=== PATIENT | female | born 1955 | race Caucasian/White ===

== ENCOUNTER 2016-09-25 16:52 | Emergency (ER) | payer MEDICARE, MEDICAID ==
[~2016-09-25] VITALS: Ht 162.6 cm; Wt 81.6 kg
[~2016-09-25 16:52] MED LIST: ASPIRIN CHILDRE81 MG PO; ASPIRIN81 MG PO; ASPRIN OR; BENADRYL 25MG C25 MG PO; BENADRYL 50MG C50 MG; BENTYL10 MG PO; BREO ELLIPTA1 POW IH; BUDEPRION XL150 MG PO; BUPROPION HCL150 M2 PO; BUPROPION XL150 MG PO; CIPRO 500MG TA500 MG PO; CLINDAMYCIN HC300 MG PO; CLOTRIMAZOLE 1%15 GM; CYCLOBENZAPRINE10 MG PO; DICLOFENAC 50MG50 MG PO; DICLOFENAC SOD75 MG PO; DOXYCYCLINE HY100 M3 PO; DUONEB 3 MG/3 ML3 ML IH; FAMOTIDINE 20MG20 MG PO; FAMOTIDINE20 MG PO; FLEXERIL10 M1 PO; FLEXERIL10 MG PO; FLUOXETINE HCL20 M1 PO; FLUOXETINE HCL40 MG PO; FLUOXETINE20 MG PO; FLUOXETINE40 MG PO; HEARTBURN RELIE20 MG PO; HYDROXYZINE HCL25 M1 PO; KEFLEX 500MG.500 MG PO; LEVOTHYROXINE0.05 MG NG; LEVOTHYROXINE0.05 MG PO; LEVOTHYROXINE0.1 M2 PO; LISINOPRIL 20MG20 MG PO; LISINOPRIL HCTZ1 TAB PO; LISINOPRIL/HCTZ1 TA3 PO; LODINE200 MG PO; LORTAB 5/500 501 TAB PO; LOVASTATIN20 MG PO; MEDROL 4MG. DOSE4 MG PO; MOTRIN 400MG.400 MG PO; MULTI VITAMINS1 TA1 PO; MULTI VITAMINS1 TAB PO; MULTIVITAMIN1 TA1 PO; NAPROSYN 500MG500 MG PO; NEURONTIN800 MG PO; OXYBUTYNIN CHLOR5 MG PO; OXYBUTYNIN5 MG PO; OXYGEN XX; PERCOCET 10 MG1 EACH PO; PERCOCET 325 MG1 TA4 PO; PERCOCET 650 MG1 TAB PO; PHENERGAN 25MG.25 M1 PO; PHENERGAN25 M3 PO; PRAVACHOL 40MG40 MG PO; PRAVASTATIN40 MG PO; PRILOSEC40 MG PO; Pepcid20 MG PO; ROBAXIN-750750 MG PO; SILVADENE400 GM/JAR EX; ST. JOSEPH81 M1 PO; SYNTHROID 0.00.05 MG PO; TORADOL10 MG PO; TRAMADOL50 M1 PO; TRAZADONE HYDR100 MG PO; TRAZODONE100 MG; TRAZODONE100 MG PO; URECHOLINE 25MG25 MG PO; VIBRAMYCIN 100100 MG PO; VICODIN 5/500 T1 TAB PO; VITAMIN D31000 I1 PO; VOLTAREN75 MG PO; [UNRECOGNIZED DRUG - OTHER] PO
[2016-09-25] MEDS ORDERED: CYCLOBENZAPRINE10 MG PO (17:07)
[2016-09-25] MEDS ORDERED: VENTOLIN H0.09 MG/AC IH (17:09)
[2016-09-25] MEDS ORDERED: BREO ELLIPTA1 POW IH (17:09)
--- OUTSIDE RECORDS SUMMARY | 2016-09-25 17:12 | External Medical Summary Rpt ---
Author Author , Organization [employer] Address Unknown Phone Unavailable Care Team Providers Care Senior System Operator Name Role Phone JHAVERI FABY, JHAVERI Unavailable Unavailable FABY [facility] Unavailable Unavailable [place], [facility] [facility] ALLRAN JR LIBAN, ALLRAN Unavailable Unavailable JR LIBAN HANNA STOUT, Unavailable Unavailable HANNA DARBY MD, PSC, Unavailable Unavailable NATHAN DARBY MD, PSC [facility] Unavailable [facility] SIENA WREN Unavailable Unavailable WREN KAT, WREN Unavailable Unavailable TRAVIS FELDMAN, Unavailable Unavailable ,PSC, SIENA FELDMAN MD,PSC BEIS[place]KE [place], FRANK Unavailable Unavailable [place] OROZCO ALL, OROZCO ALL Unavailable Unavailable [facility] Unavailable Unavailable BUX ANJ, BUX ANJ Unavailable Unavailable CHIPPS ANNA & Unavailable Unavailable DUBILIER, CHIPPS ANNA [facility] DUBILIER SONG LEANDER, SONG Unavailable Unavailable LEANDER FIONA ALLISON, Unavailable Unavailable FIONA ALLISON [facility] Unavailable Unavailable [facility] ADHIKARI LAYNE, ADHIKARI LAYNE Unavailable Unavailable DUFF VANESA, DUFF VANESA Unavailable Unavailable [facility], [facility] Unavailable Unavailable [facility], [facility] Unavailable Unavailable [facility] Unavailable Unavailable [facility], [facility] Unavailable Unavailable [facility], [facility] KEARNS MOY, KEARNS Unavailable Unavailable MOY CRISTIAN ROSA MARIA, CRISTIAN Unavailable Unavailable ROSA MARIA [facility] Unavailable Unavailable INC, [facility] Unavailable Unavailable HOSPITAL P, [facility], [facility]available Unavailable [facility] Unavailable Unavailable [facility] Unavailable Unavailable [facility], [facility] RACHAEL MANNINGO, RACHAEL IMELDA Unavailable Unavailable BULLOCK ALLISON, BULLOCK ALLISON Unavailable Unavailable [facility] Unavailable Unavailable [facility], [facility] Unavailable Unavailable [facility] ETTA CRI, ETTA CRI Unavailable Unavailable KORY LALA, KORY LALA Unavailable Unavailable CLEO JR DWI, CLEO Unavailable Unavailable JR DWI GARCIA RYLAN, GARCIA Unavailable Unavailable RYLAN LOPEZ JAM, Unavailable Unavailable LOPEZ JAM [facility] Unavailable Unavailable LLC, [facility], [facility] Unavailable Unavailable [facility], Unavailable Unavailable [facility] Unavailable [facility] Unavailable [facility] RICHEY SEA, RICHEY SEA Unavailable Unavailable PAVEZ MAR, PAVEZ MAR Unavailable Unavailable ANN PITER, ANN PITER Unavailable Unavailable PETTEY JAM, PETTEY Unavailable Unavailable JAM RAYBON, RAYBON Unavailable Unavailable ROZ TOD, ROZ TOD Unavailable Unavailable YANG GAV, YANG GAV Unavailable Unavailable SCIFRES, SCIFRES Unavailable Unavailable [facility] Unavailable Unavailable [facility], [facility] Unavailable Unavailable [facility], [facility] ERYN SHE, Unavailable Unavailable ERYN SHE GOODMAN VANESA, GOODMAN Unavailable Unavailable VANESA [facility], Unavailable Unavailable [facility] Camron Meadows MD, Unavailable Unavailable Camron Meadows MD AMBER PHI, AMBER PHI Unavailable Unavailable [facility], Unavailable Unavailable [facility] Unavailable Unavailable DEPT [facility] Unavailable Unavailable DEPT [facility] BERTHA TRA, Unavailable Unavailable BERTHA TRA DWYER, DWYER Unavailable Unavailable DWYER MAR, DWYER MAR Unavailable Unavailable [facility] Unavailable Unavailable [facility] [place], [facility] [place] FELDMAN PET, FELDMAN Unavailable Unavailable PET [facility], Unavailable Unavailable [facility] Purpose Continuity of Care Document - 08-04-2012 through 2016 Problems Code Diagnosis DOS Provider Status [id number] SPONDYLOSIS 08-29-2016 SIENA W/O FRANCIA MYELOPATH/R ,PSC ADICULOPATH Y LUMB RGN 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-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 SIENA 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 USE GAMAL FELDMAN MD,PSC ANALGESIC 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 J301 ALLERGIC 07-22-2016 [facility]IS [facility] DUE TO [place] POLLEN J3081 ALLERG 07-22-2016 [facility] D/T ANIMAL [place] CAT DOG HAIR & DANDER J3089 OTHER 07-22-2016 [facility] [place] 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-02-2016 SIENA INTERVMARIANN ZUNIGA MD,PSC DEGEN LUMBAR REGION [id number] ADVERS EFF 06-11-2016 [facility] OTH RX MEDS [facility] BIO [place] SUBSTANCES INIT ENC Z720 TOBACCO USE 06-11-2016 [facility] [place] H2513 AGE-RELATED 06-06-2016 [facility] NUC[facility] CAT[facility]ACT [facility]ENTER BILATERAL M810 AGE-RELATED 04-30-2016 ELICEO MEDINA MD,PSC S W/O CURRNT PATH FX J440 COPD WITH 04-02-2016 [facility] ACUTE LOWER [facility] [place] RESPIRATORY INFECTION J4530 MILD 04-02-2016 [facility] PERSISTENT [facility] ASTHMA [place] UNCOMPLICAT ED Z889 ALLERGY 04-02-2016 [facility] STATUS UNS [facility]NERS OF RX MEDS & [place] BIOLOG SUBSTANC STS G8929 OTHER 01-02-[address] [facility] CHRONIC PHYSICIANS PAIN GROUP M5137 OTH 01-02-[address] [facility]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 [id number] PAIN IN 01-02-[address] [facility] LEFT HAND PHYSICIANS GROUP M5416 RADICULOPAT 12-28-2015 SIENA HY LUMBAR CAILIN FELDMAN MD,PSC M545 LOW BACK 12-28-2015 S[facility]NA PAIN MD FRANCIA,PSC I10 ESSENTIAL 12-04-[address] [facility] PRIMARY PHYSICIANS HYPERTENSIO GROUP N [id number] OTHER LONG 12-04-2015 [facility] CURRENT INC DRUG THERAPY Z1231 ENCOUNTER 11-23-2015 [facility] SCRE[facility]ING [facility] MAMMO MALIG IMAGING ASS NEOPLASM BREAST N390 URINARY 11-16-2015 [facility] TRACT [facility] INFECTION INC SITE NOT SPECIFIED M519 UNS THOR 11-06-[address] 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 PERINEAL PHYSICIANS PAIN GROUP R109 UNSPECIFIED 10-24-[address] [facility] ABDOMINAL PHYSICIANS PAIN GROUP [id number] OTHER 10-24-[address] [facility] COMPLICATIO PHYSICIANS NS PROC NEC GROUP INITIAL ENCOUNTER G4733 OBSTRUCTIVE 10-20-2015 [facility] APNEA ADULT MEDICAL PEDIATRIC EQUIPME M6580 OTHER 10-16-[address] [facility] SYNOVITIS & PHYSICIANS GROUP TENOSYNOVIT IS UNSPECIFIED SITE K469 UNS 10-15-2015 [facility]OMINAL [facility] HERNIA W/O INC OBSTRUCTION OR GANGRENE R1031 RIGHT LOWER 10-15-2015 [facility] P21681 PERSONAL HX 10-15-2015 [facility] AMBIKA RECTUM IMAGING ASS RS JUNC & ANUS R8290 UNSPECIFIED 10-10-2015 [facility] ABNORMAL [facility] FINDINGS IN INC URINE E039 HYPOTHYROID 10-09-[address] [facility] ISM PHYSICIANS UNSPECIFIED GROUP E785 HYPERLIPIDE 10-09-[address] [facility] MARY PHYSICIANS UNSPECIFIED GROUP M5116 INTERVERTEB 10-09-[address] [facility] RAL DISC PHYSICIANS D/O GROUP W/RADICULOP ATHY LUMB RGN [id number] PAIN IN 09-23-2015 [facility] UNSPECIFIED [facility] HIP INC M23232 PAIN IN 09-17-[address] [facility] RIGHT HIP PHYSICIANS GROUP R1030 LOWER 07-27-2015 [facility] PAIN UNSPECIFIED R748 ABNORMAL 07-27-2015 [facility] OTHER SERUM ENZYMES Z0000 ENCOUNTER 07-11-2015 [facility] MED EXAM W/O ABNORMAL FIND K219 GASTRO-ESOP 06-09-2015 [facility] REFLUX [facility] DISEASE INC WITHOUT ESOPHAGITIS R1032 LEFT LOWER 06-09-2015 [facility] R1084 GENERALIZED 06-09-2015 [facility]AL [facility] PAIN INC K651 PERITONEAL 05-08-2015 [facility] ABSCESS [facility] INC [id number] LAC NO FB 04-24-2015 [facility] AW UNS QUAD [facility] NO PEN INC PERITN CAV SEQUELA 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 04-24-2015 [facility] ABSENCE OF [facility] BOTH CERVIX INC AND UTERUS 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 BENIGN 04-04-2015 [place] NEOPLASM OF [facility] COLON UNSPECIFIED X48038 PERSONAL HX 04-04-2015 [facility] NE[facility] LARGE INTESTINE J471 BRONCHIECTA 04-02-2015 [place] [facility] WITH PHARMACY OF ACUTE [facility] EXACERBATIO N R05 COUGH 03-22-2015 [facility] R509 FEVER 03-22-2015 [facility] UNSPECIFIED [facility]ICAL IMAGING ASS [id number] OTHER 03-22-2015 [place] COMPLICATIO [facility] NS INC ANESTHESIA INITIAL ENCOUNTER D125 BENIGN 03-21-2015 [place] NEOPLASM OF HOSPITAL SIGMOID COLON Z1211 ENCOUNTER 03-21-2015 [facility] MALIGNANT NEOPLASM OF COLON R32 UNSPECIFIED 03-20-2015 [facility] P E H48298 COMBINED 03-13-2015 [place] [facility] SERV 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 S51819 UNSPECIFIED 03-13-2015 [facility] ASTIGMATISM [facility] BILATERAL K921 MELENA 02-23-2015 [facility] [id number] OTHER 02-23-2015 [facility] SPECIFIED SERV URINARY FOUNDATION INCONTINENC E R159 FULL 02-23-2015 [facility] E OF FECES 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 OF RECTUM PHYSICIANS AND ANUS GROUP 47718 DEGEN 02-06-2015 [place] LUMBAR/LUMB [facility] OSACRAL INC INTERVERTEB RAL DISC 7244 THORACIC/JONATHAN 02-06-2015 ZEINA SARGENT MD, PSC NEURITIS/RA DICULITIS UNSPEC 32240 UNSPECIFIED 02-06-2015 [facility] P 53082 EXTRINSIC 02-01-2015 [place] ASTHMA, PHARMACY OF UNSPECIFIED [facility] 4019 UNSPECIFIED 01-30-2015 [facility] HYPERTENSIO [facility] P N 8793 OPEN WOUND 01-30-2015 [facility] ABDOMINAL MEDICAL WALL IMAGING ASS ANTERIOR COMPLICATED 9975 URINARY 01-30-2015 [place] COMPLICATIO [facility] P V1089 PERSONAL 01-30-2015 [facility] MALIGNANT [facility] P NEOPLASM OTHER SITE V8801 ACQUIRED 01-25-2015 [place] ABSENCE OF MEDICAL BOTH CERVIX IMAGING ASS AND UTERUS 2331 CARCINOMA 01-22-2015 [facility] OF ANNA & CERVIX DUBILIER UTERI 6271 POSTMENOPAU 01-22-[address] [facility] LUDY PHYSICIANS BLEEDING GROUP 01474 PAP SMER 01-22-2015 [facility] CERV W/HI [facility] GRADE INC SQUAMOUS INTRAEPITH LES 7969 OTHER 01-22-[address] [facility] NONSPECIFIC PHYSICIANS ABNORMAL GROUP FINDING V1090 PERSONAL 01-22-[address] [facility] HISTORY PHYSICIANS UNSPECIFIED GROUP MALIGNANT NEOPLASM 7213 LUMBOSACRAL 01-12-2015 NATHAN DARBY MD, PSC SPONDYLOSIS WITHOUT MYELOPATHY 7248 OTHER 01-12-2015 [facility] SYMPTOMS [facility] REFERABLE INC TO BACK 52318 OTHER 01-09-2015 [facility] NONSPECIFIC [facility] ABNORMAL INC FINDING OF LUNG FIELD 01141 DISPLCMT 01-08-2015 NATHAN DARBY, LUMBAR , PSC INTERVERT DISC W/O MYELOPATHY 0398 ACTINOMYCOT 12-25-2014 [facility] INFECTION OF OTHER SPECIFIED SITES 2360 NEOPLASM OF 12-25-2014 [facility] UNCERTAIN LLC BEHAVIOR OF UTERUS 54572 OBSTRUCTIVE 07-26-2014 [facility] CHRONIC [facility] BRONCHITIS INC WITHOUT EXACERBAT 61226 NONSPEC 07-26-2014 [facility] REACT [facility] TUBERCULIN [place] [address] HYPOXEMIA 07-26-2014 [facility] INC 3669 UNSPECIFIED 07-21-2014 [facility] CATARACT SERV FOUNDATION 94691 ESOPHAGEAL 07-21-2014 [place] [facility] RE[facility] 01264 OTHER SLEEP 07-21-2014 [facility] DISTURBANCE FOUNDATION S 86394 FULL 07-10-2014 [facility] INCONTINENC SERV E OF FECES FOUNDATION 20314 UNSPECIFIED 07-10-2014 [facility] URINARY SERV INCONTINENC FOUNDATION E V1006 PERS HX MAL 07-10-2014 [place] [facility] NEOPLSM SERV RECT [facility]OUNDATION RECTOSIGMOI D JUNC&ANUS 1541 MALIGNANT 06-26-2014 [place] [facility] NEOPLAS[facility] OF SERV RECTUM FOUNDATION V153 PERS HX 06-26-2014 [facility] 1542 MALIGNANT 06-02-2014 [place] [facility] OF SERV ANAL CANAL FOUNDATION 05021 OTHER 06-02-2014 [facility] PAIN 29444 URGENCY OF 06-02-2014 [place] 60287 06-02-2014 [facility] ION SER 92023 SHORTNESS 05-10-2014 [place] OF BREATH [facility]ICAL IM[facility] 92122 OTHER 04-10-2014 [place] [facility] SPECIFIED SERV DISORDER OF FOUNDATION RECTUM AND ANUS 6238 OTHER 04-10-2014 [facility] SPECIFIED SERV NONINFLAMMA FOUNDATION TORY DISORDER VAGINA V7284 UNSPECIFIED 04-06-[address] [facility] PHYSICIANS PRE-OPERATI GROUP VE EXAMINATION 1543 MALIGNANT 04-05-2014 [place] NEOPLASM OF HOSPITAL ANUS UNSPECIFIED SITE 63888 CHRONIC 04-05-2014 [facility] ASTHMA UNSPECIFIED 88987 NONSPECIFIC 04-05-2014 [facility] ELECTROCARD IOGRAM V7283 OTHER 04-05-2014 [facility] PRE-OPERATI VE EXAMINATION 6829 CELLULITIS 03-27-[address] [facility] AND ABSCESS PHYSICIANS OF GROUP UNSPECIFIED SITE 67427 UNSPECIFIED 03-24-2014 [facility] CONSTIPATIO N 88754 FECAL 03-24-2014 [facility] V463 WHEELCHAIR 03-24-2014 [facility] 7242 LUMBAGO 03-15-2014 [facility] 2113 BENIGN 03-13-2014 [place] [facility] NEOP[facility]M OF SERV COLON FOUNDATION 2114 BENIGN 03-13-2014 [facility] NEOPLASM OF LLC RECTUM AND ANAL CANAL 2352 NEOPLASM 03-13-2014 [facility] UNCERTAIN [facility] BEHAVIOR INC STOMACH INTEST&RECT 55170 DIVERTICULO 03-13-2014 [place] [facility] SIS OF [facility] COLON FOUNDATION 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 LLC 42521 OTHER 03-13-2014 [facility] SPECIFIED LLC DISORDER OF INTESTINES V142 PERSONAL 03-13-2014 [facility] HISTORY OF [facility] ALLERGY TO INC SULFONAMIDE S V1551 PERSONAL 03-09-2014 [place] [facility]ORY OF [facility] TRAUMATIC FOUNDATION FRACTURE 2449 UNSPECIFIED 02-24-[address] [facility] PHYSICIANS HYPOTHYROID GROUP ISM 02945 PAIN IN 02-13-2014 [facility] JOINT, SITE MEM HOS[facility] INC UNSPECIFIED 70726 OTHER&UNSPE 02-13-[address] [facility] CIFIED DISC PHYSICIANS DISORDER GROUP CERVICAL REGION 12653 OSTEOARTHRO 02-07-[address] [facility] S UNSPEC PHYSICIANS WHETHER GROUP GEN/LOC UNSPEC SITE 79015 PAIN IN 01-23-2014 [facility] JOINT, [facility] UPPER ARM INC 99345 PAIN IN 01-23-2014 [facility] JO[facility], [facility] LOWER LEG INC V571 OTHER 01-23-2014 [facility] PHYSICAL [facility] THERAPY INC 41110 ANAL OR 12-14-2013 [facility] RECTAL PAIN [facility] P 7295 PAIN IN 12-13-2013 [facility] SOFT PATHOLOGIST TISSUES OF S LLC LIMB 34923 ATHEROSLERO 10-27-2013 [facility] NATV ART [facility] EXTREM INC W/INTERMIT CLAUDICAT V016 CONTACT 07-05-2013 [facility] WITH OR DISTRICT EXPOSURE TO [facility] DEPT VENEREAL MADI DISEASES 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-29-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 LLC OF CERVIX 73068 PAP SMER 06-29-2013 [facility] W/[facility]YP[facility] CLINIC OF SQUAMOUS [place] CELLS UNDET 06054 OTH 06-29-2013 [facility] U SMEAR [place] CERVIX&CERV HPV V2542 SURVEILLANC 06-29-2013 [facility] E PREV [facility] OF CNTRACPT [place] DEVC V7612 OTHER 06-15-2013 [place] SCREENING [facility] MAMMOGRAM INC 53247 CERV HIGH 06-07-2013 [facility] RISK HUMAN LLC PAPILLOMAVI MISAEL DNA TEST POS V2689 OTHER 06-07-2013 [facility] PROCREATIVE [facility] DEPT MANAGEMENT MADI V700 ROUTINE 06-07-2013 [facility] MEDICAL [facility] DEPT EXAM@[facility] CARE FACL V7231 ROUTINE 06-07-2013 [facility] GYNECOLOGIC LLC AL EXAMINATION [id number] Alcohol [place] abuse [facility] 244.9 Hypothyroid [facility] 305.1 Tobacco [place] user [facility] [id number] Acute [place] pyelonephri [facility] [id number] Major [place] depressive [facility] 401.9 Essential [place] hypertensio [facility] [id number] Obesity [facility] 530.81 Gastroesoph [place] ageal [facility] reflux [facility] disease 794.4 Abnormal [place] renal [facility] 977.9 Drug [place] overdose - [facility] Allergies, Adverse Reactions, Alerts Type Drug Allergy Adverse Reaction to Substance Substance Reaction Severity Codeine I-HIVES Intermediate Trimethoprim I-HIVES Intermediate Sulfamethoxazole I-HIVES Intermediate Clinical Alert Notifications Alert Asthma: no influenza vaccine in the last 365 days Medications Na ND Rx Da Fi Fi Am Da Di Ph RX Ph St me C No te ll ll ou ys ag ar # ys at rm s nt no ma ic us Or Da si cy ia de te s n re d HY [address] 40 -1 OC 60 4- Lo OD 36 20 ng ON 56 13 er -A 2 CE Ac TA ti MO ve NO PH EN 5- 32 5 FL 00 10 0 No UO 90 -1 XE 45 4- Lo TI 78 20 ng NE 56 13 er 1 HC Ac L ti 20 ve MG CA PS UL E LI 68 10 0 No SI 18 -1 NO 00 4- Lo FL 51 20 ng IL 80 13 er -H 1 CT Ac Z ti 10 ve -1 2. 5 MG TA B Li 00 10 0 No si 17 -1 no 23 4- Lo pr 75 20 ng il 91 13 er 0 10 Ac MG ti ve Ta bl et NI 00 10 0 No CO 06 -1 TI 75 4- Lo NE 12 20 ng 61 13 er 21 4 Ac MG ti /2 ve 4H R PA TC H FL 49 10 0 No UZ 28 -1 ON 10 4- Lo E 39 20 ng 20 21 13 er 13 5 -2 Ac 01 ti 4 ve AL CE 00 10 0 No FT 40 -1 RI 97 4- Lo AX 33 20 ng ON 30 13 er E 4 1 Ac GM ti ve AL SO 00 10 0 No DI 40 -1 UM 97 4- Lo 10 20 ng CH 16 13 er LO 6 RI Ac DE ti ve 0. 9% SO LN SO 00 10 0 No DI 40 -1 UM 97 3- Lo 98 20 ng CH 30 13 er LO 9 RI Ac DE ti ve 0. 9% SO JONATHAN TI ON Sa 63 10 0 No li 80 -1 ne 70 3- Lo 10 20 ng Fl 07 13 er us 5 h Ac 10 ti ML ve Sy ri ng e ON 00 10 0 No DA 64 -1 NS 16 3- Lo ET 08 20 ng RO 02 13 er N 5 HC Ac L ti 4 ve MG /2 ML AL 63 10 1 No PI 73 -1 RI 90 3- Lo N 43 20 ng 81 40 13 er 1 MG Ac ti CH ve EW AB LE TA BL ET WE 00 10 1 No LL 17 -1 BU 30 3- Lo TR 13 20 ng IN 55 13 er 5 SR Ac ti 15 ve 0 MG TA BL ET SY 00 10 1 No NT 07 -1 HR 44 3- Lo OI 55 20 ng D 21 13 er 50 1 Ac MC ti G ve TA BL ET LE 68 03 0 No VO 08 -1 FL 40 6- Lo OX 48 20 ng AC 30 13 er IN 1 Ac 75 ti 0 ve MG TA BL ET PN 00 03 0 No EU 00 -1 MO 64 6- Lo VA 94 20 ng X 30 13 er 23 0 Ac ti AL ve IN 58 03 0 No FL 16 -1 UE 00 6- Lo NZ 87 20 ng A 95 13 er 2 RU Ac S ti VA ve CC IN E 0. 5M L CI 24 03 0 No TR 38 -1 AT 50 5- Lo E 67 20 ng OF 51 13 er 0 MA Ac GN ti ES ve IA SO LN Ke 50 03 1 No to 11 -1 ro 10 5- Lo la 60 20 ng c 80 13 er 10 1 MG Ac ti Ta ve bl et HY [address] 40 -1 OC 60 5- Lo OD 36 20 ng ON 56 13 er -A 2 CE Ac TA ti MO ve NO PH EN 5- 32 5 LE 25 03 0 No VO 02 -1 FL 10 5- Lo OX 13 20 ng AC 28 13 er IN 3 Ac 75 ti 0 ve MG /1 50 ML -D 5W SY 00 03 2 No NT 07 -1 HR 44 4- Lo OI 55 20 ng D 21 13 er 50 1 Ac MC ti G ve TA BL ET LI 68 03 2 No SI 18 -1 NO 00 4- Lo FL 51 20 ng IL 80 13 er -H 1 CT Ac Z ti 10 ve -1 2. 5 MG TA B Fl 00 03 0 No uo 40 -1 xe 60 4- Lo ti 66 20 ng ne 36 13 er 2 20 Ac MG ti ve Ca ps ul e WE 00 03 0 No LL 17 -1 BU 30 4- Lo TR 13 20 ng IN 55 13 er 5 SR Ac ti 15 ve 0 MG TA BL ET Fl 00 03 2 No uo 40 -1 xe 60 4- Lo ti 66 20 ng ne 36 13 er 2 20 Ac MG ti ve Ca ps ul e LE 25 03 0 No VO 02 -1 FL 10 3- Lo OX 13 20 ng AC 28 13 er IN 3 Ac 75 ti 0 ve MG /1 50 ML -D 5W SO 00 03 3 No DI 40 -1 UM 97 3- Lo 98 20 ng CH 42 13 er LO 0 RI Ac DE ti ve 0. 9% SO JONATHAN TI ON ON 00 03 0 No DA 64 -1 NS 16 3- Lo ET 08 20 ng RO 02 13 er N 5 HC Ac L ti 4 ve MG /2 ML AL Sa 63 03 1 No li 80 -1 ne 70 3- Lo 10 20 ng Fl 07 13 er us 5 h Ac 10 ti ML ve Sy ri ng e KE 00 03 0 No TO 40 -1 RO 93 3- Lo LA 79 20 ng C 50 13 er 30 1 Ac MG ti /M ve L AL FL 00 03 3 No OM 64 -1 ET 11 3- Lo ESPINOZA 49 20 ng ZI 53 13 er NE 5 Ac 25 ti ve MG /M L AM PU L Mo 00 03 2 No rp 40 -1 hi 91 3- Lo ne 25 20 ng 83 13 er 4M 0 G/ Ac Ml ti ve Sy ri ng e Ni 00 03 3 No co 06 -1 ti 70 3- Lo ne 21 20 ng 40 13 er 14 7 MG Ac /2 ti 4H ve R Pa tc h FA 51 03 3 No MO 07 -1 TI 90 3- Lo DI 96 20 ng NE 62 13 er 0 20 Ac ti MG ve TA BL ET Ox 00 03 3 No yb 18 -1 ut 21 3- Lo yn 28 20 ng in 98 13 er 9 5M Ac G ti Ta ve bl et OX 00 03 3 No AZ 22 -1 EP 82 3- Lo AM 06 20 ng 91 13 er 15 0 Ac MG ti ve CA PS UL E Vital Signs 03-07-2013 18:04 Name Value Interpretat Reference Comment ion Range Body 98.3 [degF] Temperature BP 98 mm[Hg] Diastolic BP Systolic 154 mm[Hg] Heart 66 /min Rate/Pulse Respiratory 17 /min Rate 03-07-2013 12:18 Name Value Interpretat Reference Comment ion Range O2% 97 % 03-06-2013 03:51 Name Value Interpretat Reference Comment ion Range Height 152.40 cm Weight 65.857 kg Measured 03-06-2013 00:32 Name Value Interpretat Reference Comment ion Range Body 98.8 [degF] Temperature BP 48 mm[Hg] Diastolic BP Systolic 81 mm[Hg] Heart 67 /min Rate/Pulse O2% 94 % Respiratory 20 /min Rate Weight 0 [oz_av] Measured 08-07-2012 10:00 Name Value Interpretat Reference Comment ion Range Body 98.6 [degF] Temperature BP 78 mm[Hg] Diastolic BP Systolic 136 mm[Hg] Heart 76 /min Rate/Pulse Respiratory 18 /min Rate 08-07-2012 04:00 Name Value Interpretat Reference Comment ion Range O2% 94 % 08-04-2012 15:50 Name Value Interpretat Reference Comment ion Range Height 157.48 cm Weight 63.107 kg Measured 08-04-2012 11:18 Name Value Interpretat Reference Comment ion Range Body 99.5 [degF] Temperature BP 77 mm[Hg] Diastolic BP Systolic 123 mm[Hg] Heart 87 /min Rate/Pulse O2% 95 % Respiratory 20 /min Rate Weight 0 [oz_av] Measured Results Labs Lab Lab Date Result Refere Interp Status Commen Order Detail nces retati t Range on LIVER PROFILE (03-07-2013 08:45) Prot --2 5.7 6.4-8.2 complet SerPl-m 013 gm/dL ed Cnc 08:45 Albumin 03-07-2 2.5 3.4-5.0 complet 013 gm/dL ed SerPl-m 08:45 Cnc Bilirub 14-2 0.2 0.2-1.0 complet 013 mg/dL ed SerPl-m 08:45 Cnc Bilirub 03-07-2 0.09 0.0-0.2 complet Direct 013 mg/dL ed 08:45 SerPl-m Cnc Bilirub 10-2 0.11 0-0.9 complet 013 mg/dL ed Indirec 08:45 t SerPl-m Cnc AST 03-07-2 32 U/L 15-37 complet SerPl-c 013 ed Cnc 08:45 ALT 03-07- 66 U/L 30-65 complet SerPl-c 013 ed Cnc 08:45 ALP 03-07-2 124 U/L 50-136 complet SerPl-c 013 ed Cnc 08:45 LDH (03-07-2013 08:45) LDH 03-07-2 181 U/L 82-234 complet 013 ed 08:45 COMPREHENSIVE METABOLIC PANEL (03-07-2013 04:35) Glucose 03-07- 89 74-106 complet 013 mg/dL ed Bld-mCn 04:35 c BUN 03-07- 14 7-18 complet Bld-mCn 013 mg/dL ed c 04:35 Creat 03-07-2 1.0 0.6-1.0 complet SerPl-m 013 mg/dL ed Cnc 04:35 ESTIMAT 03-07-2 66 50-200 complet ED 013 ML/MIN ed CREATIN 04:35 INE CLEARAN CE GFR 03-07-2 58 59- complet (ESTIMA 013 ML/MIN ed LUANN) 04:35 Sodium 03-07-2 142 136-145 complet SerPl-s 013 mmoL/L ed Cnc 04:35 Potassi 03-07-2 4.9 3.5-5.1 complet um 013 mmoL/L ed SerPl-s 04:35 Cnc Chlorid 03-07-2 108 98-107 complet e 013 mmoL/L ed SerPl-s 04:35 Cnc CO2 14-2 28 21.0-32 complet SerPl-s 013 mmoL/L .0 ed Cnc 04:35 Calcium -14-2 7.7 8.5-10. complet 013 mg/dL 1 ed SerPl-m 04:35 Cnc Prot -14-2 5.6 6.4-8.2 complet SerPl-m 013 gm/dL ed Cnc 04:35 Albumin -14-2 2.5 3.4-5.0 complet 013 gm/dL ed SerPl-m 04:35 Cnc GLOBULI 03-07-2 3.1 1.3-3.2 complet N 013 gm/dL ed 04:35 ALB/MAT 03-07-2 0.8 UNK 1.1-1.8 complet B RATIO 013 ed 04:35 Bilirub 03-07-2 0.3 0.2-1.0 complet 013 mg/dL ed SerPl-m 04:35 Cnc AST 03-07-2 33 U/L 15-37 complet SerPl-c 013 ed Cnc 04:35 ALT 14-2 67 U/L 30-65 complet SerPl-c 013 ed Cnc 04:35 ALP 03-07-2 118 U/L 50-136 complet SerPl-c 013 ed Cnc 04:35 THYROID STIM HORMONE (03-07-2013 04:35) THYROID 03-07-2 2.48 0.358-3 complet STIM 013 uIU/ml .740 ed HORMONE 04:35 CBC with AUTO DIFF (03-07-2013 04:35) WBC # 10-14-2 6.8 4.8-10. complet Bld 013 K/MM3 8 ed Auto 04:35 RBC # -14-2 3.61 4.2-5.4 complet Bld 013 M/mm3 ed Auto 04:35 Hgb -14-2 11.9 12.2-16 complet Bld-mCn 013 g/dL .2 ed c 04:35 Hct Fr 03-07-2 36.1 % 37.0-47 complet Bld 013 .0 ed 04:35 MCV RBC 03-07-2 100.0 82.2-97 complet 013 fl .8 ed 04:35 MCH RBC 10-14-2 33.0 pg 27-31.2 complet Qn 013 ed Auto 04:35 MEAN 10-14-2 33.0 31.8-35 complet CORPUSC 013 g/dl .4 ed ULAR 04:35 HGB CONC RDW RBC 10-14-2 16.0 % 11.5-17 complet Auto 013 .5 ed 04:35 Platele 10-14-2 287 142-424 complet t Bld 013 K/mm3 ed Ql 04:35 Manual MEAN 10-14-2 7.1 fl 7.4-10. complet PLATELE 013 4 ed T 04:35 VOLUME Granulo 10-14-2 72.0 % 37.0-80 complet cytes 013 .0 ed Fr Bld 04:35 Auto LYMPH % 10-14-2 18.4 % 10-50.0 complet 013 ed 04:35 Monocyt 10-14-2 6.9 % 1.7-9.3 complet es Fr 013 ed Bld 04:35 Auto Eosinop 10-14-2 2.3 % 0.1-12. complet hil Fr 013 0 ed Bld 04:35 Auto Basophi 10-14-2 0.4 % 0.1-2.0 complet ls Fr 013 ed Bld 04:35 Auto Granulo 10-14-2 4.9 1.8-7.8 complet cytes # 013 K/mm3 ed Bld 04:35 Auto Lymphoc 10-14-2 1.3 0.7-4.5 complet ytes Fr 013 K/mm3 ed Bld 04:35 Auto Monocyt 10-14-2 0.5 0.1-1.0 complet es # 013 K/mm3 ed Bld 04:35 Auto Eosinop 10-14-2 0.2 0.0-0.4 complet hil # 013 K/mm3 ed Bld 04:35 Auto Basophi 10-14-2 0.0 0-0.2 complet ls # 013 K/MM3 ed Bld 04:35 Auto URINALYSIS/COMPLETE (03-06-2013 06:45) URINE 10-13-2 YELLOW YELLOW complet COLOR 013 ed 06:45 URINE 10-13-2 CLOUDY CLEAR complet APPEARA 013 ed NCE 06:45 URINE 10-13-2 NEGATIV NEG complet GLUCOSE 013 E ed - 06:45 DIPSTIC K URINE 03-06-2 NEGATIV NEG complet BILIRUB 013 E ed IN - 06:45 DIPSTIC K URINE 03-06-2 NEGATIV NEG complet KETONE 013 E mg/dL ed 06:45 URINE 03-06-2 1.025 1.005-1 complet SPECIFI 013 UNK .030 ed C 06:45 GRAVITY URINE 03-06-2 3+ NEG complet BLOOD 013 ed 06:45 URINE 03-06-2 6.0 UNK 5.0-8.5 complet PH 013 ed 06:45 URINE 03-06-2 TRACE NEG complet PROTEIN 013 mg/dL ed - 06:45 DIPSTIC K URINE 03-06-2 0.2 NEG complet UROBILI 013 E.U./dL ed NOGEN - 06:45 DIPSTIC K URINE 03-06-2 NEGATIV NEG complet NITRATE 013 E ed - 06:45 DIPSTIC K URINE 03-06-2 3+ NEG complet LEUK 013 ed ESTERAS 06:45 E URINE 03-06-2 50-100 0 complet RBC 013 rbc/hpf ed 06:45 URINE 03-06-2 TNTC O complet WBC 013 wbc/hpf ed 06:45 COMPREHENSIVE METABOLIC PANEL (03-06-2013 00:45) Glucose 03-06- 94 74-106 complet 013 mg/dL ed Bld-mCn 00:45 c BUN 03-06- 25 7-18 complet Bld-mCn 013 mg/dL ed c 00:45 Creat 03-06-2 1.1 0.6-1.0 complet SerPl-m 013 mg/dL ed Cnc 00:45 ESTIMAT 03-06-2 58 50-200 complet ED 013 ML/MIN ed CREATIN 00:45 INE CLEARAN CE GFR 03-06-2 52 59- complet (ESTIMA 013 ML/MIN ed LUANN) 00:45 Sodium 03-06- 135 136-145 complet SerPl-s 013 mmoL/L ed Cnc 00:45 Potassi 4.2 3.5-5.1 complet um 013 mmoL/L ed SerPl-s 00:45 Cnc Chlorid 03-06- 99 98-107 complet e 013 mmoL/L ed SerPl-s 00:45 Cnc CO2 24 21.0-32 complet SerPl-s 013 mmoL/L .0 ed Cnc 00:45 Calcium 10-13-2 7.9 8.5-10. complet 013 mg/dL 1 ed SerPl-m 00:45 Cnc Prot 10-13-2 7.2 6.4-8.2 complet SerPl-m 013 gm/dL ed Cnc 00:45 Albumin 10-13-2 3.1 3.4-5.0 complet 013 gm/dL ed SerPl-m 00:45 Cnc Globuli 10-13-2 4.1 1.3-3.2 complet n 013 gm/dL ed Ser-mCn 00:45 c Albumin 10-13-2 0.8 UNK 1.1-1.8 complet /Glob 013 ed SerPl-m 00:45 Rto Bilirub 1013-2 0.2 0.2-1.0 complet 013 mg/dL ed SerPl-m 00:45 Cnc AST 10-13-2 19 U/L 15-37 complet SerPl-c 013 ed Cnc 00:45 ALT -13-2 34 U/L 30-65 complet SerPl-c 013 ed Cnc 00:45 ALP -13-2 133 U/L 50-136 complet SerPl-c 013 ed Cnc 00:45 Acetamin SerPl-mCnc (03-06-2013 00:45) Acetami 10-13-2 2.0 10-30 complet n 013 ug/mL ed SerPl-m 00:45 Cnc Ethanol Bld-mCnc (03-06-2013 00:45) Ethanol 1013-2 159 0-99 complet 013 mg/dL ed Bld-mCn 00:45 c Salicylates SerPl-mCnc (03-06-2013 00:45) Salicyl 10-13-2 3.7 2.8-20. complet ates 013 mg/dL 0 ed SerPl-m 00:45 Cnc CBC with AUTO DIFF (03-06-2013 00:45) WBC # 10-13-2 7.1 4.8-10. complet Bld 013 K/MM3 8 ed Auto 00:45 RBC # 10-13-2 4.02 4.2-5.4 complet Bld 013 M/mm3 ed Auto 00:45 Hgb 10-13-2 13.1 12.2-16 complet Bld-mCn 013 g/dL .2 ed c 00:45 Hct Fr 10-13-2 39.4 % 37.0-47 complet Bld 013 .0 ed 00:45 MCV RBC 10-13-2 98.0 fl 82.2-97 complet 013 .8 ed 00:45 MCH RBC 10-13-2 32.6 pg 27-31.2 complet Qn 013 ed Auto 00:45 MEAN 10-13-2 33.3 31.8-35 complet CORPUSC 013 g/dl .4 ed ULAR 00:45 HGB CONC RDW RBC 10-13-2 16.0 % 11.5-17 complet Auto 013 .5 ed 00:45 Platele 10-13-2 315 142-424 complet t Bld 013 K/mm3 ed Ql 00:45 Manual MEAN 10-13-2 7.1 fl 7.4-10. complet PLATELE 013 4 ed T 00:45 VOLUME Granulo 10-13-2 68.8 % 37.0-80 complet cytes 013 .0 ed Fr Bld 00:45 Auto LYMPH % 10-13-2 24.2 % 10-50.0 complet 013 ed 00:45 Monocyt 10-13-2 4.4 % 1.7-9.3 complet es Fr 013 ed Bld 00:45 Auto Eosinop 10-13-2 1.9 % 0.1-12. complet hil Fr 013 0 ed Bld 00:45 Auto Basophi 10-13-2 0.7 % 0.1-2.0 complet ls Fr 013 ed Bld 00:45 Auto Granulo 10-13-2 4.9 1.8-7.8 complet cytes # 013 K/mm3 ed Bld 00:45 Auto Lymphoc 10-13-2 1.7 0.7-4.5 complet ytes Fr 013 K/mm3 ed Bld 00:45 Auto Monocyt 10-13-2 0.3 0.1-1.0 complet es # 013 K/mm3 ed Bld 00:45 Auto Eosinop 10-13-2 0.1 0.0-0.4 complet hil # 013 K/mm3 ed Bld 00:45 Auto Basophi 10-13-2 0.1 0-0.2 complet ls # 013 K/MM3 ed Bld 00:45 Auto BASIC METABOLIC PANEL (08-06-2012 06:00) Glucose 03-15-2 82 74-106 complet 013 mg/dL ed Bld-mCn 06:00 c BUN 17 7-18 complet Bld-mCn 013 mg/dL ed c 06:00 Creat 08-06-2 1.1 0.6-1.0 complet SerPl-m 013 mg/dL ed Cnc 06:00 ESTIMAT 58 50-200 complet ED 013 ML/MIN ed CREATIN 06:00 INE CLEARAN CE GFR 52 59- complet (ESTIMA 013 ML/MIN ed LUANN) 06:00 Sodium 133 136-145 complet SerPl-s 013 mmoL/L ed Cnc 06:00 Potassi 3.5 3.5-5.1 complet um 013 mmoL/L ed SerPl-s 06:00 Cnc Chlorid 100 98-107 complet e 013 mmoL/L ed SerPl-s 06:00 Cnc CO2 24 21.0-32 complet SerPl-s 013 mmoL/L .0 ed Cnc 06:00 Calcium 8.2 8.5-10. complet 013 mg/dL 1 ed SerPl-m 06:00 Cnc CBC with AUTO DIFF (08-06-2012 06:00) WBC # 08-06-2 9.3 4.8-10. complet Bld 013 K/MM3 8 ed Auto 06:00 RBC # 08-06-2 3.71 4.2-5.4 complet Bld 013 M/mm3 ed Auto 06:00 Hgb 08-06- 11.3 12.2-16 complet Bld-mCn 013 g/dL .2 ed c 06:00 Hct Fr 34.8 % 37.0-47 complet Bld 013 .0 ed 06:00 MCV RBC 93.9 fl 82.2-97 complet 013 .8 ed 06:00 MCH RBC 08-06- 30.6 pg 27-31.2 complet Qn 013 ed Auto 06:00 MEAN 32.5 31.8-35 complet CORPUSC 013 g/dl .4 ed ULAR 06:00 HGB CONC RDW RBC 08-06- 14.1 % 11.5-17 complet Auto 013 .5 ed 06:00 Platele 15-2 255 142-424 complet t Bld 013 K/mm3 ed Ql 06:00 Manual MEAN 15-2 7.6 fl 7.4-10. complet PLATELE 013 4 ed T 06:00 VOLUME Granulo 15-2 78.2 % 37.0-80 complet cytes 013 .0 ed Fr Bld 06:00 Auto LYMPH % -15-2 9.2 % 10-50.0 complet 013 ed 06:00 Monocyt -15-2 10.2 % 1.7-9.3 complet es Fr 013 ed Bld 06:00 Auto Eosinop -15-2 2.3 % 0.1-12. complet hil Fr 013 0 ed Bld 06:00 Auto Basophi 15-2 0.1 % 0.1-2.0 complet ls Fr 013 ed Bld 06:00 Auto Granulo -15-2 7.3 1.8-7.8 complet cytes # 013 K/mm3 ed Bld 06:00 Auto Lymphoc 15-2 0.9 0.7-4.5 complet ytes Fr 013 K/mm3 ed Bld 06:00 Auto Monocyt 15-2 1.0 0.1-1.0 complet es # 013 K/mm3 ed Bld 06:00 Auto Eosinop -15-2 0.2 0.0-0.4 complet hil # 013 K/mm3 ed Bld 06:00 Auto Basophi -15-2 0.0 0-0.2 complet ls # 013 K/MM3 ed Bld 06:00 Auto BASIC METABOLIC PANEL (08-05-2012 06:10) Glucose 08-05-2 97 74-106 complet 013 mg/dL ed Bld-mCn 06:10 c BUN 08-05-2 20 7-18 complet Bld-mCn 013 mg/dL ed c 06:10 Creat 08-05-2 1.4 0.6-1.0 complet SerPl-m 013 mg/dL ed Cnc 06:10 ESTIMAT 08-05- 46 50-200 complet ED 013 ML/MIN ed CREATIN 06:10 INE CLEARAN CE GFR 39 59- complet (ESTIMA 013 ML/MIN ed LUANN) 06:10 Sodium 08-05-2 133 136-145 complet SerPl-s 013 mmoL/L ed Cnc 06:10 Potassi 08-05-2 3.7 3.5-5.1 complet um 013 mmoL/L ed SerPl-s 06:10 Cnc Chlorid 08-05-2 100 98-107 complet e 013 mmoL/L ed SerPl-s 06:10 Cnc CO2 08-05-2 26 21.0-32 complet SerPl-s 013 mmoL/L .0 ed Cnc 06:10 Calcium 08-05-2 8.2 8.5-10. complet 013 mg/dL 1 ed SerPl-m 06:10 Cnc CBC with AUTO DIFF (08-05-2012 06:10) WBC # 14-2 15.9 4.8-10. complet Bld 013 K/MM3 8 ed Auto 06:10 RBC # 08-05-2 3.78 4.2-5.4 complet Bld 013 M/mm3 ed Auto 06:10 Hgb 08-05-2 12.0 12.2-16 complet Bld-mCn 013 g/dL .2 ed c 06:10 Hct Fr 08-05-2 35.6 % 37.0-47 complet Bld 013 .0 ed 06:10 MCV RBC 08-05-2 94.3 fl 82.2-97 complet 013 .8 ed 06:10 MCH RBC 08-05-2 31.7 pg 27-31.2 complet Qn 013 ed Auto 06:10 MEAN 14-2 33.6 31.8-35 complet CORPUSC 013 g/dl .4 ed ULAR 06:10 HGB CONC RDW RBC 08-05-2 14.1 % 11.5-17 complet Auto 013 .5 ed 06:10 Platele 08-05-2 247 142-424 complet t Bld 013 K/mm3 ed Ql 06:10 Manual MEAN 08-05-2 7.3 fl 7.4-10. complet PLATELE 013 4 ed T 06:10 VOLUME Granulo 08-05-2 88.4 % 37.0-80 complet cytes 013 .0 ed Fr Bld 06:10 Auto LYMPH % 14-2 4.2 % 10-50.0 complet 013 ed 06:10 Monocyt 14-2 6.9 % 1.7-9.3 complet es Fr 013 ed Bld 06:10 Auto Eosinop 03-14-2 0.4 % 0.1-12. complet hil Fr 013 0 ed Bld 06:10 Auto Basophi 03-14-2 0.1 % 0.1-2.0 complet ls Fr 013 ed Bld 06:10 Auto Granulo -14-2 14.1 1.8-7.8 complet cytes # 013 K/mm3 ed Bld 06:10 Auto Lymphoc -14-2 0.7 0.7-4.5 complet ytes Fr 013 K/mm3 ed Bld 06:10 Auto Monocyt 03-14-2 1.1 0.1-1.0 complet es # 013 K/mm3 ed Bld 06:10 Auto Eosinop 03-14-2 0.1 0.0-0.4 complet hil # 013 K/mm3 ed Bld 06:10 Auto Basophi 03-14-2 0.0 0-0.2 complet ls # 013 K/MM3 ed Bld 06:10 Auto URINALYSIS/COMPLETE (08-04-2012 13:05) URINE 08-04-2 YELLOW YELLOW complet COLOR 013 ed 13:05 URINE 08-04-2 CLEAR CLEAR complet APPEARA 013 ed NCE 13:05 URINE 08-04-2 NEGATIV NEG complet GLUCOSE 013 E ed - 13:05 DIPSTIC K URINE 08-04-2 NEGATIV NEG complet BILIRUB 013 E ed IN - 13:05 DIPSTIC K URINE 08-04-2 NEGATIV NEG complet KETONE 013 E mg/dL ed 13:05 URINE 08-04-2 1.010 1.005-1 complet SPECIFI 013 UNK .030 ed C 13:05 GRAVITY URINE 08-04-2 TRACE-I NEG complet BLOOD 013 NTACT ed 13:05 URINE 08-04-2 6.5 UNK 5.0-8.5 complet PH 013 ed 13:05 URINE 08-04-2 1+ NEG complet PROTEIN 013 mg/dL ed - 13:05 DIPSTIC K URINE 08-04-2 0.2 NEG complet UROBILI 013 E.U./dL ed NOGEN - 13:05 DIPSTIC K URINE 08-04-2 NEGATIV NEG complet NITRATE 013 E ed - 13:05 DIPSTIC K URINE 03-13-2 2+ NEG complet LEUK 013 ed ESTERAS 13:05 E URINE 3-5 0 complet RBC 013 rbc/hpf ed 13:05 URINE 20-50 O complet WBC 013 wbc/hpf ed 13:05 URINE 3-5 0-5 complet SQUAMOU 013 #/hpf ed S CELLS 13:05 URINE OCC NONE complet RENAL 013 #/HPF ed CELLS 13:05 URINE 4+ O complet BACTERI 013 ed A 13:05 COMPREHENSIVE METABOLIC PANEL (08-04-2012 12:00) Glucose 107 74-106 complet 013 mg/dL ed Bld-mCn 12:00 c BUN 12 7-18 complet Bld-mCn 013 mg/dL ed c 12:00 Creat 1.2 0.6-1.0 complet SerPl-m 013 mg/dL ed Cnc 12:00 ESTIMAT 54 50-200 complet ED 013 ML/MIN ed CREATIN 12:00 INE CLEARAN CE GFR 47 59- complet (ESTIMA 013 ML/MIN ed LUANN) 12:00 Sodium 130 136-145 complet SerPl-s 013 mmoL/L ed Cnc 12:00 Potassi 3.8 3.5-5.1 complet um 013 mmoL/L ed SerPl-s 12:00 Cnc Chlorid 93 98-107 complet e 013 mmoL/L ed SerPl-s 12:00 Cnc CO2 26 21.0-32 complet SerPl-s 013 mmoL/L .0 ed Cnc 12:00 Calcium 8.7 8.5-10. complet 013 mg/dL 1 ed SerPl-m 12:00 Cnc Prot 7.5 6.4-8.2 complet SerPl-m 013 gm/dL ed Cnc 12:00 Albumin 2.6 3.4-5.0 complet 013 gm/dL ed SerPl-m 12:00 Cnc Globuli 4.9 1.3-3.2 complet n 013 gm/dL ed Ser-mCn 12:00 c Albumin 03-13-2 0.5 UNK 1.1-1.8 complet /Glob 013 ed SerPl-m 12:00 Rto Bilirub 0.6 0.2-1.0 complet 013 mg/dL ed SerPl-m 12:00 Cnc AST 08-04- 21 U/L 15-37 complet SerPl-c 013 ed Cnc 12:00 ALT 37 U/L 30-65 complet SerPl-c 013 ed Cnc 12:00 ALP 167 U/L 50-136 complet SerPl-c 013 ed Cnc 12:00 Amylase SerPl-cCnc (08-04-2012 12:00) Amylase 08-04- 11 U/L 25-115 complet 013 ed SerPl-c 12:00 Cnc LIPASE (08-04-2012 12:00) LIPASE 40 U/L 73-393 complet 013 ed 12:00 CBC with AUTO DIFF (08-04-2012 12:00) WBC # 08-04- 23.8 4.8-10. High complet Bld 013 K/MM3 8 alert ed Auto 12:00 RBC # 08-04-2 4.56 4.2-5.4 complet Bld 013 M/mm3 ed Auto 12:00 Hgb 08-04- 14.3 12.2-16 complet Bld-mCn 013 g/dL .2 ed c 12:00 Hct Fr 08-04- 42.6 % 37.0-47 complet Bld 013 .0 ed 12:00 MCV RBC 08-04- 93.5 fl 82.2-97 complet 013 .8 ed 12:00 MCH RBC 08-04-2 31.4 pg 27-31.2 complet Qn 013 ed Auto 12:00 MEAN 33.5 31.8-35 complet CORPUSC 013 g/dl .4 ed ULAR 12:00 HGB CONC RDW RBC 08-04-2 14.6 % 11.5-17 complet Auto 013 .5 ed 12:00 Platele 08-04- 305 142-424 complet t Bld 013 K/mm3 ed Ql 12:00 Manual MEAN 6.7 fl 7.4-10. complet PLATELE 013 4 ed T 12:00 VOLUME Granulo 90.7 % 37.0-80 complet cytes 013 .0 ed Fr Bld 12:00 Auto LYMPH % -13-2 3.6 % 10-50.0 complet 013 ed 12:00 Monocyt 13-2 4.2 % 1.7-9.3 complet es Fr 013 ed Bld 12:00 Auto Eosinop -13-2 1.5 % 0.1-12. complet hil Fr 013 0 ed Bld 12:00 Auto Basophi -13-2 0.1 % 0.1-2.0 complet ls Fr 013 ed Bld 12:00 Auto Granulo -13-2 21.5 1.8-7.8 complet cytes # 013 K/mm3 ed Bld 12:00 Auto Lymphoc -13-2 0.8 0.7-4.5 complet ytes Fr 013 K/mm3 ed Bld 12:00 Auto Monocyt 13-2 1.0 0.1-1.0 complet es # 013 K/mm3 ed Bld 12:00 Auto Eosinop 13-2 0.4 0.0-0.4 complet hil # 013 K/mm3 ed Bld 12:00 Auto Basophi 13-2 0.0 0-0.2 complet ls # 013 K/MM3 ed Bld 12:00 Auto Procedures Procedure DOS Code Location Performer Comment DRUG TEST 81737 SIENA WREN PRS 7 HO FELDMAN MD,[place] CHEMISTRY ANALYZERS O2 CONC 1 E1390 [facility] 85%/>02 [facility] AT [facility] FLW RATE PREPJ& 55686 ALLERGY DWYER ALLERGEN 7 PARTNERS IMMUNOTHE OF [place] RAPY CO 1/STRUCTURAL STEEL FITTER ANTIGEN O2 CONC 1 E1390 CAITLIN [facility] 7 HOME HOME 85%/>02 [facility] CON[facility] AT [facility] FLW RATE PREPJ& 86051 ALLERGY DWYER ALLERGEN 7 PARTNERS IMMUNOTHE OF [place] RAPY CO 1/STRUCTURAL STEEL FITTER ANTIGEN DRUG TEST 05206 [facility] 7 HO FELDMAN MD,[place] CHEMISTRY ANALYZERS O2 CONC 1 E1390 [facility] 85%/>02 [facility] AT [facility] FLW RATE NITRIC 56465 ALLERGY DWYER OXIDE 7 PARTNERS [place] GAS CO DETERMINA TION DEMO&/YOSI 11573 ALLERGY DWYER L OF PT 7 PARTNERS UTILIZ OF [place] AERSL CO GEN/NEB/I NHLR/IP PROF SVCS 03285 ALLERGY ALLERGY ALLG 7 PARTNERS PARTNERS IMMNTX X OF [place] OF [place] W/PRV CO CO ALLGIC XTRCS NJXS BRNCDILAT 86473 ALLERGY DWYER RSPSE 7 PARTNERS SPMTRY OF [place] PRE&POST- CO BRNCDILAT ADMN OPHTH 31518 [facility] 7 VISION XM&EVAL CENTER COMPRE NEW PT 1/> VST O2 CONC 1 E1390 [facility] 6 HOME HOME 85%/>02 [facility] AT [facility] FLW RATE DXA BONE 99231 SIENA FELDMAN DENSITY 6 FRANCIA, PET STUDY 1/> ,[place] SITES AXIAL SKEL COLLECTIO 77689 SIENA WREN N VENOUS 6 TRAVIS FELDMAN BLOOD ,[place] VENIPUNCT URE COMPREHEN 56640 SIENA VALENCIAARD SIVE 6 TRAVIS FELDMAN MD,[place] [address] WRENYOLANDA VALENCIAARD GLUTAMYLT 6 TRAVIS FELDMAN MD,[place] [address] WRENYOLANDA VALENCIAARD PHOSPHORU 6 TRAVIS FELDMAN MD,[place] INORGANIC BILIRUBIN 72357 WREN WREN DIRECT TRAVIS WILLSON MD,[place] BLOOD 86139 SIENA VALENCIAARD COUNT 6 TRAVIS FELDMAN MD,[place] AUTO&AUTO DIFRNTL WBC DRUG TEST G0479 WREN WREN TRAVIS WILLSON PRESUMP;I ,R[place] NSTRUMENT ED CHEMISTRY ANLYZER O2 CONC 1 E1390 [place] 6 HOME HOME 85%/>02 [facility] CON[facility] AT [facility] FLW RATE PREPJ& 88436 ALLERGY DWYER MAR ALLERGEN 6 PARTNERS IMMUNOTHE OF [place] RAPY CO 1/STRUCTURAL STEEL FITTER ANTIGEN DEMO&/YOSI 89044 ALLERGY DWYER MAR L OF PT 6 PARTNERS UTILIZ OF [place] AERSL CO GEN/NEB/I NHLR/IP NITRIC 32607 ALLERGY DWYER MAR OXIDE 6 PARTNERS [place] GAS CO DETERMINA TION PERCUTANE 21377 ALLERGY DWYER MAR OUS TESTS 6 PARTNERS [place] W/ALLERGE CO MARIANN EXTRACTS INTRACUTA 27780 ALLERGY DWYER MAR NEOUS 6 PARTNERS TESTS OF [place] W/ALLERGE CO MARIANN EXTRACTS BRNCDILAT 38984 ALLERGY DWYER MAR RSPSE 6 PARTNERS SPMTRY OF [place] PRE&POST- CO BRNCDILAT ADMN O2 CONC 1 E1390 [facility] [place] 6 HOME HOME 85%/>02 MEDICAL MEDICAL CONC AT EQUIPME EQUIPME PRSC FLW RATE O2 CONC 1 E1390 [facility] [place] 6 HOME HOME 85%/>02 MEDICAL MEDICAL CONC AT EQUIPME EQUIPME PRSC FLW RATE O2 CONC 1 E1390 [facility] [place] 6 HOME HOME 85%/>02 MEDICAL MEDICAL CONC AT EQUIPME EQUIPME PRSC FLW RATE O2 CONC 1 E1390 [facility] [place] 6 HOME HOME 85%/>02 MEDICAL MEDICAL CONC AT EQUIPME EQUIPME PRSC FLW RATE DRUG TST G0477 LUZ ESCOBAR PRESUMP;C 6 [facility] PBL BEING INC INC READ DC OPT OBV ONLY DRUG TEST G0481 [facility] DEFINITV [address] [facility] [address] [address] ID INC INC METH P DAY 8-14 DRUG CL SCREENING G0202 [facility] ESC[facility]AR 6 [facility] MAMMOGRAP INC INC HY JOSSELYN INCL CAD WHEN PERFORMD COMPUTER- 11639 LU[facility] ESC[facility] AIDED 6 [facility] DETECTION INC INC SCREENING MAMMOGRAP HY SUSCEPTIB 42559 [facility] ESC[facility] LTY STDY 6 [facility] ANTIMICRB INC INC IAL MICRO/AGA R DILUTJ URNLS DIP 77658 [facility]AR 6 [facility] STICK/TAB INC INC LET REAGENT AUTO MICROSCOP Y CULTURE 05478 [facility] ESC[facility] BACTERIAL 6 [facility] INC INC QUANTTATI VE COLONY COUNT URINE CULTURE 29742 [facility] ESC[facility] BCT 6 [facility] ISOL&PRSM INC INC PTV ID ISOLATE EA URINE O2 CONC 1 E1390 [facility] [place] 6 HOME HOME 85%/>02 MEDICAL MEDICAL CONC AT EQUIPME EQUIPME [facility] FLW RATE DRUG TST G0477 LUZ ESCOBAR PRESUMP;C 6 [facility] PBL BEING INC INC READ DC OPT OBV ONLY DRUG TEST G0481 LUZMATTY ESCOBAR DEFINITV [address] [facility] [address] [address] ID INC INC METH P DAY 8-14 DRUG CL CONTINUOU E0601 CAITLIN CAITLIN S 6 HOME HOME POSITIVE MEDICAL MEDICAL AIRWAY EQUIPME EQUIPME PRESSURE DEVICE LOCM Q9967 LUZMATTY ESCOBAR [phone] [facility] MG/ML INC INC IODINE CONCENTRA TION PER ML O2 CONC 1 E1390 [facility] 6 HOME HOME 85%/>02 [facility] [place] [address] [place] [employer] ALL ABDOMEN & 6 MEDICAL PELVIS IMAGING W/CONTRAS ASS T MATERIAL BLOOD 66100 LU[facility] ESCOBAR COUNT 6 [facility] COMPLETE INC INC AUTO&AUTO DIFRNTL WBC SUSCEPTIB 27111 [facility] ESCOB[facility] LTY STDY 6 [facility] ANTIMICRB INC INC IAL MICRO/AGA R DILUTJ URNLS DIP 37888 [facility] ESCOBAR 6 [facility] STICK/TAB INC INC LET REAGENT AUTO MICROSCOP Y BASIC 56032 LUZ ESCOBAR METABOLIC 6 [facility] PANEL INC INC CALCIUM TOTAL CULTURE 55313 LUZ ESCOBAR BACTERIAL 6 [facility] INC INC QUANTTATI VE COLONY COUNT URINE CULTURE 24041 [facility] ESCOBAR BCT 6 [facility] ISOL&PRSM INC INC PTV ID ISOLATE EA URINE COLLECTIO 67932 [facility] N VENOUS 6 [facility] BLOOD INC INC VENIPUNCT URE DRUG TST G0477 [facility] PRESUMP;C 6 [facility] PBL BEING INC INC READ DC OPT OBV ONLY APPLICATI 63068 [facility] ON [facility] MODALITY INC INC 1/> AREAS HOT/COLD PACKS THERAPEUT 48242 [facility] IC PX 1/> 6 [facility] AREAS INC INC EACH 15 MIN EXERCISES E-STIM G0283 [facility] 1/> AREAS [facility] OTH THAN INC INC WND CARE PART TX PLAN E-STIM G0283 [facility] 1/> AREAS 6 [facility] OTH THAN INC INC WND CARE PART TX PLAN APPLICATI 48635 [facility] ON 6 [facility] MODALITY INC INC 1/> AREAS HOT/COLD PACKS THERAPEUT 50823 [facility] IC PX 1/> 6 [facility] AREAS INC INC EACH 15 MIN EXERCISES CONTINUOU E0601 CAITLIN TUCKER S 6 HOME HOME POSITIVE MEDICAL MEDICAL AIRWAY EQUIPME EQUIPME PRESSURE DEVICE APPLICATI 25186 LUZMATTY EVANSON ON 6 [facility] MODALITY INC INC 1/> AREAS HOT/COLD PACKS THERAPEUT 86204 [facility] ESC[facility] IC PX 1/> 6 [facility] AREAS INC INC EACH 15 MIN EXERCISES PHYSICAL 65245 LUZ [facility] THERAPY 6 [facility] EVALUATIO INC INC N E-STIM G0283 [facility] ESC[facility] 1/> AREAS 6 [facility] OTH THAN INC INC WND CARE PART TX PLAN DRUG TST G0477 [facility] PRESUMP;C 6 [facility] PBL BEING INC INC READ DC OPT OBV ONLY O2 CONC 1 E1390 CAITLIN THOMPSON PORT 6 HOME HOME 85%/>02 MEDICAL MEDICAL CONC AT EQUIPME EQUIPME PRSC FLW RATE RADEX HIP 03551 [facility] [place] IMAG[facility] L WITH ASS PELVIS 1 VIEW COLLECTIO 75118 [facility] N VENOUS 6 [facility] BLOOD INC INC VENIPUNCT URE COMPREHEN 36128 [facility] SIVE 6 [facility] METABOLIC INC INC PANEL BLOOD 01275 [facility] COUNT 6 [facility] COMPLETE INC INC AUTO&AUTO DIFRNTL WBC RADEX HIP 84030 [facility] 6 [facility] [place] INC INC L WITH PELVIS 2-3 VIEWS SEDIMENTA 91096 [facility] TION RATE 6 [facility] RBC INC INC NON-AUTOM ATED CONTINUOU E0601 CAITLIN Leal 6 HOME HOME POSITIVE MEDICAL MEDICAL AIRWAY EQUIPME EQUIPME PRESSURE DEVICE O2 CONC 1 E1390 CAITLIN THOMPSON PORT 6 HOME HOME 85%/>02 MEDICAL MEDICAL CONC AT [place] [address] [facility] EXAM 6 Y Y SURGICAL [facility] ALTER STOM DUODENUM/ JEJUNUM INJECTION J2704 [facility] PROPOFOL 6 Y Y 10 MG [facility] INFUSION J7030 [facility] NORMAL 6 Y Y SALINE [facility] SOLUTION 1000 CC CATHETER C1753 [facility] INTRAVASC 6 Y Y ULAR [facility] ULTRASOUN D INJECTION J0330 [facility] 6 [facility] HOLINE CHLORIDE UP TO 20 MG INJECTION J2370 [place] [address] Y Y PHENYLEPH [facility] RINE HCL UP TO 1 ML INJECTION J2405 [place] [address] [facility] PER 1 MG CONTINUOU E0601 CAITLIN Leal 6 HOME HOME POSITIVE MEDICAL MEDICAL AIRWAY EQUIPME EQUIPME PRESSURE DEVICE O2 CONC 1 E1390 CAITLIN THOMPSON PORT 6 HOME HOME 85%/>02 MEDICAL MEDICAL CONC AT EQUIPME EQUIPME PRSC FLW RATE ECG 19295 ERMA CANO IMELDA ROUTINE 6 MEDICAL ECG SERV W/LEAST FOUNDATIO 12 LDS N I&[facility] ONLY [facility] G0463 [facility] OUTPATI 6 Y Y T [facility] VISIT ASSESS & MGMT PT CONTINUOU E0601 CAITLIN Leal 6 HOME HOME POSITIVE MEDICAL MEDICAL AIRWAY EQUIPME EQUIPME PRESSURE DEVICE O2 CONC 1 E1390 CAITLIN CAITLIN DEL PORT 6 HOME HOME 85%/>02 MEDICAL MEDICAL CONC AT [facility] PRSC FLW RATE COLLECTIO 98330 [facility] ESC[facility] N VENOUS 6 [facility] BLOOD INC INC VENIPUNCT URE COMPREHEN 50480 [facility] SIVE 6 [facility] METABOLIC INC INC PANEL HEPATITIS 93053 [facility] A 6 [facility] ANTIBODY INC INC HAAB HEPATITIS 79104 [facility] C 6 [facility] ANTIBODY INC INC BILIRUBIN 66697 [facility] DIRECT 6 [facility] INC INC HEPATITIS 39361 [facility] B CORE 6 [facility] ANTIBODY INC INC HBCAB TOTAL HEPATITIS 11569 LUZ Drew SURF 6 [facility] [place] [address] [facility] HEPATITIS 6 [facility] B INC INC SURFACE ANTIGEN DRUG TST G0477 [facility] ESC[facility]AR PRESUMP;C 6 [facility] PBL BEING INC INC READ DC OPT OBV ONLY COL-CHR/M 83604 LU[facility] ESCOBAR S NONDRUG 6 [facility] ANALYTE INC INC RONALDO QUAL/[place] [address] [facility] LIPASE 6 [facility] INC INC THER 90431 [facility] ESC[facility]AR PROPH/DX 6 [facility] NJX IV INC INC PUSH SINGLE/1S T SBST/DRUG BLOOD 63744 [facility] COUNT 6 [facility] COMPLETE INC INC AUTO&[place] [address] [facility] ABDOMEN & 6 [facility] PELVIS INC INC W/CONTRAS T MATERIAL COMPREHEN 07131 [facility] SIVE 6 [facility] [place] [address] [facility] LACTATE 6 [facility] INC INC WND CARE A6550 NATIONAL NATIONAL SET NEG 5 WOUND WOUND PRSS WND [facility] [place] ELEC PUMP SPL CANISTER A7000 NATIONAL NATIONAL DISPOSABL 5 WOUND WOUND E USED [facility] WITH SUCTION PUMP EACH CONTINUOU E0601 CAITLIN Leal 5 HOME HOME POSITIVE MEDICAL MEDICAL AIRWAY EQUIPME EQUIPME PRESSURE DEVICE O2 CONC 1 E1390 CAITLIN ZUNIGA 5 HOME HOME 85%/>02 MEDICAL MEDICAL CONC AT EQUIPME [place]QUIPME [place]SC [place] RMVL 19540 [facility] ESCOBAR DEVITAL 5 [facility] TISS INC INC N-SLCTV DBRDMT W/O ANES 1 SESS CANISTER A7000 NATIONAL NATIONAL DISPOSABL 5 WOUND WOUND E USED [facility] WITH SUCTION PUMP EACH WND CARE A6550 NATIONAL NATIONAL SET NEG 5 WOUND WOUND PRSS WND CARE LLC CARE LLC TX ELEC PUMP SPL NEGATIVE 15534 [facility] ESC[facility]AR PRESSURE 5 [facility] WOUND INC INC THERAPY DME </= 50 SQ CM WND CARE A6550 NATIONAL NATIONAL SET NEG 5 WOUND WOUND PRSS WND [facility]ARE LLC CARE LLC [place] ELEC PUMP SPL CANISTER A7000 NATIONAL NATIONAL DISPOSABL 5 WOUND WOUND E USED [facility] WITH SUCTION PUMP EACH NEG PRESS E2402 NATIONAL NATIONAL WOUND 5 WOUND WOUND THERAPY [facility] ELEC PUMP STATION/P RTBLE CUL BACT 40899 LUZ ESCOBAR AEROBIC 5 [facility] ADDL INC INC METHS DEFINITIV E EA ISOL CUL BACT 14093 LUZ ESCOBAR XCPT 5 [facility] URINE INC INC BLOOD/STO OL AEROBIC ISOL NEGATIVE 56309 LUZ ESCOBAR PRESSURE 5 [facility] WOUND INC INC THERAPY DME </= 50 SQ CM NEGATIVE 10085 LUZ ESCOBAR PRESSURE 5 [facility] WOUND INC INC THERAPY DME </= 50 SQ CM CANISTER A7000 NATIONAL NATIONAL DISPOSABL 5 WOUND WOUND E [facility]ED [facility] WITH SUCTION PUMP EACH WND CARE A6550 NATIONAL NATIONAL SET NEG 5 WOUND WOUND PRSS [facility] TX ELEC PUMP SPL NEGATIVE 60377 LUZ ESCOBAR PRESSURE 5 [facility] WOUND INC INC THERAPY DME </= 50 SQ CM NEGATIVE 61480 LUZ ESCOBAR PRESSURE 5 [facility] WOUND INC INC THERAPY DME </= 50 SQ CM WND CARE A6550 NATIONAL NATIONAL SET NEG 5 WOUND WOUND PRSS [facility]ND [facility] TX ELEC PUMP SPL CANISTER A7000 NATIONAL NATIONAL DISPOSABL 5 WOUND WOUND E USED [facility] WITH SUCTION PUMP EACH NEGATIVE 22064 LUZ ESCOBAR PRESSURE 5 [facility] WOUND INC INC THERAPY DME </= 50 SQ CM CONTINUOU E0601 CAITLIN TUCKER S 5 HOME HOME POSITIVE MEDICAL MEDICAL AIRWAY EQUIPME EQUIPME PRESSURE DEVICE NEGATIVE 58039 ULZ ESCOBAR PRESSURE 5 [facility] WOUND INC INC THERAPY DME </= 50 SQ CM O2 CONC 1 E1390 CAITLIN TUCKER DEL PORT 5 HOME HOME 85%/>02 MEDICAL MEDICAL CONC AT EQUIPME EQUIPME PRSC FLW RATE NEGATIVE 04305 LUZ ESCOBAR PRESSURE 5 [facility] WOUND INC INC THERAPY DME </= 50 SQ CM URNLS DIP 56245 LUZ JHAVERI 5 [facility] LET RGNT P NON-AUTO W/O MICRSCP WND CARE A6550 NATIONAL NATIONAL SET NEG 5 WOUND WOUND PRSS WND [facility] LLC TX ELEC PUMP SPL WND CARE A6550 NATIONAL NATIONAL SET NEG 5 WOUND WOUND PRSS WND [facility] LLC TX ELEC PUMP SPL NEG PRESS E2402 NATIONAL NATIONAL WOUND 5 WOUND WOUND THERAPY [facility] LLC CARE LLC ELEC PUMP STATION/P RTBLE CANISTER A7000 NATIONAL NATIONAL DISPOSABL 5 WOUND WOUND E USED [facility] LLC WITH SUCTION PUMP EACH NEGATIVE 34147 LUZ ESCOBAR PRESSURE 5 [facility] WOUND INC INC THERAPY DME </= 50 SQ CM DEBRIDEME 76653 LUZ ESCOBAR NT OPEN 5 [facility] WOUND 20 INC INC SQ CM/< NEGATIVE 19800 LUZ ESCOBAR PRESSURE 5 [facility] WOUND INC INC THERAPY DME </= 50 SQ CM RMVL 80804 LUZ ESCOBAR DEVITAL 5 [facility] TISS INC INC N-SLCTV DBRDMT W/O ANES 1 SESS INJECTION J2250 [facility] 5 Y Y [facility] HCL PER 1 MG SIGMOIDOS 57799 [facility] COPY FLX 5 Y Y DX HOSPITAL HOSPITAL W/COLLJ SPEC BR/WA IF PFRMD INFUSION J7030 [facility] NORMAL 5 Y Y SALINE [facility] SOLUTION 1000 CC INJECTION J3010 [facility] [place] 5 Y Y CITRATE [facility] 0.1 MG RMVL 41054 LUZ MC 5 [facility] TISS INC INC N-SLCTV DBRDMT W/O ANES 1 SESS PHRM Q0513 [facility] [address] DISPENSIN 5 PHARMACY PHARMACY G FEE OF OF INHALATIO DAVION CRYSTALA N RX; PER 30 DAYS ALBUTEROL J7613 [facility] INHAL 5 PHARMACY PHARMACY NON-CP OF OF PROD THRU DAVION DAVION DME U DOSE 1 MG RMVL 64833 LUZ SHANETAL 5 [facility] TISS INC INC N-SLCTV DBRDMT W/O ANES 1 SESS RMVL 67140 LUZ MC 5 [facility] TISS INC INC N-SLCTV DBRDMT W/O ANES 1 SESS DEBRIDEME 27472 LUZ ESCOBAR NT OPEN 5 [facility] WOUND 20 INC INC SQ CM/< RMVL 53306 LUZ MC 5 [facility] TISS INC INC N-SLCTV DBRDMT W/O ANES 1 SESS CANISTER A7000 NATIONAL NATIONAL DISPOSABL 5 WOUND WOUND E USED [facility] CARE LLC WITH SUCTION PUMP EACH WND CARE A6550 NATIONAL NATIONAL SET NEG 5 WOUND WOUND PRSS WND [facility]ARE LLC CARE LLC TX ELEC PUMP SPL RADIOLOGI 05733 LUZ ESCOBAR C 5 [facility] EXAMINATI INC [place] [address] LUZ GOSS 5 [facility] THERAPY INC INC PROPHYLAX IS/DX EA HOUR IAADI 53404 LUZ ESCOBAR INFFLUENZ 5 [facility] A A VIRUS INC INC IAADI 29589 LUZ MILLER INFLUENZA 5 [place] [address] LUZ ESCOBAR INFUSION 5 [facility] THERAPY/P INC INC ROPHYLAXI S /DX 1ST TO 1 HR URNLS DIP 37874 LUZ ESCOBAR 5 [facility] STICK/TAB INC INC LET REAGENT AUTO MICROSCOP Y BLOOD 44411 LUZ ESCOBAR COUNT 5 [facility] COMPLETE INC INC AUTO&AUTO DIFRNTL WBC COMPREHEN 24668 LUZ ESCOBAR SIVE 5 [facility] METABOLIC INC INC PANEL COLONOSCO 62546 ERMA KAIDEN OSEI PY 5 MEDICAL W/BIOPSY SERV SINGLE/[place] [address] ERMA KORY LALA SURG 5 MEDICAL PATHOLOGY SERV FOUNDATIO GROSS&ROSA MARIA N ROSCOPIC EXAM INJECTION J2250 [facility] 5 Y Y [facility] HCL PER 1 MG INFUSION J7030 [facility] NORMAL 5 Y Y SALINE [facility] SOLUTION 1000 CC INJECTION J3010 [facility] [place] 5 Y Y CITRATE [facility] 0.1 MG CONTINUOU E0601 CAITLIN TUCKER S 5 HOME HOME POSITIVE MEDICAL MEDICAL AIRWAY EQUIPME EQUIPME PRESSURE DEVICE RMVL 97832 LUZMATTY ESCOBAR DEVITAL 5 [facility] TISS INC INC N-SLCTV DBRDMT W/O ANES 1 SESS URNLS DIP 42755 LUZ JHAVERI 5 [facility] STICK/TAB HOSPITAL LET RGNT P NON-AUTO W/O MICRSCP RMVL 45298 LUZ ESCOBAR DEVITAL 5 [facility] TISS INC INC N-SLCTV DBRDMT W/O ANES 1 SESS O2 CONC 1 E1390 CAITLIN TUCKER DEL PORT 5 HOME HOME 85%/>02 MEDICAL MEDICAL CONC AT EQUIPME EQUIPME PRSC FLW RATE PHYSICAL 02675 LUZ ESCOBAR THERAPY 5 [facility] EVALUATIO INC INC N LOCM Q9966 LUZ ESCOBAR [phone] 5 [facility] MG/ML INC INC IODINE CONCENTRA TION PER ML CANISTER A7000 NATIONAL NATIONAL DISPOSABL 5 WOUND WOUND E USED [facility] CARE LLC WITH SUCTION PUMP EACH WND CARE A6550 NATIONAL NATIONAL SET NEG 5 WOUND WOUND PRSS WND CARE LLC CARE LLC TX ELEC PUMP SPL DETERMINA 50295 ERMA [place] ALLISON TION 5 MEDICAL REFRACTIV SERV [facility] STATE FOUNDATIO N NEG PRESS E2402 NATIONAL NATIONAL WOUND 5 WOUND WOUND THERAPY CARE LLC CARE LLC ELEC PUMP STATION/P RTBLE CANISTER A7000 NATIONAL NATIONAL DISPOSABL 5 WOUND WOUND E USED CARE LLC CARE LLC WITH SUCTION PUMP EACH [facility] CARE A6550 NATIONAL NATIONAL SET NEG 5 WOUND WOUND PRSS WND [facility]ARE LLC CARE LLC [place] ELEC PUMP SPL PHRM Q0513 [facility] DISPENSIN 5 PHARMACY PHARMACY G FEE OF OF INHALATIO DAVION DAVION N RX; PER 30 DAYS ALBUTEROL J7613 [facility] INHAL 5 PHARMACY PHARMACY NON-CP OF OF PROD THRU DAVION DAVION DME U DOSE 1 MG HOSPITAL G0463 [facility] 5 Y Y T [facility] VISIT ASSESS & MGMT PT CONTINUOU E0601 CAITLIN TUCKER S 5 HOME HOME POSITIVE MEDICAL MEDICAL AIRWAY EQUIPME EQUIPME PRESSURE DEVICE O2 CONC 1 E1390 CAITLIN THOMPSON PORT 5 HOME HOME 85%/>02 MEDICAL MEDICAL CONC AT EQUIPME EQUIPME PRSC FLW RATE URNLS DIP 04952 LUZ JHAVERI 5 [facility] LET RGNT P NON-AUTO W/O MICRSCP RIKKI 24258 LUZ JHAVERI POST-VOID 5 [facility] RESIDUAL P URINE&/BL ADDER CAP ALBUTEROL J7613 [facility] PHARMACY PHARMACY NON-CP OF OF PROD THRU DAVION DAVION DME U DOSE 1 MG PHRM Q0513 [facility] DISPENSIN 5 PHARMACY PHARMACY G FEE OF OF INHALATIO DAVION RICARDO N RX; PER 30 DAYS INITIAL 29161 [facility] 5 [facility] 30 P MINUTES RADEX 28594 [place] [facility] ABDOMEN 5 MEDICAL ALLISON COMPL IMAGING W/DCBTS&/ ASS ERC VIEWS US PELVIC 26002 [place] OROZCO ALL 5 MEDICAL NONOBSTET IMAGING RYLAN IMAGE ASS DCMTN LIMITED/F /U LEVEL 29582 CHIPPS GARCIA SURG 5 ANNA & RYLAN PATHOLOGY DUBILIER GROSS&ROSA MARIA ROSCOPIC EXAM ANESTHESI 85154 [facility] ADHIKARI LAYNE A 5 ANESTH INTRAPERI OF THE TONEAL BLUE LOWER ABD W/LAPS NOS DECALCIFI 60902 CHIPPS GARCIA CATION 5 ANNA & RYLAN PROCEDURE DUBILIER TOTAL 83333 [facility] ABDOMINAL 5 PHYSICIAN MOY S GROUP HYSTERECT W/WO RMVL TUBE OVARY OTHER & 6849 LUZ ESCOBAR UNSPECIFI 5 [facility] ED TOTAL INC INC ABDOMINAL HYSTERECT TOMASA OTH 6561 LUZ ESCOBAR REMOVAL 5 [facility] BOTH INC INC OVARIES&T UBES@SAME OP EPIS ECG 91027 LUZ GALLO JR ROUTINE 5 [facility] W/LEAST P 12 LDS I&R ONLY CONTINUOU E0601 CAITLIN TUCKER S 5 HOME HOME POSITIVE MEDICAL MEDICAL AIRWAY EQUIPME EQUIPME PRESSURE DEVICE O2 CONC 1 E1390 CAITLIN THOMPSON PORT 5 HOME HOME 85%/>02 MEDICAL MEDICAL CONC AT EQUIPME EQUIPME PRSC FLW RATE LOCM Q9967 LUZ ESCOBAR [phone] 5 [facility] MG/ML INC INC IODINE CONCENTRA TION PER ML INJECTION J1030 LUZ ESCOBAR 5 [facility] METHYLPRE INC INC DNISOLONE ACETATE 40 [place] NJX 35468 NATHAN BUX ANJ DX/THER 5 MD MEHNAZ, AGT PVRT PSC FACET JT LMBR/SAC 1 LEVEL NJX 56137 NATHAN BUX ANJ DX/THER 5 BUX, MD, AGT PVRT PSC FACET JT LMBR/SAC 2ND LEVEL CT THORAX 82194 ALEXANDRO MARIE W/O 5 MEDICAL [place] [address] [facility], SURG 5 [facility] PATHOLOGY GROSS&ROSA MARIA ROSCOPIC EXAM CONTINUOU E0601 CAITLIN TUCKER S 5 HOME HOME POSITIVE MEDICAL MEDICAL AIRWAY EQUIPME EQUIPME PRESSURE DEVICE O2 CONC 1 E1390 CAITLIN TUCKER DEL [place] 5 HOME HOME 85%/>02 MEDICAL MEDICAL CONC AT EQUIPME EQUIPME PRSC FLW RATE LOCM Q9966 LUZ ESCOBAR [phone] 5 [facility] MG/ML INC INC IODINE CONCENTRA TION PER ML INJECTION J1030 LUZ ESCOBAR 5 [facility] METHYLPRE INC INC DNISOLONE ACETATE 40 MG CONTINUOU E0601 CAITLIN TUCKER S 5 HOME HOME POSITIVE MEDICAL MEDICAL AIRWAY EQUIPME EQUIPME PRESSURE DEVICE O2 CONC 1 E1390 CAITLIN TUCKER DEL [place] 5 HOME HOME 85%/>02 MEDICAL MEDICAL CONC AT EQUIPME EQUIPME PRSC FLW RATE TUBING A7037 CAITLINVANESA TUCKER USED WITH 5 HOME HOME POSITIVE MEDICAL MEDICAL AIRWAY EQUIPME EQUIPME PRESSURE DEVICE HUMDIFIR E0562 CAITLINVANESA TUCKER HEATED 5 HOME HOME USED MEDICAL MEDICAL W/POS EQUIPME EQUIPME ARWAY PRESSURE DEVICE FULL FACE A7030 CAITLIN TUCKER MASK 5 HOME HOME USED MEDICAL MEDICAL W/POS EQUIPME EQUIPME ARWAY PRESS DEVICE EA FILTER A7039 CAITLIN MARMOLEJORELL NON 5 HOME HOME DISPBL MEDICAL MEDICAL USED EQUIPME EQUIPME W/POS ARWAY PRESS DEVICE FILTER A7038 CAITLIN CAITLIN DISPBL 5 HOME HOME USED MEDICAL MEDICAL W/POS EQUIPME EQUIPME ARWAY PRESSURE DEVICE CONTINUOU E0601 CAITLIN TUCKER S 5 HOME HOME POSITIVE MEDICAL MEDICAL AIRWAY EQUIPME EQUIPME PRESSURE DEVICE HEADGEAR A7035 CAITLINVANESA TUCKER USED 5 HOME HOME W/POSITIV MEDICAL MEDICAL E AIRWAY EQUIPME EQUIPME PRESSURE DEVICE O2 CONC 1 E1390 CAITLIN ZUNIGA 5 HOME HOME 85%/>02 MEDICAL MEDICAL CONC AT EQUIPME [facility] FLW RATE ALBUTEROL J7613 YOUR YOUR INHAL 5 PHARMACY PHARMACY NON-CP [facility] PROD THRU DME U DOSE 1 MG PHRM Q0513 YOUR YOUR DISPENSIN 5 PHARMACY PHARMACY G FEE [facility] INHALATIO N RX; PER 30 DAYS O2 CONC 1 E1390 CAITLIN THOMPSON PORT 5 HOME HOME 85%/>02 MEDICAL MEDICAL [facility] FLW RATE POLYSOM 43155 NOLANEZ MAR PAVJITENDRA MAR 6/>YRS 5 SLEEP 4/> ADDL TONY ATTND O2 CONC 1 E1390 CAITLIN THOMPSON [facility] 5 HOME HOME 85%/>02 MEDICAL MEDICAL CONC AT EQUIPME [facility] FLW RATE POLYSOM 62876 LUZ ESCOBAR 6/>YRS 5 [facility] H[facility] SLEEP 4/> INC INC ADDL TONY ATTND CT THORAX 60530 [place] [facility] W/O 5 MEDICAL ALLISON CONTRAST IMAGING MATERIAL ASS O2 CONC 1 E1390 CAITLIN THOMPSON [facility] 5 HOME HOME 85%/>02 MEDICAL MEDICAL CONC AT [facility] FLW RATE INSERTION 80626 [place] /RPLCMT 5 MEDICAL PERIPHERA SERV L/GASTRIC FOUNDATIO NPGR N ELEC ARCHANA 63635 [place] NSTIM 5 MEDICAL PLS GEN SERV CPLX FOUNDATIO SC/PERPH N W/PRGRMG INJECTION J2710 [facility] 5 Y Y NEOSTIGMI [facility] NE METHYLSUL FATE UP TO 0.5 MG INJECTION J3370 [facility] 5 Y Y VANCOMYCI [facility] N HCL 500 MG INJECTION J2704 [facility] PROPOFOL 5 Y Y 10 MG HOSPITAL HOSPITAL INFUSION J7050 [facility] NORMAL 5 Y Y SALINE [facility] SOLUTION 250 CC INJECTION J3010 [facility] [place] 5 Y Y CITRATE [facility]OSPITAL 0.1 MG FLUOROSCO 73127 [facility] PY SPX UP 5 Y Y TO 1 HOSPITAL HOSPITAL HOUR PHYS/QHP TIME INJECTION J0330 [facility] 5 Y Y SUCCINYLC [facility] HOLINE CHLORIDE UP TO 20 MG INJECTION J1580 [facility] 5 Y Y GARAMYCIN [facility] GENTAMICI N UP TO 80 MG INJECTION J2405 [facility] 5 [facility] PER 1 MG INTRDUCR/ C1894 [facility] SHEATH 5 Y Y NOT GUID [facility] INTRACARD EP NON-LASR LEAD C1897 [facility] NEUROSTIM 5 Y Y [facility] TEST KIT INC 38520 [facility] IMPLTJ 5 Y Y NEUROSNEW [facility] ELTRD SACRAL NERVE RINGERS J7120 [facility] LACTATE 5 Y Y INFUSION [facility] UP TO 1000 CC INJECTION J1100 [facility] 5 Y Y DEXAMETHO [facility] SONE SODIUM PHOSPHATE 1 MG O2 CONC 1 E1390 [facility] 5 HOME HOME 85%/>02 MEDICAL MEDICAL CONC AT EQUIPME EQUIPME PRSC FLW RATE NONEMERG A0120 FEDERATED FEDERATED TRNSPRT: 5 [facility]I-BUS TRANSPORT TRANSPORT [facility] AREA/OTH SYS O2 CONC 1 E1390 [facility] 4 HOME HOME 85%/>02 MEDICAL MEDICAL CONC AT EQUIPME EQUIPME PRSC FLW RATE RADIOLOGI 85624 LUZ ESCOBAR C EXAM 4 [facility] CHEST 2 INC INC VIEWS FRONTAL&L ATERAL PHARM G0333 YOUR YOUR DISPEN 4 PHARMACY PHARMACY FEE [facility] LLC RX; INITIAL 30-DAY SUPPLY ADMN SET A7005 YOUR YOUR W/SM VOL 4 PHARMACY PHARMACY NONFILTR [facility] NEBULIZR NON-DISPB L ALBUTEROL J7613 YOUR YOUR INHAL 4 PHARMACY PHARMACY NON-CP [facility] PROD THRU DME U DOSE 1 MG NONEMERG A0120 FEDERATED FEDERATED TRNSPRT: 4 TRANS [facility] TRANSPORT SERVBLUEG MTN ATION SER ELIU AREA/OTH SYS BIOPSY 38863 [place] [facility] VAGINAL 4 MEDICAL [place] SERV SIMPLE FOUNDATIO N ANOSCOPY 98617 [place] W/BX 4 MEDICAL SINGLE/MU SERV LTIPLE FOUNDATIO N ANESTHESI 91348 SORAYA YANG GAV A 4 LTH [place]ED[place] [address] [place] ANORECTAL 4 MEDICAL WALL SERV ANAL FOUNDATIO APPROACH N ECG 01005 [facility] ROUTINE 4 Y Y ECG [facility] W/LEAST 12 LDS TRCG ONLY W/O I&R COLLECTIO 18298 [facility] VENOUS 4 Y Y BLOOD [facility] VENIPUNCT URE ECG 33433 ERMA CANO IMELDA ROUTINE 4 MEDICAL ECG SERV W/LEAST FOUNDATIO 12 LDS N I&R ONLY BLOOD 84999 [facility] COUNT 4 Y Y COMPLETE [facility] AUTOMATED TENS E0730 [employer] DEVICE 4 4/MORE LEADS MULTI NERVE STIMULATI ON COLSC FLX 55697 [place] ANN PITER W/RMVL 4 MEDICAL OF TUMOR SERV POLYP FOUNDATIO LESION N SNARE TQ NONEMERG A0120 FEDERATED FEDERATED TRNSPRT: 4 TRANS [facility] TRANSPORT SERVBLUEG MTN ATION SER ELIU AREA/OTH SYS ANES 86453 [facility] 4 ANESTH SHE INTESTINE OF THE BLUE ENDOSCOPY DISTAL DUODENUM PRESSURIZ 84522 LUZ ESCOBAR ED/NONPRE 4 [facility] SSURIZED INC INC INHALATIO N TREATMENT UNCLASSIF J3490 LUZ ESCOBAR IED DRUGS 4 [place] [address] LUZ ESCOBAR INFUSION 4 [facility] THERAPY INC INC PROPHYLAX IS/[place] [address] [facility], SURG 4 [facility] PATHOLOGY GROSS&ROSA MARIA ROSCOPIC EXAM COLONOSCO 95913 LUZ ESCOBAR PY 4 [facility] W/BIOPSY INC INC SINGLE/MU LTIPLE NONEMERG A0120 FEDERATED FEDERATED TRNSPRT: 4 TRANS [facility] TRANSPORT SERVBLUEG GAN ATION SER ELIU AREA/OTH SYS PRESSURIZ 05797 LUZ ESCOBAR ED/NONPRE 4 [facility] SSURIZED INC INC INHALATIO N TREATMENT GAS 00013 LUZ ESCOBAR DILUT/WAS 4 [facility] HOUT LUNG INC INC VOL W/WO DISTRIB VENT&[place] [address] LUZ ESCOBAR DIFFUSING 4 [facility] H[facility]OS[facility] CAPACITY INC INC BRNCDILAT 96090 LUZ ESCOBAR RSPSE 4 [facility] HOS[facility]OS[facility] SPMTRY INC INC PRE&POST- BRNCDILAT ADMN O2 CONC 1 E1390 CAITLIN TUCKER DEL [place] 4 HOME HOME 85%/>02 MEDICAL MEDICAL CONC AT EQUIPME EQUIPME PRSC FLW RATE NONEMERG A0120 FEDERATED FEDERATED TRNSPRT: 4 TRANS [facility] SERVBLUEG GAN ATION [place] ARE[place] [address] LZU ESCOBAR BLOOD/URI 4 [facility] C ACID INC INC ANTINUCLE 73993 LUZ ESCOBAR AR 4 [facility] [place] [address] LUZ ESCOBAR THYROXINE 4 MEM HOS[facility]OS[facility] TOTAL INC INC RHEUMATOI 37964 LUZ ESCOBAR D FACTOR 4 MEM HOS[facility]OS[facility] QUANTITAT INC INC FLAQUITO HEPATITIS 14703 LUZ ESCOBAR C 4 [facility]OS[facility] ANTIBODY INC INC BLOOD 97868 LUZ ESCOBAR COUNT 4 [facility]OS[facility] COMPLETE INC INC AUTO&AUTO DIFRNTL WBC LIPID 63930 LUZ ESCOBAR PANEL 4 MEM HOS[facility]OS[facility] INC INC HEMOGLOBI 33571 LUZ ESCOBAR N 4 MEM H[facility] MEM HOS[facility] GLYCOSY[place] [address] LUZ ESCOBAR THYROID 4 MEM HOS[facility] MEM HOS[facility] STIMULATI INC INC NG HORMONE TSH HEPATITIS 20468 LUZ ESCOBAR A 4 [facility]OS[facility] ANTIBODY INC INC HAAB COMPREHEN 02251 LUZ ESCOBAR SIVE 4 MEM HOS[facility]OS[facility] METABOLIC INC INC PANEL HEPATITIS 45883 LUZ ESCOBAR Rajendra CORE 4 MEM HOS[facility]OS[facility] ANTIBODY INC INC HBCAB TOTAL HEPATITIS 72921 LUZ Drew SURF 4 [facility] [place] [address] LUZ ESCOBAR HEPATITIS 4 [facility] B INC INC SURFACE ANTIGEN SEDIMENTA 57109 LUZ ESCOBAR TION RATE 4 MEM H[facility] RBC INC INC NON-AUTOM ATED TENS E0730 EMPI INC EMPI INC DEVICE 4 4/MORE LEADS MULTI NERVE STIMULATI ON APPL 10065 LUZ ESCOBAR MODALITY 4 [facility] 1/> AREAS INC INC ELEC STIMJ EA 15 MIN APPL 71193 LUZ ESCOBAR MODALITY 4 [facility] 1/> AREAS INC INC ELEC STIMJ UNATTENDE D APPLICATI 50569 LUZ RAND ON 4 MEM HOSP [facility] MODALITY INC INC. 1/> AREAS HOT/COLD PACKS THERAPEUT 46355 LUZ ESCOBAR IC PX 1/> 4 [facility] AREAS INC INC EACH 15 MIN EXERCISES NONEMERG A0120 FEDERATED FEDERATED TRNSPRT: 4 TRANS [facility]SP[facility]UE[facility] MTN [facility] SER ELIU AREA/OTH SYS NONEMERG A0120 FEDERATED FEDERATED TRNSPRT: 4 TRANS [facility]SP[facility] SER ELIU AREA/OTH SYS O2 CONC 1 E1390 CAITLIN TUCKER [place] 4 HOME HOME 85%/>02 MEDICAL MEDICAL CONC AT EQUIPME EQUIPME PRSC FLW RATE THERAPEUT 84776 LUZ ESCOBAR IC PX 1/> 4 [facility] AREAS INC INC EACH 15 MIN EXERCISES APPLICATI 51634 LUZ ESCOBAR ON 4 [facility] MODALITY INC INC 1/> AREAS HOT/COLD PACKS APPL 23044 LUZ ESCOBAR MODALITY 4 MEM HOS[facility]OS[facility] 1/> AREAS INC INC ELEC STIMJ UNATTENDE D APPL 64046 LUZ ESCOBAR MODALITY 4 [facility] H[facility] 1/> AREAS INC INC ELEC STIMJ UNATTENDE D APPLICATI 12424 LUZ ESCOBAR ON 4 MEM HOS[facility]OS[facility] MODALITY INC INC 1/> AREAS HOT/COLD PACKS THERAPEUT 84871 LUZ ESCBOAR IC PX 1/> 4 [facility] AREAS INC INC EACH 15 MIN EXERCISES NONEMERG A0120 FEDERATED FEDERATED TRNSPRT: 4 TRANS [facility]SPORT [facility] SER ELIU AREA/OTH SYS NONEMERG A0120 FEDERATED FEDERATED TRNSPRT: 4 TRANS [facility] TRANSPORT [facility] SER ELIU AREA/OTH SYS THERAPEUT 96465 LUZ ESCOBAR IC PX 1/> 4 [facility] H[facility]OS[facility] AREAS INC INC EACH 15 MIN EXERCISES APPLICATI 14382 LUZ ESCOBAR ON 4 [facility] H[facility]OS[facility] MODALITY INC INC 1/> AREAS HOT/COLD PACKS APPL 12198 LUZ ESCOBAR MODALITY 4 MEM HOS[facility] HOSP 1/> AREAS INC INC ELEC STIMJ UNATTENDE D THERAPEUT 49876 LUZ ESCOBAR IC PX 1/> 4 [facility] H[facility]OS[facility] AREAS INC INC EACH 15 MIN EXERCISES APPL 30507 LUZ ESCOBAR MODALITY 4 MEM HOSP MEM HOSP 1/> AREAS INC INC ELEC STIMJ UNATTENDE D APPLICATI 24584 [facility] ON [facility] INC 1/> AREAS HOT/COLD PACKS NONEMERG A0120 FEDERATED FEDERATED TRNSPRT: 4 [facility]IU AREA/OTH SYS APPLICATI 40052 [facility] SALINAS ON 4 [facility] MODALITY INC 1/> AREAS HOT/COLD PACKS APPL 36430 [facility] MODALITY 4 [facility] 1/> AREAS INC INC ELEC STIMJ UNATTENDE D THERAPEUT 51282 [facility] IC PX 1/> 4 [facility] AREAS INC INC EACH 15 MIN EXERCISES 3D 58923 [facility] RENDERING 4 [facility] W/INTERP INC INC & POSTPROCE SS SUPERVISI ON MRI 48831 [facility] SPINAL 4 [facility] CANAL INC INC LUMBAR W/O CONTRAST MATERIAL PHYSICAL 46008 [facility] THERAPY 4 [facility] EVALUATIO INC INC N O2 CONC 1 E1390 [facility] [place] 4 HOME HOME 85%/>02 [facility] FLW RATE NONEMERG A0120 FEDERATED FEDERATED TRNSPRT: 4 TRANS [facility] TRANSPORT SERVBLUEG MTN ATION SER ELIU AREA/OTH SYS PHYSICAL 69477 [facility] ESC[facility] THERAPY 4 [facility] EVALUATIO INC INC N SLINGS A4565 BREG INC. BREG INC. 4 O2 CONC 1 E1390 [facility] [place] 4 HOME HOME 85%/>02 [facility] FLW RATE INJECTION J18[address] [facility] CRISTIAN 4 PHYSICIAN ROSA MARIA KETOROLAC S GROUP TROMETHAM INE PER 15 MG INJECTION J1040 [facility] CRISTIAN 4 PHYSICIAN [facility] METHYLPRE S GROUP DNISOLONE ACETATE 80 MG THERAPEUT [address] [facility] CRISTIAN IC 4 PHYSICIAN ROS[facility] MARIA PROPHYLAC S GROUP TIC/DX INJECTION SUBQ/IM NON-INVAS 20780 [facility] FLAQUITO 4 [facility] PHYSIOLOG INC INC IC STUDY EXTREMITY 3 LEVLS O2 CONC 1 E1390 [facility] [place]MO[place]JORELL [place] 4 HOME HOME 85%/>02 [facility] FLW RATE NEBULIZER E0570 CAITLIN TUCKER WITH 4 HOME HOME [facility] ADMN SET A7005 YOUR YOUR W/SM VOL 4 [facility]ARM[facility]Y [facility] NEBULIZR NON-DISPB L INJECTION J1040 [facility] CRISTIAN 4 PHYSICIAN [facility] MARIA METHYLPRE S GROUP DNISOLONE ACETATE 80 MG INJECTION J18[address] [facility] CRISTIAN 4 PHYSICIAN [facility] MARIA KETOROLAC S GROUP TROMETHAM INE PER 15 MG THERAPEUT [address] [facility] CRISTIAN IC 4 PHYSICIAN ROSA MARIA PROPHYLAC S GROUP TIC/DX INJECTION SUBQ/IM URNLS DIP 66669 [facility] STICK/TAB [facility] DEPT [facility] DEPT LET [facility] NON-AUTO W/O MICRSCP SMR PRIM 78717 [facility] [address] [facility] DEPT NFCT AGT MADI MADI WET Q0111 [facility] INCL PREP [facility] DEPT [facility] DEPT VAGINAL [facility] CERV/SKIN SPECIMENS COLPOSCOP 28362 [facility] Y [facility] IMHISTOCH 19670 [facility], EM/CYTCHM 4 [facility] 1ST [place] [address] [facility], SURG [address] [place] [address] PATHOLOGY GROSS&ROSA MARIA ROSCOPIC EXAM CYANOCOBA 77760 [facility] TIFFANY [facility] VITAMIN INC INC B-12 BLOOD [id number] [facility] COMPLETE INC INC AUTO&AUTO DIFRNTL WBC COMPREHEN 21927 [facility] SIVE [facility] [place] [address] [facility] THYROID 4 [facility] STIMULATI INC INC NG HORMONE TSH SCREENING [id number] [facility] MAMMOGRAP INC INC HY JOSSELYN INCL CAD WHEN PERFORMD COMPUTER- 00048 [facility] AIDED 4 [facility] DETECTION INC INC SCREENING MAMMOGRAP HY PH BODY 74741 [facility] FLUID NOT 4 DISTRICT DISTRICT [facility] DEPT [facility] DEPT ELSEWHERE [facility] MADI SPECIFIED IADNA 60989 [facility] [address] [facility] DEPT GONORRHOE [facility] AE AMPLIFIED PROBE TQ AMINES 65003 [facility] VAGINAL 4 [facility] DISTRICT FLUID [facility] DEPT [facility] DEPT QUALITATI [facility] VE CYTP 05913 [facility] CERV[facility] AUTO THIN LAYER PREP MNL SCREEN IADNA 18472 [facility] CHLAMYD[facility] DEPT HL DEPT TRACHOMAT MADI MADI IS AMPLIFIED PROBE TQ SMR PRIM 16117 [facility] SRC WET [facility] DEPT NFCT AGT MADI MADI ALL Q0112 [facility] POTASSIUM [facility] DEPT HLTH DEPT HYDROXIDE MADI MADI PREPARATI ONS WET Q0111 [facility] FARRAH 4 [facility] INCL PREP HLTH DEPT HLTH DEPT VAGINAL MADI MADI CERV/SKIN SPECIMENS CYTP 41124 [facility], CERVICAL/ [facility] VAGINAL REQ INTERP PHYSICIAN IADNA 74212 [facility] PAPILLOMA [facility] VIRUS HUMAN AMPLIFIED PROBE TQ Encounters Encounter Start End Date Code Location Performer Type Date OFFICE 79417 WR[facility] WREN OUTPATIEN 7 7 Diya FELDMAN MD,PSC 25 MINUTES OFFICE 96321 WREN SHARONP OUTPATIEN 7 7 Diya FELDMAN MD,PSC 25 MINUTES OFFICE 72339 ALLER[facility] DWYER OUTPATIEN 7 7 PARTNERS T VISIT OF GONZALE[place] 40 CO MINUTES OFFICE 37678 WREN WREN OUTPATIEN 6 6 TRAVIS FELDMAN VISIT ,PSC 25 MINUTES OFFICE 61384 ALLER[facility] DWYER MAR OUTPATIEN 6 6 PARTNERS T NEW 60 OF GONZALEZ MINUTES CO OFFICE 00265 WREN WESTERFIE OUTPATIEN 6 [address] FELDMAN TRA T VISIT ,PSC 25 MINUTES OFFICE [address] [facility] CRISTIAN OUTPATIEN 6 6 PHYSICIAN ROSA MARIA T VISIT S GROUP 25 MINUTES OFFICE 41086 SIENA WHEELERRIP OUTPATIEN 6 6 NAHID FELDMAN 30 ,PSC MINUTES HOSPITAL LUZ - OTHER 6 6 [facility] INC OFFICE [address] [facility] CRISTIAN OUTPATIEN 6 6 PHYSICIAN ROSA MARIA T VISIT S GROUP 25 MINUTES HOSPITAL LUZ - 6 6 [facility] OUTPATIEN INC [facility] LUZ - OTHER 6 6 [facility] INC OFFICE [address] [facility] CRISTIAN OUTPATIEN 6 6 PHYSICIAN ROSA MARIA T VISIT S GROUP 10 MINUTES HOSPITAL LUZ - OTHER 6 6 [facility] INC OFFICE [address] [facility] SONG OUTPATIEN 6 6 PHYSICIAN LEANDER T VISIT S GROUP 15 MINUTES OFFICE [address] [facility] ROZ TOD OUTPATIEN 6 6 PHYSICIAN T VISIT S GROUP 10 MINUTES OFFICE [address] [facility] PETTEY OUTPATIEN 6 6 PHYSICIAN JAM T NEW 30 S GROUP MINUTES [facility] LUZ - 6 6 [facility] OUTPATIEN INC T OFFICE 418[address] [facility] ROZ TOD OUTPATIEN 6 6 PHYSICIAN T VISIT S GROUP 25 MINUTES HOSPITAL LUZ - OTHER 6 6 [facility] LUZ - OTHER 6 6 [facility] INC OFFICE [address] [facility] CRISTIAN OUTPATIEN 6 6 PHYSICIAN ROSA MARIA T VISIT S GROUP 15 MINUTES HOSPITAL LUZ - 6 6 [facility]EN [facility] LUZ - 6 6 [facility] OUTPATIEN INC T OFFICE [address] [facility] CRISTIAN OUTPATIEN 6 6 PHYSICIAN ROSA MARIA T VISIT S GROUP 15 MINUTES HOSPITAL LUZ - OTHER 6 6 [facility] INC OFFICE [address] [facility] CRISTIAN OUTPATIEN 6 6 PHYSICIAN ROSA MARIA T VISIT S GROUP 10 MINUTES HOSPITAL LUZ - 6 6 [facility] OUTPATIEN INC T OFFICE [address] [facility] CRISTIAN OUTPATIEN 6 6 PHYSICIAN ROSA MARIA T VISIT S GROUP 10 MINUTES HOSPITAL UNIVERSIT - 6 6 [facility] 6 6 [facility] LU[facility] - OTHER 6 6 [facility] LUZ - 6 6 [facility] OUTPATILONG [facility] T OFFICE 65266 NATHAN RAMOS [facility] 6 6 MD MEHNAZ, T VISIT PSC 15 MINUTES EMERGENCY 07186 LUZ 6 6 [facility] T VISIT MODERATE [facility]VERITY HOSPITAL LUZ - 6 6 [facility] 5 5 [facility] OFFICE 10644 [facility] 5 5 PHYSICIAN LEANDER T VISIT S GROUP 15 MINUTES [facility] LUZ - 5 5 [facility] T [facility] 96083 LU[facility]I [facility] [address] [facility] UNIVERSIT - 5 5 [facility] LU[facility] - 5 5 [facility] OUTPATIEN [facility] LUZ [facility] 5 5 [facility] 41679 LUZ 5 5 [facility] T VISIT [facility]IGH/URGE NT SEVERITY [facility] UNIVERSIT - 5 5 Y [facility] T OFFICE 11653 LU[facility]AV[facility]I [facility] [address] [facility] ULZ - 5 5 [facility] T OFFICE 09924 NATHAN ALEXIS OUTPATIEN 5 5 MD MEHNAZ, T VISIT PSC 10 MINUTES HOSPITAL LUZ - 5 5 [facility] OUTPATIEN INC T OFFICE 40599 ERMA BULLOCK DOU OUTPATIEN 5 5 MEDICAL T NEW 45 SERV MINUTES [facility]UST UNIVERSIT - 5 5 Y [facility] T OFF[facility] 31545 ERMA RICHEY SEA OUTPATIEN 5 5 MEDICAL T VISIT SERV 25 FOUNDATIO MINUTES N OFFICE 45895 [facility] OUTPATIEN 5 5 PHYSICIAN T VISIT S GROUP 10 MINUTES [facility] LUZ - 5 5 [facility] OUTPATIEN INC T OFFICE 07818 LUZ JHAVERI OUTPATIEN 5 5 [facility] T VISIT [facility] 10 P MINUTES [facility] LUZ - 5 5 [facility] INPATIENT [facility] LUZ [facility] 5 5 [facility] INPATIENT [facility] LUZ - 5 5 [facility]PAT[facility] LUZ - 5 5 [facility] OUTPATIEN INC T OFFICE 42472 NATHANSHRUTHI VICENTE OUTPATIEN 5 5 MD MEHNAZ, T VISIT PSC 15 MINUTES [facility] LUZ - 5 5 [facility] OUTPATIEN INC T OFFICE 44922 [facility] DARBY BUX ANJ OUTPATIEN 5 5 T VISIT 10 MINUTES HOSPITAL LUZ - 5 5 [facility] OUTPATIEN [facility]PITAL LUZ - 5 5 [facility] OUTPATIEN INC T OFFICE 92075 ERMA LOPEZ OUTPATIEN 5 5 MEDICAL JAM T VISIT SERV 25 FOUNDATIO MINUTES N OFFICE 73893 [facility] DARBY BUX ANJ OUTPATIEN 5 5 MD T NEW 30 MINUTES HOSPITAL UNIVERSIT - 5 5 Y [facility] HOSPITAL UNIVERSIT - 5 5 Y [facility] T OFFICE 73026 ERMA OSEI OUTPATIEN 5 5 MEDICAL T VISIT SERV 25 FOUNDATIO MINUTES RUST LUZ - 4 4 [facility] OUTPATIEN INC T PERIODIC 30938 [facility] 4 PHYSICIAN ROSA MARIA E MED EST S GROUP PATIENT 40-64YRS [facility] UNIVERSIT - 4 4 Y [facility] T OFFICE 87039 [facility] OUTPATIEN 4 4 PHYSICIAN ROSA MARIA T VISIT S GROUP [address] [facility] UNIVERSIT - 4 4 Y [facility] T OFFICE 15293 ERMA MORGANT OUTPATIEN 4 4 MEDICAL T NEW 45 SERV MINUTES [facility]OUND[facility]IO N OFFICE 55114 [facility] OUTPATI 4 4 Y T VISIT [facility] [address] [facility] LUZ - 4 4 [facility] OUTPATIEN INC T OFFICE 97237 [facility] OUTPATIEN 4 4 MEDICAL T NEW 30 SERV MINUTES [facility]UST LUZ - 4 4 [facility] OUTPATIEN INC T OFFICE 48124 [facility] OUTPATIEN 4 4 PHYSICIAN ROSA MARIA T VISIT S GROUP 15 MINUTES OFFICE 73046 [place] MARISSA PITER CONSULTAT 4 4 MEDICAL ION SERV NEW/ESTAB [facility]OUND[facility]IO PATIENT N 60 MIN HOSPITAL LUZ - 4 4 [facility] OUTPATIEN INC T OFFICE 96919 [facility] 4 PHYSICIAN ROSA MARIA T VISIT S GROUP 25 MINUTES OFFICE 34790 [facility] OUTPATIEN 4 4 PHYSICIAN ROSA MARIA T VISIT S GROUP [address] [facility] LUZ - 4 4 [facility] OUTPATIEN INC T HOSPITAL LUZ - 4 4 [facility] OUTPATIEN INC [facility]OSPITAL LUZ - 4 4 [facility] OUTPATIEN INC T OFFICE 97727 [facility] OUTPATIEN 4 4 D VANESA T VISIT PATHOLOGI [facility] MINUTES HOSPITAL LUZ - 4 4 [facility] OUTPATIEN INC T OFFICE 54428 LUZ SIDHU JR OUTPATIEN 4 4 [facility] VISIT HOSPITAL 10 P MINUTES OFFICE 46862 [facility] OUTPATIEN 4 4 D VANESA T VISIT PATHOLOGI [facility] MINUTES OFFICE [address] [facility] CRISTIAN OUTPATIEN 4 4 PHYSICIAN ROSA MARIA T VISIT S GROUP 10 MINUTES OFFICE 03999 LUZ SIDHU JR CONSULTAT 4 4 [facility] NEW/ESTAB P PATIENT 60 MIN HOSPITAL LUZ - 4 4 [facility] OUTPATIEN INC T OFFICE [address] [facility] CRISTIAN OUTPATIEN 4 4 PHYSICIAN ROSA MARIA T VISIT S GROUP 15 MINUTES OFFICE [address] [facility] CRISTIAN OUTPATIEN 4 4 PHYSICIAN ROSA MARIA T VISIT S GROUP 15 MINUTES OFFICE [address] [facility] CRISTIAN OUTPATIEN 4 4 PHYSICIAN ROSA MARIA T VISIT S GROUP 15 MINUTES OFFICE [address] [facility] CRISTIAN OUTPATIEN 4 4 PHYSICIAN ROSA MARIA T NEW 30 S GROUP MINUTES OFFICE 74974 [facility] T VISIT TH DEPT [facility] DEPT 10 [facility] LUZ - 4 4 [facility] OUTPATIEN INC HOSPITAL LUZ [facility] 4 4 [facility] OUTPATIEN INC T PERIODIC 16125 [facility] PREVENTIV [facility] E MED EST [facility] DEPT [facility] DEPT PATIENT [facility] 40-64YRS OFFICE 06561 [facility] 4 4 [facility] T VISIT [facility] DEPT [facility] DEPT 15 [facility] MINUTES Inpatient ADOLFO STOUT (IN) 3 00:35 3 18:03 [facility] Inpatient ADOLFO Meadows MD (IN) 3 11:34 3 12:50 [facility]
--- OUTSIDE RECORDS SUMMARY | 2016-09-25 17:12 | External Medical Summary Rpt ---
Author Author , Organization [employer] Address Unknown Phone Unavailable Care Team Providers Care Montessori Paraprofessional Name Role Phone JHAVERI FABY, JHAVERI Unavailable [...] FELDMAN, Unavailable Unavailable ,PSC, SIENA FELDMAN MD,PSC BESINAIKE [place], FRANK Unavailable Unavailable [place] OROZCO ALL, OROZCO ALL Unavailable Unavailable [facility] [employer] [employer] [employer] Unavailable Unavailable BUX ANJ, BUX ANJ Unavailable Unavailable CHIPPS ANNA & Unavailable Unavailable DUBILIER, CHIPPS ANNA & DUBILIER SONG LEANDER, SONG Unavailable Unavailable LEANDER FIONA ALLISON, Unavailable Unavailable FIONA ALLISON [facility] Unavailable Unavailable [place] ADHIKARI LAYNE, ADHIKARI LAYNE Unavailable Unavailable DUFF VANESA, DUFF VANESA Unavailable Unavailable [facility], [facility] Unavailable Unavailable [facility] [employer], [employer] Unavailable Unavailable [facility] Unavailable Unavailable [facility], [facility] Unavailable Unavailable [facility], [facility] KEARNS MOY, KEARNS Unavailable Unavailable MOY CRISTIAN ROSA MARIA, CRISTIAN Unavailable Unavailable ROSA MARIA [facility] Unavailable Unavailable INC, [facility] Unavailable Unavailable HOSPITAL P, [facility], Unavailable Unavailable [facility] Unavailable [facility]available [facility], [facility] Unavailable [facility]available [facility], [facility] RACHAEL MANNINGO, RACHAEL IMELDA Unavailable Unavailable BULLOCK ALLISON, UBLLOCK ALLISON Unavailable Unavailable [facility] Unavailable Unavailable [facility], [facility] Un[facility] Unavailable Unavailable [facility] ETTA CRI, [facility] Unavailable Unavailable [...] SHE GOODMAN VANESA, GOODMAN Unavailable Unavailable [facility], Unavailable Unavailable [facility] Camron Meadows MD, Unavailable Unavailable Camron Meadows MD AMBER PHI, AMBER PHI Unavailable Unavailable [facility], Unavailable Unavailable [facility] Unavailable Unavailable DEPT [facility] DEPT [facility] Unavailable Unavailable DEPT [facility] DEPT [facility] BERTHA TRA, Unavailable Unavailable BERTHA TRA DWYER, DWYER Unavailable Unavailable DWYER MAR, DWYER MAR Unavailable Unavailable [facility] Unavailable Unavailable [facility] [place], [facility] [place] FELDMAN PET, FELDMAN Unavailable Unavailable [facility], Unavailable Unavailable [facility] Purpose Continuity of Care Document - 08-04-2012 through 2016 Problems Code Diagnosis DOS Provider Status [id number] SPONDYLOSIS 08-29-2016 SIENA W/O FRANCIA MYELOPATH/R ,PSC ADICULOPATH Y LUMB RGN 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 SIENA 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 USE GAMAL FELDMAN MD,PSC [...] SIENA INTERVMARIANN ZUNIGA MD,PSC DEGEN LUMBAR REGION [id number] ADVERS EFF 06-11-2016 [facility] OTH RX MEDS [facility] [place] [place] CO SUBSTANCES INIT ENC Z720 TOBACCO USE 06-11-2016 [facility] [place] H2513 AGE-RELATED 06-06-2016 [facility] NUCLEAR VISION CATARACT CENTER BILATERAL M810 AGE-RELATED 04-30-2016 ELICEO MEDINA MD,PSC S W/O CURRNT PATH FX J440 COPD WITH 04-02-2016 [facility] ACUTE LOWER [facility] [place] RESPIRATORY INFECTION J4530 MILD 04-02-2016 [facility] PERSISTENT [facility] OF ASTHMA [place] CO UNCOMPLICAT ED Z889 ALLERGY 04-02-2016 [facility] STATUS UNS [facility] OF RX MEDS & [place] CO BIOLOG SUBSTANC STS G8929 OTHER 01-02-2016 [facility] CHRONIC PHYSICIANS PAIN GROUP 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 Q12974 PAIN IN 01-02-2016 [facility] LEFT HAND PHYSICIANS GROUP M5416 RADICULOPAT 12-28-2015 SIENA HY LUMBAR CAILIN FELDMAN MD,PSC M545 LOW BACK 12-28-2015 SIENA PAIN MD FRANCIA,PSC I10 ESSENTIAL 12-04-2015 [facility] PRIMARY PHYSICIANS HYPERTENSIO GROUP N S71890 OTHER LONG 12-04-2015 [facility] CURRENT INC DRUG THERAPY Z1231 ENCOUNTER 11-23-2015 [place] [facility] MALIG IMAGING ASS NEOPLASM BREAST N390 URINARY 11-16-2015 [facility] TRACT [facility] INFECTION INC SITE NOT SPECIFIED M519 UNS THOR 11-06-2015 [facility] THORACOLUMB PHYSICIANS AR GROUP LUMBOSACRAL IV DISC D/O 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 R102 PELVIC AND 10-24-2015 [facility] PERINEAL PHYSICIANS PAIN GROUP R109 UNSPECIFIED 10-24-2015 [facility] ABDOMINAL PHYSICIANS PAIN GROUP H4208MC OTHER 10-24-2015 [facility] COMPLICATIO PHYSICIANS NS PROC NEC GROUP INITIAL ENCOUNTER G4733 OBSTRUCTIVE 10-20-2015 [facility] APNEA ADULT MEDICAL PEDIATRIC EQUIPME M6580 OTHER 10-16-2015 [facility] SYNOVITIS & PHYSICIANS GROUP TENOSYNOVIT IS UNSPECIFIED SITE K469 UNS 10-15-2015 [facility]OMINAL [facility] HERNIA W/O INC OBSTRUCTION OR GANGRENE R1031 RIGHT LOWER 10-15-2015 [place] [facility] IM[facility]ING ASS D70255 PERSONAL HX 10-15-2015 [facility] RECTUM IMAGING ASS RS JUNC & ANUS R8290 UNSPECIFIED 10-10-2015 [facility] ABNORMAL [facility] FINDINGS IN INC URINE E039 HYPOTHYROID 10-09-2015 [facility] ISM PHYSICIANS UNSPECIFIED GROUP E785 HYPERLIPIDE 10-09-2015 [facility] MARY PHYSICIANS UNSPECIFIED GROUP 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 D/O GROUP W/RADICULOP ATHY LUMB RGN [id number] PAIN IN 09-23-2015 [facility] UNSPECIFIED [facility] HIP INC K73670 PAIN IN 09-17-2015 [facility] RIGHT HIP PHYSICIANS GROUP R1030 LOWER 07-27-2015 [facility] PAIN UNSPECIFIED R748 ABNORMAL 07-27-2015 [facility] OTHER SERUM ENZYMES Z0000 ENCOUNTER 07-11-2015 [facility] MED EXAM W/O ABNORMAL FIND K219 GASTRO-ESOP 06-09-2015 [facility] REFLUX [facility] DISEASE INC WITHOUT ESOPHAGITIS R1032 LEFT LOWER 06-09-2015 [place] [facility] R1084 GENERALIZED 06-09-2015 [facility]BDOMINAL [facility] PAIN INC K651 PERITONEAL 05-08-2015 [facility] ABSCESS [facility] INC [id number] LAC NO FB 04-24-2015 [facility] AW UNS QUAD [facility] NO PEN INC PERITN CAV SEQUELA 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 ACQUIRED 04-24-2015 [facility] ABSENCE OF [facility] BOTH CERVIX INC AND UTERUS 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-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 BENIGN 04-04-2015 [place] NEOPLASM OF [facility] COLON UNSPECIFIED I03416 PERSONAL HX 04-04-2015 [facility]3] [facility] SERV NEOPLASM FOUNDATION LARGE INTESTINE J471 BRONCHIECTA 04-02-2015 [place] SIS WITH PHARMACY OF ACUTE [facility] EXACERBATIO N R05 COUGH 03-22-2015 [place] [facility] R509 FEVER 03-22-2015 [place] UNSPECIFIED MEDICAL IMAGING ASS J7447TF OTHER 03-22-2015 [place] COMPLICATIO [facility] NS INC ANESTHESIA INITIAL ENCOUNTER D125 BENIGN 03-21-2015 [place] NEOPLASM OF HOSPITAL SIGMOID COLON Z1211 ENCOUNTER 03-21-2015 [facility] MALIGNANT NEOPLASM OF COLON R32 UNSPECIFIED 03-20-2015 [facility] P E E96856 COMBINED 03-13-2015 [place] [facility] SERV 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 I98771 UNSPECIFIED 03-13-2015 [place] [facility] ASTIGMATISM FOUNDATION BILATERAL K921 MELENA 02-23-2015 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 43792 OBSTRUCTIVE 02-19-2015 [facility] SLEEP HOME APNEA MEDICAL EQUIPME 496 CHRONIC 02-14-[address] [place] [address] HOME OBSTRUCTION MEDICAL [facility] EQUIPME 5693 HEMORRHAGE 02-14-2015 [facility] OF RECTUM PHYSICIANS AND ANUS GROUP 21334 DEGEN 02-06-2015 [place] LUMBAR/LUMB [facility] OSACRAL INC INTERVERTEB RAL DISC 7244 THORACIC/JONATHAN 02-06-2015 ZEINA SARGENT MD, PSC NEURITIS/RA DICULITIS UNSPEC 94663 UNSPECIFIED 02-06-2015 [facility] P 45425 EXTRINSIC 02-01-2015 [place] ASTHMA, PHARMACY OF UNSPECIFIED [facility] 4019 UNSPECIFIED 01-30-2015 [facility] HYPERTENSIO [facility] P N 8793 OPEN WOUND 01-30-2015 [place] ABDOMINAL MEDICAL WALL IMAGING ASS ANTERIOR COMPLICATED 9975 URINARY 01-30-2015 [place] COMPLICATIO [facility] P V1089 PERSONAL 01-30-2015 [facility] MALIGNANT [facility] P NEOPLASM OTHER SITE V8801 ACQUIRED 01-25-2015 [place] ABSENCE OF MEDICAL BOTH CERVIX IMAGING ASS AND UTERUS 2331 CARCINOMA 01-22-2015 [facility] OF ANNA & CERVIX DUBILIER UTERI 6271 POSTMENOPAU 01-22-2015 [facility] LUDY PHYSICIANS BLEEDING GROUP 61501 PAP SMER 01-22-2015 [facility] CERV W/HI [facility] GRADE INC SQUAMOUS INTRAEPITH LES 7969 OTHER 01-22-2015 [facility] NONSPECIFIC PHYSICIANS ABNORMAL GROUP FINDING V1090 PERSONAL 01-22-2015 [facility] HISTORY PHYSICIANS UNSPECIFIED GROUP MALIGNANT NEOPLASM 7213 LUMBOSACRAL 01-12-2015 NATHAN DARBY MD, PSC SPONDYLOSIS WITHOUT MYELOPATHY 7248 OTHER 01-12-2015 [facility] SYMPTOMS [facility] REFERABLE INC TO BACK 28226 OTHER 01-09-2015 [facility] NONSPECIFIC [facility] ABNORMAL INC FINDING OF LUNG FIELD 82724 DISPLCMT 01-08-2015 NATHAN DARBY, LUMBAR , PSC INTERVERT DISC W/O MYELOPATHY 0398 ACTINOMYCOT 12-25-2014 [facility] INFECTION OF OTHER SPECIFIED SITES 2360 NEOPLASM OF 12-25-2014 [facility] UNC[facility]AIN [facility] BEHAVIOR OF UTERUS 34405 OBSTRUCTIVE 07-26-2014 [facility] CHRONIC [facility] BRONCHITIS INC WITHOUT EXACERBAT 55861 NONSPEC 07-26-2014 [facility] REACT [facility] TUBERCULIN [place] W/[place] [address] HYPOXEMIA 07-26-2014 [facility] INC 3669 UNSPECIFIED 07-21-2014 [place] [facility] CATARACT [facility] 83223 ESOPHAGEAL 07-21-2014 [place] [facility] 54421 OTHER SLEEP 07-21-2014 [facility] DISTURBANCE [facility] S 02014 FULL 07-10-2014 [place] [facility] INCONTINENC SERV E OF FECES FOUNDATION 24106 UNSPECIFIED 07-10-2014 [place] [facility] URINARY SERV INCONTINENC FOUNDATION E V1006 PERS HX MAL 07-10-2014 [place] [facility] NEOPLSM SERV RECT FOUNDATION RECTOSIGMOI D JUNC&ANUS 1541 MALIGNANT 06-26-2014 [place] [facility] NEOPLASM OF SERV RECTUM FOUNDATION V153 PERS HX 06-26-2014 [facility] PRESENTING [facility] 1542 MALIGNANT 06-02-2014 [place] [facility] NEOP[place] OF SERV ANAL CANAL FOUNDATION 54363 OTHER 06-02-2014 [facility] PAIN 83798 URGENCY OF 06-02-2014 [place] [facility] 74659 06-02-2014 [facility] ION SER 82057 SHORTNESS 05-10-2014 [place] OF BREATH MEDICAL IMAGING ASS 68712 OTHER 04-10-2014 [place] [facility] SPECIFIED SERV DISORDER OF FOUNDATION RECTUM AND ANUS 6238 OTHER 04-10-2014 [place] [facility] SPECIFIED SERV NONINFLAMMA FOUNDATION TORY DISORDER VAGINA V7284 UNSPECIFIED 04-06-2014 [facility] PHYSICIANS PRE-OPERATI GROUP VE EXAMINATION 1543 MALIGNANT 04-05-2014 [place] NEOPLASM OF HOSPITAL ANUS UNSPECIFIED SITE 62076 CHRONIC 04-05-2014 [facility] ASTHMA UNSPECIFIED 33193 NONSPECIFIC 04-05-[address] [facility] ELECTROCARD IOGRAM V7283 OTHER 04-05-2014 [facility] PRE-OPERATI VE EXAMINATION 6829 CELLULITIS 03-27-2014 [facility] AND ABSCESS PHYSICIANS OF GROUP UNSPECIFIED SITE 12663 UNSPECIFIED 03-24-2014 [facility] CONSTIPATIO N 13706 FECAL 03-24-2014 [facility] V463 WHEELCHAIR 03-24-2014 [facility] 7242 LUMBAGO 03-15-2014 [facility] 2113 BENIGN 03-13-2014 [place] [facility] NEOPLASM OF SERV COLON FOUNDATION 2114 BENIGN 03-13-2014 [facility] NEOPLASM OF LLC RECTUM AND ANAL CANAL 2352 NEOPLASM 03-13-2014 [facility] UNCERTAIN [facility] BEHAVIOR INC STOMACH INTEST&RECT 70185 DIVERTICULO 03-13-2014 [place] [facility] SIS OF [place] COLON FOUNDATION 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 LLC 66821 OTHER 03-13-2014 [facility] SPECIFIED LLC DISORDER OF INTESTINES V142 PERSONAL 03-13-2014 [facility] HISTORY OF [facility] ALLERGY TO INC SULFONAMIDE S V1551 PERSONAL 03-09-2014 [place] [facility] OF [place] TRAUMATIC FOUNDATION FRACTURE 2449 UNSPECIFIED 02-24-2014 [facility] PHYSICIANS HYPOTHYROID GROUP ISM 50639 PAIN IN 02-13-2014 [facility] JOINT, SITE MEM HOSP INC UNSPECIFIED 32887 OTHER&UNSPE 02-13-2014 [facility] CIFIED DISC PHYSICIANS DISORDER GROUP CERVICAL REGION 39475 OSTEOARTHRO 02-07-2014 [facility] S UNSPEC PHYSICIANS WHETHER GROUP GEN/LOC UNSPEC SITE 62263 PAIN IN 01-23-2014 [facility], MEM [facility]OS[facility] UPPER ARM INC 53476 PAIN IN 01-23-2014 [facility], [facility] LOWER LEG INC V571 OTHER 01-23-2014 [facility] PHYSICAL [facility] THERAPY INC 39692 ANAL OR 12-14-2013 [facility] RECTAL PAIN [facility] P 7295 PAIN IN 12-13-2013 ASSOCIATED SOFT PATHOLOGIST TISSUES OF S LLC LIMB 72842 ATHEROSLERO 10-27-2013 [facility] NATV ART [facility] EXTREM INC W/INTERMIT CLAUDICAT V016 CONTACT 07-05-2013 [facility] WITH OR DISTRICT EXPOSURE TO 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 DEPT MANAGEMENT MADI V700 ROUTINE 06-07-2013 [facility] DEPT [email or web address] CARE FACL V7231 ROUTINE 06-07-2013 [facility] GYNECOLOGIC LLC AL EXAMINATION [id number] Alcohol [place] abuse [facility] 244.9 Hypothyroid [facility] 305.1 Tobacco [place] user [facility] [id number] Acute [place] pyelonephri [facility] [id number] Major [place] depressive [facility] 401.9 Essential [place] hypertensio [facility] [id number] Obesity [facility] 530.81 Gastroesoph [place] ageal [facility] reflux [facility] disease 794.4 Abnormal [place] renal [facility] 977.9 Drug [place] overdose - [facility] Allergies, Adverse Reactions, Alerts Type Drug Allergy [...] er -A 2 CE Ac TA ti CO ve NO PH EN 5- 32 5 FL 00 10 0 No UO 90 -1 XE 45 4- Lo TI 78 20 ng NE 56 13 er 1 HC Ac L ti 20 ve MG CA PS UL E LI 68 10 0 No SI 18 -1 NO 00 4- Lo ME 51 20 ng IL 80 13 er [...] er -A 2 CE Ac TA ti CO ve NO PH EN 5- 32 5 [...] SI 18 -1 NO 00 4- Lo ME 51 20 ng IL 80 13 er [...] Ac MG ti /M ve L AL ME 00 03 3 No OM 64 -1 [...] DOS Code Location Performer Comment DRUG TEST 81420 SIENA WREN PRS 7 HO FELDMAN MD,[facility] CHEMISTRY ANALYZERS O2 CONC 1 E1390 [facility] 7 HOME HOME 85%/>02 MEDICAL [facility]ICAL CONC [facility] [place] PREPJ& 69838 ALLERGY DWYER ALLERGEN 7 PARTNERS IMMUNOTHE OF [place] RAPY CO 1/CENTRAL STERILE TECH ANTIGEN O2 CONC 1 E1390 [facility] 7 HOME HOME 85%/>02 MEDICAL MEDICAL CONC AT [facility] [place] PREPJ& 13714 ALLERGY DWYER ALLERGEN 7 PARTNERS IMMUNOTHE OF [place] RAPY CO 1/CENTRAL STERILE TECH ANTIGEN DRUG TEST 21030 [facility] PRS 7 HO FELDMAN MD,[facility] CHEMISTRY ANALYZERS O2 CONC 1 E1390 [facility] 7 HOME HOME 85%/>02 MEDICAL [facility]ICAL CONC AT [facility] [place] NITRIC 37152 ALLERGY DWYER OXIDE 7 PARTNERS OF [place] GAS CO DETERMINA TION DEMO&/YOSI 29400 ALLERGY DWYER L OF PT 7 PARTNERS UTILIZ OF [place] AERSL CO GEN/NEB/I NHLR/IP PROF SVCS 49212 ALLERGY ALLERGY ALLG 7 PARTNERS PARTNERS IMMNTX X OF [place] OF [place] W/PRV CO CO ALLGIC XTRCS NJXS BRNCDILAT 38785 ALLERGY DWYER RSPSE 7 PARTNERS SPMTRY OF [place] PRE&POST- CO BRNCDILAT ADMN OPHTH 72359 [facility] 7 VISION XM&EVAL CENTER COMPRE NEW PT 1/> VST O2 CONC 1 E1390 [facility]LINVANESA [facility] 6 HOME HOME 85%/>02 MEDICAL MEDICAL CONC AT [facility] [place] DXA BONE 86710 SIENA FELDMAN DENSITY 6 FRANCIA, PET STUDY 1/> ,[facility] SITES AXIAL SKEL COLLECTIO 50755 SIENA WREN N VENOUS 6 TRAVIS FELDMAN BLOOD ,[facility] VENIPUNCT URE COMPREHEN 08627 SIENA VALENCIAARD SIVE 6 TRAVIS FELDMAN MD,[facility] [place] [address] WRENYOLANDA VALENCIAARD GLUTAMYLT 6 TRAVIS FELDMAN MD,[facility] [place] [address] WRENYOLANDA VALENCIAARD PHOSPHORU 6 TRAVIS FELDMAN MD,[facility] INORGANIC BILIRUBIN 44787 WREN WREN DIRECT TRAVIS WILLSON MD,[facility] BLOOD 01667 SIENA VALENCIAARD COUNT 6 TRAVIS FELDMAN MD,[facility] AUTO&AUTO DIFRNTL WBC DRUG TEST G0479 WREN WREN TRAVIS WILLSON PRESUMP;I ,[facility] NSTRUMENT ED CHEMISTRY ANLYZER O2 CONC 1 E1390 [facility] 6 HOME HOME 85%/>02 MEDICAL MEDICAL CONC AT [facility] [place] [place] PREPJ& 35593 ALLERGY DWYRE MAR ALLERGEN 6 PARTNERS IMMUNOTHE OF [place] RAPY CO 1/CENTRAL STERILE TECH ANTIGEN DEMO&/YOSI 01138 ALLERGY DWYER MAR L OF PT 6 PARTNERS UTILIZ OF [place] AERSL CO GEN/NEB/I NHLR/IP NITRIC 81998 ALLERGY DWYER MAR OXIDE 6 [facility]ERS [facility] [place] GAS CO DETERMINA TION PERCUTANE 75459 ALLERGY DWYER MAR OUS TESTS 6 PARTNERS [facility] [place] W/ALLERGE CO MARIANN EXTRACTS INTRACUTA 16144 ALLERGY DWYER MAR NEOUS 6 PARTNERS TESTS OF [place] W/ALLERGE CO MARIANN EXTRACTS BRNCDILAT 60171 ALLERGY DWYER MAR RSPSE 6 PARTNERS SPMTRY [...] HY JOSSELYN INCL CAD WHEN PERFORMD COMPUTER- 21962 [facility] ESCOBAR AIDED 6 MEM HOS[facility]OS[facility] DETECTION INC INC SCREENING MAMMOGRAP HY SUSCEPTIB 39450 [facility] LTY STDY 6 MEM HOSP [facility]OS[facility] ANTIMICRB INC INC IAL MICRO/AGA R DILUTJ URNLS DIP 55219 [facility] ESCOBAR 6 MEM HOSP [facility]OS[facility] STICK/TAB INC INC LET REAGENT AUTO MICROSCOP Y CULTURE 23466 [facility] BACTERIAL 6 MEM HOSP [facility]OS[facility] INC INC QUANTTATI VE COLONY COUNT URINE CULTURE 26185 [facility] BCT 6 MEM HOSP [facility]OS[facility] ISOL&PRSM INC INC PTV ID ISOLATE EA URINE O2 CONC 1 E1390 [facility] T[place] 6 HOME HOME 85%/>02 MEDICAL MEDICAL CONC AT EQUIPME EQUIPME [facility] FLW RATE DRUG TST G0477 [facility] ESCOBAR [...] HOME 85%/>02 MEDICAL MEDICAL CONC AT [facility] [address] [place] OROZCO ALL ABDOMEN & 6 MEDICAL PELVIS IMAGING W/CONTRAS ASS T MATERIAL BLOOD 31340 [facility] COUNT 6 MEM HOS[facility]OS[facility] COMPLETE INC INC AUTO&AUTO DIFRNTL WBC SUSCEPTIB 29909 [facility] ESC[facility] LTY STDY 6 MEM HOSP MEM HOSP ANTIMICRB INC INC IAL MICRO/AGA R DILUTJ URNLS DIP 05965 [facility] ESCOBAR 6 MEM HOSP [facility]OS[facility] STICK/TAB INC INC LET REAGENT AUTO MICROSCOP Y BASIC 87862 [facility] METABOLIC 6 MEM HOSP [facility]OS[facility] PANEL INC INC CALCIUM TOTAL CULTURE 06334 [facility] BACTERIAL 6 MEM HOSP MEM HOSP INC INC QUANTTATI VE COLONY COUNT URINE CULTURE 51085 [facility] BCT 6 MEM HOSP MEM HOSP ISOL&PRSM INC INC PTV ID ISOLATE EA URINE COLLECTIO 04177 [facility] N VENOUS 6 MEM HOSP [facility]OS[facility] BLOOD INC INC VENIPUNCT URE DRUG TST G0477 [facility] PRESUMP;C 6 MEM HOSP [facility]OS[facility] PBL BEING INC INC READ DC OPT OBV ONLY APPLICATI 99722 [facility] ON 6 [facility] MODALITY INC INC 1/> AREAS HOT/COLD PACKS THERAPEUT 15403 [facility] ESC[facility]AR IC PX 1/> 6 MEM HOS[facility] AREAS INC INC EACH 15 MIN EXERCISES E-STIM G0283 [facility] ESCOBAR 1/> AREAS 6 MEM HOSP [facility] HOSP OTH THAN INC INC WND CARE PART TX PLAN E-STIM G0283 [facility] ESCOBAR 1/> AREAS 6 MEM HOSP MEM HOSP OTH THAN INC INC WND CARE PART TX PLAN APPLICATI 78204 [facility] ESCOBAR ON 6 MEM HOSP MEM HOSP MODALITY INC INC 1/> AREAS HOT/COLD PACKS THERAPEUT 93155 [facility] ESCOBAR IC PX 1/> 6 MEM HOSP MEM HOSP AREAS INC INC EACH 15 MIN EXERCISES CONTINUOU E0601 CA[facility]LIN TUCKER S 6 HOME HOME POSITIVE MEDICAL MEDICAL AIRWAY EQUIPME EQUIPME PRESSURE DEVICE APPLICATI 65277 LUZMATTY EVANSON ON 6 MEM HOSP MEM HOS[facility] MODALITY INC INC 1/> AREAS HOT/COLD PACKS THERAPEUT 18805 [facility] ESCOBAR IC PX 1/> 6 [facility] AREAS INC INC EACH 15 MIN EXERCISES PHYSICAL 04644 LUZ LUZ THERAPY 6 [facility] MEM [...] EQUIPME EQUIPME PRSC FLW RATE RADEX HIP 91140 [place] [facility] 6 [facility] [place] IMAGING L WITH ASS PELVIS 1 VIEW COLLECTIO 02805 LUZ ESCOBAR N VENOUS 6 [facility] BLOOD INC INC VENIPUNCT URE COMPREHEN 94639 LUZ ESCOBAR SIVE 6 [facility] METABOLIC INC INC PANEL BLOOD 85031 [facility] ESCOBAR COUNT 6 [facility] COMPLETE INC INC AUTO&AUTO DIFRNTL WBC RADEX HIP 58353 LUZ ESCOBAR 6 [facility] UNILATERA INC INC L WITH PELVIS 2-3 VIEWS SEDIMENTA 95113 LUZ ESCOBAR TION RATE 6 [facility] RBC INC INC NON-AUTOM ATED CONTINUOU E0601 CAITLIN Leal 6 HOME HOME POSITIVE MEDICAL MEDICAL AIRWAY EQUIPME EQUIPME PRESSURE DEVICE O2 CONC 1 E1390 CAITLIN THOMPSON PORT 6 HOME HOME 85%/>02 MEDICAL MEDICAL CONC AT [place]QUIP[place] E[place] [address] [facility] EXAM 6 Y Y [facility] ALTER STOM DUODENUM/ JEJUNUM INJECTION J2704 [facility] PROPOFOL 6 Y Y 10 MG [facility] INFUS[facility] J7030 [facility] NORMAL 6 Y Y SALINE [facility] SOLUTION 1000 CC CATHETER C1753 [facility] INTRAVASC 6 Y Y ULAR [facility] ULTRASOUN D INJECTION J0330 [facility] 6 Y Y SUCCINYL[facility]ARP [facility] HOLINE CHLORIDE UP TO 20 MG INJECTION J2370 [place] [address] Y Y PHENYLEPH [facility] RINE HCL UP TO 1 ML INJECTION J2405 [place] [address] [facility] PER 1 MG CONTINUOU E0601 CAITLIN Leal 6 HOME HOME POSITIVE MEDICAL MEDICAL AIRWAY EQUIPME EQUIPME PRESSURE DEVICE O2 CONC 1 E1390 CAITLIN THOMPSON PORT 6 HOME HOME 85%/>02 MEDICAL MEDICAL CONC AT EQUIPME EQUIPME PRSC FLW RATE ECG 65205 ERMA CANO IMELDA ROUTINE 6 MEDICAL ECG SERV W/LEAST FOUNDATIO 12 LDS N I&R ONLY [facility] [id number] [facility] OUTPATI 6 Y Y T [facility]PITAL VISIT ASSESS & MGMT PT CONTINUOU E0601 CAITLIN Leal 6 HOME HOME POSITIVE MEDICAL MEDICAL AIRWAY EQUIPME EQUIPME PRESSURE DEVICE O2 CONC 1 E1390 CAITLIN CAITLIN DEL PORT 6 HOME HOME 85%/>02 [facility] PRSC FLW RATE COLLECTIO 62574 LU[facility] ESCOBAR N VENOUS 6 [facility] BLOOD INC INC VENIPUNCT URE COMPREHEN 79208 [facility] ESCOBAR SIVE 6 [facility] METABOLIC INC INC PANEL HEPATITIS 55233 [facility] ESCOBAR A 6 [facility] ANTIBODY INC INC HAAB HEPATITIS 30589 [facility] ESCOBAR C 6 [facility] ANTIBODY INC INC BILIRUBIN 02583 LUZ ESCOBAR DIRECT 6 [facility] INC INC HEPATITIS 45417 LUZ ESCOBAR B CORE 6 [facility] ANTIBODY INC INC HBCAB TOTAL HEPATITIS 47503 LUZ Drew SURF 6 [facility] [place] [address] LU[facility] ESC[facility] HEPATITIS 6 [facility] B INC INC SURFACE ANTIGEN DRUG TST [id number] LU[facility] ESC[facility]AR PRESUMP;C 6 [facility] PBL BEING INC INC READ DC OPT OBV ONLY COL-CHR/M 85149 LUZ ESCOBAR S NONDRUG 6 [facility] ANALYTE INC INC RONALDO QUAL/[place] [address] LUZ ESCOBAR LIPASE 6 [facility] INC INC THER 27706 LU[facility] ESC[facility] PROPH/DX 6 [facility] NJX IV INC INC PUSH SINGLE/1S T SBST/DRUG BLOOD 34256 [facility] COUNT 6 [facility] COMPLETE INC INC AUTO&[place] [address] LUZ ESCOBAR ABDOMEN & 6 [facility] PELVIS INC INC W/CONTRAS T MATERIAL COMPREHEN 50844 [facility] SIVE 6 [facility] [place] [address] LUZ ESCOBAR LACTATE 6 [facility] MEM [...] AT EQUIPME EQUIPME PRSC FLW RATE RMVL 99244 LUZ ESCOBAR DEVITAL 5 [facility] TISS INC INC N-SLCTV DBRDMT W/O ANES 1 SESS CANISTER A7000 NATIONAL NATIONAL DISPOSABL 5 WOUND WOUND E USED CARE LLC CARE LLC WITH SUCTION PUMP EACH WND CARE A6550 NATIONAL NATIONAL SET NEG 5 WOUND WOUND PRSS WND CARE LLC CARE LLC TX ELEC PUMP SPL NEGATIVE 97982 LUZ ESCOBAR PRESSURE 5 [facility] WOUND INC INC THERAPY DME </= [...] LLC ELEC PUMP STATION/P RTBLE CUL BACT 90665 LUZ ESCOABR AEROBIC 5 [facility] ADDL INC INC METHS DEFINITIV E EA ISOL CUL BACT 06909 LUZ ESCOBAR XCPT 5 [facility] URINE INC INC BLOOD/STO OL AEROBIC ISOL NEGATIVE 35442 LUZ ESCOBAR PRESSURE 5 [facility] WOUND INC INC THERAPY DME </= 50 SQ CM NEGATIVE 64549 LUZ ESCOBAR PRESSURE 5 [facility] WOUND INC INC THERAPY DME </= 50 SQ CM CANISTER A7000 NATIONAL NATIONAL DISPOSABL 5 WOUND WOUND E USED CARE LLC CARE LLC WITH SUCTION PUMP EACH WND CARE A6550 NATIONAL NATIONAL SET NEG 5 WOUND WOUND PRSS WND CARE LLC CARE LLC TX ELEC PUMP SPL NEGATIVE 17381 LUZ ESCOBAR PRESSURE 5 [facility] WOUND INC INC THERAPY DME </= 50 SQ CM NEGATIVE 68621 [facility]Z ESCOBAR PRESSURE 5 [facility] WOUND INC INC THERAPY DME </= 50 SQ CM WND CARE A6550 NATIONAL NATIONAL SET NEG 5 WOUND WOUND PRSS WND CARE LLC CARE LLC TX ELEC PUMP SPL CANISTER A7000 NATIONAL NATIONAL DISPOSABL 5 WOUND WOUND E USED CARE LLC CARE LLC WITH SUCTION PUMP EACH NEGATIVE 63869 LU[facility] ESCOBAR PRESSURE 5 [facility] WOUND INC INC THERAPY DME </= 50 SQ CM CONTINUOU E0601 ACITLIN TUCKER S 5 HOME HOME POSITIVE MEDICAL MEDICAL AIRWAY EQUIPME EQUIPME PRESSURE DEVICE NEGATIVE 39470 LUZ ESCOBAR PRESSURE 5 [facility] WOUND INC INC THERAPY DME </= 50 SQ CM O2 CONC 1 E1390 [facility] [place]ER [place] 5 HOME HOME 85%/>02 MEDICAL MEDICAL CONC AT EQUIPME EQUIPME PRSC FLW RATE NEGATIVE 25190 LUZ ESCOBAR PRESSURE 5 [facility] WOUND INC INC THERAPY DME </= 50 SQ CM URNLS DIP 60314 LUZ JHAVERI 5 [facility] LET RGNT P NON-AUTO W/O MICRSCP WND [...] CARE LLC WITH SUCTION PUMP EACH NEGATIVE 58179 [facility] ESC[facility]AR PRESSURE 5 [facility] WOUND INC INC THERAPY DME </= 50 SQ CM DEBRIDEME 64345 LUZ ESCOBAR NT OPEN 5 [facility] WOUND 20 INC INC SQ CM/< NEGATIVE 01788 LUZ ESCOBAR PRESSURE 5 [facility] WOUND INC INC THERAPY DME </= 50 SQ CM RMVL 08586 LUZ ESCOBAR DEVITAL 5 [facility] TISS INC INC N-SLCTV DBRDMT W/O ANES 1 SESS INJECTION J2250 [facility] 5 Y Y [facility] HCL PER 1 MG SIGMOIDOS 28404 [facility] COPY FLX 5 Y Y DX HOSPITAL HOSPITAL W/COLLJ SPEC BR/WA IF PFRMD INFUSION J7030 [facility] NORMAL 5 Y Y SALINE [facility] SOLUTION 1000 CC INJECTION J3010 [facility] FENTANYL 5 Y Y CITRATE [facility] 0.1 MG RMVL 32684 LUZ MC 5 [facility] TISS INC INC N-SLCTV DBRDMT W/O ANES 1 SESS PHRM Q0513 [facility] 5 PHARMACY PHARMACY G FEE OF OF INHALATIO DAVION CRYSTALA N RX; PER 30 DAYS ALBUTEROL J7613 [facility] INHAL 5 PHARMACY PHARMACY NON-CP OF OF PROD THRU DAVION DAVION DME U DOSE 1 MG RMVL 19345 LUZ SHANETAL 5 [facility] TISS INC INC N-SLCTV DBRDMT W/O ANES 1 SESS RMVL 21765 LUZ MC 5 [facility] TISS INC INC N-SLCTV DBRDMT W/O ANES 1 SESS DEBRIDEME 51668 LUZ ESCOBAR NT OPEN 5 [facility] WOUND 20 INC INC SQ CM/< RMVL 17162 LUZ MC 5 [facility] TISS INC INC N-SLCTV DBRDMT W/O ANES 1 SESS CANISTER A7000 NATIONAL NATIONAL DISPOSABL 5 WOUND WOUND E USED CARE LLC CARE LLC WITH SUCTION PUMP EACH WND CARE A6550 NATIONAL NATIONAL SET NEG 5 WOUND WOUND PRSS WND CARE LLC CARE LLC TX ELEC PUMP SPL RADIOLOGI 13767 [facility] ESCOBAR C 5 [facility] EXAMINATI INC [place] [address] LUZ GOSS 5 [facility] THERAPY INC INC PROPHYLAX IS/DX EA HOUR IAADI 36456 LUZ ESCOBAR INFFLUENZ 5 [facility] A A VIRUS INC INC IAADI 20612 LUZ MILLER INFLUENZA 5 [place] [address] LUZ ESCOBAR INFUSION 5 [facility] THERAPY/P INC INC ROPHYLAXI S /DX 1ST TO 1 HR URNLS DIP 91088 [facility] ESCOBAR 5 [facility] STICK/TAB INC INC LET REAGENT AUTO MICROSCOP Y BLOOD 79014 [facility] ESCOBAR COUNT 5 [facility] COMPLETE INC INC AUTO&AUTO DIFRNTL WBC COMPREHEN 98778 LUZ ESCOBAR SIVE 5 [facility] METABOLIC INC INC PANEL COLONOSCO 55404 ERMA KAIDEN OSEI PY 5 MEDICAL W/BIOPSY SERV SINGLE/[place] [address] ERMA KORY LALA SURG 5 MEDICAL PATHOLOGY SERV FOUNDATIO GROSS&ROSA MARIA N ROSCOPIC EXAM INJECTION J2250 [facility] 5 Y Y MIDAZOLAM [facility] HCL PER 1 MG INFUSION J7030 [facility] NORMAL 5 Y Y SALINE [facility] SOLUTION 1000 CC INJECTION J3010 [facility] FENTANYL 5 Y Y CITRATE [facility] 0.1 MG CONTINUOU E0601 CAITLIN TUCKER S 5 HOME HOME POSITIVE MEDICAL MEDICAL AIRWAY EQUIPME EQUIPME PRESSURE DEVICE RMVL 07531 LUZMATTY ESCOBAR DEVITAL 5 [facility] TISS INC INC N-SLCTV DBRDMT W/O ANES 1 SESS URNLS DIP 40374 LUZ JHAVERI 5 [facility] HOSP[facility] LET RGNT P NON-AUTO W/O MICRSCP RMVL 56757 [facility] ESCOBAR DEVITAL 5 [facility] TISS INC INC N-SLCTV DBRDMT W/O ANES 1 SESS O2 CONC 1 E1390 [facility] [place] 5 HOME HOME 85%/>02 MEDICAL MEDICAL CONC AT EQUIPME EQUIPME PRSC FLW RATE PHYSICAL 91274 LUZ ESCOBAR THERAPY 5 [facility] MEM [...] CARE LLC TX ELEC PUMP SPL DETERMINA 50433 ERMA [place] ALLISON TION 5 MEDICAL REFRACTIV SERV E STATE FOUNDATIO N NEG PRESS E2402 NATIONAL NATIONAL WOUND 5 WOUND WOUND THERAPY CARE LLC CARE LLC ELEC PUMP STATION/P RTBLE CANISTER A7000 NATIONAL NATIONAL DISPOSABL 5 WOUND WOUND E USED CARE LLC CARE LLC WITH SUCTION PUMP EACH [facility] CARE A6550 NATIONAL NATIONAL SET NEG 5 WOUND WOUND PRSS WND CARE LLC CARE LLC TX ELEC PUMP SPL PHRM Q0513 [facility] DISPENSIN 5 PHARMACY PHARMACY G FEE OF OF INHALATIO DAVION DAVION N RX; PER 30 DAYS ALBUTEROL J7613 [facility] INHAL 5 PHARMACY PHARMACY NON-CP OF OF PROD THRU DAVION DAVION DME U DOSE 1 MG HOSPITAL G0463 [facility] 5 Y Y T [facility] VISIT ASSESS & MGMT PT CONTINUOU E0601 CAITLIN TUCKER S 5 HOME HOME POSITIVE MEDICAL MEDICAL AIRWAY EQUIPME EQUIPME PRESSURE DEVICE O2 CONC 1 E1390 [facility]LIN [place] 5 HOME HOME 85%/>02 MEDICAL MEDICAL CONC AT EQUIPME EQUIPME PRSC FLW RATE URNLS DIP 43629 LUZ JHAVERI 5 [facility] LET RGNT P NON-AUTO W/O MICRSCP RIKKI 06494 LUZ JHAVERI POST-VOID 5 [facility] RESIDUAL P URINE&/BL ADDER CAP ALBUTEROL J7613 [facility] PHARMACY PHARMACY NON-CP OF OF PROD THRU DAVION DAVION DME U DOSE 1 MG PHRM Q0513 [facility] DISPENSIN 5 PHARMACY PHARMACY G FEE OF OF INHALATIO DAVION RICARDO N RX; PER 30 DAYS INITIAL 44346 [facility] 5 [facility] 30 P MINUTES RADEX 74885 [place] FIONA ABDOMEN 5 MEDICAL ALLISON COMPL IMAGING W/DCBTS&/ ASS ERC VIEWS US PELVIC 79544 [place] OROZCO ALL 5 MEDICAL NONOBSTET IMAGING RYLAN IMAGE ASS DCMTN LIMITED/F /U LEVEL 81110 CHIPPS GARCIA SURG 5 ANNA & RYLAN PATHOLOGY DUBILIER GROSS&ROSA MARIA ROSCOPIC EXAM ANESTHESI 96098 [facility] LAYNE A 5 ANESTH INTRAPERI OF THE TONEAL BLUE LOWER ABD W/LAPS NOS DECALCIFI 65172 CHIPPS GARCIA CATION 5 ANNA & RYLAN PROCEDURE DUBILIER TOTAL 56183 [facility] ABDOMINAL 5 PHYSICIAN MOY S GROUP HYSTERECT W/WO RMVL TUBE OVARY OTHER & 6849 LUZ ESCOBAR UNSPECIFI 5 [facility] ED TOTAL INC INC ABDOMINAL HYSTERECT [place]OMASA OTH 6561 LUZ ESCOBAR REMOVAL 5 [facility] BOTH INC INC OVARIES&T UBES@SAME OP EPIS ECG 21545 LUZ GALLO JR ROUTINE [address] [facility] W/LEAST P 12 LDS I&R ONLY [...] INC INC DNISOLONE ACETATE 40 [place] NJX 43338 NATHAN BUX ANJ DX/THER 5 MD MEHNAZ, AGT PVRT PSC FACET JT LMBR/SAC 1 LEVEL NJX 21618 NATHAN BUX ANJ DX/THER 5 BUX, MD, AGT PVRT PSC FACET JT LMBR/SAC 2ND LEVEL CT THORAX 83320 ALEXANDRO MARIE W/O 5 MEDICAL [place] [address] [facility], SURG 5 [facility] PATHOLOGY GROSS&ROSA MARIA ROSCOPIC EXAM CONTINUOU [...] HOME 85%/>02 MEDICAL MEDICAL CONC AT EQUIPME [facility] FLW RATE ALBUTEROL J7613 YOUR YOUR INHAL 5 PHARMACY PHARMACY NON-CP [facility] PROD THRU DME U DOSE 1 MG PHRM Q0513 YOUR YOUR DISPENSIN 5 PHARMACY PHARMACY G FEE [facility] INHALATIO N RX; PER 30 DAYS O2 CONC 1 E1390 [facility]LIN [place] 5 HOME HOME 85%/>02 [facility] FLW RATE POLYSOM 52596 NOLANEZ MAR PAVJITENDRA MAR 6/>YRS 5 SLEEP 4/> ADDL TONY ATTND O2 CONC 1 E1390 CAITLIN THOMPSON [facility] 5 HOME HOME 85%/>02 MEDICAL MEDICAL CONC AT EQUIPME [facility] FLW RATE POLYSOM 72060 LUZ ESCOBAR 6/>YRS 5 [facility] SLEEP 4/> INC INC ADDL TONY ATTND CT THORAX 91505 [place] FIONA W/O 5 MEDICAL ALLISON CONTRAST IMAGING MATERIAL ASS O2 CONC 1 E1390 CAITLIN THOMPSON [facility] 5 HOME HOME 85%/>02 [facility] FLW RATE INSERTION 26249 [place] SE[place] /RPLCMT 5 MEDICAL PERIPHERA SERV L/GASTRIC FOUNDATIO NPGR N ELEC ARCHANA 11884 [place] NSTIM 5 MEDICAL PLS GEN SERV CPLX FOUNDATIO SC/PERPH N W/PRGRMG INJECTION J2710 [facility] 5 Y Y NEOSTIGMI [facility] NE METHYLSUL FATE UP TO 0.5 MG INJECTION J3370 [facility] 5 Y Y VANCOMYCI [facility] N HCL 500 MG INJECTION J2704 [facility] PROPOFOL 5 Y Y 10 MG HOSPITAL HOSPITAL INFUSION J7050 [facility] NORMAL 5 Y Y SALINE [facility] SOLUTION 250 CC INJECTION J3010 [facility] FENTANYL 5 Y Y CITRATE [facility] 0.1 MG FLUOROSCO 43382 [facility] PY SPX UP 5 Y Y TO 1 HOSPITAL HOSPITAL HOUR PHYS/QHP TIME INJECTION J0330 [facility] 5 Y Y SUCCINYLC [facility] HOLINE CHLORIDE UP TO 20 MG INJECTION J1580 [facility] 5 Y Y GARAMYCIN [facility] GENTAMICI N UP TO 80 MG INJECTION J2405 [facility] 5 Y [facility] PER 1 MG INTRDUCR/ C1894 [facility] SHEATH 5 Y Y NOT GUID [facility] INTRACARD EP NON-LASR LEAD C1897 [facility] NEUROSTIM 5 Y Y [facility] TEST KIT INC 75559 [facility] IMPLTJ 5 Y Y [facility] EL[facility]D SACRAL NERVE RINGERS J7120 [facility] LACTATE 5 Y Y INFUSION [facility] UP TO 1000 CC INJECTION J1100 [facility] 5 Y Y DEXAMETHO [facility] SONE SODIUM PHOSPHATE 1 MG O2 CONC 1 E1390 [facility] 5 HOME HOME 85%/>02 MEDICAL MEDICAL CONC AT EQUIPME EQUIPME PRSC FLW RATE NONEMERG A0120 FEDERATED FEDERATED TRNSPRT: 5 [facility] TRANSPORT [facility] ARE[facility]/OTH SYS O2 [facility]C 1 E1390 [facility] HOME HOME 85%/>02 MEDICAL MEDICAL CONC AT EQUIPME EQUIPME PRSC FLW RATE RADIOLOGI 78145 LUZ ESCOBAR C EXAM 4 [facility] CHEST 2 INC INC VIEWS FRONTAL&L ATERAL PHARM G0333 YOUR YOUR DISPEN 4 PHARMACY PHARMACY FEE INHAL LLC LLC RX; INITIAL 30-DAY SUPPLY ADMN SET A7005 YOUR YOUR W/SM VOL 4 PHARMACY PHARMACY NONFILTR [facility] NEBULIZR NON-DISPB L ALBUTEROL J7613 YOUR YOUR INHAL 4 PHARMACY PHARMACY NON-CP [facility] PROD THRU DME U DOSE 1 MG NONEMERG A0120 FEDERATED FEDERATED TRNSPRT: 4 TRANS [facility] TRANSPORT SERVBLUEG MTN ATION SER ELIU AREA/OTH SYS BIOPSY 67626 [place] [facility] [facility] VAGINAL 4 MEDICAL [place] SERV SIMPLE FOUNDATIO N ANOSCOPY 28381 [place] W/BX 4 MEDICAL SINGLE/MU SERV LTIPLE FOUNDATIO N ANESTHESI 92958 SORAYA YANG GAV A 4 LTH [place]ED[place] [address] [place] ANORECTAL 4 MEDICAL WALL SERV ANAL FOUNDATIO APPROACH N ECG 68829 [facility] ROUTINE 4 Y Y ECG [facility] W/LEAST 12 LDS TRCG ONLY W/O I&R COLLECTIO 96959 [facility] VENOUS 4 Y Y BLOOD [facility] VENIPUNCT URE ECG 56481 ERMA CANO IMELDA ROUTINE 4 MEDICAL ECG SERV W/LEAST FOUNDATIO 12 LDS N I&R ONLY BLOOD 92382 [facility] COUNT 4 Y Y COMPLETE [facility] AUTOMATED TENS E0730 [employer] DEVICE 4 4/MORE LEADS MULTI NERVE STIMULATI ON COLSC FLX 57960 [place] ANN PITER W/RMVL 4 MEDICAL OF TUMOR SERV POLYP FOUNDATIO LESION N SNARE TQ NONEMERG A0120 FEDERATED FEDERATED TRNSPRT: 4 TRANS [facility] TRANSPORT SERVBLUEG MTN ATION SER ELIU AREA/OTH SYS ANES 48552 [facility] 4 ANESTH SHE INTESTINE OF THE BLUE ENDOSCOPY DISTAL DUODENUM PRESSURIZ 64727 LUZ ESCOBAR ED/NONPRE 4 [facility] SSURIZED INC INC INHALATIO N TREATMENT UNCLASSIF J3490 LUZ ESCOBAR IED DRUGS 4 [place] [address] LUZ ESCOBAR INFUSION 4 [facility] THERAPY INC INC PROPHYLAX IS/[place] [address] [facility], SURG 4 [facility] PATHOLOGY GROSS&ROSA MARIA ROSCOPIC EXAM COLONOSCO 97156 LUZ ESCOBAR PY 4 [facility] W/BIOPSY INC INC SINGLE/MU LTIPLE NONEMERG A0120 FEDERATED FEDERATED TRNSPRT: 4 TRANS [facility] SERVBLUEG MAN ATION SER ELIU AREA/OTH SYS PRESSURIZ 95737 LUZ ESCOBAR ED/NONPRE 4 [facility] SSURIZED INC INC INHALATIO N TREATMENT GAS 21266 LUZ ESCOBAR DILUT/WAS 4 [facility] HOUT LUNG INC INC VOL W/[place] DISTRIB VENT&[place] [address] LUZ ESCOBAR DIFFUSING 4 [facility] CAPACITY INC INC BRNCDILAT 81664 LUZ ESCOBAR RSPSE 4 [facility] SPMTRY INC INC PRE&POST- BRNCDILAT ADMN O2 CONC 1 E1390 [facility] T[facility]ER [facility] [place] 4 HOME HOME 85%/>02 MEDICAL MEDICAL CONC AT EQUIPME EQUIPME PRSC FLW RATE NONEMERG A0120 FEDERATED FEDERATED TRNSPRT: 4 TRANS [facility] SERVBLUEG MAN ATION [place] ARE[place] [address] LUZ ESCOBAR BLOOD/URI 4 [facility] C ACID INC INC ANTINUCLE 11897 LUZ ESCOBAR AR 4 [facility] [place] [address] LUZ ESCOBAR THYROXINE 4 [facility] TOTAL INC INC RHEUMATOI 24469 LUZ ESCOBAR D FACTOR 4 [facility] QUANTITAT INC INC FLAQUITO HEPATITIS 29242 LUZ ESCOBAR C 4 [facility] ANTIBODY INC INC BLOOD 47896 LUZ ESCOBAR COUNT 4 [facility] COMPLETE INC INC AUTO&AUTO DIFRNTL WBC LIPID 31555 LUZ ESCOBAR PANEL 4 [facility] INC INC HEMOGLOBI 78008 LUZ ESCOBAR N 4 [facility]OS[facility] GLYCOSYLA [place] [address] LUZ ESCOBAR THYROID 4 [facility] STIMULATI INC INC NG HORMONE TSH HEPATITIS 63194 LUZ ESCOBAR A 4 [facility] ANTIBODY INC INC HAAB COMPREHEN 18021 LUZ ESCOBAR SIVE 4 [facility] METABOLIC INC INC PANEL HEPATITIS 72071 LUZ ESCOBAR Rajendra CORE 4 [facility] ANTIBODY INC INC HBCAB TOTAL HEPATITIS 82870 LUZ Drew SURF 4 [facility] [place] [address] LUZ ESCOBAR HEPATITIS 4 [facility] B INC INC SURFACE ANTIGEN SEDIMENTA 20631 LUZ ESCOBAR TION RATE 4 [facility] RBC INC INC NON-AUTOM ATED TENS E0730 EMPI INC EMPI INC DEVICE 4 4/MORE LEADS MULTI NERVE STIMULATI ON APPL 21188 LUZ ESCOBAR MODALITY 4 [facility] 1/> AREAS INC INC ELEC STIMJ EA 15 MIN APPL 08489 LUZ ESCOBAR MODALITY 4 [facility] 1/> AREAS INC INC ELEC STIMJ UNATTENDE D APPLICATI 92497 LUZ RAND ON [address] [facility] MODALITY INC INC. 1/> AREAS HOT/COLD PACKS THERAPEUT 46231 LUZ ESCOBAR IC PX 1/> 4 [facility] AREAS INC INC EACH 15 MIN EXERCISES NONEMERG A0120 FEDERATED FEDERATED TRNSPRT: 4 TRANS [facility]SP[facility] SERVBLUEG MTN [facility] SER ELIU AREA/OTH SYS NONEMERG A0120 FEDERATED FEDERATED TRNSPRT: 4 TRANS [facility] TRANSPORT SERVBLUEG [facility] SER ELIU AREA/OTH SYS O2 CONC 1 E1390 [facility] [place] 4 HOME HOME 85%/>02 MEDICAL MEDICAL CONC AT EQUIPME EQUIPME PRSC FLW RATE THERAPEUT 38657 LUZ ESCOBAR IC PX 1/> 4 [facility] AREAS INC INC EACH 15 MIN EXERCISES APPLICATI 24483 LUZ ESCOBAR ON 4 [facility] MODALITY INC INC 1/> AREAS HOT/COLD PACKS APPL 33177 LUZ ESCOBAR MODALITY 4 [facility] 1/> AREAS INC INC ELEC STIMJ UNATTENDE D APPL 94597 LUZ ESCOBAR MODALITY 4 [facility] 1/> AREAS INC INC ELEC STIMJ UNATTENDE D APPLICATI 49350 LUZ ESCOBAR ON 4 [facility] MODALITY INC INC 1/> AREAS HOT/COLD PACKS THERAPEUT 85312 LUZ ESCOBAR IC PX 1/> 4 [facility] AREAS INC INC EACH 15 MIN EXERCISES NONEMERG A0120 FEDERATED FEDERATED TRNSPRT: 4 TRANS [facility]SP[facility]BLUEG [facility] SER ELIU AREA/OTH SYS NONEMERG A0120 FEDERATED FEDERATED TRNSPRT: 4 TRANS [facility]SP[facility]BLUEG [facility] SER ELIU AREA/OTH SYS THERAPEUT 12418 LUZ ESCOBAR IC PX 1/> 4 [facility] AREAS INC INC EACH 15 MIN EXERCISES APPLICATI 47123 LUZ ESCOBAR ON 4 [facility] MODALITY INC INC 1/> AREAS HOT/COLD PACKS APPL 74250 LUZ ESCOBAR MODALITY 4 [facility] 1/> AREAS INC INC ELEC STIMJ UNATTENDE D THERAPEUT 27851 LUZ ESCOBAR IC PX 1/> 4 [facility] AREAS INC INC EACH 15 MIN EXERCISES APPL 74662 LUZ ESCOBAR MODALITY 4 [facility] 1/> AREAS INC INC ELEC STIMJ UNATTENDE D APPLICATI 24616 LUZ ESCOBAR ON 4 [facility] MODALITY INC INC 1/> AREAS HOT/COLD PACKS NONEMERG A0120 FEDERATED FEDERATED TRNSPRT: 4 TRANS [facility]UEG [facility] SER ELIU AREA/OTH SYS APPLICATI 48159 LUZ SALINAS ON 4 [facility] MODALITY INC 1/> AREAS HOT/COLD PACKS APPL 04614 LUZ ESCOBAR MODALITY 4 [facility] 1/> AREAS INC INC ELEC STIMJ UNATTENDE D THERAPEUT 66215 LUZ ESCOBAR IC PX 1/> 4 [facility] AREAS INC INC EACH 15 MIN EXERCISES 3D 48806 LUZ ESCOBAR RENDERING 4 [facility] W/INTERP INC INC & POSTPROCE SS SUPERVISI ON MRI 36543 LUZ ESCOBAR SPINAL 4 [facility] CANAL INC INC LUMBAR W/O CONTRAST MATERIAL PHYSICAL 11482 LUZ ESCOBAR THERAPY 4 [facility]P EVALUATIO INC INC N O2 CONC 1 E1390 [facility] [place] 4 HOME HOME 85%/>02 [facility] FLW RATE NONEMERG A0120 FEDERATED FEDERATED TRNSPRT: 4 TRANS [facility] TRANSPORT SERVBLUEG MTN ATION SER ELIU AREA/OTH SYS PHYSICAL 85047 LUZ ESCOBAR THERAPY 4 [facility] EVALUATIO INC INC N SLINGS A4565 BREG INC. BREG INC. 4 O2 CONC 1 E1390 [facility] [place] 4 HOME HOME 85%/>02 [facility] FLW RATE INJECTION J1885 [facility] CRISTIAN 4 PHYSICIAN ROSA MARIA KETOROLAC S GROUP TROMETHAM INE PER 15 MG INJECTION J1040 [facility] CRISTIAN 4 PHYSICIAN ROSA MARIA METHYLPRE S GROUP DNISOLONE ACETATE 80 MG THERAPEUT 62557 [facility] CRISTIAN IC 4 PHYSICIAN ROSA MARIA PROPHYLAC S GROUP TIC/DX INJECTION SUBQ/IM NON-INVAS 33288 LUZ ESCOBAR FLAQUITO 4 [facility] PHYSIOLOG INC INC IC STUDY EXTREMITY 3 LEVLS O2 CONC 1 E1390 CAITLIN MARMOLEJORELL DEL PORT 4 HOME HOME 85%/>02 [facility] FLW RATE NEBULIZER E0570 CAITLIN TUCKER WITH 4 HOME HOME COMPRESSO [facility] ADMN SET A7005 YOUR YOUR W/SM VOL 4 PHARMACY [facility] NEBULIZR NON-DISPB L INJECTION J1040 [facility] CRISTIAN 4 PHYSICIAN ROSA MARIA METHYLPRE S GROUP DNISOLONE ACETATE 80 MG INJECTION J1885 [facility] CRISTIAN 4 PHYSICIAN ROSA MARIA KETOROLAC S GROUP TROMETHAM INE PER 15 MG THERAPEUT 65824 [facility] CRISTIAN IC 4 PHYSICIAN ROSA MARIA PROPHYLAC S GROUP TIC/DX INJECTION SUBQ/IM URNLS DIP 48419 [facility] STICK/TAB [facility] DEPT [facility] DEPT LET RGNT [facility] NON-AUTO W/O MICRSCP SMR PRIM 60589 [facility] SRC WET [facility] DE[facility] NFCT AGT MADI MADI WET Q0111 [facility] FAR[facility] INCL PREP [facility] DEPT [facility] DEPT VAGINAL [facility] CERV/SKIN SPECIMENS COLPOSCOP 26096 [facility] ENDOCR[facility] CURRETAGE IMHISTOCH 75590 [facility], EM/CYTCHM 4 [facility] 1ST [place] [address] [facility], SURG [address] [place] [address] PATHOLOGY GROSS&ROSA MARIA ROSCOPIC EXAM CYANOCOBA 87839 [facility] TIFFANY [facility] VITAMIN INC INC B-12 BLOOD 54447 [facility] COUNT [facility] COMPLETE INC INC AUTO&AUTO DIFRNTL WBC COMPREHEN 29554 [facility] SIVE [facility] [place] [address] [facility] THYROID 4 [facility] STIMULATI INC INC NG HORMONE TSH SCREENING G0202 [facility] MAMMOGRAP INC INC HY JOSSELYN INCL CAD WHEN PERFORMD COMPUTER- 29352 [facility] AIDED [facility] DETECTION INC INC SCREENING MAMMOGRAP HY PH BODY 32131 [facility] FLUID NOT [address] [facility] DEPT ELSEWHERE [facility] MADI SPECIFIED IADNA 05459 [facility] NEISSERIA 4 [facility] DEPT GONORRHOE [facility] AE AMPLIFIED PROBE TQ AMINES 35501 [facility] VAGINAL [address] [facility] [address] [facility] DEPT QUALITATI [facility] VE CYTP 61530 [facility] CERV/[facility] AUTO THIN LAYER PREP MNL SCREEN IADNA 95088 [facility] CHLAMYDIA 4 [facility] HLTH DEPT HL DEPT TRACHOMAT MADI MADI IS AMPLIFIED PROBE TQ SMR PRIM 45138 [facility] SRC WET [facility]TH DEPT NFCT AGT MADI MADI ALL Q0112 [facility] POTASSIUM [facility]TH DEPT HLTH DEPT HYDROXIDE MADI MADI PREPARATI ONS WET Q0111 [facility] INCL PREP HLTH DEPT HLTH DEPT VAGINAL MADI MADI CERV/SKIN SPECIMENS CYTP 61228 [facility], CERVICAL/ [facility] VAGINAL REQ INTERP PHYSICIAN IADNA 17291 [facility], PAPILLOMA [facility] VIRUS HUMAN AMPLIFIED PROBE TQ Encounters Encounter Start End Date Code Location Performer Type Date OFFICE 06920 [facility] WREN OUTPATIEN 7 7 Diya FELDMAN MD,PSC 25 MINUTES OFFICE 43264 [facility] SHARONP OUTPATIEN 7 7 Diya FELDMAN MD,PSC 25 MINUTES OFFICE 62066 ALLERGY DWYER OUTPATIEN 7 7 PARTNERS T VISIT OF [place] 40 CO MINUTES OFFICE 13888 WREN WREN OUTPATIEN 6 6 TRAVIS FELDMAN VISIT ,PSC 25 MINUTES OFFICE 43821 ALLERGY DWYER MAR OUTPATIEN 6 6 PARTNERS T NEW 60 OF GONZALEZ MINUTES CO OFFICE 94187 [facility] OUTPATIEN 6 6 SHASTA FELDMAN TRA T VISIT ,PSC 25 MINUTES OFFICE 61651 [facility] CRISTIAN OUTPATIEN 6 6 PHYSICIAN ROSA MARIA T VISIT S GROUP 25 MINUTES OFFICE 03595 SIENA WHEELERRIP OUTPATIEN 6 6 NAHID FELDMAN 30 ,PSC MINUTES HOSPITAL LUZ - OTHER 6 6 [facility] OFFICE 46123 [facility] CRISTIAN OUTPATIEN 6 6 PHYSICIAN ROSA MARIA T VISIT S GROUP 25 MINUTES HOSPITAL LUZ - 6 6 [facility] OUTPATIEN INC [facility] LUZ [facility] OTHER 6 6 [facility] INC OFFICE 90678 [facility] CRISTIAN OUTPATIEN 6 6 PHYSICIAN ROSA MARIA T VISIT S GROUP 10 MINUTES HOSPITAL LUZ - OTHER 6 6 [facility] OFFICE 97115 [facility] SONG OUTPATIEN 6 6 PHYSICIAN LEANDER T VISIT S GROUP 15 MINUTES OFFICE 63797 [facility] ROZ TOD OUTPATIEN 6 6 PHYSICIAN T VISIT S GROUP 10 MINUTES OFFICE 27909 [facility] PETTEY OUTPATIEN 6 6 PHYSICIAN JAM T NEW 30 S GROUP MINUTES [facility] LUZ - 6 6 MEM [facility] OUTPATIEN INC T OFFICE 23713 [facility] ROZ TOD OUTPATIEN 6 6 PHYSICIAN T VISIT S GROUP 25 MINUTES HOSPITAL LUZ - OTHER 6 6 [facility] LUZ - OTHER 6 6 [facility] INC OFFICE 20228 [facility] CRISTIAN OUTPATIEN 6 6 PHYSICIAN ROSA MARIA T VISIT S GROUP 15 MINUTES HOSPITAL LUZ - 6 6 [facility] OUTPATIEN [facility] LUZ - 6 6 [facility] OUTPATIEN INC T OFFICE 89020 [facility] CRISTIAN OUTPATIEN 6 6 PHYSICIAN ROSA MARIA T VISIT S GROUP 15 MINUTES HOSPITAL LUZ - OTHER 6 6 [facility] INC OFFICE 24656 [facility] CRISTIAN OUTPATIEN 6 6 PHYSICIAN ROSA MARIA T VISIT S GROUP 10 MINUTES HOSPITAL LUZ - 6 6 [facility] OUTPATIEN INC T OFFICE 04737 [facility] CRISTIAN OUTPATIEN 6 6 PHYSICIAN ROSA MARIA T VISIT S GROUP 10 MINUTES HOSPITAL UNIVERSIT - 6 6 Y [facility] UNIVERSIT - 6 6 Y [facility] LUZ - OTHER 6 6 [facility] LUZ - [address] [facility] 47810 NATHAN RAMOS [facility] 6 6 MD MEHNAZ, T VISIT PSC 15 MINUTES EMERGENCY 85087 LUZ 6 6 [facility] T VISIT MODERATE SEVERITY HOSPITAL LUZ - [address] [facility] 5 5 [facility] OFFICE 80670 [facility] 5 5 PHYSICIAN LEANDER T VISIT S GROUP 15 MINUTES [facility] LUZ - [address] [facility] 41364 [facility] 5 [facility] 10 P [facility] UNIVERSIT - 5 5 Y [facility] LUZ - [address] [facility] OUTPATIEN [facility] LUZ [facility] [address] [facility] 36115 LUZ 5 5 [facility] T VISIT HIGH/URGE NT [facility]VERITY [facility] UNIVERSIT - 5 5 Y [facility] T OFFICE 00330 [facility] 5 5 [facility] 10 P [facility] LUZ - [address] [facility] T OFF[facility] 68976 NATHAN ALEXIS OUTPATIEN 5 5 MD MEHNAZ, T VISIT PSC 10 MINUTES HOSPITAL LUZ - 5 5 [facility] OUTPATIEN INC T OFFICE 81401 ERMA BULLOCK DOU OUTPATIEN 5 5 MEDICAL T NEW 45 SERV MINUTES [facility]ERSIT [facility] 5 5 [facility] 43973 ERMA RICHEY SEA OUTPATIEN 5 5 MEDICAL T VISIT SERV 25 FOUNDATIO MINUTES N OFFICE 30274 [facility] AUGIE OUTPATIEN 5 5 PHYSICIAN T VISIT S GROUP 10 MINUTES [facility] LUZ - 5 5 [facility] OUTPATIEN INC T OFFICE 47756 LUZ JHAVERI OUTPATIEN [address] [facility] T VISIT [facility] 10 P MINUTES [facility] LUZ - 5 5 [facility] INPATIENT [facility] LUZ [facility] 5 5 [facility] INPATIENT [facility] LUZ [facility] 5 5 [facility] OUTPATIEN [facility] LUZ - 5 5 [facility] OUTPATIEN INC T OFFICE 36198 NATHANSHRUTHI VICENTE OUTPATIEN 5 5 MD MEHNAZ, T VISIT PSC 15 MINUTES [facility] LUZ - 5 5 [facility] OUTPATIEN INC T OFFICE 43542 [facility] DAR[facility] BUX ANJ OUTPATIEN 5 5 T VISIT 10 MINUTES HOSPITAL LUZ - 5 5 [facility] OUTPATIEN [facility] LUZ - 5 5 [facility] OUTPATIEN INC T OFFICE 08200 ERMA LOPEZ OUTPATIEN 5 5 MEDICAL JAM T VISIT SERV 25 FOUNDATIO MINUTES N OFFICE 22044 [facility] DARBY BUX ANJ OUTPATIEN 5 5 MD T NEW 30 MINUTES HOSPITAL UNIVERSIT - 5 5 Y [facility] UNIVERSIT - 5 5 Y [facility] T OFFICE 99194 ERMA OSEI OUTPATIEN 5 5 MEDICAL T VISIT SERV 25 FOUNDATIO MINUTES [facility] LUZ [facility] 4 4 [facility] OUTPATIEN INC T PERIODIC 71367 [facility] 4 4 PHYSICIAN ROSA MARIA E MED EST S GROUP PATIENT 40-64YRS [facility] UNIVERSIT [facility] 4 4 Y [facility] T OFFICE 49088 [facility] OUTPATIEN 4 4 PHYSICIAN ROSA MARIA T VISIT S GROUP 10 [facility] UNIVERSIT [facility] 4 4 Y [facility] T OFFICE 21528 ERMA MORGANT OUTPATIEN 4 4 MEDICAL T NEW 45 SERV MINUTES [facility] N OFFICE 58260 [facility] OUTPATI 4 4 Y T VISIT [facility] 40 [facility] LUZ [facility] 4 4 [facility] OUTPATIEN INC T OFFICE 97031 ERMA CLARK [facility] OUTPATIEN 4 4 MEDICAL T NEW 30 SERV MINUTES [facility] LUZ [facility] 4 4 [facility] OUTPATIEN INC T OFFICE 21562 [facility] OUTPATIEN 4 4 PHYSICIAN ROSA MARIA T VISIT S GROUP 15 MINUTES OFFICE 65851 [place] [facility] CONSULTAT 4 4 MEDICAL ION SERV NEW/ESTAB [facility] PATIENT N 60 MIN HOSPITAL LUZ - 4 4 [facility] OUTPATIEN INC T OFFICE 06825 [facility] 4 4 PHYSICIAN ROSA MARIA T VISIT S GROUP 25 MINUTES OFFICE 16737 [facility] OUTPATIEN 4 4 PHYSICIAN ROSA MARIA T VISIT S GROUP 10 [facility] LUZ - 4 4 [facility] OUTPATIEN INC T HOSPITAL LUZ - 4 4 [facility] OUTPATIEN INC [facility] LUZ - 4 4 [facility] OUTPATIEN INC T OFFICE 71069 [facility] OUTPATIEN 4 4 D VANESA T VISIT PATHOLOGI [facility] MINUTES HOSPITAL LUZ - 4 4 [facility] OUTPATIEN INC T OFFICE 99549 LUZ SIDHU JR OUTPATIEN 4 4 [facility] VISIT HOSPITAL 10 P MINUTES OFFICE 65877 [facility] OUTPATIEN 4 4 D VANESA T VISIT PATHOLOGI [facility] MINUTES OFFICE 61042 [facility] CRISTIAN OUTPATIEN 4 4 PHYSICIAN ROSA MARIA T VISIT S GROUP 10 MINUTES OFFICE 54754 LUZ SIDHU JR CONSULTAT 4 4 [facility] NEW/ESTAB P PATIENT 60 MIN HOSPITAL LUZ - 4 4 [facility] OUTPATIEN INC T OFFICE 41876 [facility] CRISTIAN OUTPATIEN 4 4 PHYSICIAN ROSA MARIA T VISIT S GROUP 15 MINUTES OFFICE 15564 [facility] CRISTIAN OUTPATIEN 4 4 PHYSICIAN ROSA MARIA T VISIT S GROUP 15 MINUTES OFFICE 48139 [facility] CRISTIAN OUTPATIEN 4 4 PHYSICIAN ROSA MARIA T VISIT S GROUP 15 MINUTES OFFICE 83788 [facility] CRISTIAN OUTPATIEN 4 4 PHYSICIAN ROSA MARIA T NEW 30 S GROUP MINUTES OFFICE 76719 [facility] VISIT [facility]PT [facility] DEPT 10 [facility] LUZ - 4 4 [facility] OUTPATIEN INC [facility] LUZ - 4 4 [facility] OUTPATIEN INC T PERIODIC 26999 [facility] 4 4 [facility] 15 [facility] MINUTES Inpatient ADOLFO STOUT (IN) 3 00:35 3 18:03 [facility] Inpatient ADOLFO Meadows MD (IN) 3 11:34 3 12:50 [facility]
--- OUTSIDE RECORDS SUMMARY | 2016-09-25 17:18 | External Medical Summary Rpt ---
Author Author , Organization [employer] Address Unknown Phone Unavailable Care Team Providers Care Countersinker Balance Screw Hole Name Role Phone JHAVERI FABY, JHAVERI Unavailable Unavailable FABY [facility] Unavailable Unavailable [place] [facility], [facility] [facility] ALLRAN JR LIBAN, ALLRAN Unavailable Unavailable JR LIBAN NATHAN DARBY MD, PSC, Unavailable Unavailable NATHAN DARBY MD, PSC [facility]OC[facility] Unavailable [facility] WREN, SIENA Unavailable Unavailable SIENA ROBLES, WREN Unavailable Unavailable TRAVIS FELDMAN, Unavailable Unavailable ,PSC, SIENA FELDMAN MD,PSC FRANK PORTER, FRANK Unavailable Unavailable [place] OROZCO ALL, OROZCO ALL Unavailable Unavailable [employer] [employer] [employer] Unavailable Unavailable BUX ANJ, BUX ANJ Unavailable Unavailable CHIPPS ANNA & Unavailable Unavailable DUBILIER, CHIPPS ANNA & DUBILIER SONG LEANDER, SONG Unavailable Unavailable LEANDER FIONA ALLISON, Unavailable Unavailable FIONA ALLISON [facility] ADHIKARI LAYNE, ADHIKARI LAYNE Unavailable Unavailable DUFF VANESA, DUFF VANESA Unavailable Unavailable [facility], [facility] Unavailable Unavailable [facility], [facility] Unavailable Unavailable [facility] Unavailable Unavailable [facility], [facility] Unavailable Unavailable [facility], [facility] CRISTIAN ROSA MARIA, CRISTIAN Unavailable Unavailable ROSA MARIA [facility] Unavailable Unavailable INC, [facility] Unavailable Unavailable HOSPITAL P, [facility]ITAL P [facility], Unavailable Unavailable [facility] Un[facility] Unavailable [facility], [facility] Unavailable Unavailable [facility], [facility] DAVIONNahomy MANNINGO, RACHAEL IMELDA Unavailable Unavailable BULLOCK ALLISON, BULLOCK ALLISON Unavailable Unavailable [facility] Un[facility] Un[facility], [facility] Un[facility], [facility] [employer] Unavailable Unavailable [facility] [employer] ETTA CRI, ETTA CRI Unavailable Unavailable [...] SHE GOODMAN VANESA, GOODMAN Unavailable Unavailable VANESA [facility], Unavailable Unavailable [facility] AMBER PHI, AMBER PHI Unavailable Unavailable [facility], Unavailable Unavailable [facility] Unavailable [facility]available [facility] Un[facility] Un[facility] BERTHA TRA, Unavailable Unavailable BERTHA TRA DWYER, DWYER Unavailable Unavailable DWYER MAR, DWYER MAR Unavailable Unavailable [facility] Unavailable Unavailable OF [place], [facility] [place] FELDMAN PET, FELDMAN Unavailable Unavailable [facility], Unavailable [facility] Purpose Continuity of Care Document - 06-02-2013 through 2016 Problems Code Diagnosis DOS Provider Status [id number] SPONDYLOSIS 08-29-2016 SIENA W/O FRANCIA MYELOPATH/R ,PSC ADICULOPATH Y LUMB RGN R00031 USP 08-29-2016 SIENA CURRENT USE FRANCIA OF OPIATE ,PSC ANALGESIC 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 J301 ALLERGIC 07-22-2016 [facility] RHINITIS PART[facility] OF DUE TO [place] POLLEN J3081 ALLERG 07-22-2016 [facility] RHINITIS [facility] OF D/T ANIMAL [place] CAT DOG HAIR & DANDER J3089 OTHER 07-22-2016 [facility] ALL[facility]GIC [facility] RHINITIS [place] 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-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 MARIANN FELDMAN MD,PSC DEGEN LUMBAR REGION [id number] ADVERS EFF 06-11-2016 [facility] OTH RX MEDS PARTNERS OF BIO [place] SUBSTANCES INIT ENC Z720 TOBACCO USE 06-11-2016 [facility] [place] H2513 AGE-RELATED 06-06-2016 [facility] BILATERAL M810 AGE-RELATED 04-30-2016 ELICEO MEDINA MD,PSC S W/O CURRNT PATH FX J440 COPD WITH 04-02-2016 [facility] ACUTE LOWER [facility] OF [place] RESPIRATORY INFECTION J4530 MILD 04-02-2016 [facility] PERSISTENT PARTNERS OF ASTHMA [place] UNCOMPLICAT ED Z889 ALLERGY 04-02-2016 [facility] STATUS UNS PARTNERS OF RX MEDS & [place] BIOLOG SUBSTANC STS G8929 OTHER 01-02-2016 [facility] CHRONIC PHYSICIANS PAIN GROUP M5137 OTH 01-02-2016 [facility]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 V13205 PAIN IN 01-02-2016 [facility] LEFT HAND PHYSICIANS GROUP M5416 RADICULOPAT 12-28-2015 S[facility]NA HY LUMBAR CAILIN FELDMAN MD,PSC M545 LOW BACK 12-28-2015 S[facility] PAIN MD FRANCIA,PSC I10 ESSENTIAL 12-04-2015 [facility] PRIMARY PHYSICIANS HYPERTENSIO GROUP N A69962 OTHER LONG 12-04-2015 [facility] TERM [facility] CURRENT INC DRUG THERAPY Z1231 ENCOUNTER 11-23-2015 [facility] MALIG [facility]ING ASS NEOPLASM BREAST N390 URINARY 11-16-2015 [facility] TRACT [facility] INFECTION INC SITE NOT SPECIFIED M519 UNS THOR 11-06-2015 [facility] THORACOLUMB PHYSICIANS AR GROUP LUMBOSACRAL IV DISC D/O 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 GROUP R102 PELVIC AND 10-24-2015 [facility] PERINEAL PHYSICIANS PAIN GROUP R109 UNSPECIFIED 10-24-2015 [facility] ABDOMINAL PHYSICIANS PAIN GROUP J4457CI OTHER 10-24-2015 [facility] COMPLICATIO PHYSICIANS NS PROC NEC GROUP INITIAL ENCOUNTER G4733 OBSTRUCTIVE 10-20-2015 [facility] SLEEP HOME APNEA ADULT MEDICAL PEDIATRIC EQUIPME M6580 OTHER 10-16-2015 [facility] SYNOVITIS & PHYSICIANS GROUP TENOSYNOVIT IS UNSPECIFIED SITE K469 UNS 10-15-2015 [facility]BDOMINAL [facility] HERNIA W/O INC OBSTRUCTION OR GANGRENE R1031 RIGHT LOWER 10-15-2015 [facility]IN IMAGING ASS G51513 PERSONAL HX 10-15-2015 [facility] AMBIKA RECTUM IMAGING ASS RS JUNC & ANUS R8290 UNSPECIFIED 10-10-2015 [facility] ABNORMAL [facility] FINDINGS IN INC URINE E039 HYPOTHYROID 10-09-2015 [facility] ISM PHYSICIANS UNSPECIFIED GROUP E785 HYPERLIPIDE 10-09-2015 [facility] MARY PHYSICIANS UNSPECIFIED GROUP M5116 INTERVERTEB 10-09-2015 [facility] RAL DISC PHYSICIANS D/O GROUP W/RADICULOP ATHY LUMB RGN Q78627 PAIN IN 09-23-2015 [facility] UNSPECIFIED [facility] HIP INC K45453 PAIN IN 09-17-2015 [facility] RIGHT HIP PHYSICIANS GROUP R1030 LOWER 07-27-2015 [facility] PAIN UNSPECIFIED R748 ABNORMAL 07-27-2015 [facility] OTHER SERUM ENZYMES Z0000 ENCOUNTER 07-11-2015 [facility] MED EXAM W/O ABNORMAL FIND K219 GASTRO-ESOP 06-09-2015 [facility] H REFLUX [facility] DISEASE INC WITHOUT ESOPHAGITIS R1032 LEFT LOWER 06-09-2015 [facility] [place] [facility] IM[facility]ING ASS R1084 GENERALIZED 06-09-2015 [facility] ABDOMINAL [facility] PAIN INC K651 PERITONEAL 05-08-2015 [facility] ABSCESS [facility] INC [id number] LAC NO FB 04-24-2015 [facility] AW UNS QUAD [facility] NO PEN INC PERITN CAV SEQUELA A03306 ACQUIRED 04-24-2015 [facility] ABSENCE OF [facility] BOTH CERVIX INC AND UTERUS 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-2015 [facility] P D126 BENIGN 04-04-2015 [facility] NEOPLASM 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 J471 BRONCHIECTA 04-02-2015 [place] [facility] WITH PHARMACY OF ACUTE [facility] EXACERBATIO N R05 COUGH 03-22-2015 [facility] R509 FEVER 03-22-2015 [facility] UNSPECIFIED [facility]ICAL IMAGING ASS E7040KN OTHER 03-22-2015 [facility] COMPLICATIO [facility] NS INC ANESTHESIA INITIAL ENCOUNTER D125 BENIGN 03-21-2015 [facility] SIGMOID COLON Z1211 ENCOUNTER 03-21-2015 [facility] MALIGNANT NEOPLASM OF COLON R32 UNSPECIFIED 03-20-2015 [facility] URINARY [facility] P E 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 COMBINED 03-13-2015 [place] [facility] SERV 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 Q95730 UNSPECIFIED 03-13-2015 [place] [facility] ASTIGMATISM [facility] BILATERAL K921 MELENA 02-23-2015 [facility] H01881 OTHER 02-23-2015 [place] [facility] SPEC[facility]IED SERV URINARY FOUNDATION INCONTINENC E R159 FULL 02-23-2015 [facility] E OF FECES 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 92857 OBSTRUCTIVE 02-19-2015 [facility] SLEEP HOME APNEA MEDICAL EQUIPME 496 CHRONIC 02-14-[address] [place] [address] HOME OBSTRUCTION [facility] EQUIPME 5693 HEMORRHAGE 02-14-2015 [facility] OF RECTUM PHYSICIANS AND ANUS GROUP 93520 DEGEN 02-06-2015 [facility] LUMBAR/LUMB [facility] OSACRAL INC INTERVERTEB RAL DISC 7244 THORACIC/JONATHAN 02-06-2015 ZEINA SARGENT MD, PSC NEURITIS/RA DICULITIS UNSPEC 33042 UNSPECIFIED 02-06-2015 [facility] P 11194 EXTRINSIC 02-01-2015 [place] ASTHMA, PHARMACY OF UNSPECIFIED [facility] 4019 UNSPECIFIED 01-30-2015 [facility] HYPERTENSIO [facility] P N 8793 OPEN WOUND 01-30-2015 [place] ABDOMINAL MEDICAL WALL IMAGING ASS ANTERIOR COMPLICATED 9975 URINARY 01-30-[address] [facility] P V1089 PERSONAL 01-30-2015 [facility]NT [facility]OSPITAL P NEOPLASM OTHER SITE V8801 ACQUIRED 01-25-2015 [place] ABSENCE OF MEDICAL BOTH CERVIX IMAGING ASS AND UTERUS 2331 CARCINOMA 01-22-2015 [facility] IN [facility]ITU OF ANNA & CERVIX DUBILIER UTERI 6271 POSTMENOPAU 01-22-2015 [facility] LUDY PHYSICIANS BLEEDING GROUP 40534 PAP SMER 01-22-2015 [facility] CERV W/HI [facility] GRADE INC SQUAMOUS INTRAEPITH LES 7969 OTHER 01-22-2015 [facility] NONSPECIFIC PHYSICIANS ABNORMAL GROUP FINDING V1090 PERSONAL 01-22-2015 [facility] HISTORY PHYSICIANS UNSPECIFIED GROUP MALIGNANT NEOPLASM 7213 LUMBOSACRAL 01-12-2015 NATHAN DARBY MD, PSC SPONDYLOSIS WITHOUT MYELOPATHY 7248 OTHER 01-12-2015 [facility] SYMPTOMS [facility] REFERABLE INC TO BACK 34378 OTHER 01-09-2015 [facility] NONSPECIFIC [facility] ABNORMAL INC FINDING OF LUNG FIELD 79277 DISPLCMT 01-08-2015 NATHAN DARBY, LUMBAR , PSC INTERVERT DISC W/O MYELOPATHY 0398 ACTINOMYCOT 12-25-2014 [facility] INFECTION OF OTHER SPECIFIED SITES 2360 NEOPLASM OF 12-25-2014 [facility] UNCERTAIN [facility] BEHAVIOR OF UTERUS 59453 OBSTRUCTIVE 07-26-2014 [facility] CHRONIC [facility] BRONCHITIS INC WITHOUT EXACERBAT 51670 NONSPEC 07-26-2014 [facility] REACT [facility] TUBERCULIN [place] [address] HYPOXEMIA 07-26-2014 [facility] INC 3669 UNSPECIFIED 07-21-2014 [place] [facility] CATARACT [facility] 16225 ESOPHAGEAL 07-21-2014 [place] [facility] REFLUX [facility] 56354 OTHER SLEEP 07-21-2014 [facility] DISTURBANCE [facility]OUND[facility] S 36546 FULL 07-10-2014 [facility] INCONTINENC SERV E OF FECES FOUNDATION 61285 UNSPECIFIED 07-10-2014 [facility] URINARY SERV INCONTINENC FOUNDATION E V1006 PERS HX MAL 07-10-2014 [place] [facility] NEOPLSM SERV RECT [facility]ATION RECTOSIGMOI D JUNC&ANUS 1541 MALIGNANT 06-26-2014 [place] [facility] NEOPLASM OF SERV RECTUM FOUNDATION V153 PERS HX 06-26-2014 [facility] 1542 MALIGNANT 06-02-2014 [place] [facility] NEOP[facility] OF SERV ANAL CANAL FOUNDATION 63585 OTHER 06-02-2014 [facility] PAIN 50056 URGENCY OF 06-02-2014 [facility] 59142 06-02-2014 [facility] TRANSPORTAT ION SER 16743 SHORTNESS 05-10-2014 [facility] 44595 OTHER 04-10-2014 [place] [facility] SPECIFIED SERV DISORDER OF FOUNDATION RECTUM AND ANUS 6238 OTHER 04-10-2014 [facility] SPECIFIED SERV NONINFLAMMA FOUNDATION TORY DISORDER VAGINA V7284 UNSPECIFIED 04-06-2014 [facility] PHYSICIANS PRE-OPERATI GROUP VE EXAMINATION 1543 MALIGNANT 04-05-2014 [facility] NEOPLASM OF [facility] ANUS UNSPECIFIED SITE 09511 CHRONIC 04-05-2014 [facility] ASTHMA UNSPECIFIED 35413 NONSPECIFIC 04-05-2014 [facility] ELECTROCARD IOGRAM V7283 OTHER 04-05-2014 [facility] PRE-OPERATI VE EXAMINATION 6829 CELLULITIS 03-27-2014 [facility] AND ABSCESS PHYSICIANS OF GROUP UNSPECIFIED SITE 27460 UNSPECIFIED 03-24-2014 [facility] CONSTIPATIO N 59205 FECAL 03-24-2014 [facility] V463 WHEELCHAIR 03-24-2014 [facility] 7242 LUMBAGO 03-15-2014 [facility] 2113 BENIGN 03-13-2014 [place] [facility] OF [facility] COLON FOUNDATION 2114 BENIGN 03-13-2014 [facility] NEOPLASM OF LLC RECTUM AND ANAL CANAL 2352 NEOPLASM 03-13-2014 [facility] UNCERTAIN [facility] BEHAVIOR INC STOMACH INTEST&RECT 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 DIVERTICULO 03-13-2014 [place] [facility] SIS OF [facility] COLON FOUNDATION 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 LLC 61801 OTHER 03-13-2014 [facility] SPECIFIED LLC DISORDER OF INTESTINES V142 PERSONAL 03-13-2014 [facility] HISTORY OF [facility] ALLERGY TO INC SULFONAMIDE S V1551 PERSONAL 03-09-2014 [place] [facility]ORY OF [facility] TRAUMATIC FOUNDATION FRACTURE 2449 UNSPECIFIED 02-24-2014 [facility] PHYSICIANS [place]YPOTHYROID GROUP [place]M 52842 PAIN IN 02-13-2014 [facility] JOINT, SITE MEM [facility]OS[facility] INC UNSPECIFIED 83585 OTHER&UNSPE 02-13-2014 [facility] CIFIED DISC PHYSICIANS DISORDER GROUP CERVICAL REGION 19704 OSTEOARTHRO 02-07-2014 [facility] S UNSPEC PHYSICIANS WHETHER GROUP GEN/LOC UNSPEC SITE 31863 PAIN IN 01-23-2014 [facility] JOINT, [facility] UPPER ARM INC 17915 PAIN IN 01-23-2014 [facility], [facility] LOWER LEG INC V571 OTHER 01-23-2014 [facility] PHYSICAL [facility] THERAPY INC 42349 ANAL OR 12-14-2013 [facility] RECTAL PAIN [facility] P 7295 PAIN IN 12-13-2013 ASSOCIATED SOFT PATHOLOGIST TISSUES OF S LLC LIMB 73529 ATHEROSLERO 10-27-2013 [facility] NATV ART [facility] EXTREM INC W/INTERMIT CLAUDICAT V016 CONTACT 07-05-2013 [facility] WITH OR DISTRICT EXPOSURE TO [facility] DEPT VENEREAL MADI DISEASES 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 60512 PAP SMER 06-29-2013 [facility] W/ATYPICAL CLINIC OF SQUAMOUS [place] CELLS UNDET 20326 OTH 06-29-2013 [facility] U SMEAR [place] CERVIX&CERV HPV V2542 SURVEILLANC 06-29-2013 [facility] E PREV [facility] OF CNTRACPT [place] DEVC V7612 OTHER 06-15-2013 [facility]CRE[facility]ING [facility] MAMMOGRAM INC 41023 CERV HIGH 06-07-2013 [facility] RISK HUMAN LLC PAPILLOMAVI MISAEL DNA TEST POS V2689 OTHER 06-07-2013 [facility] PROCREATIVE [facility] DEPT MANAGEMENT MADI V700 ROUTINE 06-07-2013 [facility] MEDICAL [facility] DEPT EXAM@[facility] CARE FACL V7231 ROUTINE 06-07-2013 [facility] GYNECOLOGIC LLC AL EXAMINATION Procedures Procedure DOS Code Location Performer Comment DRUG TEST 06323 SIENA WREN PRSMV 7 HO FELDMAN MD,PSC CHEMISTRY ANALYZERS O2 CONC 1 E1390 [facility] 7 HOME HOME 85%/>02 [facility] FLW [facility]ATE PREPJ& 93972 ALLERGY DWYER ALLERGEN 7 PARTNERS IMMUNOTHE OF [place] RAPY CO 1/FEATHER CUTTING MACHINE FEEDER ANTIGEN O2 CONC 1 E1390 [facility] 7 HOME HOME 85%/>02 [facility] FLW RATE PREPJ& 10223 ALLERGY DWYER ALLERGEN 7 PARTNERS IMMUNOTHE OF [place] RAPY CO 1/FEATHER CUTTING MACHINE FEEDER ANTIGEN DRUG TEST 86066 SIENA HERRERAMirza PRS 7 HO FELDMAN MD,PSC CHEMISTRY ANALYZERS O2 CONC 1 E1390 [facility] 7 HOME HOME 85%/>02 [facility] FLW RATE NITRIC 84000 ALLERGY DWYER OXIDE 7 PARTNERS OF [place] GAS CO DETERMINA TION BRNCDILAT 48874 ALLERGY DWYER RSPSE 7 PARTNERS SPMTRY OF [place] PRE&POST- CO BRNCDILAT ADMN PROF [facility] 11230 ALLERGY ALLERGY ALLG 7 PARTNERS PARTNERS IMMNTX X OF [place] OF [place] W/PRV CO CO ALLGIC XTRCS NJXS DEMO&/YOSI 49395 ALLERGY DWYER L OF PT 7 PARTNERS UTILIZ OF [place] AERSL CO GEN/NEB/I NHLR/IP OPHTH 88997 [facility] 7 VISION XM&EVAL CENTER COMPRE NEW PT 1/> VST O2 CONC 1 E1390 [facility] [place] 6 HOME HOME 85%/>02 [facility] FLW RATE DXA BONE 23174 SIENA FELDMAN DENSITY 6 FRANCIA PET STUDY 1/> ,PSC SITES AXIAL SKEL COLLECTIO 18332 SIENA VALENCIAARD N VENOUS 6 TRAVIS FELDMAN BLOOD ,[facility] VENIPUNCT URE COMPREHEN 76454 WRENYOLANDA VALENCIAARD SIVE 6 TRAVIS [place] [address] WRENYOLANDA WREN GLUTAMYLT 6 TRAVIS FELDMAN MD,[facility] [address] WREN WREN PHOSPHORU 6 TRAVIS FELDMAN MD,[facility] INORGANIC BILIRUBIN 03762 WREN WREN DIRECT 6 TRAVIS FELDMAN MD,[facility] BLOOD 18512 WREN WREN COUNT 6 TRAVIS FELDMAN MD,PSC AUTO&AUTO DIFRNTL WBC DRUG TEST G0479 WREN WREN 6 TRAVIS FELDMAN PRESUMP;I ,[facility] NSTRUMENT ED CHEMISTRY ANLYZER O2 CONC 1 E1390 CAITLIN ZUNIGA 6 HOME HOME 85%/>02 MEDICAL MEDICAL [facility] FLW RATE PREPJ& 80457 ALLERGY DWYER MAR ALLERGEN 6 PARTNERS IMMUNOTHE OF [place] RAPY CO 1/FEATHER CUTTING MACHINE FEEDER ANTIGEN NITRIC 25353 ALLERGY DWYER MAR OXIDE 6 PARTNERS OF [place] GAS CO DETERMINA TION DEMO&/YOSI 24283 ALLERGY DWYER MAR L OF PT 6 PARTNERS UTILIZ OF [place] AERSL CO GEN/NEB/I NHLR/IP PERCUTANE 05013 ALLERGY DWYER MAR OUS TESTS 6 PARTNERS OF [place] W/ALLERGE CO MARIANN EXTRACTS INTRACUTA 37402 ALLERGY DWYER MAR NEOUS 6 PARTNERS TESTS OF [place] W/ALLERGE CO MARIANN EXTRACTS BRNCDILAT 93172 ALLERGY DWYER MAR RSPSE 6 PARTNERS SPMTRY OF [place] PRE&POST- CO BRNCDILAT ADMN O2 CONC 1 E1390 [facility] [place] 6 HOME HOME 85%/>02 MEDICAL MEDICAL CONC AT EQUIPME EQUIPME PRSC FLW RATE O2 CONC 1 E1390 [facility] [place] 6 HOME HOME 85%/>02 MEDICAL MEDICAL CONC AT EQUIPME EQUIPME PRSC FLW RATE O2 CONC 1 E1390 [facility] [place] 6 HOME HOME 85%/>02 MEDICAL MEDICAL CONC AT EQUIPME EQUIPME PRSC FLW RATE O2 CONC 1 E1390 [facility] [place] 6 HOME HOME 85%/>02 MEDICAL MEDICAL CONC AT EQUIPME EQUIPME PRS FLW RATE DRUG TST G0477 [facility] ESCOBAR PRESUMP;C 6 MEM HOS[facility]OS[facility] PBL BEING INC INC READ DC OPT OBV ONLY DRUG TEST G0481 [facility] DEFINITV [address] ID INC INC METH P DAY 8-14 DRUG CL SCREENING G0202 [place] [address] [facility] [place] MAMMOGRAP IMAGING HY JOSSELYN ASS INCL CAD WHEN PERFORMD COMPUTER- 90640 [facility] 6 MEDICAL [place] DETECTION IMAGING ASS SCREENING MAMMOGRAP HY CULTURE 47602 [facility] BACTERIAL 6 [facility]OS[facility] INC INC QUANTTATI VE COLONY COUNT URINE CULTURE 35736 [facility] BCT 6 [facility] ISOL&PRSM INC INC PTV ID ISOLATE EA URINE SUSCEPTIB 36788 [facility] LTY STDY 6 MEM HOS[facility] MEM HOS[facility] ANTIMICRB INC INC IAL MICRO/AGA R DILUTJ URNLS DIP 91172 [facility] ESC[facility]AR 6 [facility] H[facility]OS[facility] STICK/TAB INC INC LET REAGENT AUTO MICROSCOP Y O2 CONC 1 E1390 [facility] [place] [...] DAY 8-14 DRUG CL CONTINUOU E0601 [facility] TUCKER S 6 HOME HOME POSITIVE MEDICAL MEDICAL AIRWAY EQUIPME EQUIPME PRESSURE DEVICE LOCM Q9967 [facility] ESCOBAR [phone] MEM HOSP [facility]OS[facility] MG/ML INC INC IODINE CONCENTRA TION PER ML O2 CONC 1 E1390 [facility] TUCKER DEL PORT 6 HOME HOME 85%/>02 MEDICAL MEDICAL CONC [place] [address] [place] OROZCO ALL ABDOMEN & 6 MEDICAL PELVIS IMAGING W/CONTRAS ASS T MATERIAL BLOOD 04051 [facility] COUNT 6 MEM [facility]OS[facility] COMPLETE INC INC AUTO&AUTO DIFRNTL WBC SUSCEPTIB 97135 [facility] ESC[facility] LTY STDY 6 MEM HOSP MEM HOS[facility] ANTIMICRB INC INC IAL MICRO/AGA R DILUTJ URNLS DIP 71691 [facility] ESC[facility]AR 6 [facility] H[facility]OS[facility] STICK/TAB INC INC LET REAGENT AUTO MICROSCOP Y BASIC 90656 [facility] METABOLIC 6 [facility] PANEL INC INC CALCIUM TOTAL CULTURE 61090 [facility] ESC[facility] BACTERIAL 6 [facility]OS[facility] INC INC QUANTTATI VE COLONY COUNT URINE CULTURE 00499 [facility] BCT 6 [facility]OS[facility] ISOL&PRSM INC INC PTV ID ISOLATE EA URINE COLLECTIO 01256 [facility] N VENOUS 6 MEM HOS[facility]OS[facility] BLOOD INC INC VENIPUNCT URE DRUG TST G0477 [facility] ESC[facility] PRESUMP;C 6 MEM HOS[facility] MEM HOS[facility] PBL BEING INC INC READ DC OPT OBV ONLY THERAPEUT 95105 [facility] ESC[facility]AR IC PX 1/> 6 [facility] AREAS INC INC EACH 15 MIN EXERCISES APPLICATI 20619 [facility] ON 6 [facility] MODALITY INC INC 1/> AREAS HOT/COLD PACKS E-STIM G0283 [facility] ESC[facility]AR 1/> AREAS 6 MEM HOS[facility] MEM HOS[facility] OTH THAN INC INC WND CARE PART TX PLAN E-STIM G0283 [facility] ESC[facility]AR 1/> AREAS 6 MEM HOS[facility] MEM HOSP OTH THAN INC INC WND CARE PART TX PLAN APPLICATI 94379 [facility] ESCOBAR ON 6 MEM HOS[facility]OS[facility] MODALITY INC INC 1/> AREAS HOT/COLD PACKS THERAPEUT 83595 [facility] ESCOBAR IC PX 1/> 6 MEM HOS[facility]OS[facility] AREAS INC INC EACH 15 MIN EXERCISES CONTINUOU E0601 CAITLIN TUCKER S 6 HOME HOME POSITIVE MEDICAL MEDICAL AIRWAY EQUIPME EQUIPME PRESSURE DEVICE THERAPEUT 58526 LU[facility] ESCOBAR IC PX 1/> 6 [facility] AREAS INC INC EACH 15 MIN EXERCISES PHYSICAL 88333 [facility] THERAPY 6 [facility] EVALU[facility] INC INC N APPLICATI 30525 [facility] ESCOBAR ON 6 [facility] MODALITY INC INC 1/> AREAS HOT/COLD PACKS E-STIM G0283 LUZ ESCOBAR 1/> AREAS 6 [facility] OT THAN INC INC WND CARE PART TX PLAN DRUG TST G0477 LUZ EVANSON PRESUMP;C 6 [facility] PBL BEING INC INC READ DC OPT OBV ONLY O2 CONC 1 E1390 CAITLIN TUCKER DEL PORT 6 HOME HOME 85%/>02 MEDICAL MEDICAL CONC AT EQUIPME EQUIPME PRSC FLW RATE RADEX HIP 36965 [facility] 6 MEDICAL [place] IMAGING L WITH ASS PELVIS 1 VIEW SEDIMENTA [id number] [facility] ESCOBAR TION RATE 6 [facility] RBC INC INC NON-AUTOM ATED COLLECTIO 12179 LUZ LUZ N VENOUS 6 [facility] BLOOD INC INC VENIPUNCT URE COMPREHEN 86276 [facility] ESC[facility] SIVE 6 [facility] METABOLIC INC INC PANEL BLOOD 62612 [facility] ESCOBAR COUNT 6 [facility] COMPLETE INC INC AUTO&AUTO DIFRNTL WBC RADEX HIP 87234 [facility] ESCOBAR 6 [facility] UNILATERA INC INC L WITH PELVIS 2-3 VIEWS CONTINUOU E0601 CAITLIN TUCKER S 6 HOME HOME POSITIVE MEDICAL MEDICAL AIRWAY EQUIPME EQUIPME PRESSURE DEVICE O2 CONC 1 E1390 CAITLIN CAITLIN DEL PORT 6 HOME HOME 85%/>02 MEDICAL MEDICAL CONC AT EQUIPME EQUIPME [facility] [place] [address] [facility] EXAM 6 Y Y SURGICAL [facility] ALTER STOM DUODENUM/ JEJUNUM INJECTION J2704 [facility] PROPOFOL 6 Y Y 10 MG HOSPITAL HOSPITAL INFUSION J7030 [facility] NORMAL 6 Y Y SALINE [facility] SOLUTION 1000 CC CATHETER C[address] [facility] INTRAVASC 6 Y Y ULAR [facility] ULTRASOUN D INJECTION J0330 [facility] 6 Y Y SUCCINYLC [facility] HOLINE CHLORIDE UP TO 20 MG INJECTION J2370 [place] [address] Y Y PHENYLEPH [facility] RINE HCL UP TO 1 [address] INJE[address] J[address] [facility] 6 [facility] H[facility] 1 MG CONTINUOU E0601 CAITLINVANESA TUCKER S 6 HOME HOME POSITIVE MEDICAL MEDICAL AIRWAY EQUIPME EQUIPME PRESSURE DEVICE O2 CONC 1 E1390 CAITLINVANESA ZUNIGA 6 HOME HOME 85%/>02 MEDICAL MEDICAL CONC AT EQUIPME EQUIPME [facility] FLW RATE HOSPITAL G[address] [facility] OUTPATI 6 Y Y T CLIN [facility] HOSPITAL VISIT ASSESS & MGMT [place] ECG [id number] ERMA MANNINGO ROUTINE 6 MEDICAL ECG SERV W/LEAST FOUNDATIO 12 LDS N I&R ONLY CONTINUOU E0601 CAITLINVANESA Leal 6 HOME HOME POSITIVE MEDICAL MEDICAL AIRWAY EQUIPME EQUIPME PRESSURE DEVICE O2 CONC 1 E1390 CAITLIN MARMOLEJOVANESA ZUNIGA 6 HOME HOME 85%/>02 MEDICAL MEDICAL CONC AT EQUIPME EQUIPME [facility] FLW RATE COLLECTIO 81110 LUZ ESCOBAR N VENOUS 6 [facility] BLOOD INC INC VENIPUNCT URE COMPREHEN 41294 LUZ ESCOBAR SIVE 6 [facility] METABOLIC INC INC PANEL HEPATITIS 60164 LUZ ESCOBAR A 6 [facility] ANTIBODY INC INC HAAB BILIRUBIN 44337 LUZ ESCOBAR DIRECT 6 [facility] INC INC HEPATITIS 47852 LUZ Drew CORE 6 [facility] ANTIBODY INC INC HBCAB TOTAL HEPATITIS 54750 LUZ ESCOBAR B SURF 6 [facility] [place] [address] LUZ ESCOBAR HEPATITIS 6 [facility] B INC INC SURFACE ANTIGEN HEPATITIS 18146 LUZ ESCOBAR C 6 [facility] ANTIBODY INC INC DRUG TST G0477 LUZ ESCOBAR PRESUMP;C 6 [facility] PBL BEING INC INC READ DC OPT OBV ONLY COL-CHR/M 42229 LUZ ESCOBAR S NONDRUG 6 [facility] ANALYTE INC INC RONALDO QUAL/VICKEY EA SPEC COMPREHEN 70151 LUZ ESCOBAR SIVE 6 [facility] [address] LUZ ESCOBAR LACTATE 6 [place] [address] LUZ ESCOBAR LIPASE 6 [facility] INC INC THER 73279 LUZ ESCOBAR PROPH/DX 6 [facility] NJX IV INC INC PUSH SINGLE/1S T SBST/DRUG BLOOD 67834 LUZ ESCOBAR COUNT 6 [facility] COMPLETE INC INC AUTO&[place] [address] LUZ ESCOBAR ABDOMEN & 6 [facility] PELVIS INC INC W/CONTRAS T MATERIAL CANISTER A7000 NATIONAL NATIONAL DISPOSABL 5 WOUND WOUND E USED [facility] LLC WITH SUCTION PUMP EACH WND CARE A6550 NATIONAL NATIONAL SET NEG 5 WOUND WOUND PRSS WND CARE LLC CARE LLC TX ELEC PUMP SPL CONTINUOU E0601 CAITLIN TUCKER S 5 HOME HOME POSITIVE MEDICAL MEDICAL AIRWAY EQUIPME EQUIPME PRESSURE DEVICE O2 CONC 1 E1390 CAITLIN TUCKER DEL PORT 5 HOME HOME 85%/>02 MEDICAL MEDICAL CONC AT EQUIPME EQUIPME PRSC FLW RATE RMVL 07304 LUZ ESCOBAR DEVITAL 5 [facility] HOS[facility] MEM [...] CARE LLC TX ELEC PUMP SPL NEGATIVE 69413 LUZ EVANSON PRESSURE 5 [facility] WOUND INC INC THERAPY DME </= 50 SQ CM CANISTER A7000 NATIONAL NATIONAL DISPOSABL 5 WOUND WOUND E USED CARE LLC CARE LLC WITH SUCTION PUMP EACH NEG PRESS E2402 NATIONAL NATIONAL WOUND 5 WOUND WOUND THERAPY [facility] LLC CARE LLC ELEC PUMP STATION/P RTBLE CUL BACT 47444 LUZ ESCOBAR XCPT 5 [facility] URINE INC INC BLOOD/STO OL AEROBIC ISOL CUL BACT 06067 LUZ ESCOBAR AEROBIC 5 [facility] ADDL INC INC METHS DEFINITIV E EA ISOL NEGATIVE 07910 LUZ EVANSON PRESSURE 5 [facility] WOUND INC INC THERAPY DME </= 50 SQ CM NEGATIVE 06456 LUZ LUZ PRESSURE 5 [facility] WOUND INC INC THERAPY DME </= 50 SQ CM WND CARE A6550 NATIONAL NATIONAL SET NEG 5 WOUND WOUND PRSS WND CARE LLC CARE LLC TX ELEC PUMP SPL CANISTER A7000 NATIONAL NATIONAL DISPOSABL 5 WOUND WOUND E USED CARE [facility] CARE LLC WITH SUCTION PUMP EACH NEGATIVE 96787 LUZ EVANSON PRESSURE 5 [facility] WOUND INC INC THERAPY DME </= 50 SQ CM NEGATIVE 54057 LUZ EVANSON PRESSURE 5 [facility] WOUND INC INC THERAPY DME </= 50 SQ CM WND CARE A6550 NATIONAL NATIONAL SET NEG 5 WOUND WOUND PRSS WND CARE LLC CARE LLC TX ELEC PUMP SPL CANISTER A7000 NATIONAL NATIONAL DISPOSABL 5 WOUND WOUND E USED CARE LLC CARE LLC WITH SUCTION PUMP EACH NEGATIVE 63096 LUZ LUZ PRESSURE 5 [facility] WOUND INC INC THERAPY DME </= 50 SQ CM CONTINUOU E0601 CAITLIN TUCKER S 5 HOME HOME POSITIVE MEDICAL MEDICAL AIRWAY EQUIPME EQUIPME PRESSURE DEVICE NEGATIVE 76894 LUZ ESCOBAR PRESSURE 5 [facility] WOUND INC INC THERAPY DME </= 50 SQ CM O2 CONC 1 E1390 CAITLIN ZUNIGA 5 HOME HOME 85%/>02 MEDICAL MEDICAL CONC AT EQUIPME EQUIPME PRSC FLW RATE NEGATIVE 00169 LUZ ESCOBAR PRESSURE 5 [facility] WOUND INC INC THERAPY DME </= 50 SQ CM URNLS DIP 54951 LUZ JHAVERI 5 [facility] LET RGNT P NON-AUTO W/O MICRSCP WND CARE A6550 NATIONAL NATIONAL SET NEG 5 WOUND WOUND PRSS WND CARE LLC CARE LLC TX ELEC PUMP SPL WND CARE A6550 NATIONAL NATIONAL SET NEG 5 WOUND WOUND PRSS WND CARE LLC CARE LLC TX ELEC PUMP SPL DEBRIDEME 85460 LUZ ESCOBAR NT OPEN 5 [facility] WOUND 20 INC INC SQ CM/< CANISTER A7000 NATIONAL NATIONAL DISPOSABL 5 WOUND WOUND E USED CARE LLC CARE LLC WITH SUCTION PUMP EACH NEGATIVE 04376 LUZ ESCOBAR PRESSURE 5 [facility] WOUND INC INC THERAPY DME </= 50 SQ CM NEG PRESS E2402 NATIONAL NATIONAL WOUND 5 WOUND WOUND THERAPY [facility]ARE LLC CARE LLC ELEC PUMP STATION/P RTBLE NEGATIVE 01018 LUZ ESCOBAR PRESSURE 5 [facility] WOUND INC INC THERAPY DME </= 50 SQ CM RMVL 46332 LUZ ESCOBAR DEVITAL 5 [facility] TISS INC INC N-SLCTV DBRDMT W/O ANES [address] [facility] COPY FLX 5 Y Y DX HOSPITAL HOSPITAL W/COLLJ SPEC BR/WA IF PFRMD INJECTION J2250 [facility] UN[facility]ERS 5 Y Y [facility] [facility] HCL PER 1 [address] IN[address] [facility] FENTANYL 5 Y Y CITRATE [facility] 0.[address] [facility] NORMAL 5 Y Y SALINE [facility] SOLUTION 1000 CC RMVL 90179 LUZ ESCOBAR DEVITAL 5 [facility] TISS INC INC N-SLCTV DBRDMT W/O ANES 1 SESS PHRM Q0513 [facility] DISPENSIN 5 PHARMACY PHARMACY G FEE OF OF INHALATIO DAVION RICARDO N RX; PER 30 DAYS ALBUTEROL J7613 [facility] INHAL 5 PHARMACY PHARMACY NON-CP OF OF PROD THRU DAVION RICARDO DME U DOSE 1 MG RMVL 31246 LUZ ESCOBAR DEVITAL 5 [facility] TISS INC INC N-SLCTV DBRDMT W/O ANES 1 SESS RMVL 29165 LUZ ESCOBAR DEVITAL 5 [facility] TISS INC INC N-SLCTV DBRDMT W/O ANES 1 SESS DEBRIDEME 58251 LUZ ESCOBAR NT OPEN 5 [facility] WOUND 20 INC INC SQ CM/< WND CARE A6550 NATIONAL NATIONAL SET NEG 5 WOUND WOUND PRSS WND CARE LLC CARE LLC TX ELEC PUMP SPL IAADI 88354 LUZ MILLER INFLUENZA 5 [facility] MEDICAL B VIRUS INC LAB IAADI 12089 LUZ ESCOBAR INFFLUENZ 5 [facility] A A VIRUS INC INC CANISTER A7000 NATIONAL NATIONAL DISPOSABL 5 WOUND WOUND E USED [facility]ARE [place] [address] LUZ ESCOBAR INFUSION 5 [facility] THERAPY/P INC INC ROPHYLAXI S /DX 1ST TO 1 HR BLOOD 79211 LUZ ESCOBAR COUNT 5 [facility] COMPLETE INC INC AUTO&AUTO DIFRNTL WBC URNLS DIP 36516 LUZ ESCOBAR 5 [facility] STICK/TAB INC INC LET REAGENT AUTO MICROSCOP Y COMPREHEN 24313 LUZ ESCOBAR SIVE 5 [facility] [place] [address] LUZ ESCOBAR INFUSION 5 [facility] THERAPY INC INC PROPHYLAX IS/DX EA HOUR RADIOLOGI 86658 LUZ ESCOBAR C 5 [facility] EXAMINATI INC INC ON CHEST SINGLE VIEW FRONTAL RMVL 97654 LUZ MC 5 [facility]OS[facility] TISS INC INC N-SLCTV DBRDMT W/O ANES 1 SESS INJECTION J3[address] [facility] FENTANYL 5 Y Y CITRATE [facility] 0.[address] IN[address] J[address] [facility] NORMAL 5 Y Y SALINE [facility] SOLUTION 1000 CC CONTINUOU E0601 CAITLIN Leal 5 HOME HOME POSITIVE MEDICAL MEDICAL AIRWAY EQUIP[place] [address] [place] KORY LALA SURG 5 MEDICAL PATHOLOGY SERV FOUNDATIO GROSS&ROSA MARIA N ROSCOPIC EXAM INJECTION J2250 [facility] 5 Y Y [facility] [facility] HCL PER 1 MG COLONOSCO 41857 [place] KAIDEN OSEI PY 5 MEDICAL W/BIOPSY SERV SINGLE/MU FOUNDATIO LTIPLE N URNLS DIP 48345 LUZ JHAVERI 5 [facility] LET RGNT P NON-AUTO W/O MICRSCP RMVL 09862 LUZ MC 5 [facility] TISS INC INC N-SLCTV DBRDMT W/O ANES 1 SESS RMVL 09317 LUZ SHANETAL 5 [facility] TISS INC INC N-SLCTV DBRDMT W/O ANES 1 SESS O2 CONC 1 E1390 CAITLIN TUCKER DEL PORT 5 HOME HOME 85%/>02 MEDICAL MEDICAL CONC AT EQUIPME EQUIPME PRSC FLW RATE PHYSICAL 62230 LUZ ESCOBAR THERAPY 5 [facility] EVALUATIO INC INC N LOCM Q9966 LUZ ESCOBAR [phone] 5 [facility] MG/ML INC INC IODINE CONCENTRA TION PER ML WND CARE A6550 NATIONAL NATIONAL SET NEG 5 WOUND WOUND PRSS WND CARE LLC CARE LLC TX ELEC PUMP SPL CANISTER A7000 NATIONAL NATIONAL DISPOSABL 5 WOUND WOUND E USED CARE LLC CARE LLC WITH SUCTION PUMP EACH DETERMINA 76495 ERMA [place] ALLISON TION 5 MEDICAL REFRACTIV SERV E STATE FOUNDATIO N CANISTER A7000 NATIONAL NATIONAL DISPOSABL 5 WOUND WOUND E USED CARE LLC CARE LLC WITH SUCTION PUMP EACH D CARE A6550 NATIONAL NATIONAL SET NEG 5 WOUND WOUND PRSS WND CARE LLC CARE LLC TX ELEC PUMP SPL NEG PRESS E2402 NATIONAL NATIONAL WOUND 5 WOUND WOUND THERAPY CARE LLC CARE LLC ELEC PUMP STATION/P RTBLE ALBUTEROL J7613 [facility] INHAL 5 PHARMACY PHARMACY NON-CP OF OF PROD THRU DAVION DAVION DME U DOSE 1 MG PHRM Q0513 [facility] DISPENSIN 5 PHARMACY PHARMACY G FEE OF OF INHALATIO DAVION DAVION N RX; PER 30 DAYS HOSPITAL G0463 [facility] 5 Y Y T [facility] VISIT ASSESS & MGMT PT CONTINUOU E0601 CAITLIN TUCKER S 5 HOME HOME POSITIVE MEDICAL MEDICAL AIRWAY EQUIPME EQUIPME PRESSURE DEVICE O2 CONC 1 E1390 CAITLIN TUCKER DEL PORT 5 HOME HOME 85%/>02 MEDICAL MEDICAL CONC AT EQUIPME EQUIPME PRSC FLW RATE URNLS DIP [address]/[facility] LET RGNT P NON-AUTO W/O MICRSCP RIKKI 88638 [facility] [address] [place] [address] RESIDUAL P URINE&/BL ADDER CAP ALBUTEROL J7613 [facility] INHAL 5 PHARMACY PHARMACY NON-CP OF OF PROD THRU DAVION DAVION DME U DOSE 1 MG PHRM Q0513 [facility] DISPENSIN 5 PHARMACY PHARMACY G FEE OF OF INHALATIO DAVION DAVION N RX; PER 30 DAYS INITIAL [address] 30 P MINUTES RADEX 78309 [place] FIONA ABDOMEN 5 MEDICAL ALLISON COMPL IMAGING W/DCBTS&/ ASS ERC VIEWS US PELVIC 62389 [place] OROZCO ALL 5 MEDICAL NONOBSTET IMAGING RYLAN IMAGE ASS DCMTN LIMITED/F /U LEVEL 08584 CHIPPS GARCIA SURG 5 ANNA & RYLAN PATHOLOGY DUBILIER GROSS&ROSA MARIA ROSCOPIC EXAM TOTAL 49194 [facility] ABDOMINAL 5 PHYSICIAN LEANDER S GROUP HYSTERECT W/WO RMVL TUBE OVARY DECALCIFI 24955 CHIPPS GARCIA CATION 5 ANNA & RYLAN PROCEDURE DUBILIER ANESTHESI 46810 [facility] A 5 ANESTH INTRAPERI OF THE TONEAL BLUE LOWER ABD W/LAPS NOS OTH 6561 LUZ ESCOBAR REMOVAL 5 [facility] BOTH INC INC OVARIES&T UBES@SAME OP EPIS OTHER & 6849 LUZ LUZ UNSPECIFI 5 [facility] ED TOTAL INC INC ABDOMINAL HYSTERECT TOMASA CONTINUOU E0601 CAITLIN TUCKER S 5 HOME HOME POSITIVE MEDICAL MEDICAL AIRWAY EQUIPME EQUIPME PRESSURE DEVICE ECG 43720 LUZ GALLO JR ROUTINE 5 [facility] W/LEAST P 12 LDS I&R ONLY O2 CONC 1 E1390 CAITLIN THOMPSON PORT 5 HOME HOME 85%/>02 MEDICAL MEDICAL CONC AT EQUIPME EQUIPME PRSC FLW RATE INJECTION J1030 LUZ ESCOBAR 5 [facility] METHYLPRE INC INC DNISOLONE ACETATE 40 MG LOCM Q9967 LUZ ESCOBAR [phone] [facility] MG/ML INC INC IODINE [place]X 98175 NATHAN BUX ANJ DX/THER 5 MD MEHNAZ, AGT PVRT PSC FACET JT LMBR/SAC 1 LEVEL NJX 17123 NATHAN BUX ANJ DX/THER 5 MD MEHNAZ, AGT PVRT PSC FACET JT LMBR/SAC 2ND LEVEL CT THORAX 90017 LUZ ESCOBAR W/O 5 [facility] [place] [address] [facility], SURG 5 LLC LLC PATHOLOGY GROSS&ROSA MARIA ROSCOPIC EXAM CONTINUOU E0601 CAITLIN TUCKER S 5 HOME HOME POSITIVE MEDICAL MEDICAL AIRWAY EQUIPME EQUIPME PRESSURE DEVICE O2 CONC 1 E1390 CAITLIN THOMPSON PORT 5 HOME HOME 85%/>02 MEDICAL MEDICAL CONC AT EQUIPME EQUIPME PRSC FLW RATE INJECTION J1030 LUZ ESCOBAR 5 [facility] METHYLPRE INC INC DNISOLONE ACETATE 40 MG LOCM Q9966 LUZ ESCOBAR [phone] 5 [facility] MG/ML INC INC IODINE CONCENTRA TION PER ML CONTINUOU E0601 CAITLIN TUCKER S 5 HOME HOME POSITIVE MEDICAL MEDICAL AIRWAY EQUIPME EQUIPME PRESSURE DEVICE O2 CONC 1 E1390 CAITLIN TUCKER DEL PORT 5 HOME HOME 85%/>02 MEDICAL MEDICAL CONC AT EQUIPME EQUIPME [facility] FLW RATE HUMDIFIR E0562 CAITLIN TUCKER HEATED 5 HOME HOME USED MEDICAL MEDICAL W/POS EQUIPME EQUIPME ARWAY PRESSURE DEVICE CONTINUOU E0601 CAITLIN TUCKER S 5 HOME HOME POSITIVE MEDICAL MEDICAL AIRWAY EQUIPME EQUIPME PRESSURE DEVICE FILTER A7038 CAITLIN TUCKER DISPBL 5 HOME HOME USED MEDICAL MEDICAL W/POS EQUIPME EQUIPME ARWAY PRESSURE DEVICE FILTER A7039 CAITLIN TUCKER NON 5 HOME HOME DISPBL MEDICAL MEDICAL USED EQUIPME EQUIPME W/POS ARWAY PRESS DEVICE FULL FACE A7030 CAITLIN CAITLIN MASK 5 HOME HOME USED MEDICAL MEDICAL W/POS EQUIPME EQUIPME ARWAY PRESS DEVICE EA TUBING A7037 CAITLINVANESA TUCKER USED WITH 5 HOME HOME POSITIVE MEDICAL MEDICAL AIRWAY EQUIPME EQUIPME PRESSURE DEVICE HEADGEAR A7035 CAITLINVANESA TUCKER USED 5 HOME HOME W/POSITIV MEDICAL MEDICAL E AIRWAY EQUIPME EQUIPME PRESSURE DEVICE O2 CONC 1 E1390 CAITLIN TUCKER DEL PORT 5 HOME HOME 85%/>02 MEDICAL MEDICAL CONC AT EQUIPME EQUIPME [facility] FLW RATE PHRM Q0513 YOUR YOUR DISPENSIN 5 PHARMACY PHARMACY G FEE Sciences-U INHALATIO N RX; PER 30 DAYS ALBUTEROL J7613 YOUR YOUR INHAL 5 PHARMACY PHARMACY NON-CP [facility] PROD THRU DME U DOSE 1 MG O2 CONC 1 E1390 CAITLIN THOMPSON PORT 5 HOME HOME 85%/>02 MEDICAL MEDICAL CONC AT EQUIPME EQUIPME [facility] FLW RATE POLYSOM 17872 JENNIFER CORTES 6/>YRS 5 SLEEP 4/> ADDL TONY ATTND O2 CONC 1 E1390 CAITLIN TUCKER DEL PORT 5 HOME HOME 85%/>02 MEDICAL MEDICAL CONC AT EQUIPME EQUIPME PRS FLW RATE POLYSOM 99156 LUZ ESCOBAR 6/>YRS 5 [facility] H[facility] SLEEP 4/> INC INC ADDL TONY ATTND CT THORAX 83826 [facility] FARIAFIONA W/O 5 MEDICAL ALLISON CONTRAST IMAGING MATERIAL ASS O2 CONC 1 E1390 CAITLIN THOMPSON PORT 5 HOME HOME 85%/>02 MEDICAL MEDICAL CONC AT EQUIPME EQUIPME PRS FLW RATE INSERTION 52554 [place] R[place]HEY SEA /RPLCMT 5 MEDICAL PERIPHERA SERV L/GASTRIC FOUNDATIO NPGR N ELEC ARCHANA 79601 [place] NSTIM 5 MEDICAL PLS GEN SERV CPLX FOUNDATIO SC/PERPH N W/PRGRMG FLUOROSCO [address] [facility] PY SPX UP 5 Y Y TO 1 HOSPITAL HOSPITAL HOUR PHYS/QHP TIME INJECTION J0330 [facility] 5 Y Y SUCCINYLC [facility] HOLINE CHLORIDE UP TO [address] IN[address] [facility] 5 Y Y GARAMYCIN [facility] GENTAMICI N UP TO [address] IN[address] [facility] 5 Y [facility] H[facility] PER [address] [facility] NEUROSTIM 5 Y Y [facility] TEST KIT INC [address] [facility] IMPLTJ 5 Y Y NEUROSTIM [facility] ELTRD SACRAL NERVE RINGERS J7[address] [facility] LACTATE 5 Y Y INFUSION [facility] UP TO 1000 CC INJECTION J[address] [facility] 5 Y Y DEXAMETHO [facility] SONE SODIUM PHOSPHATE 1 [address] INJE[address] [facility] FENTANYL 5 Y Y CITRATE [facility] 0.1 [address] INJE[address] [facility] 5 Y Y NEOSTIGMI [facility] NE METHYLSUL FATE UP TO 0.5 [address] [facility] 5 [facility] N HCL 500 [address] INJE[address] [facility] PROPOFOL 5 Y Y 10 MG HOSPITAL HOSPITAL INFUSION J70[address] [facility] NORMAL 5 Y Y SALINE [facility] SOLUTION 250 CC INTRDUCR/ C1894 [facility] SHEATH 5 Y Y NOT GUID [facility] INTRACARD EP NON-LASR O2 CONC 1 E1390 CAITLIN CAITLIN DEL PORT 5 HOME HOME 85%/>02 MEDICAL MEDICAL CONC AT EQUIPME EQUIPME PRSC FLW RATE NONEMERG A0120 FEDERATED FEDERATED TRNSPRT: 5 MINI-BUS TRANSPORT TRANSPORT [facility]/OT SYS O2 CONC 1 E1390 CAITLIN MARMOLEJORELL DEL PORT 4 HOME HOME 85%/>02 MEDICAL MEDICAL CONC AT EQUIPME EQUIPME PRSC FLW RATE RADIOLOGI 64604 LUZ ESCOBAR C EXAM 4 [facility] CHEST 2 INC INC VIEWS FRONTAL&L ATERAL ALBUTEROL J7613 YOUR YOUR INHAL 4 PHARMACY PHARMACY NON-CP Sciences-U PROD THRU DME U DOSE 1 MG ADMN SET A7005 YOUR YOUR W/SM VOL 4 PHARMACY PHARMACY NONFILTR Sciences-U NEBULIZR NON-DISPB L PHARM G0333 YOUR YOUR DISPEN 4 PHARMACY PHARMACY FEE INHAL [facility] [facility] RX; INITIAL 30-DAY SUPPLY NONEMERG A0120 FEDERATED FEDERATED TRNSPRT: 4 TRANS MINI-BUS TRANSPORT SERVBLUEG [facility] AREA/OTH SYS BIOPSY 66754 [place] VAGINAL 4 MEDICAL MUCOSA SERV SIMPLE FOUNDATIO N ANESTHESI 10110 [facility] GAV A 4 LTH ANORECTAL ANESTHESI A PSC PROCEDURE ANOSCOPY 96714 [place] W/BX 4 MEDICAL SINGLE/[place] [address] [place] SE[place] ANORECTAL 4 MEDICAL WALL SERV ANAL FOUNDATIO APPROACH N ECG [address] [facility] ROUTINE 4 Y Y ECG [facility] W/LEAST 12 LDS TRCG ONLY W/O I&R BLOOD 24038 [facility] COUNT 4 Y Y COMPLETE HOSPITAL [facility] AUTOMATED ECG 77667 ERMA SEGURA ROUTINE 4 MEDICAL ECG SERV W/LEAST FOUNDATIO 12 LDS N I&R ONLY COLLECTIO 78996 [facility] N VENOUS 4 Y Y BLOOD HOSPITAL [facility] VENIPUNCT URE TENS E0730 EMPI INC EMPI INC DEVICE 4 4/MORE LEADS MULTI NERVE STIMULATI ON ANES 32649 [facility] 4 ANESTH SHE INTESTINE OF THE BLUE ENDOSCOPY DISTAL DUODENUM NONEMERG A0120 FEDERATED FEDERATED TRNSPRT: 4 TRANS MINI-BUS TRANSPORT SERVBLUEG NEN [facility] SER ELIU AREA/OTH [place]YS COLSC FLX 39696 ERMA ANN PITER W/RMVL 4 MEDICAL OF TUMOR SERV POLYP FOUNDATIO [place] [address] [facility], SURG 4 [facility] PATHOLOGY GROSS&ROSA MARIA ROSCOPIC EXAM UNCLASSIF J3490 LUZ ESCOBAR IED DRUGS 4 [place] [address] LUZ ESCOBAR INFUSION 4 [facility] THERAPY INC INC PROPHYLAX IS/DX EA HOUR PRESSURIZ 86404 LUZ ESCOBAR ED/NONPRE 4 [facility] SSURIZED INC INC INHALATIO N TREATMENT COLONOSCO 57447 LUZ ESCOBAR PY 4 [facility] W/BIOPSY INC INC SINGLE/MU LTIPLE NONEMERG A0120 FEDERATED FEDERATED TRNSPRT: 4 TRANS MINI-BUS TRANSPORT SERVBLUEG MTN [facility] SER ELIU AREA/OTH SYS PRESSURIZ 16860 LUZ ESCOBAR ED/NONPRE 4 [facility]OS[facility] SSURIZED INC INC INHALATIO N TREATMENT GAS 30211 LUZ ESCOBAR DILUT/WAS 4 [facility] HOUT LUNG INC INC VOL W/[place] DISTRI[place] [address] LUZ ESCOBAR DIFFUSING 4 [facility] CAPACITY INC INC BRNCDILAT 72940 LUZ ESCOBAR RSPSE 4 [facility] SPMTRY INC INC PRE&POST- BRNCDILAT ADMN O2 CONC 1 E1390 CAITLIN TUCKER DEL PORT 4 HOME HOME 85%/>02 MEDICAL MEDICAL CONC AT EQUIPME EQUIPME [facility] FLW RATE NONEMERG A0120 FEDERATED FEDERATED TRNSPRT: 4 TRANS MINI-BUS TRANSPORT SERVBLUEG MTN ATION SER ELIU AREA/OTH SYS SEDIMENTA 44759 LUZ ESCOBAR TION RATE 4 [facility] [place] [address] LUZ ESCOBAR HEPATITIS 4 [facility] B INC INC SURFACE ANTIGEN HEPATITIS 43564 LUZ Drew SURF 4 [facility] ANTIBODY INC INC HBSAB HEPATITIS 87388 LUZ ESCOBAR B CORE 4 [facility] ANTIBODY INC INC HBCAB TOTAL HEMOGLOBI 56811 LUZ ESCOBAR N 4 [facility]OS[facility] GLYCOSYLA INC INC LUANN A1C LIPID 51972 LUZ ESCOBAR PANEL 4 [facility] INC INC BLOOD 92710 LUZ ESCOBAR COUNT 4 [facility] COMPLETE INC INC AUTO&AUTO DIFRNTL WBC HEPATITIS 35859 LUZ ESCOB[facility] C 4 [facility] ANTIBODY INC INC RHEUMATOI 58482 [facility] D FACTOR 4 [facility] [place] [address] [facility] THYROXINE 4 [facility] TOTAL INC INC ANTINUCLE 29251 [facility] AR 4 [facility] [place] [address] [facility] BLOOD/URI 4 [facility] C ACID INC INC TENS E0730 EMPI INC EMPI INC DEVICE 4 4/MORE LEADS MULTI NERVE STIMULATI ON COMPREHEN 78803 [facility] SIVE 4 [facility] METABOLIC INC INC PANEL HEPATITIS 09046 [facility] A 4 [facility] [address] [facility] THYROID 4 [facility] STIMULATI INC INC NG HORMONE TSH APPL 03533 [facility] MODALITY 4 [facility] 1/> AREAS INC INC ELEC STIMJ EA 15 MIN APPLICATI 02945 LUZ RAND ON 4 [facility] MODALITY INC INC. 1/> AREAS HOT/COLD PACKS THERAPEUT 26052 LUZ ESC[facility]AR IC PX 1/> 4 [facility] AREAS INC INC EACH 15 MIN EXERCISES NONEMERG A0120 FEDERATED FEDERATED TRNSPRT: 4 TRANS [facility] AREA/OTH SYS APPL 94653 [facility]OB[facility] MODALITY 4 [facility] 1/> AREAS INC INC ELEC STIMJ UNATTENDE D APPL 91048 [facility] ESC[facility] MODALITY 4 [facility] 1/> AREAS INC INC ELEC STIMJ UNATTENDE D APPLICATI 76287 LU[facility] ESCOBAR ON 4 [facility] MODALITY INC INC 1/> AREAS HOT/COLD PACKS NONEMERG A0120 FEDERATED FEDERATED TRNSPRT: 4 TRANS [facility] AREA/OTH SYS O2 CONC 1 E1390 [facility]LIN [facility] 4 HOME HOME 85%/>02 MEDICAL MEDICAL CONC AT EQUIPME EQUIPME PRSC FLW RATE THERAPEUT 56750 LUZ ESCOBAR IC PX 1/> 4 [facility] AREAS INC INC EACH 15 MIN EXERCISES THERAPEUT 54710 LUZ ESCOBAR IC PX 1/> 4 [facility] AREAS INC INC EACH 15 MIN EXERCISES APPLICATI 15360 LUZ ESCOBAR ON 4 [facility] MODALITY INC INC 1/> AREAS HOT/COLD PACKS NONEMERG A0120 FEDERATED FEDERATED TRNSPRT: 4 TRANS [facility] ELIU AREA/OTH SYS APPL 17481 LUZ ESCOBAR MODALITY 4 [facility] 1/> AREAS INC INC ELEC STIMJ UNATTENDE D APPL 58923 LUZ ESCOBAR MODALITY 4 [facility] 1/> AREAS INC INC ELEC STIMJ UNATTENDE D NONEMERG A0120 FEDERATED FEDERATED TRNSPRT: 4 TRANS [facility] AP[facility]I 51864 LUZ ESCOBAR ON 4 [facility] MODALITY INC INC 1/> AREAS HOT/COLD PACKS THERAPEUT 32868 LUZ ESCOBAR IC PX 1/> 4 [facility] AREAS INC INC EACH 15 MIN EXERCISES THERAPEUT 03910 LUZ ESCOBAR IC PX 1/> 4 [facility] AREAS INC INC EACH 15 MIN EXERCISES NONEMERG A0120 FEDERATED FEDERATED TRNSPRT: 4 TRANS [facility]PL 50073 LUZ ESCOBAR MODALITY 4 [facility] 1/> AREAS INC INC ELEC STIMJ UNATTENDE D APPLICATI 83896 LUZ ESCOBAR ON 4 [facility] MODALITY INC INC 1/> AREAS HOT/COLD PACKS APPLICATI 03429 LUZ SALINAS ON 4 [facility] MODALITY INC 1/> AREAS HOT/COLD PACKS APPL 57044 LUZ ESCOBAR MODALITY 4 [facility] 1/> AREAS INC INC ELEC STIMJ UNATTENDE D THERAPEUT 71699 LUZ ESCOBAR IC PX 1/> 4 [facility] AREAS INC INC EACH 15 MIN EXERCISES 3D 94206 LUZ ESCOBAR RENDERING 4 [facility] W/INTERP INC INC & POSTPROCE SS SUPERVISI ON MRI 74094 LUZ ESCOBAR SPINAL 4 [facility] CANAL INC INC LUMBAR W/O CONTRAST MATERIAL PHYSICAL 99848 LUZ ESCOBAR THERAPY 4 [facility] EVALUATIO INC INC N O2 CONC [address] [facility] 4 HOME HOME 85%/>02 MEDICAL MEDICAL CONC AT EQUIPME EQUIPME PRSC FLW RATE NONEMERG A0120 FEDERATED FEDERATED TRNSPRT: 4 TRANS [facility]OTH SYS PHYSICAL 97236 LUZ LUZ THERAPY 4 [facility] EVALUATIO INC INC N SLINGS A4565 BRE INC. BRE INC. 4 O2 CONC 1 E1390 [facility] 4 HOME HOME 85%/>02 MEDICAL [facility] RATE [facility]JECTION J1040 [facility] CRISTIAN 4 PHYSICIAN ROSA MARIA METHYLPRE S GROUP DNISOLONE ACETATE 80 MG INJECTION J1885 [facility] CRISTIAN 4 PHYSICIAN ROSA MARIA KETOROLAC S GROUP TROMETHAM INE PER 15 MG THERAPEUT 27324 [facility] CRISTIAN IC 4 PHYSICIAN ROSA MARIA PROPHYLAC S GROUP TIC/DX INJECTION SUBQ/IM NON-INVAS 09202 [facility] FLAQUITO 4 [facility] PHYSIOLOG INC INC IC STUDY EXTREMITY 3 LEVLS O2 CONC 1 E1390 CAITLIN TUCKER DEL PORT 4 HOME HOME 85%/>02 MEDICAL MEDICAL CONC AT EQUIPME [facility] FLW RATE ADMN SET A7005 YOUR YOUR W/SM VOL 4 [facility] NE[facility] NON-DISPB L NEBULIZER E0570 CAITLIN TUCKER WITH 4 HOME HOME [facility]PRESS[facility] MEDICAL MEDICAL R EQUIPME EQUIPME THERAPEUT 16498 [facility] CRISTIAN IC 4 PHYSICIAN ROSA MARIA PROPHYLAC S GROUP TIC/DX INJECTION SUBQ/IM INJECTION J1885 [facility] CRISTIAN 4 PHYSICIAN ROSA MARIA KETOROLAC S GROUP TROMETHAM INE PER 15 MG INJECTION J1040 [facility] CRISTIAN 4 PHYSICIAN ROS[facility]IA METHYLPRE S GROUP DNISOLONE ACETATE 80 MG SMR PRIM 76432 [facility] NFCT AGT MADI MADI URNLS DIP 84114 [facility] STICK/TAB [facility] LET RGNT MADI MADI NON-AUTO W/O MICRSCP WET Q0111 [facility] INCL PREP [facility] VAGINAL MADI MADI CERV/SKIN SPECIMENS CYANOCOBA 40579 [facility] TIFFANY 4 [facility] VITAMIN [place] B-12 [place] [address] [facility], SURG 4 [facility] PATHOLOGY GROSS&ROSA MARIA ROSCOPIC EXAM IMHISTOCH 37198 [facility], EM/CYTCHM 4 [facility] 1ST ANTIBODY STAIN PROCEDURE COLPOSCOP 23373 WOMEN'S SONG Y CERVIX 4 [facility] ENDOCRV CURRETAGE COMPREHEN 95066 [facility] SIVE 4 [facility] [address] [facility] THYROID 4 [facility] STIMULATI INC INC NG HORMONE TSH BLOOD 73968 [facility] COUNT [facility] COMPLETE INC INC AUTO&AUTO DIFRNTL WBC SCREENING G0202 [facility] MAMMOGRAP INC INC HY JOSSELYN INCL CAD WHEN PERFORMD COMPUTER 30067 [facility] AIDED 4 [facility] DETECTION INC INC SCREENING MAMMOGRAP HY CYTP 11327 [facility], CERV/VAG 4 [facility] AUTO THIN LAYER PREP MNL SCREEN ALL Q0112 [facility] HYDROXIDE [facility] PREPARATI ONS SMR PRIM 39693 [facility] WET 4 [facility] NFCT [facility]GT [facility] IADNA 52034 [facility] CHLAMYDIA 4 [facility] TRACHOMAT [facility] IS AMPLIFIED PROBE TQ AMINES 57340 [facility] VAGINAL 4 [facility] DE[facility] QUALITATI [facility] VE IADNA 44593 [facility] NEISSERIA [facility] GONORRHOE [facility] AE AMPLIFIED PROBE TQ PH BODY 67717 [facility] FLUID NOT [facility] ELSE[facility] MADI SPECIFIED WET Q0111 [facility] 4 [facility] DISTRICT INCL PREP HLTH DEPT HLTH DEPT VAGINAL MADI AMDI CERV/SKIN SPECIMENS IADNA 08540 [facility] VIRUS HUMAN AMPLIFIED PROBE TQ CYTP 53358 [facility], CERVICAL/ [facility] VAGINAL REQ INTERP PHYSICIAN Encounters Encounter Start End Date Code Location Performer Type Date OFFICE 00252 SIENA WREN OUTPATIEN 7 7 Diya FELDMAN MD,PSC 25 MINUTES OFFICE 14194 SIENA TADEO OUTPATIEN 7 7 Diya FELDMAN MD,PSC 25 MINUTES OFFICE 43184 ALLER[facility] DWYER OUTPATIEN 7 7 PARTNERS T VISIT OF [place] 40 CO MINUTES OFFICE 58810 SIENA WREN OUTPATIEN 6 6 TRAVIS FELDMAN MD,PSC 25 MINUTES OFFICE 51738 ALLER[facility] DWYER MAR OUTPATIEN 6 6 PARTNERS T NEW 60 OF GONZALEZ MINUTES CO OFFICE 43193 SIENA ALVARADO OUTPATIEN 6 6 SHASTA FELDMAN T VISIT ,PSC 25 MINUTES OFFICE 68310 [facility] CRISTIAN OUTPATIEN 6 6 PHYSICIAN ROSA MARIA T VISIT S GROUP 25 MINUTES OFFICE 95042 [facility] LIAMFANY OUTPATIEN 6 6 NAHID FELDMAN 30 ,PSC MINUTES HOSPITAL [facility] - OTHER 6 6 MEM [facility] INC OFFICE 68974 [facility] CRISTIAN OUTPATIEN 6 6 PHYSICIAN ROSA MARIA T VISIT S GROUP 25 MINUTES HOSPITAL LUZ - 6 6 [facility] OUTPATIEN INC HOSPITAL LUZ - OTHER 6 6 [facility] INC OFFICE 30539 [facility] CRISTIAN OUTPATIEN 6 6 PHYSICIAN ROSA MARIA T VISIT S GROUP 10 MINUTES HOSPITAL LUZ - OTHER 6 6 [facility] INC OFFICE 69881 [facility] SONG OUTPATIEN 6 6 PHYSICIAN LEANDER T VISIT S GROUP 15 MINUTES OFFICE 06715 [facility] ROZ DAO OUTPATIEN 6 6 PHYSICIAN T VISIT S GROUP 10 MINUTES OFFICE 02325 [facility] PETTEEvaristo OUTPATIEN 6 6 PHYSICIAN JAM T NEW 30 S GROUP MINUTES HOSPITAL LU[facility] - 6 6 [facility] 6 6 [facility] OFFICE 53233 [facility] ROZ DAO OUTPATIEN 6 6 PHYSICIAN T VISIT S GROUP 25 MINUTES HOSPITAL LUZ - OTHER 6 6 [facility] OFF[facility] 74698 [facility] CRISTIAN OUTPATIEN 6 6 PHYSICIAN ROSA MARIA T VISIT S GROUP 15 MINUTES HOSPITAL LUZ - 6 6 [facility] 22568 [facility] CRISTIAN OUTPATIEN 6 6 PHYSICIAN ROSA MARIA T VISIT S GROUP 15 MINUTES OFFICE 93369 [facility] CRISTIAN OUTPATIEN 6 6 PHYSICIAN ROSA MARIA T VISIT S GROUP 10 MINUTES HOSPITAL LUZ - 6 6 [facility] 31635 [facility] CRISTIAN OUTPATIEN 6 6 PHYSICIAN ROSA MARIA T VISIT S GROUP 10 MINUTES HOSPITAL UNIVERSIT - 6 6 [facility] LUZ [facility] OTHER 6 6 [facility] LUZ - 6 6 [facility] OFF[facility] 73083 NATHAN RAMOS OUTPATIEN 6 6 MD MEHNAZ, T VISIT PSC 15 MINUTES EMERGENCY 93279 [facility] 6 6 [facility] T VISIT MODERATE [facility]VERITY HOSPITAL LUZ - 6 6 [facility] OUT[facility]EN [facility] HOSPITAL LUZ - OTHER 5 5 MEM H[facility] INC OFFICE 46118 [facility] 5 PHYSICIAN LEANDER T VISIT S GROUP 15 MINUTES HOSPITAL LUZ - 5 5 [facility] OUT[facility]IEN [facility] OFFICE 55390 [facility]ATHAN ALEXIS OUTPATIEN 5 5 MD MEHNAZ, T VISIT [facility] 10 MINUTES [facility] UNIVERSIT - 5 5 Y [facility] LUZ - 5 5 [facility] OUTPATIEN [facility] HOSPITAL LUZ [facility] 5 5 [facility] OUTPATIEN [facility] T EMERGENCY 80064 LUZ 5 5 [facility] T VISIT HIGH/URGE NT SEVERITY HOSPITAL UNIVERSIT - 5 5 Y [facility] T OFFICE 01310 [facility] 5 5 [facility] T [facility]ISIT [facility] 10 P [facility] LUZ [facility] 5 5 [facility] OUTPATIEN [facility] HOSPITAL LUZ - 5 5 [facility] OUTPATIEN [facility] T OFFICE 64321 NATHAN ALEXIS OUTPATIEN 5 5 MD MEHNAZ, T VISIT [facility]SC 10 MINUTES OFFICE 12028 ERMA COOPER OUTPATIEN 5 5 MEDICAL T NEW 45 SERV MINUTES FOUND[facility] OFFICE 60455 ERMA OSEI OUTPATIEN 5 5 MEDICAL T VISIT SERV 25 FOUNDATIO MINUTES [facility] UNIVERSIT - 5 5 Y [facility] T OFFICE 85089 [facility] ROZ DAO OUTPATIEN 5 5 PHYSICIAN T VISIT S GROUP 10 MINUTES HOSPITAL LUZ - 5 5 [facility] OUTPATIEN [facility] T OFFICE 81411 NATHAN ALEXIS OUTPATIEN 5 5 MD MEHNAZ[facility] T VISIT [facility] 10 MINUTES HOSPITAL LUZ - 5 5 [facility] INPATIENT [facility] LUZ - 5 [address] [facility] [address] [facility] LUZ - 5 5 [facility] LUZ - 5 5 [facility] OUTPATIEN [facility] T OFFICE 70852 NATHAN MEHNAZ ANJ OUTPATIEN 5 5 MD MEHNAZ, T VISIT [facility] 15 MINUTES [facility] LUZ - 5 5 [facility] OUTPATIEN [facility] T OFF[facility] 72817 HEATHER DARBY BUX ANJ OUTPATIEN 5 5 T VISIT 10 MINUTES [facility] LUZ - 5 5 [facility] - 5 5 [facility] T OFFICE 78307 ERMA LOPEZ OUTPATIEN 5 5 MEDICAL JAM T VISIT SERV 25 FOUNDATIO MINUTES N OFFICE 15407 HEATHER ESTRADAX BUX ANJ OUTPATIEN 5 5 T [facility] 30 MINUTES [facility] UNIVERSIT - 5 5 Y [facility] UNIVERSIT - 5 5 Y [facility] T OFF[facility] 13272 [facility] 5 5 Y T VISIT HOSPITAL 25 MINUT[facility] LUZ - 4 4 MEM [facility] OUTPATIEN [facility] T PERIODIC 57319 [facility] CRISTIAN PREVENTIV 4 4 PHYSICIAN ROSA MARIA E MED EST S GROUP PATIENT 40-64YRS HOSPITAL UNIVERSIT - 4 4 [facility] 50354 [facility] CRISTIAN OUTPATIEN 4 4 PHYSICIAN ROSA MARIA T VISIT S GROUP 10 MINUTES OFFICE 56327 [place] KAIDEN MORGANT OUTPATIEN 4 4 MEDICAL T NEW 45 SERV MINUTES FOUNDATIO N OFFICE 93252 UNIVERSIT OUTPATIEN 4 4 Y T VISIT HOSPITAL 40 MINUTES HOSPITAL [facility]ERSIT - 4 4 [facility] LU[facility] - 4 4 [facility] OUTPATIEN INC T OFFICE 71837 [place] AMBER PHI OUTPATIEN 4 4 MEDICAL T NEW 30 SERV [facility]ES [facility] - [facility] 4 [facility] OUTPATIEN INC T OFFICE 72153 [facility] CRISTIAN OUTPATIEN 4 4 PHYSICIAN ROSA MARIA T VISIT S GROUP 15 MINUTES OFFICE 33123 [place] ANN PITER CONSULTAT 4 4 MEDICAL ION SERV NEW/ESTAB FOUNDATIO PATIENT N 60 MIN OFFICE 02847 [facility] CRISTIAN OUTPATIEN 4 4 PHYSICIAN ROSA MARIA T VISIT S GROUP 25 MINUTES HOSPITAL LUZ - 4 4 [facility] OUTPATIEN INC T OFFICE 44804 [facility] CRISTIAN OUTPATIEN 4 4 PHYSICIAN ROSA MARIA T VISIT S GROUP 10 MINUTES HOSPITAL LUZ - 4 4 [facility] OUTPATIEN INC [facility]OSPITAL LUZ - 4 4 [facility] OUTPATIEN INC [facility]OSPITAL LUZ - 4 4 [facility] OUTPATIEN INC T OFFICE 41942 ASSOCIATE REX GOLDSTEIN 4 4 D VANESA T VISIT PATHOLOGI [facility] MINUTES HOSPITAL LUZ - 4 4 [facility] OUTPATIEN INC T OFFICE 90248 LUZ SIDHU JR OUTPATIEN 4 4 [facility] T VISIT HOSPITAL 10 P MINUTES OFFICE 89334 ASSOCIATE GOODMAN OUTPATIEN 4 4 D VANESA T VISIT PATHOLOGI [facility] MINUTES OFFICE 27378 [facility] CRISTIAN OUTPATIEN 4 4 PHYSICIAN ROSA MARIA T VISIT S GROUP 10 MINUTES OFFICE 08289 LUZ SIDHU JR CONSULTAT 4 4 [facility] NEW/ESTAB P PATIENT 60 MIN HOSPITAL LUZ - 4 4 [facility] OUTPATIEN INC T OFFICE 69590 [facility] CRISTIAN OUTPATIEN 4 4 PHYSICIAN ROSA MARIA T VISIT S GROUP 15 MINUTES OFFICE 55587 [facility] CRISTIAN OUTPATIEN 4 4 PHYSICIAN ROSA MARIA T VISIT S GROUP 15 MINUTES OFFICE 97848 [facility] CRISTIAN OUTPATIEN 4 4 PHYSICIAN ROSA MARIA T VISIT S GROUP 15 MINUTES OFFICE 88651 [facility] CRISTIAN OUTPATIEN 4 4 PHYSICIAN ROSA MARIA T NEW 30 S GROUP MINUTES OFFICE 24730 [facility] T VISIT TH DEPT TH DEPT 10 MADI MADI MINUTES HOSPITAL LUZ - 4 4 [facility] OUTPATIEN INC T HOSPITAL LUZ - 4 4 [facility] OUTPATIEN INC T PERIODIC 71096 [facility] E MED EST HLTH DEPT HLTH DEPT PATIENT MADI [facility] 40-64YRS OFFICE 74259 [facility] OUTPATI[facility] 4 [facility] T VISIT TH DEPT TH DEPT 15 MADI MADI MINUTES
--- OUTSIDE RECORDS SUMMARY | 2016-09-25 17:18 | External Medical Summary Rpt ---
Author Author , Organization [employer] Address Unknown Phone Unavailable Care Team Providers Care Coal Unloader Name Role Phone JHAVERI FABY, JHAVERI Unavailable [...] FIONA ALLISON [facility] Un[facility], [facility] ADHIKARI LAYNE, ADHIKARI LAYNE Unavailable Unavailable DUFF VANESA, DUFF VANESA Unavailable Unavailable [facility], [facility] Unavailable Unavailable [facility], [facility] Unavailable Unavailable [facility] Unavailable Unavailable [facility] Unavailable Unavailable [facility], [facility] CRISTIAN ROSA MARIA, CRISTIAN Unavailable Unavailable ROSA MARIA [facility] Unavailable Unavailable INC, [facility] INC [facility] Unavailable Unavailable HOSPITAL P, [facility] HOSPITAL P [facility], [facility]available Unavailable [facility] Un[facility]available [facility], [facility] Unavailable Unavailable [facility], [facility] DAVIONNahomy MANNINGO, RACHAEL IMELDA Unavailable Unavailable BULLOCK ALLISON, BULLOCK ALLISON Unavailable Unavailable [facility] Un[facility] Un[facility], [facility] Un[facility], [facility] [employer] Unavailable Unavailable [facility] [employer] ETTA CRI, [facility] Unavailable Unavailable [...] SHE GOODMAN VANESA, GOODMAN Unavailable Unavailable [facility], Unavailable Unavailable [facility] AMBER PHI, AMBER PHI Unavailable Unavailable [facility], Un[facility]available [facility] Un[facility], [facility] DEPT [facility] Unavailable [facility]available [facility]PT [facility] BERTHA TRA, Unavailable Unavailable BERTHA TRA DWYER, DWYER Unavailable Unavailable DWYER MAR, DWYER MAR Unavailable Unavailable [facility] Unavailable Unavailable [facility] [place], [facility] [place] FELDMAN PET, FELDMAN Unavailable Unavailable [facility], Unavailable [facility] Purpose Continuity of Care Document - 06-02-2013 through 2016 Problems Code Diagnosis DOS Provider Status [id number] SPONDYLOSIS 08-29-2016 SIENA W/O FRANCIA MYELOPATH/R ,PSC ADICULOPATH Y LUMB RGN [id number] PENITENTIARY 08-29-2016 SIENA CURRENT USE FRANCIA OF OPIATE [...] INTERVERTEB MARIANN FELDMAN MD,PSC DEGEN LUMBAR REGION [id number] ADVERS EFF 06-11-2016 [facility] OTH RX MEDS [facility] [place] SUBSTANCES INIT ENC Z720 TOBACCO USE 06-11-2016 [facility] [place] H2513 AGE-RELATED 06-06-2016 [facility] NUCLEAR VISION CATARACT CENTER BILATERAL M810 AGE-RELATED 04-30-2016 ELICEO MEDINA MD,PSC S W/O CURRNT PATH FX J440 COPD WITH 04-02-2016 [facility] ACUTE LOWER [facility] [place] RESPIRATORY INFECTION J4530 MILD 04-02-2016 [facility] PERSISTENT PARTNERS OF ASTHMA [place] CO UNCOMPLICAT ED Z889 ALLERGY 04-02-2016 [facility] STATUS UNS PARTNERS OF RX MEDS & [place] CO BIOLOG SUBSTANC STS G8929 OTHER 01-02-2016 [facility] CHRONIC PHYSICIANS PAIN GROUP 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 01-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 D95899 PAIN IN 01-02-2016 [facility] LEFT HAND PHYSICIANS GROUP M5416 RADICULOPAT 12-28-2015 SIENA HY LUMBAR CAILIN FELDMAN MD,PSC M545 LOW BACK 12-28-2015 [facility] PAIN MD FRANCIA,PSC I10 ESSENTIAL 12-04-2015 [facility] PRIMARY PHYSICIANS HYPERTENSIO GROUP N P52962 OTHER LONG 12-04-2015 [facility] TERM [facility] CURRENT INC DRUG THERAPY Z1231 ENCOUNTER 11-23-2015 [facility] NEOPLASM BREAST N390 URINARY 11-16-2015 [facility] TRACT [facility] INFECTION INC SITE NOT SPECIFIED M519 UNS THOR 11-06-2015 [facility] THORACOLUMB PHYSICIANS AR GROUP LUMBOSACRAL IV DISC D/O 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 GROUP R102 PELVIC AND 10-24-2015 [facility] PERINEAL PHYSICIANS PAIN GROUP R109 UNSPECIFIED 10-24-2015 [facility] ABDOMINAL PHYSICIANS PAIN GROUP B9339CR OTHER 10-24-2015 [facility] COMPLICATIO PHYSICIANS NS PROC NEC GROUP INITIAL ENCOUNTER G4733 OBSTRUCTIVE 10-20-2015 [facility] APNEA ADULT MEDICAL PEDIATRIC EQUIPME M6580 OTHER 10-16-2015 [facility] SYNOVITIS & PHYSICIANS GROUP TENOSYNOVIT IS UNSPECIFIED SITE K469 UNS 10-15-2015 [facility]BDOMINAL [facility] HERNIA W/O INC OBSTRUCTION OR GANGRENE R1031 RIGHT LOWER 10-15-2015 [facility] IM[facility] ASS K90508 PERSONAL HX 10-15-2015 [facility] RECTUM IMAGING ASS RS JUNC & ANUS R8290 UNSPECIFIED 10-10-2015 [facility] ABNORMAL [facility] FINDINGS IN INC URINE E039 HYPOTHYROID 10-09-2015 [facility] ISM PHYSICIANS UNSPECIFIED GROUP E785 HYPERLIPIDE 10-09-2015 [facility] MARY PHYSICIANS UNSPECIFIED GROUP 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 D/O GROUP W/RADICULOP ATHY LUMB RGN I37600 PAIN IN 09-23-2015 [facility] UNSPECIFIED [facility] HIP INC P01447 PAIN IN 09-17-2015 [facility] RIGHT HIP PHYSICIANS GROUP R1030 LOWER 07-27-2015 [facility] PAIN UNSPECIFIED R748 ABNORMAL 07-27-2015 [facility] OTHER SERUM ENZYMES Z0000 ENCOUNTER 07-11-2015 [facility] MED EXAM W/O ABNORMAL FIND K219 GASTRO-ESOP 06-09-2015 [facility] H REFLUX [facility] DISEASE INC WITHOUT ESOPHAGITIS R1032 LEFT LOWER 06-09-2015 [facility] R1084 GENERALIZED 06-09-2015 [facility]BD[facility]AL [facility] PAIN INC K651 PERITONEAL 05-08-2015 [facility] ABSCESS [facility] INC [id number] LAC NO FB 04-24-2015 [facility] AW UNS QUAD [facility] NO PEN INC PERITN CAV SEQUELA L64230 ACQUIRED 04-24-2015 [facility] ABSENCE OF [facility] BOTH CERVIX INC AND UTERUS 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-2015 [facility] P D126 BENIGN 04-04-2015 [facility] NEOPLASM [facility] COLON UNSPECIFIED 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-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 [facility] SERV NEOPLASM FOUNDATION LARGE INTESTINE J471 BRONCHIECTA 04-02-2015 [place] [facility] ACUTE [facility] EXACERBATIO N R05 COUGH 03-22-2015 [facility] R509 FEVER 03-22-2015 [facility] U[facility]PEC[facility]IED [facility] IM[facility]ING ASS R9578QF OTHER 03-22-2015 [facility] COMPLICATIO [facility] NS INC ANESTHESIA INITIAL ENCOUNTER D125 BENIGN 03-21-2015 [facility] SIGMOID COLON Z1211 ENCOUNTER 03-21-2015 [facility] MALIGNANT NEOPLASM OF COLON R32 UNSPECIFIED 03-20-2015 [facility] P E Y33181 COMBINED 03-13-2015 [place] [facility] SERV 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 M34539 UNSPECIFIED 03-13-2015 [place] [facility] ASTIGMATISM [facility] BILATERAL K921 MELENA 02-23-2015 [facility] R41630 OTHER 02-23-2015 [place] [facility] SPECIFIED SERV URINARY FOUNDATION INCONTINENC E R159 FULL 02-23-2015 [facility] E OF FECES 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 02-23-2015 [place] [facility] 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 45496 OBSTRUCTIVE 02-19-2015 [facility] APNEA MEDICAL EQUIPME 496 CHRONIC 02-14-[address] [facility] [address] HOME OBSTRUCTION [facility] EQUIPME 5693 HEMORRHAGE 02-14-2015 [facility] OF RECTUM PHYSICIANS AND ANUS GROUP 55638 DEGEN 02-06-2015 [facility] LUMBAR/LUMB [facility] OSACRAL INC INTERVERTEB RAL DISC 7244 THORACIC/JONATHAN 02-06-2015 ZEINA SARGENT MD, PSC NEURITIS/RA DICULITIS UNSPEC 55612 UNSPECIFIED 02-06-2015 [facility] P 47984 EXTRINSIC 02-01-2015 [place] ASTHMA, PHARMACY OF UNSPECIFIED [facility] 4019 UNSPECIFIED 01-30-2015 [facility] HYPERTENSIO [facility] P N 8793 OPEN WOUND 01-30-2015 [facility] A[facility]AL [facility]ICAL WALL IMAGING ASS ANTERIOR COMPLICATED 9975 URINARY 01-30-2015 [facility] COMPLICATIO [facility] P V1089 PERSONAL 01-30-2015 [facility]NT HOSPITAL P NEOPLASM OTHER SITE V8801 ACQUIRED 01-25-2015 [place] ABSENCE OF MEDICAL BOTH CERVIX IMAGING ASS AND UTERUS 2331 CARCINOMA 01-22-2015 [facility] OF ANNA & CERVIX DUBILIER UTERI 6271 POSTMENOPAU 01-22-2015 [facility] LUDY PHYSICIANS BLEEDING GROUP 99660 PAP SMER 01-22-2015 [facility] CERV W/HI [facility] GRADE INC SQUAMOUS INTRAEPITH LES 7969 OTHER 01-22-2015 [facility] NONSPECIFIC PHYSICIANS ABNORMAL GROUP FINDING V1090 PERSONAL 01-22-2015 [facility] HISTORY PHYSICIANS UNSPECIFIED GROUP MALIGNANT NEOPLASM 7213 LUMBOSACRAL 01-12-2015 NATHAN DARBY MD, PSC SPONDYLOSIS WITHOUT MYELOPATHY 7248 OTHER 01-12-2015 [facility] SYMPTOMS [facility] REFERABLE INC TO BACK 68888 OTHER 01-09-2015 [facility] NONSPECIFIC [facility] ABNORMAL INC FINDING OF LUNG FIELD 83987 DISPLCMT 01-08-2015 NATHAN DARBY, LUMBAR , PSC INTERVERT DISC W/O MYELOPATHY 0398 ACTINOMYCOT 12-25-2014 [facility] INFECTION OF OTHER SPECIFIED SITES 2360 NEOPLASM OF 12-25-2014 [facility] UNCERTAIN [facility] BEHAVIOR OF UTERUS 73429 OBSTRUCTIVE 07-26-2014 [facility] CHRONIC [facility] BRONCHITIS INC WITHOUT EXACERBAT 39496 NONSPEC 07-26-2014 [facility] REACT [facility] TUBERCULIN [place] [address] HYPOXEMIA 07-26-2014 [facility] INC 3669 UNSPECIFIED 07-21-2014 [place] [facility] CATARACT [facility] 76072 ESOPHAGEAL 07-21-2014 [place] [facility] REFLUX [facility] 78797 OTHER SLEEP 07-21-2014 [place] [facility] DISTURBANCE [facility] S 58260 FULL 07-10-2014 [place] [facility] INCONTINENC SERV E OF FECES FOUNDATION 73821 UNSPECIFIED 07-10-2014 [place] [facility] URINARY SERV INCONTINENC FOUNDATION E V1006 PERS HX MAL 07-10-2014 [place] [facility] NEOPLSM SERV RECT FOUNDATION RECTOSIGMOI D JUNC&ANUS 1541 MALIGNANT 06-26-2014 [place] [facility] NEOPLASM OF SERV RECTUM FOUNDATION V153 PERS HX 06-26-2014 [facility] 1542 MALIGNANT 06-02-2014 [place] [facility] NEOPLAS[place] OF SERV ANAL CANAL FOUNDATION 10178 OTHER 06-02-2014 [facility] PAIN 89388 URGENCY OF 06-02-2014 [facility] 65565 06-02-2014 [facility] ION SER 05135 SHORTNESS 05-10-2014 [facility] BRE[facility] MEDICAL IMAGING ASS 93650 OTHER 04-10-2014 [place] [facility] SPECIFIED SERV DISORDER OF FOUNDATION RECTUM AND ANUS 6238 OTHER 04-10-2014 [place] [facility] SPECIFIED SERV NONINFLAMMA FOUNDATION TORY DISORDER VAGINA V7284 UNSPECIFIED 04-06-2014 [facility] PHYSICIANS PRE-OPERATI GROUP VE EXAMINATION 1543 MALIGNANT 04-05-2014 [facility] NEOPLASM OF [facility] ANUS UNSPECIFIED SITE 65601 CHRONIC 04-05-2014 [facility] ASTHMA UNSPECIFIED 75645 NONSPECIFIC 04-05-2014 [facility] ELECTROCARD IOGRAM V7283 OTHER 04-05-2014 [facility] PRE-OPERATI VE EXAMINATION 6829 CELLULITIS 03-27-2014 [facility] AND ABSCESS PHYSICIANS OF GROUP UNSPECIFIED SITE 09377 UNSPECIFIED 03-24-2014 [facility] CONSTIPATIO N 09380 FECAL 03-24-2014 [facility] V463 WHEELCHAIR 03-24-2014 [facility] 7242 LUMBAGO 03-15-2014 [facility] 2113 BENIGN 03-13-2014 [place] [facility]LASM OF [facility] COLON FOUNDATION 2114 BENIGN 03-13-2014 [facility] NEOPLASM OF LLC RECTUM AND ANAL CANAL 2352 NEOPLASM 03-13-2014 [facility] UNCERTAIN [facility] BEHAVIOR INC STOMACH INTEST&RECT 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 [place] [facility] SIS OF [facility] COLON FOUNDATION 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 LLC 00240 OTHER 03-13-2014 [facility] SPECIFIED LLC DISORDER OF INTESTINES V142 PERSONAL 03-13-2014 [facility] HISTORY OF [facility]OS[facility] ALLERGY TO INC SULFONAMIDE S V1551 PERSONAL 03-09-2014 [place] [facility]ORY OF [facility] TRAUMATIC FOUNDATION FRACTURE 2449 UNSPECIFIED 02-24-2014 [facility] PHYSICIANS HYPOTHYROID GROUP ISM 19503 PAIN IN 02-13-2014 [facility] JOINT, SITE MEM HOS[facility] INC UNSPECIFIED 99378 OTHER&UNSPE 02-13-2014 [facility] CIFIED DISC PHYSICIANS DISORDER GROUP CERVICAL REGION 65887 OSTEOARTHRO 02-07-2014 [facility] S UNSPEC PHYSICIANS WHETHER GROUP GEN/LOC UNSPEC SITE 24617 PAIN IN 01-23-2014 [facility] JOINT, MEM [facility]OS[facility] UPPER ARM INC 88869 PAIN IN 01-23-2014 [facility], [facility] LOWER LEG INC V571 OTHER 01-23-2014 [facility] PHYSICAL [facility] THERAPY INC 54940 ANAL OR 12-14-2013 [facility] RECTAL PAIN [facility] P 7295 PAIN IN 12-13-2013 ASSOCIATED SOFT PATHOLOGIST TISSUES OF S LLC LIMB 07446 ATHEROSLERO 10-27-2013 [facility] NATV ART [facility] EXTREM INC W/INTERMIT CLAUDICAT V016 CONTACT 07-05-2013 [facility] WITH OR DISTRICT EXPOSURE TO [facility] DEPT VENEREAL MADI DISEASES 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 08546 PAP SMER 06-29-2013 [facility] W/ATYPICAL CLINIC OF SQUAMOUS [place] CELLS UNDET 86700 OTH 06-29-2013 [facility] U SMEAR [place] CERVIX&CERV HPV V2542 SURVEILLANC 06-29-2013 [facility] E PREV [facility] HE[facility] INTRA[facility] CLINIC OF CNTRACPT [place] DEVC V7612 OTHER 06-15-2013 [facility] SCREENING [facility] HOSP MAMMOGRAM INC 46449 CERV HIGH 06-07-2013 [facility] RISK HUMAN LLC PAPILLOMAVI MISAEL DNA TEST POS V2689 OTHER 06-07-2013 [facility] DEPT MANAGEMENT MADI V700 ROUTINE 06-07-2013 [facility] MEDICAL [facility] DEPT [email or web address] CARE FACL V7231 ROUTINE 06-07-2013 [facility] GYNECOLOGIC LLC AL EXAMINATION Procedures Procedure DOS Code Location Performer Comment DRUG TEST 70582 SIENA WREN PRSMV 7 HO FELDMAN MD,PSC CHEMISTRY ANALYZERS O2 CONC 1 E1390 [facility] 85%/>[facility] PRE[facility]& 26013 ALLERGY DWYER ALLERGEN 7 PARTNERS IMMUNOTHE OF [place] RAPY CO 1/NEWS REPORTER ANTIGEN O2 CONC 1 E1390 CA[facility]LIN [facility] 7 HOME HOME 85%/>02 [facility] PREPJ& 65709 ALLERGY DWYER ALLERGEN 7 PARTNERS IMMUNOTHE OF [place] RAPY CO 1/NEWS REPORTER ANTIGEN DRUG TEST 64752 SIENA HERRERAMirza PRS 7 HO FELDMAN MD,PSC CHEMISTRY ANALYZERS O2 CONC 1 E1390 CA[facility]LIN [facility] 7 HOME HOME 85%/>02 [facility] [place] [place] NITRIC 72112 ALLERGY DWYER OXIDE 7 PARTNERS OF [place] GAS CO DETERMINA TION BRNCDILAT 32933 ALLERGY DWYER RSPSE 7 PARTNERS SPMTRY OF [place] PRE&POST- CO BRNCDILAT ADMN PROF [facility] 50550 ALLERGY ALLERGY ALLG 7 PARTNERS PARTNERS IMMNTX X OF [place] OF [place] W/PRV CO CO ALLGIC XTRCS NJXS DEMO&/YOSI 36854 ALLERGY DWYER L OF PT 7 PARTNERS UTILIZ OF [place] AERSL CO GEN/NEB/I NHLR/IP OPHTH 95308 [facility] 7 VISION XM&EVAL CENTER COMPRE NEW PT 1/> VST O2 CONC 1 E1390 [facility] 6 HOME HOME 85%/>02 [facility] [place] DXA BONE 26813 SIENA FELDMAN DENSITY 6 FRANCIA PET STUDY 1/> ,PSC SITES AXIAL SKEL COLLECTIO 64947 SIENA VALENCIAARD N VENOUS 6 TRAVIS FELDMAN BLOOD ,[facility] VENIPUNCT URE COMPREHEN 28708 WRENYOLANDA VALENCIAARD SIVE 6 TRAVIS [place] [address] WRENYOLANDA WREN GLUTAMYLT 6 TRAVIS FELDMAN MD,[facility] [address] WREN WREN PHOSPHORU 6 TRAVIS FELDMAN MD,[facility] INORGANIC BILIRUBIN 83491 WREN WREN DIRECT 6 TRAVIS FELDMAN MD,[facility] BLOOD 85085 WREN WREN COUNT 6 TRAVIS FELDMAN MD,PSC AUTO&AUTO DIFRNTL WBC DRUG TEST G0479 WREN WREN 6 TRAVIS FELDMAN PRESUMP;I ,[facility] NSTRUMENT ED CHEMISTRY ANLYZER O2 CONC 1 E1390 CAITLIN ZUNIGA 6 HOME HOME 85%/>02 [facility] PREPJ& 13440 ALLERGY DWYER MAR ALLERGEN 6 PARTNERS IMMUNOTHE OF [place] RAPY CO 1/NEWS REPORTER ANTIGEN NITRIC 73749 ALLERGY DWYER MAR OXIDE 6 PART[facility]ERS [facility] [place] GAS CO DETERMINA TION DEMO&/YOSI 54705 ALLERGY DWYER MAR L OF PT 6 PARTNERS UTILIZ OF [place] AERSL CO GEN/NEB/I NHLR/IP PERCUTANE 91472 ALLERGY DWYER MAR OUS TESTS 6 PARTNERS OF [place] W/ALLERGE CO MARIANN EXTRACTS INTRACUTA 41809 ALLERGY DWYER MAR NEOUS 6 PARTNERS TESTS OF [place] W/ALLERGE CO MARIANN EXTRACTS BRNCDILAT 57901 ALLERGY DWYER MAR RSPSE 6 PARTNERS SPMTRY [...] P DAY 8-14 DRUG CL SCREENING G0202 [place] [address] [facility] [place] MAMMOGRAP IMAGING HY JOSSELYN ASS INCL CAD WHEN PERFORMD COMPUTER- 58315 [facility] 6 [facility]ICAL [place] DETECTION IMAGING ASS SCREENING MAMMOGRAP HY CULTURE 79724 [facility] ESC[facility]AR BACTERIAL 6 MEM HOS[facility]OS[facility] INC INC QUANTTATI VE COLONY COUNT URINE CULTURE 53693 [facility] BCT 6 MEM HOS[facility]OS[facility] ISOL&PRSM INC INC PTV ID ISOLATE EA URINE SUSCEPTIB 94448 [facility] ESC[facility] LTY STDY 6 MEM HOSP MEM HOS[facility] ANTIMICRB INC INC IAL MICRO/AGA R DILUTJ URNLS DIP 02866 [facility] ESCOBAR 6 MEM HOSP MEM HOSP [...] [place] [address] [place] [facility] ALL ABDOMEN & 6 MEDICAL PELVIS IMAGING W/CONTRAS ASS T MATERIAL BLOOD 24845 [facility] ESC[facility]AR COUNT 6 MEM HOS[facility] MEM HOS[facility] COMPLETE INC INC AUTO&AUTO DIFRNTL WBC SUSCEPTIB 09084 [facility] ESC[facility] LTY STDY 6 MEM HOSP MEM HOSP ANTIMICRB INC INC IAL MICRO/AGA R DILUTJ URNLS DIP 03008 [facility] ESCOBAR 6 MEM HOSP MEM HOS[facility] STICK/TAB INC INC LET REAGENT AUTO MICROSCOP Y BASIC 13380 [facility] METABOLIC 6 MEM HOSP [facility]OS[facility] PANEL INC INC CALCIUM TOTAL CULTURE 17551 [facility]AR BACTERIAL 6 MEM HOSP MEM HOS[facility] INC INC QUANTTATI VE COLONY COUNT URINE CULTURE 03695 [facility] BCT 6 MEM HOSP MEM HOSP ISOL&PRSM INC INC PTV ID ISOLATE EA URINE COLLECTIO 80336 [facility] N VENOUS 6 MEM HOSP MEM HOS[facility] BLOOD INC INC VENIPUNCT URE DRUG TST G0477 [facility] PRESUMP;C 6 MEM HOS[facility]OS[facility] PBL BEING INC INC READ DC OPT OBV ONLY THERAPEUT 43915 [facility] ESCOBAR IC PX 1/> 6 MEM HOS[facility]OS[facility] AREAS INC INC EACH 15 MIN EXERCISES APPLICATI 87138 [facility] ESCOBAR ON 6 MEM HOS[facility] MEM [facility]OS[facility] MODALITY INC INC 1/> AREAS HOT/COLD PACKS E-STIM G0283 [facility] ESCOBAR 1/> AREAS 6 MEM HOSP MEM HOSP OTH THAN INC INC WND CARE PART TX PLAN E-STIM G0283 [facility] ESCOBAR 1/> AREAS 6 MEM HOSP MEM HOSP OTH THAN INC INC WND CARE PART TX PLAN APPLICATI 06777 [facility] ESCOBAR ON 6 MEM HOSP MEM HOSP MODALITY INC INC 1/> AREAS HOT/COLD PACKS THERAPEUT 47137 [facility] ESCOBAR IC PX 1/> 6 MEM HOSP MEM HOSP AREAS INC INC EACH 15 MIN EXERCISES CONTINUOU E0601 CAITLIN TUCKER S 6 HOME HOME POSITIVE MEDICAL MEDICAL AIRWAY EQUIPME EQUIPME PRESSURE DEVICE THERAPEUT 97765 [facility] ESCOBAR IC PX 1/> 6 MEM HOSP MEM HOSP AREAS INC INC EACH 15 MIN EXERCISES PHYSICAL 94521 [facility] THERAPY 6 MEM HOSP [facility] EVALUATIO INC INC N APPLICATI 63176 [facility] ESCOBAR ON 6 MEM HOSP MEM [...] EQUIPME EQUIPME PRSC FLW RATE RADEX HIP 63238 [facility] 6 MEDICAL [place] UNILATERA IMAGING L WITH ASS PELVIS 1 VIEW SEDIMENTA 12629 [facility] ESCOBAR TION RATE 6 MEM HOSP [facility] RBC INC INC NON-AUTOM ATED COLLECTIO 04408 LUZ [facility]Z N VENOUS 6 MEM HOSP [facility] BLOOD INC INC VENIPUNCT URE COMPREHEN 30172 [facility] SIVE 6 MEM HOSP MEM HOSP METABOLIC INC INC PANEL BLOOD 90758 [facility] ESC[facility]AR COUNT 6 MEM HOS[facility] MEM HOSP COMPLETE INC INC AUTO&AUTO DIFRNTL WBC RADEX HIP 51946 [facility] ESCOBAR 6 MEM HOSP MEM HOSP UNILATERA INC INC L WITH PELVIS 2-3 VIEWS CONTINUOU E0601 CA[facility]LIN TUCKER S 6 HOME HOME POSITIVE MEDICAL MEDICAL AIRWAY EQUIPME EQUIPME PRESSURE DEVICE O2 CONC 1 E1390 CAITLIN [facility] 6 HOME HOME 85%/>02 MEDICAL MEDICAL CONC AT EQUIPME EQUIPME [facility] [place] [address] [facility] EXAM 6 Y Y SURGICAL [facility] HOSPITAL ALTER STOM DUODENUM/ JEJUNUM INJECTION J2704 [facility] PROPOFOL 6 Y Y 10 [facility] INFUSION J7030 [facility] NORMAL 6 Y Y SALINE [facility] SOLUTION 1000 CC CATHETER C1753 [facility] INTRAVASC 6 Y Y ULAR [facility] ULTRASOUN D INJECTION J0330 [facility] 6 Y Y SUCCINYLC [facility] HOLINE CHLORIDE UP TO 20 MG INJECTION J2370 [place] [address] Y Y PHENYLEPH [facility] RINE HCL UP TO 1 ML INJECTION J2405 [facility] 1 MG CONTINUOU E0601 CAITLINVANESA TUCKER S 6 HOME HOME POSITIVE MEDICAL MEDICAL AIRWAY EQUIPME EQUIPME PRESSURE DEVICE O2 CONC 1 E1390 CAITLINVANESA ZUNIGA 6 HOME HOME 85%/>02 MEDICAL MEDICAL CONC AT EQUIPME EQUIPME [facility] [id number] [facility] OUTPATI 6 Y Y [facility] VISIT ASSESS & MGMT [place] ECG 05732 ERMA MANNINGO ROUTINE 6 MEDICAL ECG SERV W/LEAST FOUNDATIO 12 LDS N I&R ONLY CONTINUOU E0601 CAITLINVANESA Leal 6 HOME HOME POSITIVE MEDICAL MEDICAL AIRWAY EQUIPME EQUIPME PRESSURE DEVICE O2 CONC 1 E1390 CAITLIN MARMOLEJOVANESA ZUNIGA 6 HOME HOME 85%/>02 MEDICAL MEDICAL CONC AT EQUIPME EQUIPME [facility] FLW RATE COLLECTIO 55345 [facility] N VENOUS 6 [facility] BLOOD INC INC VENIPUNCT URE COMPREHEN 81749 [facility] SIVE 6 [facility] METABOLIC INC INC PANEL HEPATITIS 59231 [facility] A 6 [facility] ANTIBODY INC INC HAAB BILIRUBIN 23149 [facility] DIRECT 6 [facility] INC INC HEPATITIS 12045 LUZ Drew CORE 6 [facility] ANTIBODY INC INC HBCAB TOTAL HEPATITIS 39215 [facility] B SURF 6 [facility] [address] [facility] HEPATITIS 6 [facility] B INC INC SURFACE ANTIGEN HEPATITIS 11731 [facility] SECOBAR C 6 [facility] ANTIBODY INC INC DRUG TST G0477 [facility] PRESUMP;C 6 [facility] PBL BEING INC INC READ DC OPT OBV ONLY COL-CHR/M 75151 [facility] S NONDRUG 6 [facility] ANALYTE INC INC RONALDO QUAL/VICKEY EA SPEC COMPREHEN 51409 [facility] SIVE 6 [facility] [place] [address] [facility] LACTATE 6 [place] [address] [facility] LIPASE 6 [facility] INC INC THER 65193 [facility] PROPH/DX 6 [facility] NJX IV INC INC PUSH SINGLE/1S T SBST/DRUG BLOOD 68924 [facility] COUNT 6 [facility] COMPLETE INC INC AUTO&[place] [address] [facility] ABDOMEN & 6 [facility] [...] AT EQUIPME EQUIPME PRSC FLW RATE RMVL 71590 [facility] ESCOBAR DEVITAL 5 [facility] MEM [...] CARE LLC TX ELEC PUMP SPL NEGATIVE 05792 LUZ EVANSON PRESSURE 5 [facility] INC THERAPY DME </= 50 SQ CM CANISTER A7000 NATIONAL NATIONAL DISPOSABL 5 WOUND WOUND E USED [facility] WITH SUCTION PUMP EACH NEG PRESS E2402 NATIONAL NATIONAL WOUND 5 [facility] THERAPY [facility] ELEC PUMP STATION/P RTBLE CUL BACT 26248 [facility]AR XCPT 5 [facility] URINE INC INC BLOOD/STO OL AEROBIC ISOL CUL BACT 95853 [facility] ESCOBAR AEROBIC 5 [facility] ADDL INC INC METHS DEFINITIV E EA ISOL NEGATIVE 22019 LUZ EVANSON PRESSURE 5 [facility] WOUND [facility] INC THERAPY DME </= 50 SQ CM NEGATIVE 93578 LUZ LUZ PRESSURE 5 [facility] W[facility] INC THERAPY DME </= 50 SQ CM WND CARE A6550 NATIONAL NATIONAL SET NEG 5 WOUND WOUND PRSS WND [facility] TX ELEC PUMP SPL CANISTER A7000 NATIONAL NATIONAL DISPOSABL 5 WOUND WOUND E USED CARE [facility] CARE LLC WITH SUCTION PUMP EACH NEGATIVE [id number] LUZ EVANSON PRESSURE 5 [facility] THERAPY DME </= 50 SQ CM NEGATIVE 00459 LUZ EVANSON PRESSURE 5 [facility] THERAPY DME </= 50 SQ CM WND CARE A6550 NATIONAL NATIONAL SET NEG 5 WOUND WOUND PRSS [facility] LLC TX ELEC PUMP SPL CANISTER A7000 NATIONAL NATIONAL DISPOSABL 5 WOUND WOUND E USED [facility] WITH SUCTION PUMP EACH NEGATIVE 70391 LUZ LUZ PRESSURE 5 [facility] THERAPY DME </= 50 SQ CM CONTINUOU E0601 CAITLIN TUCKER S 5 HOME HOME POSITIVE MEDICAL MEDICAL AIRWAY EQUIPME EQUIPME PRESSURE DEVICE NEGATIVE 17927 LUZ ESCOBAR PRESSURE 5 [facility] WOUND INC INC THERAPY DME </= 50 SQ CM O2 CONC 1 E1390 CAITLIN ZUNIGA 5 HOME HOME 85%/>02 MEDICAL MEDICAL CONC AT EQUIPME EQUIPME PRSC FLW RATE NEGATIVE 25144 LUZ ESCOBAR PRESSURE 5 [facility] WOUND INC INC THERAPY DME </= 50 SQ CM URNLS DIP 33626 LUZ JHAVERI 5 [facility] LET RGNT P NON-AUTO W/O MICRSCP WND CARE A6550 NATIONAL NATIONAL SET NEG 5 WOUND WOUND PRSS WND CARE LLC CARE LLC TX ELEC PUMP SPL WND CARE A6550 NATIONAL NATIONAL SET NEG 5 WOUND WOUND PRSS WND CARE LLC CARE LLC TX ELEC PUMP SPL DEBRIDEME 52162 LUZ ESCOBAR NT OPEN 5 [facility] WOUND 20 INC INC SQ CM/< CANISTER A7000 NATIONAL NATIONAL DISPOSABL 5 WOUND WOUND E USED CARE LLC CARE LLC WITH SUCTION PUMP EACH NEGATIVE 58550 LUZ ESCOBAR PRESSURE 5 [facility] WOUND INC INC THERAPY DME </= 50 SQ CM NEG PRESS E2402 NATIONAL NATIONAL WOUND 5 WOUND WOUND THERAPY CARE LLC CARE LLC ELEC PUMP STATION/P RTBLE NEGATIVE 58078 LUZ ESCOBAR PRESSURE 5 [facility] WOUND INC INC THERAPY DME </= 50 SQ CM RMVL 69426 LUZ ESCOBAR DEVITAL 5 [facility] TISS INC INC N-SLCTV DBRDMT W/O ANES 1 SESS SIGMOIDOS 85457 [facility] COPY FLX 5 Y Y DX HOSPITAL HOSPITAL W/COLLJ SPEC BR/WA IF PFRMD INJECTION J2250 [facility] 5 Y Y MIDAZOLAM [facility] HCL PER 1 MG INJECTION J3010 [facility] FENTANYL 5 Y Y CITRATE [facility] 0.1 MG INFUSION J7030 [facility] NORMAL 5 Y Y SALINE [facility] SOLUTION 1000 CC RMVL 87430 LUZ ESCOBAR DEVITAL 5 [facility] TISS INC INC N-SLCTV DBRDMT W/O ANES 1 SESS PHRM Q0513 [facility] DISPENSIN 5 PHARMACY PHARMACY G FEE OF OF INHALATIO DAVION RICARDO N RX; PER 30 DAYS ALBUTEROL J7613 [facility] INHAL 5 PHARMACY PHARMACY NON-CP OF OF PROD THRU DAVION RICARDO DME U DOSE 1 MG RMVL 68663 LUZ ESCOBAR DEVITAL 5 [facility] TISS INC INC N-SLCTV DBRDMT W/O ANES 1 SESS RMVL 16085 LUZ ESCOBAR DEVITAL 5 [facility] TISS INC INC N-SLCTV DBRDMT W/O ANES 1 SESS DEBRIDEME 57613 LUZ ESCOBAR NT OPEN 5 [facility] WOUND 20 INC INC SQ CM/< WND CARE A6550 NATIONAL NATIONAL SET NEG 5 WOUND WOUND PRSS WND CARE LLC CARE LLC TX ELEC PUMP SPL IAADI 96975 LUZ MILLER INFLUENZA 5 [facility] MEDICAL B VIRUS INC LAB IAADI 76408 LUZ ESCOBAR INFFLUENZ 5 [facility] A A VIRUS INC INC CANISTER A7000 NATIONAL NATIONAL DISPOSABL 5 WOUND WOUND E USED [facility] [place] [address] LUZ ESCOBAR INFUSION 5 [facility] THERAPY/P INC INC ROPHYLAXI S /DX 1ST TO 1 HR BLOOD 38213 LUZ ESCOBAR COUNT 5 [facility] COMPLETE INC INC AUTO&AUTO DIFRNTL WBC URNLS DIP 31626 LUZ ESCOBAR 5 [facility] STICK/TAB INC INC LET REAGENT AUTO MICROSCOP Y COMPREHEN 50360 LUZ ESCOBAR SIVE 5 [facility] [place] [address] LUZ ESCOBAR INFUSION 5 [facility] THERAPY INC INC PROPHYLAX IS/DX EA HOUR RADIOLOGI 39089 LUZ ESCOBAR C 5 [facility] EXAMINATI INC INC ON CHEST SINGLE VIEW FRONTAL RMVL 22543 LUZ MC 5 [facility] TISS INC INC N-SLCTV DBRDMT W/O ANES 1 SESS INJECTION J3010 [facility] FENTANYL 5 Y Y CITRATE [facility] 0.1 MG INFUSION J7030 [facility] NORMAL 5 Y Y SALINE [facility] SOLUTION 1000 CC CONTINUOU E0601 CAITLIN Leal 5 HOME HOME POSITIVE MEDICAL MEDICAL AIRWAY EQUIP[place] [address] [place] KORY LALA SURG 5 MEDICAL PATHOLOGY SERV FOUNDATIO GROSS&ROSA MARIA N ROSCOPIC EXAM INJECTION J2250 [facility] 5 Y Y MIDAZOLAM [facility] HCL PER 1 MG COLONOSCO 43370 [place] KAIDEN OSEI PY 5 MEDICAL W/BIOPSY SERV SINGLE/MU FOUNDATIO LTIPLE N URNLS DIP 51454 LUZ JHAVERI 5 [facility] LET RGNT P NON-AUTO W/O MICRSCP RMVL 05961 LUZ MC 5 [facility] TISS INC INC N-SLCTV DBRDMT W/O ANES 1 SESS RMVL 92064 LUZ SHANETAL 5 [facility] TISS INC INC N-SLCTV DBRDMT W/O ANES 1 SESS O2 CONC 1 E1390 CAITLIN TUCKER DEL PORT 5 HOME HOME 85%/>02 MEDICAL MEDICAL CONC AT EQUIPME EQUIPME PRSC FLW RATE PHYSICAL 00723 LUZ ESCOBAR THERAPY 5 [facility] EVALUATIO INC INC N LOCM Q9966 LUZ ESCOBAR [phone] [facility] MG/ML INC INC IODINE CONCENTRA TION PER ML WND CARE A6550 NATIONAL NATIONAL SET NEG 5 WOUND WOUND PRSS WND CARE LLC CARE LLC TX ELEC PUMP SPL CANISTER A7000 NATIONAL NATIONAL DISPOSABL 5 WOUND WOUND E USED CARE LLC CARE LLC WITH SUCTION PUMP EACH DETERMINA 76212 ERMA [facility]OCK ALLISON TION 5 MEDICAL REFRACTIV [...] LLC ELEC PUMP STATION/P RTBLE ALBUTEROL J7613 [facility] INHAL 5 PHARMACY PHARMACY NON-CP OF OF PROD THRU DAVION DAVION DME U DOSE 1 MG PHRM Q0513 [facility] DISPENSIN 5 PHARMACY PHARMACY G FEE OF OF INHALATIO DAVION DAVION N RX; PER 30 DAYS HOSPITAL G0463 [facility] 5 Y Y T [facility] VISIT ASSESS & MGMT PT CONTINUOU E0601 CAITLIN TUCKER S 5 HOME HOME POSITIVE MEDICAL MEDICAL AIRWAY EQUIPME EQUIPME PRESSURE DEVICE O2 CONC 1 E1390 CAITLIN TUCKER DEL PORT 5 HOME HOME 85%/>02 MEDICAL MEDICAL CONC AT EQUIPME EQUIPME PRSC FLW RATE URNLS DIP [address]/[facility] LET RGNT P NON-AUTO W/O MICRSCP RIKKI 20926 [facility] POST-VOID [address] [place] [address] RESIDUAL P URINE&/BL ADDER CAP ALBUTEROL J7613 [facility] INHAL 5 PHARMACY PHARMACY NON-CP OF OF PROD THRU DAVINO DAVION DME U DOSE 1 MG PHRM Q0513 [facility] DISPENSIN 5 PHARMACY PHARMACY G FEE OF OF INHALATIO DAVION DAVION N RX; PER 30 DAYS INITIAL [address]/[facility] 30 P MINUTES RADEX 20497 [place] FIONA ABDOMEN 5 MEDICAL ALLISON COMPL IMAGING W/DCBTS&/ ASS ERC VIEWS US PELVIC 54812 [place] OROZCO ALL 5 MEDICAL NONOBSTET IMAGING RYLAN IMAGE ASS DCMTN LIMITED/F /U LEVEL 79873 CHIPPS GARCIA SURG 5 ANNA & RYLAN PATHOLOGY DUBILIER GROSS&ROSA MARIA ROSCOPIC EXAM TOTAL 58032 [facility] ABDOMINAL 5 PHYSICIAN LEANDER S GROUP HYSTERECT W/WO RMVL TUBE OVARY DECALCIFI 18928 CHIPPS GARCIA CATION 5 ANNA & RYLAN PROCEDURE DUBILIER ANESTHESI 94540 [facility] ADHIKARI LAYNE A 5 ANESTH INTRAPERI OF [...] MEDICAL AIRWAY EQUIPME EQUIPME PRESSURE DEVICE ECG 11594 LUZ GALLO JR ROUTINE 5 [facility] W/LEAST P 12 LDS I&R ONLY O2 CONC 1 E1390 CAITLIN THOMPSON PORT 5 HOME HOME 85%/>02 MEDICAL MEDICAL CONC AT EQUIPME EQUIPME PRSC FLW RATE INJECTION J1030 LUZ ESCOBAR 5 [facility] METHYLPRE INC INC DNISOLONE ACETATE 40 MG LOCM Q9967 LUZ ESCOBAR [phone] [facility] MG/ML INC INC IODINE [place] [address] NATHAN BUX ANJ DX/THER 5 MD MEHNAZ, AGT PVRT PSC FACET JT LMBR/SAC 1 LEVEL NJX 93316 NATHAN BUX ANJ DX/THER 5 MD MEHNAZ, AGT PVRT PSC FACET JT LMBR/SAC 2ND LEVEL CT THORAX 13310 LUZ ESCOBAR W/O 5 [facility] [place] [address] [facility], SURG 5 LLC [...] 85%/>02 MEDICAL MEDICAL CONC AT EQUIPME EQUIPME [facility] FLW RATE HUMDIFIR E0562 CAITLIN TUCKER [...] 85%/>02 MEDICAL MEDICAL CONC AT EQUIPME EQUIPME [facility] FLW RATE PHRM Q0513 YOUR YOUR DISPENSIN 5 PHARMACY PHARMACY G FEE Bitbar INHALATIO N RX; PER 30 DAYS ALBUTEROL J7613 YOUR YOUR INHAL 5 PHARMACY PHARMACY NON-CP [employer] PROD THRU DME U DOSE 1 MG O2 CONC 1 E1390 CAITLIN [place]ON [place] 5 HOME HOME 85%/>02 MEDICAL MEDICAL CONC AT EQUIPME EQUIPME [facility] FLW RATE POLYSOM 69108 JENNIFER CORTES 6/>YRS 5 SLEEP 4/> ADDL TONY ATTND O2 CONC 1 E1390 CAITLIN TUCKER DEL [place] 5 HOME HOME 85%/>02 MEDICAL MEDICAL CONC AT EQUIPME EQUIPME PRS FLW RATE POLYSOM 02633 LUZ ESCOBAR 6/>YRS 5 [facility] SLEEP 4/> INC INC ADDL TOYN ATTND CT THORAX 46127 [facility] FARIAFIONA W/O 5 MEDICAL ALLISON CONTRAST IMAGING MATERIAL ASS O2 CONC 1 E1390 CAITLIN THOMPSON PORT 5 HOME HOME 85%/>02 MEDICAL MEDICAL CONC AT EQUIPME EQUIPME PRS FLW RATE INSERTION 89114 [place] R[place]HEY SEA /RPLCMT 5 MEDICAL PERIPHERA SERV L/GASTRIC FOUNDATIO NPGR N ELEC ARCHANA 07668 [place] NSTIM 5 MEDICAL PLS GEN SERV CPLX FOUNDATIO SC/PERPH N W/PRGRMG FLUOROSCO 73744 [facility] PY SPX UP 5 Y Y TO 1 HOSPITAL HOSPITAL HOUR PHYS/QHP TIME INJECTION J0330 [facility] 5 Y Y SUCCINYLC [facility] HOLINE CHLORIDE UP TO 20 MG INJECTION J1580 [facility] 5 Y Y GARAMYCIN [facility] GENTAMICI N UP TO 80 MG INJECTION J2405 [facility] 5 [facility] PER 1 MG LEAD C1897 [facility] NEUROSTIM 5 Y Y [facility] KIT INC 40970 [facility] IMPLTJ [address] [facility] ELTRD SACRAL NERVE RINGERS J7120 [facility] LACTATE 5 Y Y INFUSION [facility] UP TO 1000 CC INJECTION J1100 [facility] 5 Y Y DEXAMETHO [facility] SONE SODIUM PHOSPHATE 1 MG INJECTION J3010 [facility] FENTANYL 5 Y Y CITRATE [facility] 0.1 MG INJECTION J2710 [facility] 5 Y Y NEOSTIGMI [facility] NE METHYLSUL FATE UP TO 0.5 MG INJECTION J3370 [facility] 5 Y [facility] N HCL 500 MG INJECTION J2704 [facility] PROPOFOL 5 Y Y 10 MG HOSPITAL HOSPITAL INFUSION J7050 [facility] NORMAL 5 Y Y SALINE [facility] SOLUTION 250 CC INTRDUCR/ C1894 [facility] SHEATH 5 Y Y NOT GUID [facility] INTRACARD EP NON-LASR O2 CONC 1 E1390 CAITLIN CAITLIN DEL PORT 5 HOME HOME 85%/>02 MEDICAL MEDICAL CONC AT EQUIPME EQUIPME PRSC FLW RATE NONEMERG A0120 FEDERATED FEDERATED TRNSPRT: 5 MINI-BUS TRANSPORT TRANSPORT [facility] AREA/OT SYS O2 CONC 1 E1390 CAITLIN MARMOLEJORELL DEL PORT 4 HOME HOME 85%/>02 MEDICAL MEDICAL CONC AT EQUIPME EQUIPME PRSC FLW RATE RADIOLOGI 13761 LUZ ESCOBAR C EXAM 4 [facility] CHEST 2 INC INC VIEWS FRONTAL&L ATERAL ALBUTEROL J7613 YOUR YOUR INHAL 4 PHARMACY PHARMACY NON-CP Bitbar PROD THRU DME U DOSE 1 MG ADMN SET A7005 YOUR YOUR W/SM VOL 4 PHARMACY PHARMACY NONFILTR [employer] NEBULIZR NON-DISPB L PHARM G0333 YOUR YOUR DISPEN 4 PHARMACY PHARMACY FEE INHAL [employer] RX; INITIAL 30-DAY SUPPLY NONEMERG A0120 FEDERATED FEDERATED TRNSPRT: 4 TRANS MINI-BUS TRANSPORT SERVBLUEG [facility] AREA/OTH SYS BIOPSY 16414 [place] R[place] SE[place] VAGINAL 4 MEDICAL [place] SERV SIMPLE FOUNDATIO N ANESTHESI 95658 [facility] GAV A 4 LTH ANORECTAL ANESTHESI A PSC PROCEDURE ANOSCOPY 77033 [place] [facility] W/BX 4 MEDICAL SINGLE/[place] [address] [place] SE[place] ANORECTAL 4 MEDICAL WALL SERV ANAL FOUNDATIO APPROACH N ECG 13622 [facility] ROUTINE 4 Y Y ECG [facility] W/LEAST 12 LDS TRCG ONLY W/O I&R BLOOD 77616 [facility] COUNT 4 Y Y COMPLETE HOSPITAL [facility] AUTOMATED ECG 76588 ERMA SEGURA ROUTINE 4 MEDICAL ECG SERV W/LEAST FOUNDATIO 12 LDS N I&R ONLY COLLECTIO 43564 [facility] N VENOUS 4 Y Y BLOOD HOSPITAL [facility] VENIPUNCT URE TENS E0730 EMPI INC EMPI INC DEVICE 4 4/MORE LEADS MULTI NERVE STIMULATI ON ANES 36949 [facility] 4 ANESTH SHE INTESTINE OF THE BLUE ENDOSCOPY DISTAL DUODENUM NONEMERG A0120 FEDERATED FEDERATED TRNSPRT: 4 TRANS MINI-BUS TRANSPORT SERVBLUEG SDN [facility] SER ELIU AREA/OTH SYS COLSC FLX 70464 ERMA ANN PITER W/RMVL 4 MEDICAL OF TUMOR SERV POLYP [place]OUNDATIO [place] [address] [facility], SURG 4 [facility] PATHOLOGY GROSS&ROSA MARIA ROSCOPIC EXAM UNCLASSIF J3490 LUZ ESCOBAR IED DRUGS 4 [place] [address] LUZ ESCOBAR INFUSION 4 [facility] THERAPY INC INC PROPHYLAX IS/DX EA HOUR PRESSURIZ 33209 LUZ ESCOBAR ED/NONPRE 4 [facility] SSURIZED INC INC INHALATIO N TREATMENT COLONOSCO 39433 LUZ ESCOBAR PY 4 [facility] W/BIOPSY INC INC SINGLE/MU LTIPLE NONEMERG A0120 FEDERATED FEDERATED TRNSPRT: 4 TRANS MINI-BUS TRANSPORT SERVBLUEG MTN ATFORMERLY [facility] SER ELIU AREA/OTH SYS PRESSURIZ 64265 LUZ ESCOBAR ED/NONPRE 4 MEM HOS[facility] SSURIZED INC INC INHALATIO N TREATMENT GAS 01728 LUZ ESCOBAR DILUT/WAS 4 [facility] H[facility] HOUT LUNG INC INC VOL W/[place] DISTRIB V[place] [address] LUZ ESCOBAR DIFFUSING 4 [facility] CAPACITY INC INC BRNCDILAT 94787 LUZ ESCOBAR RSPSE 4 [facility] SPMTRY INC INC PRE&POST- BRNCDILAT ADMN O2 CONC 1 E1390 CAITLIN TUCKER DEL PORT 4 HOME HOME 85%/>02 MEDICAL MEDICAL CONC AT EQUIPME EQUIPME [facility] FLW RATE NONEMERG A0120 FEDERATED FEDERATED TRNSPRT: 4 TRANS MINI-BUS TRANSPORT SERVBLUEG MTN ATION SER ELIU AREA/OTH SYS SEDIMENTA 18484 LUZ ESCOBAR TION RATE 4 [facility] [place] [address] LUZ ESCOBAR HEPATITIS 4 [facility] B INC INC SURFACE ANTIGEN HEPATITIS 17365 LUZ Drew SURF 4 [facility] ANTIBODY INC INC HBSAB HEPATITIS 72168 LUZ ESCOBAR B CORE 4 [facility] ANTIBODY INC INC HBCAB TOTAL HEMOGLOBI 52719 LUZ ESCOBAR N 4 MEM HOS[facility] MEM HOSP GLYCOSYLA INC INC LUANN A1C LIPID 09348 LUZ ESCOBAR PANEL 4 [facility] INC INC BLOOD 37108 LUZ ESCOBAR COUNT 4 [facility]OS[facility] COMPLETE INC INC AUTO&AUTO DIFRNTL WBC HEPATITIS 16586 LUZ ESCOBAR C 4 [facility] ANTIBODY INC INC RHEUMATOI 41746 LUZ ESCOBAR D FACTOR 4 [facility] [place] [address] LUZ ESCOBAR THYROXINE 4 MEM H[facility] TOTAL INC INC ANTINUCLE 23689 LUZ ESCOBAR AR 4 [facility] [place] [address] LUZ ESCOBAR BLOOD/URI 4 [facility] C ACID INC INC TENS E0730 EMPI INC EMPI INC DEVICE 4 4/MORE LEADS MULTI NERVE STIMULATI ON COMPREHEN 30110 LUZ ESCOBAR SIVE 4 [facility] METABOLIC INC INC PANEL HEPATITIS 80890 LUZ ESCOBAR A 4 [facility] [place] [address] LUZ ESCOBAR THYROID 4 MEM [facility] STIMULATI INC INC NG HORMONE TSH APPL 93307 LUZ ESCOBAR MODALITY 4 [facility]OS[facility] 1/> AREAS INC INC ELEC STIMJ EA 15 MIN APPLICATI 66215 LUZ RAND ON 4 MEM HOS[facility] MODALITY INC INC. 1/> AREAS HOT/COLD PACKS THERAPEUT 92340 LUZ ESCOBAR IC PX 1/> 4 [facility] AREAS INC INC EACH 15 MIN EXERCISES NONEMERG A0120 FEDERATED FEDERATED TRNSPRT: 4 TRANS MINI-BUS TRANSPORT [facility]BLUEG [facility] ATFORMERLY [facility] SER ELIU AREA/OTH SYS APPL 55553 LUZ ESCOBAR MODALITY 4 MEM HOS[facility]OS[facility] 1/> AREAS INC INC ELEC STIMJ UNATTENDE D APPL 13177 LUZ ESCOBAR MODALITY 4 [facility] 1/> AREAS INC INC ELEC STIMJ UNATTENDE D APPLICATI 73507 LUZ ESCOBAR ON 4 [facility] MODALITY INC INC 1/> AREAS HOT/COLD PACKS NONEMERG A0120 FEDERATED FEDERATED TRNSPRT: 4 TRANS MINI-BUS TRANSPORT [facility]BLUEG [facility] AREA/OTH SYS O2 CONC 1 E1390 CAITLIN TUCKER DEL [facility] 4 HOME HOME 85%/>02 MEDICAL MEDICAL CONC AT EQUIPME EQUIPME PRSC FLW RATE THERAPEUT 16714 LUZ ESCOBAR IC PX 1/> 4 [facility] AREAS INC INC EACH 15 MIN EXERCISES THERAPEUT 06833 LUZ ESCOBAR IC PX 1/> 4 [facility] AREAS INC INC EACH 15 MIN EXERCISES APPLICATI 37465 LUZ ESCOBAR ON 4 [facility] MODALITY INC INC 1/> AREAS HOT/COLD PACKS NONEMERG A0120 FEDERATED FEDERATED TRNSPRT: 4 TRANS MINI-BUS TRANSPORT SERVBLUEG SDN [facility] SER ELIU AREA/OTH SYS APPL 15522 LUZ ESCOBAR MODALITY 4 [facility] 1/> AREAS INC INC ELEC STIMJ UNATTENDE D APPL 02459 LUZ ESCOBAR MODALITY 4 [facility] 1/> AREAS INC INC ELEC STIMJ UNATTENDE D NONEMERG A0120 FEDERATED FEDERATED TRNSPRT: 4 TRANS [facility] APPL[facility] 54603 LUZ ESCOBAR ON 4 [facility] MODALITY INC INC 1/> AREAS HOT/COLD PACKS THERAPEUT 22590 LUZ ESCOBAR IC PX 1/> 4 [facility] AREAS INC INC EACH 15 MIN EXERCISES THERAPEUT 58884 LUZ ESCOBAR IC PX 1/> 4 [facility] AREAS INC INC EACH 15 MIN EXERCISES NONEMERG A0120 FEDERATED FEDERATED TRNSPRT: 4 TRANS [facility] APPL 16367 LUZ ESCOBAR MODALITY 4 MEM HOS[facility]OS[facility] 1/> AREAS INC INC ELEC STIMJ UNATTENDE D APPLICATI 23327 LUZ ESCOBAR ON 4 MEM HOS[facility]OS[facility] MODALITY INC INC 1/> AREAS HOT/COLD PACKS APPLICATI 64756 LUZ SALINAS ON 4 MEM HOSP MODALITY INC 1/> AREAS HOT/COLD PACKS APPL 60943 LUZ ESCOBAR MODALITY 4 MEM H[facility]OS[facility] 1/> AREAS INC INC ELEC STIMJ UNATTENDE D THERAPEUT 89079 LUZ ESCOBAR IC PX 1/> 4 [facility] AREAS INC INC EACH 15 MIN EXERCISES 3D 92306 LUZ ESCOBAR RENDERING 4 [facility] W/INTERP INC INC & POSTPROCE SS SUPERVISI ON MRI 20594 LUZ ESCOBAR SPINAL 4 MEM H[facility]OS[facility] CANAL INC INC LUMBAR W/O CONTRAST MATERIAL PHYSICAL 71922 LUZ ESCOBAR THERAPY 4 MEM HOS[facility]OS[facility] EVALUATIO INC INC N O2 CONC 1 E1390 CAITLIN TUCKER [facility] 4 HOME HOME 85%/>02 MEDICAL MEDICAL CONC AT EQUIPME EQUIPME PRSC FLW RATE NONEMERG A0120 FEDERATED FEDERATED TRNSPRT: 4 TRANS MINI-BUS TRANSPORT [facility]UEG [facility]/OTH SYS PHYSICAL 07750 LUZ LUZ THERAPY 4 MEM HOSP [facility] EVALUATIO INC INC N SLINGS A4565 BRE INC. BRE INC. 4 O2 CONC 1 E1390 CAITLIN CAITLIN DEL PORT 4 HOME HOME 85%/>02 [facility] FLW [facility]ATE INJECTION J1040 [facility] CRISTIAN 4 PHYSICIAN ROSA MARIA METHYLPRE S GROUP DNISOLONE ACETATE 80 MG INJECTION J1885 [facility] CRISTIAN 4 PHYSICIAN ROSA MARIA KETOROLAC S GROUP TROMETHAM INE PER 15 MG THERAPEUT 21432 [facility] CRISTIAN IC 4 PHYSICIAN ROSA MARIA PROPHYLAC S GROUP TIC/DX INJECTION SUBQ/IM NON-INVAS 43716 LUZ ESCOBAR FLAQUITO 4 [facility] H[facility] PHYSIOLOG INC INC IC STUDY EXTREMITY 3 LEVLS O2 CONC 1 E1390 CAITLIN TUCKER DEL PORT 4 HOME HOME 85%/>02 MEDICAL MEDICAL CONC AT EQUIPME [facility] FLW RATE ADMN SET A7005 YOUR YOUR W/SM VOL 4 PHARMACY PHARMACY NONFMT. [facility] NEBULIZR NON-DISPB L NEBULIZER E0570 CAITLIN TUCKER WITH 4 HOME HOME COMPRESSO MEDICAL MEDICAL R EQUIPME EQUIPME THERAPEUT 46620 [facility] CRISTIAN IC 4 PHYSICIAN ROSA MARIA PROPHYLAC S GROUP TIC/DX INJECTION SUBQ/IM INJECTION J1885 [facility] CRISTIAN 4 PHYSICIAN ROSA MARIA KETOROLAC S GROUP TROMETHAM INE PER 15 MG INJECTION J1040 [facility] CRISTIAN 4 PHYSICIAN ROSA MARIA METHYLPRE S GROUP DNISOLONE ACETATE 80 MG SMR PRIM 16682 [facility] WET 4 [facility] NFCT AGT MADI MADI URNLS DIP 10267 [facility] STICK/TAB [facility] DE[facility] LET RGNT MADI MADI NON-AUTO W/O MICRSCP WET Q0111 [facility] 4 [facility] INCL PREP [facility] VAGINAL MADI MADI CERV/SKIN SPECIMENS CYANOCOBA 08222 [facility] TIFFANY 4 [facility] VITAMIN [place] B-[address] [place] [address] [facility], SURG 4 [facility] PATHOLOGY GROSS&ROSA MARIA ROSCOPIC EXAM IMHISTOCH 53185 [facility], EM/CYTCHM 4 [facility] 1ST ANTIBODY STAIN PROCEDURE COLPOSCOP 22131 [facility] SONG Y CERVIX 4 [facility] ENDOCRV CURRETAGE COMPREHEN 21913 [facility] SIVE 4 [facility] [place] [address] [facility] THYROID 4 [facility] STIMULATI INC INC NG HORMONE TSH BLOOD 91623 [facility] COUNT 4 [facility] COMPLETE INC INC AUTO&AUTO DIFRNTL WBC SCREENING G0202 [facility] MAMMOGRAP INC INC HY JOSSELYN INCL CAD WHEN PERFORMD COMPUTER 74396 [facility] AIDED 4 [facility] DETECTION INC INC SCREENING MAMMOGRAP HY CYTP 34950 [facility], CERV/VAG 4 [facility] AUTO THIN LAYER PREP MNL SCREEN ALL Q0112 [facility] POTASSIUM [address] [facility] HY[facility]OXIDE [facility] PREPARATI ONS [facility]MR PRIM 56888 [facility] SRC WET 4 [facility] NFCT AGT [facility] IADNA 41253 [facility]DIA [address] [facility] TRACHOMAT [facility] IS AMPLIFIED PROBE TQ AMINES 40516 [facility] VAGINAL 4 [facility] DE[facility] QUALITATI [facility] VE IADNA 45995 [facility] NEISSERIA [address] [facility] GONORRHOE [facility] AE AMPLIFIED PROBE TQ PH BODY 23218 [facility] FLUID NOT [address] [facility] ELSEWHERE [facility] MADI SPECIFIED WET Q0111 [facility] 4 [facility] DISTRICT INCL PREP HLTH DEPT HLTH DEPT VAGINAL MADI MADI CERV/SKIN SPECIMENS IADNA 78287 [facility], [facility] VIRUS HUMAN AMPLIFIED PROBE TQ CYTP 70448 [facility], CERV[facility] VAGINAL REQ INTERP PHYSICIAN Encounters Encounter Start End Date Code Location Performer Type Date OFFICE 14808 [facility]IE[facility] WREN OUTPATIEN 7 7 Diya FELDMAN MD,PSC 25 MINUTES OFFICE 51257 SIENA TADEO OUTPATIEN 7 7 Diya FELDMAN MD,PSC 25 MINUTES OFFICE 30299 ALLER[facility] DWYER OUTPATIEN 7 7 PARTNERS T VISIT OF [place] 40 CO MINUTES OFFICE 94380 SIENA WREN OUTPATIEN 6 6 TRAVIS FELDMAN MD,PSC 25 MINUTES OFFICE 24833 ALLERGY DWYER MAR OUTPATIEN 6 6 PARTNERS T NEW 60 OF GONZALEZ MINUTES CO OFFICE 43371 SIENA ALVARADO OUTPATIEN 6 6 SHASTA FELDMAN T VISIT ,PSC 25 MINUTES OFFICE 13395 [facility] [facility] 6 6 PHYSICIAN ROSA MARIA T VISIT S GROUP 25 MINUTES OFFICE 94498 [facility] LIAMFANY OUTPATIEN 6 6 NAHID FELDMAN 30 ,PSC MINUTES HOSPITAL LUZ - OTHER 6 6 [facility] OFFICE 11809 [facility] CRISTIAN OUTPATIEN 6 6 PHYSICIAN [facility] T VISIT S GROUP 25 MINUTES HOSPITAL LUZ - 6 6 [facility] OUTPATIEN INC HOSPITAL LUZ - OTHER 6 6 [facility] OFFICE 54625 [facility] CRISTIAN OUTPATIEN 6 6 PHYSICIAN [facility] T VISIT S GROUP 10 MINUTES HOSPITAL LUZ - OTHER 6 6 [facility] OFFICE 35274 [facility] SONG OUTPATIEN 6 6 PHYSICIAN LEANDER T VISIT S GROUP 15 MINUTES OFFICE 68530 [facility] ROZ DAO OUTPATIEN 6 6 PHYSICIAN T VISIT S GROUP 10 MINUTES OFFICE 87718 [facility] PETTEEvaristo OUTPATIEN 6 6 PHYSICIAN JAM T NEW 30 S GROUP MINUTES HOSPITAL LUZ - 6 6 [facility] OTHER 6 6 [facility] OFFICE 56908 [facility] ROZ DAO OUTPATIEN 6 6 PHYSICIAN T VISIT S GROUP 25 MINUTES HOSPITAL LUZ - OTHER 6 6 MEM [facility] OFFICE 77606 [facility] CRISTIAN OUTPATIEN 6 6 PHYSICIAN [facility]A [facility] T VISIT S GROUP 15 MINUTES HOSPITAL LUZ - 6 6 [facility] 6 [facility] 6 6 [facility] OFFICE 08729 [facility] CRISTIAN OUTPATIEN 6 6 PHYSICIAN [facility]A [facility] T VISIT S GROUP 15 MINUTES OFFICE 46698 [facility] CRISTIAN OUTPATIEN 6 6 PHYSICIAN [facility] T VISIT S GROUP 10 MINUTES HOSPITAL LUZ - 6 6 [facility]6320 [facility] CRISTIAN OUTPATIEN 6 6 PHYSICIAN [facility] T VISIT S GROUP 10 MINUTES HOSPITAL [facility]ERSIT - 6 6 [facility] LUZ - OTHER 6 6 [facility] LU[facility] - 6 6 [facility] 10163 NATHAN RAMOS OUTPATIEN 6 6 MD MEHNAZ, T VISIT PSC 15 MINUTES EMERGENCY [id number] LUZ 6 6 [facility] DEPARTMEN [facility] T VISIT MODERATE SEVERITY HOSPITAL LUZ - 6 6 [facility] OUTPATIEN [facility]OSPITAL LUZ - OTHER 5 5 MEM [facility] INC OFFICE 72221 [facility] 5 5 PHYSICIAN LEANDER T VISIT S GROUP 15 MINUTES HOSPITAL LUZ - 5 5 [facility] OUTPATIEN [facility] OFFICE 05058 NATHAN ALEXIS OUTPATIEN 5 5 MD MEHNAZ, T VISIT [facility] 10 MINUT[facility] UNIVERSIT - 5 5 Y [facility] LUZ - 5 5 [facility] OUTPATIEN [facility] ULZ - 5 5 [facility] OUTPATIEN [facility] T EMERGENCY 55870 LUZ 5 5 [facility] T VISIT HIGH/URGE NT SEVERITY HOSPITAL UNIVERSIT - 5 5 Y [facility] T OFFICE 30796 LUZ [facility] 5 5 [facility] T VIS[facility] 10 P [facility] LUZ - 5 5 [facility]PATIEN [facility] LUZ - 5 5 [facility] OUTPATIEN [facility] T OFFICE 29954 NATHAN ALEXIS OUTPATIEN 5 5 MD MEHNAZ, T VISIT [facility]SC 10 MINUTES OFFICE 11887 ERMA COOPER OUTPATIEN 5 5 MEDICAL T NEW 45 SERV MINUTES FOUNDATIO OFFICE 95023 ERMA OSEI OUTPATIEN 5 5 MEDICAL T VISIT SERV 25 FOUNDATIO MINUTES [facility] UNIVERSIT - 5 5 Y [facility] T OFFICE 91117 [facility] ROZ DAO OUTPATIEN 5 5 PHYSICIAN T VISIT S GROUP 10 MINUTES HOSPITAL LUZ - 5 5 [facility] OUTPATIEN [facility] T OFFICE 28799 NATHAN ALEXIS OUTPATIEN 5 5 MD MEHNAZ, T VISIT [facility] 10 MINUTES HOSPITAL LUZ - 5 5 [facility]PAT[facility] LUZ - 5 5 [facility] LUZ - 5 5 [facility] OUTPATIEN [facility] LUZ - 5 5 [facility] OUTPATIEN [facility] T OFFICE 08593 NATHAN MEHNAZ ANJ OUTPATIEN 5 5 MD MEHNAZ, T VISIT [facility] 15 MINUTES [facility] LUZ - 5 5 [facility] OUTPATIEN [facility] T OFFICE 16965 HEATHER DARBY BUX ANJ OUTPATIEN 5 5 T VISIT 10 MINUTES [facility] LUZ - 5 5 [facility] - 5 5 [facility] T OFFICE 84036 ERMA LOPEZ OUTPATIEN 5 5 MEDICAL JAM T VISIT SERV 25 FOUNDATIO MINUTES N OFFICE 75195 HEATHER ESTRADAX BUX ANJ OUTPATIEN [address] [facility] 30 MINUTES [facility] UNIVERSIT - 5 5 Y [facility] UNIVERSIT - 5 5 Y [facility] T OFFICE 53731 [facility] 5 5 Y T VISIT HOSPITAL 25 MINUTES [facility] LUZ - 4 4 MEM HOS[facility] OUTPATIEN [facility] T PERIODIC 42347 [facility] CRISTIAN PREVENTIV 4 4 PHYSICIAN ROSA MARIA E MED EST S GROUP PATIENT 40-64YRS HOSPITAL [facility]ERSIT - 4 4 [facility] 23255 [facility] CRISTIAN OUTPATIEN 4 4 PHYSICIAN ROSA MARIA T VISIT S GROUP 10 MINUTES OFFICE 02791 [place] KAIDEN MORGANT OUTPATIEN 4 4 MEDICAL T NEW 45 SERV MINUTES FOUNDATIO N OFFICE 15913 UNIVERSIT OUTPATIEN 4 4 Y T VISIT HOSPITAL 40 MINUTES HOSPITAL [facility]IVERSIT - 4 4 [facility] LU[facility] - 4 4 [facility] OUTPATIEN INC T OFFICE 36793 [place] AMBER PHI OUTPATIEN 4 4 MEDICAL T NEW 30 SERV MINUTES [facility] LUZ - 4 4 MEM [facility] OUTPATIEN INC T OFFICE 06456 [facility] CRISTIAN OUTPATIEN 4 4 PHYSICIAN ROSA MARIA T VISIT S GROUP 15 MINUTES OFFICE 16235 [place] ANN PITER CONSULTAT 4 4 MEDICAL ION SERV NEW/ESTAB FOUNDATIO PATIENT N 60 MIN OFFICE 11007 [facility] CRISTIAN OUTPATIEN 4 4 PHYSICIAN ROSA MARIA T VISIT S GROUP 25 MINUTES HOSPITAL LUZ - 4 4 [facility] OUTPATIEN INC T OFFICE 72398 [facility] CRISTIAN OUTPATIEN 4 4 PHYSICIAN ROSA MARIA T VISIT S GROUP 10 MINUTES HOSPITAL LUZ - 4 4 [facility] OUTPATIEN INC HOSPITAL LUZ - 4 4 [facility] OUTPATIEN INC HOSPITAL LUZ - 4 4 MEM [facility] OUTPATIEN INC T OFFICE 66172 ASSOCIATE REX GOLDSTEIN 4 4 D VANESA T VISIT PATHOLOGI [facility] MINUTES HOSPITAL LUZ - 4 4 MEM [facility]OSP OUTPATIEN INC T OFFICE 44883 LUZ SIDHU JR OUTPATIEN 4 4 [facility] T VISIT HOSPITAL 10 P MINUTES OFFICE 50085 ASSOCIATE GOODMAN OUTPATIEN 4 4 D VANESA T VISIT PATHOLOGI [facility] MINUTES OFFICE 95823 [facility] CRISTIAN OUTPATIEN 4 4 PHYSICIAN ROSA MARIA T VISIT S GROUP 10 MINUTES OFFICE 68527 LUZ SIDHU JR CONSULTAT 4 4 [facility] NEW/ESTAB P PATIENT 60 MIN HOSPITAL LUZ - 4 4 MEM [facility] OUTPATIEN INC T OFFICE 80222 [facility] CRISTIAN OUTPATIEN 4 4 PHYSICIAN ROSA MARIA T VISIT S GROUP 15 MINUTES OFFICE 70255 [facility] CRISTIAN OUTPATIEN 4 4 PHYSICIAN ROSA MARIA T VISIT S GROUP 15 MINUTES OFFICE 94902 [facility] CRISTIAN OUTPATIEN 4 4 PHYSICIAN ROSA MARIA T VISIT S GROUP 15 MINUTES OFFICE 28039 [facility] CRISTIAN OUTPATIEN 4 4 PHYSICIAN ROSA MARIA T NEW 30 S GROUP MINUTES OFFICE 61972 [facility] VISIT TH DEPT TH DEPT 10 MADI MADI MINUTES HOSPITAL LUZ - 4 4 [facility] OUTPATIEN INC T HOSPITAL LUZ - 4 4 [facility] OUTPATIEN INC T PERIODIC 80225 [facility] PREVENTIV 4 [facility] MED EST HLTH DEPT HLTH DEPT PATIENT MADI [facility] 40-64YRS OFFICE 38796 [facility] OUT[facility] 4 4 [facility] T VISIT TH DEPT TH DEPT 15 MADI MADI MINUTES
--- OUTSIDE RECORDS SUMMARY | 2016-09-25 17:19 | External Medical Summary Rpt ---
Author Author HARLEY Perdomo, HARLEY Perdomo Organization [employer] Address Unknown Phone Unavailable
--- OUTSIDE RECORDS SUMMARY | 2016-09-25 17:19 | External Medical Summary Rpt ---
Demographics Preferred Language Greenlandic Marital Status Unknown Rastafari Affiliation Unknown Race Unknown Ethnic Group Unknown Author Author , Organization [employer] Address Unknown Phone Unavailable Purpose Continuity of Care Document - through 2016 Immunization No patient found.
--- OUTSIDE RECORDS SUMMARY | 2016-09-25 17:19 | External Medical Summary Rpt ---
Demographics Preferred Language Welsh Marital Status Unknown Alevism Affiliation Unknown Race Unknown Ethnic Group Unknown Author Author , Organization [employer] Address Unknown Phone Unavailable Purpose Continuity of Care Document - through 2016 Immunization No patient found.
--- NOTE | 2016-09-25 17:53 | Urgent Treatment Center Report ---
History of Present Issue Date/Time Seen by Provider 09/25/16 0981 Visit Reason Pt arrived:Walked Presenting Problem:PT STATES SWELLING TO RIGHT FOOT FOR PAST WEEK. STATES ELEVATING FOOT AT NIGHT AND TAKING FLUID PILL. Location if Accident: Onset of symptoms date/time:/ or onset unknown for:MEDICAL HX UNKNOWN Have you (or family members/close friends) recently traveled outside the [place]? N If Yes, where/when: Have you had exposure to infectious disease within the past month? TB? Other? Specify: Patient states that she normally takes fluid pills for edema states that she has also been elevating the foot and keeping it up and it too has helped with swelling. States that she called her family doctors office and they told her to come here and get checked for blood clot. ALLERGIES Coded Allergies: codeine (Intermediate, I-HIVES 06/09/15) dexamethasone (Intermediate, I-ITCHING, RASH 06/09/15) sulfamethoxazole (From Janra) (Intermediate, I-HIVES 06/09/15) trimethoprim (From Janra) (Intermediate, I-HIVES 06/09/15) ibuprofen (VOMITING 06/11/15) hydrocodone (Severe, RECTAL BLEEDING 06/09/15) Home Medications Active Scripts Dicyclomine Hcl (Bentyl 10MG) 10 MG PO Q6HP PRN abdominal cramping #20 CAP Prov: 06/09/15 Reported Medications Levothyroxine Sodium (Levothyroxine) 0.05 MG PO DAILY BUPROPION HCL (Bupropion XL) 450 MG PO DAILY Fluoxetine Hcl (Fluoxetine) 60 MG PO DAILY Aspirin 81 MG PO DAILY OXYCODONE HCL/ACETAMINOPHEN (Percocet 7.5-325 MG Tablet) 10 MG PO TIDP PRN PAIN Trazodone Hcl (Trazodone HCl) 200 MG PO QHS MULTIVITAMIN (One Daily Multivitamin) 1 TAB PO DAILY Gabapentin (Neurontin) 800 MG PO TID Lovastatin 20 MG PO DAILY Omeprazole (Prilosec 40mg Cap) 40 MG PO DAILY Device (Oxygen (Concentrator)) 1 UNIT XX UD #1 LISINOPRIL (Lisinopril) 20 MG PO BID Cyclobenzaprine Hcl (Cyclobenzaprine 10MG) 10 MG PO BID FLUTICASONE/VILANTEROL (Breo Ellipta 100-25 Mcg INH) 1 POW IH DAILY ALBUTEROL (Ventolin Hfa) 1 PUFF IH Q6H6 History Medical History General CAD? No Angina: No [place]: No Hypertension? Yes Hyperlipidemia? Yes CHF? No DVT? Yes PE? No COPD? Yes Asthma? Yes Anemia? Yes GERD? Yes Gastric ulcers? No GI Bleed? No Hernia? No Thyroid Problems? Yes Hypothyroidism? No CVA? No Seizures? No Diabetes? No Renal Insuffiency? No UTI? No Stones? No GB Disease: No Nephritic Syndrome? No Asplenia? No Hepatitis? No Sickle Cell Disease? No Arthritis? Yes Migraines? Yes Cataracts? No Glaucoma? No MRSA? No HIV? No TB? No Anxiety? No Depression? No Cancer? Yes Site: RECTAL More? No Immunization HX DT/Tetanus [id number] Flu 2013-FSN Pneumonia Received In Past Surgical Hx Previous Surgery?Y GALLBLADDER REMOVED HEMMRHOIDECTOMY RECTAL CANCER BLOOD CLOT BACK SURGERY DEVICE SURGERY TO REMOVE BLOOD CLOT FROM L HIP TO L KNEE RECTAL SURG FOR CANCER HYSTERECTOMY HEMMROHIDECTOMY X4 TOTAL Family History Family HX Diabetes No CAD Yes Hypertension Yes Hyperlipidemia No Cancer Yes TB Yes Social History Smoking Hx Smoker: Current Every Day Smoker Tobacco: Yes Type Cigarettes Packs/day < 1 Pack Alcohol Alcohol: Yes Review of Systems All Other Systems Reviewed and Negative Comment pain and swelling in right foot that has been coming and going for several weeks and that swellling in foot does improve if she keeps it elevated Physical Exam Vital Signs Vital Signs Date Time Temp Pulse Resp B/P Pulse O2 O2 Flow FiO2 Ox Delivery Rate 09/25 1701 98.0 80 20 141/90 92 General Appearance normal appearance, WD/WN, no apparent distress Respiratory Status Yes: trachea midline, chest symmetrical. No: respiratory distress. Cardiovascular normal exam Extremities Patient has mild swelling noted in right foot, pedal pulses felt and heard via doppler. 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 Patient states had history of DVT no temperature difference between right or left foot. Medical Decision Making LABS/Meds/Orders Pt receiving controlled substance in ED? No Results/Orders Current Medication Orders Sig/Sampson Start time Last Medication Dose Route Stop Time Status Admin Enoxaparin Sodium 80 MG ONCE ONE 09/25 1744 DC SC 09/25 1745 Progress [facility] Progress Notes Date 09/25/16 Time 1741 Comment No one available to perform venous doppler, patient given DVT coverage with Lovenox 1mg per kg (80mg) and outpatient order for venous doppler and Respiratory notified and advised they would do it first thing in the morning and advised them to call results to Demario Vazquez or Dr. Lara at the office. Departure Departure Time of Disposition 1745 Disposition DC Home or Self Care(routine) Clinical Impression Primary Impression: Right foot pain Condition STABLE Referrals Marco MENSAH,Orlando Justice (Family): Tomorrow-Call Office have venous doppler done in the morning and call with results and follow up with office after venous doppler Additional Instructions Have Venous Doppler in the morning as advised in the office Respiratory therapy will call you in the morning with when to be here for venous doppler, after having venous doppler done, they will call the results to your family doctor or who ever is covering for him. Folllow up in the clinic after the venous doppler for further treatment and results If any changes or worsening of symptoms tonight after leaving report immediately to the ER for further treatment Discharge Counseling Counseled pt/family regarding diagnosis, medications/RX, home care, follow up needs at [phone]
--- NOTE | 2016-09-25 17:53 | Urgent Treatment Center Report ---
History of Present Issue Date/Time Seen by Provider 09/25/16 7142 Visit Reason Pt arrived:Walked Presenting Problem:PT STATES SWELLING TO RIGHT FOOT FOR PAST WEEK. STATES ELEVATING FOOT AT NIGHT AND TAKING FLUID PILL. Location if Accident: Onset of symptoms date/time:/ or onset unknown for:MEDICAL HX UNKNOWN Have you (or family members/close friends) recently traveled outside the [place]? N If Yes, where/when: Have you had exposure to infectious disease within the past month? TB? Other? Specify: Patient states that she normally takes fluid pills for edema states that she has also been elevating the foot and keeping it up and it too has helped with swelling. States that she called her family doctors office and they told her to come here and get checked for blood clot. ALLERGIES Coded Allergies: codeine (Intermediate, I-HIVES 06/09/15) dexamethasone (Intermediate, I-ITCHING, RASH 06/09/15) sulfamethoxazole (From Janra) (Intermediate, I-HIVES 06/09/15) trimethoprim (From Janra) (Intermediate, I-HIVES 06/09/15) ibuprofen (VOMITING 06/11/15) hydrocodone (Severe, RECTAL BLEEDING 06/09/15) Home Medications Active Scripts Dicyclomine Hcl (Bentyl 10MG) 10 MG PO Q6HP PRN abdominal cramping #20 CAP Prov: 06/09/15 Reported Medications Levothyroxine Sodium (Levothyroxine) 0.05 MG PO DAILY BUPROPION HCL (Bupropion XL) 450 MG PO DAILY Fluoxetine Hcl (Fluoxetine) 60 MG PO DAILY Aspirin 81 MG PO DAILY OXYCODONE HCL/ACETAMINOPHEN (Percocet 7.5-325 MG Tablet) 10 MG PO TIDP PRN PAIN Trazodone Hcl (Trazodone HCl) 200 MG PO QHS MULTIVITAMIN (One Daily Multivitamin) 1 TAB PO DAILY Gabapentin (Neurontin) 800 MG PO TID Lovastatin 20 MG PO DAILY Omeprazole (Prilosec 40mg Cap) 40 MG PO DAILY Device (Oxygen (Concentrator)) 1 UNIT XX UD #1 LISINOPRIL (Lisinopril) 20 MG PO BID Cyclobenzaprine Hcl (Cyclobenzaprine 10MG) 10 MG PO BID FLUTICASONE/VILANTEROL (Breo Ellipta 100-25 Mcg INH) 1 POW IH DAILY ALBUTEROL (Ventolin Hfa) 1 PUFF IH Q6H6 History Medical History General CAD? No Angina: No [place]: No Hypertension? Yes Hyperlipidemia? Yes CHF? No DVT? Yes PE? No COPD? Yes Asthma? Yes Anemia? Yes GERD? Yes Gastric ulcers? No GI Bleed? No Hernia? No Thyroid Problems? Yes Hypothyroidism? No CVA? No Seizures? No Diabetes? No Renal Insuffiency? No UTI? No Stones? No GB Disease: No Nephritic Syndrome? No Asplenia? No Hepatitis? No Sickle Cell Disease? No Arthritis? Yes Migraines? Yes Cataracts? No Glaucoma? No MRSA? No HIV? No TB? No Anxiety? No Depression? No Cancer? Yes Site: RECTAL More? No Immunization HX DT/Tetanus [id number] Flu 2013-FSN Pneumonia Received In Past Surgical Hx Previous Surgery?Y GALLBLADDER REMOVED HEMMRHOIDECTOMY RECTAL CANCER BLOOD CLOT BACK SURGERY DEVICE SURGERY TO REMOVE BLOOD CLOT FROM L HIP TO L KNEE RECTAL SURG FOR CANCER HYSTERECTOMY HEMMROHIDECTOMY X4 TOTAL Family History Family HX Diabetes No CAD Yes Hypertension Yes Hyperlipidemia No Cancer Yes TB Yes Social History Smoking Hx Smoker: Current Every Day Smoker Tobacco: Yes Type Cigarettes Packs/day < 1 Pack Alcohol Alcohol: Yes Review of Systems All Other Systems Reviewed and Negative Comment pain and swelling in right foot that has been coming and going for several weeks and that swellling in foot does improve if she keeps it elevated Physical Exam Vital Signs Vital Signs Date Time Temp Pulse Resp B/P Pulse O2 O2 Flow FiO2 Ox Delivery Rate 09/25 1701 98.0 80 20 141/90 92 General Appearance normal appearance, WD/WN, no apparent distress Respiratory Status Yes: trachea midline, chest symmetrical. No: respiratory distress. Cardiovascular normal exam Extremities Patient has mild swelling noted in right foot, pedal pulses felt and heard via doppler. Neurologic alert, clinic lpn II-XII nml as tested, normal exam, no motor/sensory deficits Comments Patient in skirt and cool outside, bilateral legs cool to touch with slight mottling in both feet that improved after she was in warm room, pedal pulses palpated and also heard via doppler. Patient states had history of DVT no temperature difference between right or left foot. Medical Decision Making LABS/Meds/Orders Pt receiving controlled substance in ED? No Results/Orders Current Medication Orders Sig/Sampson Start time Last Medication Dose Route Stop Time Status Admin Enoxaparin Sodium 80 MG ONCE ONE 09/25 1744 DC SC 09/25 1745 Progress [facility] Progress Notes Date 09/25/16 Time 1741 Comment No one available to perform venous doppler, patient given DVT coverage with Lovenox 1mg per kg (80mg) and outpatient order for venous doppler and Respiratory notified and advised they would do it first thing in the morning and advised them to call results to Demario Vazquez or Dr. Lara at the office. Departure Departure Time of Disposition 1745 Disposition DC Home or Self Care(routine) Clinical Impression Primary Impression: Right foot pain Condition STABLE Referrals Marco MENSAH,Orlando Justice (Family): Tomorrow-Call Office have venous doppler done in the morning and call with results and follow up with office after venous doppler Additional Instructions Have Venous Doppler in the morning as advised in the office Respiratory therapy will call you in the morning with when to be here for venous doppler, after having venous doppler done, they will call the results to your family doctor or who ever is covering for him. Folllow up in the clinic after the venous doppler for further treatment and results If any changes or worsening of symptoms tonight after leaving report immediately to the ER for further treatment Discharge Counseling Counseled pt/family regarding diagnosis, medications/RX, home care, follow up needs at [phone]
[2016-09-25 18:03] VITALS: BP 141/90
== END 2016-09-25 18:14 | disposition home or self-care (01) ==
LOC: UTC 16:52
DX: M79.671 Pain in right foot (principal); I10 Essential (primary) hypertension; Z72.0 Tobacco use; J44.9 Chronic obstructive pulmonary disease, unspecified; K21.9 Gastro-esophageal reflux disease without esophagitis

== ENCOUNTER → 2016-09-26 | Outpatient (CLI) | payer MEDICARE, MEDICAID ==
[~2016-09-26] MED LIST changes: +VENTOLIN H0.09 MG/AC IH
--- NOTE | 2016-09-26 11:15 | CARDIOVASCULAR REPORT ---
"Venous Exam Indications: 782.3 Edema. 729.5 Pain in limb. IMPRESSIONS 1. There is no evidence of significant Reflux. 2. No evidence of deep or superficial vein thrombosis involving the right lower extremity History: Right lower extremity pain. Edema of the right leg. Risk factors: Current tobacco use. Hypertension. Patient states she has a history of rectal cancer (1994). She has history of DVT (2002) in [facility]. She denies any recent trauma. She received a Lovenox injection 09/25/16 in the [facility] urgent treatment center. Right lower extremity venous duplex evaluation. Doppler flow study including spectral analysis, color and suresh scale imaging. Location: Vascular laboratory. Patient status: Outpatient. CRITICAL FINDINGS - Reported to: Dr. Marco Kingsley office - Read back and verified. - 09/26/16 - 11:10 - RLE negative for DVT or SVT Tables: Venous flow and imaging: + +-------+ + |Location |Overall|Flow properties | + +-------+ + |Right common femoral |Patent |Normal phasicity; spontaneous; | | | |normal augmentation; compressible| + +-------+ + |Right saphenofemoral junction|Patent |Compressible | + +-------+ + |Right profunda femoral |Patent |Compressible | + +-------+ + |Right femoral |Patent |Normal phasicity; spontaneous; | | | |normal augmentation; compressible| + +-------+ + |Right greater saphenous |Patent |Normal phasicity; spontaneous; | | | |normal augmentation; compressible| + +-------+ + |Right popliteal |Patent |Normal phasicity; spontaneous; | | | |normal augmentation; compressible| + +-------+ + |Right posterior tibial |Patent |Compressible | + +-------+ + |Right peroneal |Patent |Compressible | + +-------+ + |Right gastrocnemius |Patent |Compressible | + +-------+ + |Right soleal |Patent |Compressible | + +-------+ + (Report amended ) Electronically signed by: Handy Garza [id number]"
--- NOTE | 2016-09-26 11:15 | CARDIOVASCULAR REPORT ---
"Venous Exam Indications: 782.3 Edema. 729.5 Pain in limb. IMPRESSIONS 1. There is no evidence of significant Reflux. 2. No evidence of deep or superficial vein thrombosis involving the right lower extremity History: Right lower extremity pain. Edema of the right leg. Risk factors: Current tobacco use. Hypertension. Patient states she has a history of rectal cancer (1994). She has history of DVT (2002) in [facility]. She denies any recent trauma. She received a Lovenox injection 09/25/16 in the [facility] urgent treatment center. Right lower extremity venous duplex evaluation. Doppler flow study including spectral analysis, color and suresh scale imaging. Location: Vascular laboratory. Patient status: Outpatient. CRITICAL FINDINGS - Reported to: Dr. Marco Kingsley office - Read back and verified. - 09/26/16 - 11:10 - RLE negative for DVT or SVT Tables: Venous flow and imaging: + +-------+ + |Location |Overall|Flow properties | + +-------+ + |Right common femoral |Patent |Normal phasicity; spontaneous; | | | |normal augmentation; compressible| + +-------+ + |Right saphenofemoral junction|Patent |Compressible | + +-------+ + |Right profunda femoral |Patent |Compressible | + +-------+ + |Right femoral |Patent |Normal phasicity; spontaneous; | | | |normal augmentation; compressible| + +-------+ + |Right greater saphenous |Patent |Normal phasicity; spontaneous; | | | |normal augmentation; compressible| + +-------+ + |Right popliteal |Patent |Normal phasicity; spontaneous; | | | |normal augmentation; compressible| + +-------+ + |Right posterior tibial |Patent |Compressible | + +-------+ + |Right peroneal |Patent |Compressible | + +-------+ + |Right gastrocnemius |Patent |Compressible | + +-------+ + |Right soleal |Patent |Compressible | + +-------+ + (Report amended ) Electronically signed by: Handy Garza [id number]"
== END ==
LOC: RT 10:45
DX: M79.604 Pain in right leg (principal); L81.9 Disorder of pigmentation, unspecified; R22.41 Localized swelling, mass and lump, right lower limb

== ENCOUNTER → 2017-01-23 | Outpatient (CLI) | payer MEDICARE, MEDICAID ==
[2017-01-23 15:39] LABS: AMPHETAMINES/METAMPHETAMINES NEGATIVE ng/mL (<1000)
== END ==
LOC: LAB 14:05
PROVIDERS: Nurse Practitioner Family
DX: Z79.899 Other long term (current) drug therapy (principal)

== ENCOUNTER 2017-03-12 13:26 | Emergency (ER) | payer MEDICARE, MEDICAID ==
[~2017-03-12] VITALS: Ht 160 cm; Wt 74.8 kg
--- OUTSIDE RECORDS SUMMARY | 2017-03-12 13:49 | External Medical Summary Rpt | CCD ---
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 Name Role Phone JHAVERI FABY, JHAVERI Unavailable Unavailable FABY [facility] Unavailable Unavailable [facility], [facility] ALLRAN JR LIBAN, ALLRAN Unavailable Unavailable JR LIBAN STOUT, Unavailable Unavailable HANNA DARBY MD, PSC, Unavailable Unavailable NATHAN DARBY MD, PSC [facility] Unavailable [facility] SIENA WREN Unavailable Unavailable WREN KAT, WREN Unavailable Unavailable TRAVIS FELDMAN, Unavailable Unavailable MD,PSC, SIENA FELDMAN MD,PSC FRANK LYONS Unavailable Unavailable CHARLOTTE OROZCO, OROZCO Unavailable Unavailable OROZCO ALL, OROZCO ALL Unavailable Unavailable [facility] Unavailable Unavailable BUX ANJ, BUX ANJ Unavailable Unavailable CHIPPS ANNA & Unavailable Unavailable DUBILIER, CHIPPS ANNA & DUBILIER SONG LEANDER, SONG Unavailable Unavailable LEANDER FIONA ALLISON, Unavailable Unavailable FIONA ALLISON [facility] Unavailable Unavailable [facility], [facility] ADHIKARI LAYNE, ADHIKARI LAYNE Unavailable Unavailable DUFF VANESA, DUFF VANESA Unavailable Unavailable [facility], [facility] Unavailable Unavailable [facility], [facility] Unavailable Unavailable [facility] Unavailable Unavailable [facility], [facility] Unavailable Unavailable [facility], [facility] KEARNS MOY, KEARNS Unavailable Unavailable MOY FOSTER ROSA MARIA, CRISTIAN Unavailable Unavailable ROSA MARIA [facility] Unavailable Unavailable INC, [facility] Unavailable Un[facility]PITAL P, [facility], Unavailable Unavailable [facility] Unavailable [facility]available [facility], [facility] Unavailable Unavailable [facility], [facility] PERRYAN IMELDA Unavailable Unavailable BULLOCK ALLISON, BULLOCK ALLISON Unavailable Unavailable [facility] Un[facility] [employer] Unavailable Unavailable [facility] [place] ETTA CRI, E[facility] C[facility] Unavailable Unavailable CLEO JR DWI, CLEO Unavailable [...] TOD, ROZ TOD Unavailable Unavailable YANG GAV, YAGN GAV Unavailable Unavailable SCIFRES, SCIFRES Unavailable Unavailable [facility] Unavailable Unavailable [facility], [facility] Unavailable Unavailable [facility], [facility] ERYN SHE, Unavailable Unavailable ERYN SHE GOODMAN VANESA, GOODMAN Unavailable Unavailable [facility], Unavailable Unavailable [facility] Camron Meadows MD, Unavailable Unavailable Camron Meadows MD AMBER PHI, AMBER PHI Unavailable Unavailable [facility], Unavailable Unavailable [facility] Unavailable Unavailable [facility]PT [facility] Unavailable Unavailable [facility] BANNER BERTHA, Unavailable Unavailable BERTHA BERTHA TRA, Unavailable Unavailable BERTHA TRA DWYER, DWYER Unavailable Unavailable DWYER MAR, DWYER MAR Unavailable Unavailable [facility] Unavailable Unavailable OF [facility], [facility] FELDMAN PET, FELDMAN Unavailable Unavailable [facility], Unavailable [facility] Purpose Continuity of Care Document - 08-04-2012 through 2016 Problems Code Diagnosis DOS Provider Status J449 CHRONIC 02-14-2017 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 UNS EQUIPME [id number] PAIN IN 01-30-2017 [place] R77476 PAIN IN 01-30-2017 [place]EE [facility] 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 M545 LOW BACK 01-30-2017 [place] PAIN [facility] F43022 OTHER LONG 01-23-2017 [facility] TERM [facility] CURRENT INC DRUG THERAPY Q08401 SPONDYLOSIS 12-26-2016 SIENA W/O FRANCIA MYELANYN/R ,PSC ADICULOPATH Y LUMB RGN D37198 LONG-TERM 12-09-2016 SIENA CURRENT USE FRANCIA OF OPIATE ,PSC ANALGESIC L819 DISORDER OF 09-26-2016 [facility] PIGMENTATIO INC N UNSPECIFIED T00825 PAIN IN 09-26-2016 [place] [facility]G [facility] R2241 LOCALIZED 09-26-2016 [facility] SWELLING [facility] MASS & LUMP INC RIGHT LOWER LIMB R600 LOCALIZED 09-26-2016 [place] EDEMA [facility] W82995 PERSONAL 09-26-2016 [place] HISTORY OT MEDICAL VENOUS IMAGING ASS THROMBOSIS& EMBOLISM I10 ESSENTIAL 09-25-2016 [facility]IMARY [facility] HYPERTENSIO INC N K219 GASTRO-ESOP 09-25-2016 [facility] H REFLUX [facility] DISEASE INC WITHOUT ESOPHAGITIS A81482 PAIN IN 09-25-2016 [facility] RIGHT FOOT [facility] INC Z720 TOBACCO USE 09-25-2016 [facility] INC J301 ALLERGIC 07-22-2016 [facility] RH[facility]IS [facility] DUE TO [place] [facility] POLLEN J3081 ALLERG 07-22-2016 [facility] D/T ANIMAL [place] [facility] CAT DOG HAIR & DANDER J3089 OTHER 07-22-2016 [facility] RHINITIS [place] 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-02-2016 MARIANN JOHNS MD,PSC DEGEN LUMBAR REGION C39629N ADVERS EFF 06-11-2016 [facility] OTH RX MEDS [facility] BIO [place] SUBSTANCES INIT ENC H2513 AGE-RELATED 06-06-2016 [facility] NUC[facility] CATARACT CENTER BILATERAL M810 AGE-RELATED 04-30-2016 ELICEO MEDINA MD,PSC S W/O CURRNT PATH FX J440 COPD WITH 04-02-2016 [facility] ACUTE LOWER [facility] [place] RESPIRATORY INFECTION J4530 MILD 04-02-2016 [facility] PERSISTENT [facility] ASTHMA [place] UNCOMPLICAT ED Z889 ALLERGY 04-02-2016 [facility] STATUS UNS PARTNERS OF RX MEDS & [place] [facility] BIOLOG SUBSTANC STS G8929 OTHER 01-02-2016 [facility] CHRONIC PHYSICIANS PAIN GROUP M5137 OTH 01-02-2016 [facility]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 Y57577 PAIN IN 01-02-2016 [facility] LEFT HAND PHYSICIANS GROUP M5416 RADICULOPAT 12-28-2015 [facility] HY LUMBAR CAILIN FELDMAN MD,PSC Z1231 ENCOUNTER 11-23-2015 [place] SCREENING MEDICAL MAMMO MALIG IMAGING ASS NEOPLASM BREAST N390 URINARY 11-16-2015 [facility] TRACT [facility] INFECTION INC SITE NOT SPECIFIED M519 UNS THOR 11-06-2015 [facility] THORACOLUMB PHYSICIANS AR GROUP LUMBOSACRAL IV DISC D/O 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 R102 PELVIC AND 10-24-2015 [facility] PERINEAL PHYSICIANS PAIN GROUP R109 UNSPECIFIED 10-24-2015 [facility] ABDOMINAL PHYSICIANS PAIN GROUP [id number] OTHER 10-24-2015 [facility] COMPLICATIO PHYSICIANS NS PROC NEC GROUP INITIAL ENCOUNTER G4733 OBSTRUCTIVE 10-20-2015 [facility] APNEA ADULT MEDICAL PEDIATRIC EQUIPME M6580 OTHER 10-16-2015 [facility] SYNOVITIS & PHYSICIANS GROUP TENOSYNOVIT IS UNSPECIFIED SITE K469 UNS 10-15-2015 [facility]BDOMINAL [facility] HERNIA W/O INC OBSTRUCTION OR GANGRENE R1031 RIGHT LOWER 10-15-2015 [place] [facility]IN [facility] I70388 PERSONAL HX 10-15-2015 [facility] RECTUM IMAGING ASS RS JUNC & ANUS R8290 UNSPECIFIED 10-10-2015 [facility] ABNORMAL [facility] FINDINGS IN INC URINE E039 HYPOTHYROID 10-09-2015 [facility] ISM PHYSICIANS UNSPECIFIED GROUP E785 HYPERLIPIDE 10-09-2015 [facility] MARY PHYSICIANS UNSPECIFIED GROUP M5116 INTERVERTEB 10-09-2015 [facility] RAL DISC PHYSICIANS D/O GROUP W/RADICULOP ATHY LUMB RGN W07304 PAIN IN 09-17-2015 [facility] RIGHT HIP PHYSICIANS GROUP R1030 LOWER 07-27-2015 [facility] PAIN UNSPECIFIED R748 ABNORMAL 07-27-2015 [facility] OTHER SERUM ENZYMES Z0000 ENCOUNTER 07-11-2015 [facility] W/O ABNORMAL FIND R1032 LEFT LOWER 06-09-2015 [place] [facility] R1084 GENERALIZED 06-09-2015 [facility]BDOM[facility]AL [facility] PAIN INC K651 PERITONEAL 05-08-2015 [facility] ABSCESS [facility] INC [id number] LAC NO FB 04-24-2015 [facility] AW UNS QUAD [facility] NO PEN INC PERITN CAV SEQUELA W08960 ACQUIRED 04-24-2015 [facility] ABSENCE OF [facility] BOTH CERVIX INC AND UTERUS 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-2015 [facility] P D126 BENIGN 04-04-2015 [place] NEOPLASM OF [facility] COLON UNSPECIFIED U15551 PERSONAL HX 04-04-2015 [place] [facility] SERV NEOPLASM [facility] LARGE INTESTINE J471 BRONCHIECTA 04-02-2015 [place] [facility]ARMACY OF ACUTE [facility] EXACERBATIO N R05 COUGH 03-22-2015 [facility] R509 FEVER 03-22-2015 [place] UNSPECIFIED [facility]ICAL IMAGING ASS T5331ME OTHER 03-22-2015 [facility] COMPLICATIO [facility] NS INC ANESTHESIA INITIAL ENCOUNTER D125 BENIGN 03-21-2015 [place] NEOPLASM OF [facility] 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 P 52206 EXTRINSIC 02-01-2015 [place] [facility]MA, PHARMACY OF UNSPECIFIED [facility] 4019 UNSPECIFIED 01-30-2015 [facility] HYPERTENSIO [facility] P N 8793 OPEN WOUND 01-30-2015 [place] ABDOMINAL MEDICAL WALL IMAGING ASS ANTERIOR COMPLICATED 9975 URINARY 01-30-2015 [facility] COMPLICATIO [facility] NS NEC HOSPITAL P V1089 PERSONAL 01-30-2015 [facility] HISTORY [facility] MALIGNANT HOSPITAL P NEOPLASM OTHER SITE V8801 ACQUIRED 01-25-2015 [place] ABSENCE OF MEDICAL BOTH CERVIX IMAGING ASS AND UTERUS 2331 CARCINOMA 01-22-2015 [facility] ANNA & CERVIX DUBILIER UTERI 6271 POSTMENOPAU 01-22-2015 [facility] LUDY PHYSICIANS BLEEDING GROUP 06973 PAP SMER 01-22-2015 [facility] CERV W/HI [facility] GRADE INC SQUAMOUS INTRAEPITH LES 7969 OTHER 01-22-2015 [facility] NONSPECIFIC PHYSICIANS ABNORMAL GROUP FINDING V1090 PERSONAL 01-22-2015 [facility] HISTORY PHYSICIANS UNSPECIFIED GROUP MALIGNANT NEOPLASM 7213 LUMBOSACRAL 01-12-2015 NATHAN DARBY MD, PSC SPONDYLOSIS WITHOUT MYELOPATHY 7248 OTHER 01-12-2015 [facility] SYMPTOMS [facility] REFERABLE INC TO BACK 48279 OTHER 01-09-2015 [facility] NONSPECIFIC [facility] ABNORMAL INC FINDING OF LUNG FIELD 83752 DISPLCMT 01-08-2015 NATHAN DARBY, LUMBAR , PSC INTERVERT DISC W/O MYELOPATHY 0398 ACTINOMYCOT 12-25-2014 [facility] INFECTION OF OTHER SPECIFIED SITES 2360 NEOPLASM OF 12-25-2014 [facility] UNCERTAIN [facility] BEHAVIOR OF UTERUS 11370 OBSTRUCTIVE 07-26-2014 [facility] CHRONIC [facility] BRONCHITIS INC WITHOUT EXACERBAT 76019 NONSPEC 07-26-2014 [facility] REACT [facility] TUBERCULIN INC SKIN TEST W/[place] 12983 HYPOXEMIA 07-26-2014 [facility] INC 3669 UNSPECIFIED 07-21-2014 [place] [facility] CATARACT [facility] 16669 ESOPHAGEAL 07-21-2014 [place] [facility] REFLUX [facility] 07212 OTHER SLEEP 07-21-2014 [place] [facility] DISTURBANCE [facility] S 87655 FULL 07-10-2014 [place] [facility] INCONTINENC SERV E OF FECES FOUNDATION 83548 UNSPECIFIED 07-10-2014 [place] [facility] URINARY [facility] INCONTINENC [facility]OUNDATION E V1006 PERS HX MAL 07-10-2014 [place] [facility] NEOPLSM SERV RECT [facility]OUNDATION RECTOSIGMOI D JUNC&ANUS 1541 MALIGNANT 06-26-2014 [place] [facility] NEOPLAS[place] OF SERV RECTUM FOUNDATION V153 PERS HX 06-26-2014 [facility] PRESENTING [facility] 1542 MALIGNANT 06-02-2014 [place] [facility] NE[facility] OF SERV ANAL CANAL FOUNDATION 53967 OTHER 06-02-2014 [facility] PAIN 89703 URGENCY OF 06-02-2014 [place] URINATION [facility] 59162 06-02-2014 [facility] [place] 62064 SHORTNESS 05-10-2014 [facility] BREATH [facility]ICAL IM[facility] 39373 OTHER 04-10-2014 [place] [facility] SPECIFIED SERV DISORDER OF FOUNDATION RECTUM AND ANUS 6238 OTHER 04-10-2014 [place] [facility] SPECIFIED [facility] NONINFLAMMA FOUNDATION TORY DISORDER VAGINA V7284 UNSPECIFIED 04-06-2014 [facility] PHYSICIANS PRE-OPERATI GROUP VE EXAMINATION 1543 MALIGNANT 04-05-2014 [place] NEOPLASM OF HOSPITAL ANUS UNSPECIFIED SITE 86026 CHRONIC 04-05-2014 [facility] ASTHMA UNSPECIFIED 40815 NONSPECIFIC 04-05-2014 [facility] ELECTROCARD IOGRAM V7283 OTHER 04-05-2014 [facility] PRE-OPERATI VE EXAMINATION 6829 CELLULITIS 03-27-2014 [facility] AND ABSCESS PHYSICIANS OF GROUP UNSPECIFIED SITE 67463 UNSPECIFIED 03-24-2014 [facility] CONSTIPATIO N 80517 FECAL 03-24-2014 [facility] V463 WHEELCHAIR 03-24-2014 [facility] 7242 LUMBAGO 03-15-2014 [facility] 2113 BENIGN 03-13-2014 [place] [facility] NEOPLASM OF SERV COLON FOUNDATION 2114 BENIGN 03-13-2014 [facility] NEOPLASM OF LLC RECTUM AND ANAL CANAL 2352 NEOPLASM 03-13-2014 [facility] UNCERTAIN [facility] BEHAVIOR INC STOMACH INTEST&RECT 95830 DIVERTICULO 03-13-2014 [place] [facility] SIS OF SERV COLON FOUNDATION 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 LLC 19805 OTHER 03-13-2014 [facility] SPECIFIED LLC DISORDER OF INTESTINES V142 PERSONAL 03-13-2014 [facility] HISTORY OF [facility] ALLERGY TO INC SULFONAMIDE S V1551 PERSONAL 03-09-2014 [place] [facility] OF SERV TRAUMATIC FOUNDATION FRACTURE 2449 UNSPECIFIED 02-24-2014 [facility] PHYSICIANS HYPOTHYROID GROUP ISM 03481 PAIN IN 02-13-2014 [facility] JOINT, SITE MEM HOSP INC UNSPECIFIED 06517 OTHER&UNSPE 02-13-2014 [facility] CIFIED DISC PHYSICIANS DISORDER GROUP CERVICAL REGION 36636 OSTEOARTHRO 02-07-2014 [facility] S UNSPEC PHYSICIANS WHETHER GROUP GEN/LOC UNSPEC SITE 05743 PAIN IN 01-23-2014 [facility] JOINT, MEM HOSP UPPER ARM INC 05363 PAIN IN 01-23-2014 [facility], MEM HOSP LOWER LEG INC V571 OTHER 01-23-2014 [facility] PHYSICAL [facility] THERAPY INC 85334 ANAL OR 12-14-2013 [place] RECTAL PAIN [facility] P 7295 PAIN IN 12-13-2013 [facility] SOFT PATHOLOGIST TISSUES OF S LLC LIMB 91947 ATHEROSLERO 10-27-2013 [facility] NATV ART [facility] EXTREM INC W/INTERMIT CLAUDICAT V016 CONTACT 07-05-2013 [facility] WITH OR DISTRICT EXPOSURE TO [facility] DEPT VENEREAL MADI DISEASES 43071 MODERATE 06-29-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 LLC OF CERVIX 80120 PAP SMER 06-29-2013 [facility] W/ATYPICAL CLINIC OF SQUAMOUS [place] CELLS UNDET 74898 OTH 06-29-2013 [facility] U SMEAR [place] CERVIX&CERV HPV V2542 SURVEILLANC 06-29-2013 [facility] E PREV [facility] OF CNTRACPT [place] DEVC V7612 OTHER 06-15-2013 [place] SCREENING [facility] MAMMOGRAM INC 67049 CERV HIGH 06-07-2013 [facility] RISK HUMAN LLC PAPILLOMAVI MISAEL DNA TEST POS V2689 OTHER 06-07-2013 [facility] SPECIFIED DISTRICT PROCREATIVE [facility] DEPT MANAGEMENT [place] V700 ROUTINE 06-07-2013 [facility] MEDICAL [facility] DEPT [email or web address]@HEALTH [facility] CARE FACL V7231 ROUTINE 06-07-2013 [facility] GYNECOLOGIC LLC AL EXAMINATION [id number] Alcohol [place] abuse [facility] 244.9 Hypothyroid [place] [facility] 305.1 Tobacco [place] user [facility] [id number] Acute [place] pyelonephri [facility] [id number] Major [place] depressive [facility] 401.9 Essential [place] hypertensio [facility] [id number] Obesity [facility] 530.81 Gastroesoph [place] ageal [facility] reflux Hospital disease 794.4 Abnormal [place] renal [facility] function Hospital 977.9 Drug [facility] I10 ESSENTIAL (PRIMARY) HYPERTENSIO N R10.9 UNSPECIFIED ABDOMINAL PAIN S40.019A CONTUSION OF UNSPECIFIED SHOULDER, INITIAL ENCOUNTER S50.10XA CONTUSION OF UNSPECIFIED FOREARM, INITIAL ENCOUNTER T88.59XA OTHER COMPLICATIO NS OF ANESTHESIA, INITIAL ENCOUNTER Z12.31 ENCNTR SCREEN MAMMOGRAM FOR MALIGNANT NEOPLASM OF BREAST Z79.899 OTHER FOAMITE MIXER (CURRENT) DRUG THERAPY Allergies, Adverse Reactions, Alerts Type Drug Allergy [...] ia de te s n re d AP 00 10 0 No AP 40 -1 /H 60 4- Lo YD 36 20 ng RO 56 13 er CO 2 DO Ac NE ti ve 32 5 MG -5 MG FL 00 10 0 No UO 90 -1 XE 45 4- Lo TI 78 20 ng NE 56 13 er 1 HC Ac L ti 20 ve MG CA PS UL E LI 68 10 0 No SI 18 -1 NO 00 4- Lo MO 51 20 ng IL 80 13 er [...] /2 ve 4H R PA TC H IN 49 10 0 No FL 28 -1 UE 10 4- Lo NZ 39 20 ng A 21 13 er 5 RU Ac S ti VA ve CC IN E 0. 5M L CE 00 10 0 No FT 40 [...] MG Ac ti Ta ve bl et AP 00 03 1 No AP 40 -1 /H 60 5- Lo YD 36 20 ng RO 56 13 er CO 2 DO Ac NE ti ve 32 5 MG -5 MG LE 25 03 0 No VO 02 [...] SI 18 -1 NO 00 4- Lo MO 51 20 ng IL 80 13 er [...] Ac MG ti /M ve L AL MO 00 03 3 No OM 64 -1 [...] Range on LIVER PROFILE (03-07-2013 08:45) Prot 03-07- 5.7 6.4-8.2 complet SerPl-m 013 gm/dL ed Cnc 08:45 Albumin 2.5 3.4-5.0 complet 013 gm/dL ed SerPl-m 08:45 Cnc Bilirub 03-07-2 0.2 0.2-1.0 complet 013 mg/dL ed SerPl-m 08:45 Cnc Bilirub 03-07- 0.09 0.0-0.2 complet Direct 013 mg/dL ed 08:45 SerPl-m Cnc Bilirub 0.11 0-0.9 complet 013 mg/dL ed Indirec 08:45 t SerPl-m Cnc AST 32 U/L 15-37 complet SerPl-c 013 ed Cnc 08:45 ALT 66 U/L 30-65 complet SerPl-c 013 ed Cnc 08:45 ALP 124 U/L 50-136 complet SerPl-c 013 ed Cnc 08:45 LDH (03-07-2013 08:45) LDH 181 U/L 82-234 complet 013 ed 08:45 COMPREHENSIVE METABOLIC PANEL (03-07-2013 04:35) Glucose 89 74-106 complet 013 mg/dL ed Bld-mCn 04:35 c BUN 14 7-18 complet Bld-mCn 013 mg/dL ed c 04:35 Creat 1.0 0.6-1.0 complet SerPl-m 013 mg/dL ed Cnc 04:35 ESTIMAT 66 50-200 complet ED 013 ML/MIN ed CREATIN 04:35 INE CLEARAN CE GFR 58 59- complet (ESTIMA 013 ML/MIN ed LUANN) 04:35 Sodium 142 136-145 complet SerPl-s 013 mmoL/L ed Cnc 04:35 Potassi 4.9 3.5-5.1 complet um 013 mmoL/L ed SerPl-s 04:35 Cnc Chlorid 108 98-107 complet e 013 mmoL/L ed SerPl-s 04:35 Cnc CO2 03-07- 28 21.0-32 complet SerPl-s 013 mmoL/L .0 ed Cnc 04:35 Calcium 03-07- 7.7 8.5-10. complet 013 mg/dL 1 ed SerPl-m 04:35 Cnc Prot 03-07- 5.6 6.4-8.2 complet SerPl-m 013 gm/dL ed Cnc 04:35 Albumin 03-07-2 2.5 3.4-5.0 complet 013 gm/dL ed SerPl-m 04:35 Cnc GLOBULI 03-07- 3.1 1.3-3.2 complet N 013 gm/dL ed 04:35 ALB/MAT 03-07- 0.8 UNK 1.1-1.8 complet B RATIO 013 ed 04:35 Bilirub 03-07-2 0.3 0.2-1.0 complet 013 mg/dL ed SerPl-m 04:35 Cnc AST 10-14-2 33 U/L 15-37 complet SerPl-c 013 ed Cnc 04:35 ALT 10-14-2 67 U/L 30-65 complet SerPl-c 013 ed Cnc 04:35 ALP 10-14-2 118 U/L 50-136 complet SerPl-c 013 ed Cnc 04:35 THYROID STIM HORMONE (03-07-2013 04:35) THYROID 10-14-2 2.48 0.358-3 complet STIM 013 uIU/ml .740 ed HORMONE 04:35 CBC with AUTO DIFF (03-07-2013 04:35) WBC # 10-14-2 6.8 4.8-10. complet Bld 013 K/MM3 8 ed Auto 04:35 RBC # 10-14-2 3.61 4.2-5.4 complet Bld 013 M/mm3 ed Auto 04:35 Hgb 10-14-2 11.9 12.2-16 complet Bld-mCn 013 g/dL .2 ed c 04:35 Hct Fr 10-14-2 36.1 % 37.0-47 complet Bld 013 .0 ed 04:35 MCV RBC 10-14-2 100.0 82.2-97 complet 013 fl .8 ed [...] E ed - 06:45 DIPSTIC K URINE 10--2 NEGATIV NEG complet BILIRUB 013 E ed IN - 06:45 DIPSTIC K URINE 10-13-2 NEGATIV NEG complet KETONE 013 E mg/dL ed 06:45 URINE 10-13-2 1.025 1.005-1 complet SPECIFI 013 UNK .030 ed C 06:45 GRAVITY URINE 10-13-2 3+ NEG complet BLOOD 013 ed 06:45 URINE 10-13-2 6.0 UNK 5.0-8.5 complet PH 013 ed 06:45 URINE 10-13-2 TRACE NEG complet PROTEIN 013 mg/dL ed - 06:45 DIPSTIC K URINE 10-13-2 0.2 NEG complet UROBILI 013 E.U./dL ed NOGEN - 06:45 DIPSTIC K URINE 10-13-2 NEGATIV NEG complet NITRATE 013 E ed - 06:45 DIPSTIC K URINE 10-13-2 3+ NEG complet LEUK 013 ed ESTERAS 06:45 E URINE 10-13-2 50-100 0 complet RBC 013 rbc/hpf ed [...] ed CREATIN 00:45 INE CLEARAN CE GFR 52 59- complet (ESTIMA 013 ML/MIN ed LUANN) 00:45 Sodium 03-06-2 135 136-145 complet SerPl-s 013 mmoL/L ed Cnc 00:45 Potassi 03-06-2 4.2 3.5-5.1 complet um 013 mmoL/L ed SerPl-s 00:45 Cnc Chlorid 99 98-107 complet e 013 mmoL/L ed SerPl-s 00:45 Cnc CO2 03-06-2 24 21.0-32 complet SerPl-s 013 mmoL/L .0 ed Cnc 00:45 Calcium 03-06-2 7.9 8.5-10. complet 013 mg/dL 1 ed SerPl-m 00:45 Cnc Prot 03-06-2 7.2 6.4-8.2 complet SerPl-m 013 gm/dL ed Cnc 00:45 Albumin 03-06-2 3.1 3.4-5.0 complet 013 gm/dL ed SerPl-m 00:45 Cnc Globuli 03-06-2 4.1 1.3-3.2 complet n 013 gm/dL ed Ser-mCn 00:45 c Albumin 03-06-2 0.8 UNK 1.1-1.8 complet /Glob 013 ed SerPl-m 00:45 Rto Bilirub 03-06-2 0.2 0.2-1.0 complet 013 mg/dL ed SerPl-m 00:45 Cnc AST 03-06-2 19 U/L 15-37 complet SerPl-c 013 ed Cnc 00:45 ALT 10-13-2 34 U/L 30-65 complet SerPl-c 013 ed Cnc 00:45 ALP --2 133 U/L 50-136 complet SerPl-c 013 ed Cnc 00:45 Acetamin SerPl-mCnc (03-06-2013 00:45) Acetami -13-2 2.0 10-30 complet n 013 ug/mL ed SerPl-m 00:45 Cnc Ethanol Bld-mCnc (03-06-2013 00:45) Ethanol 10--2 159 0-99 complet 013 mg/dL ed Bld-mCn 00:45 c Salicylates SerPl-mCnc (03-06-2013 00:45) Salicyl --2 3.7 2.8-20. complet ates 013 mg/dL 0 ed SerPl-m 00:45 Cnc CBC with AUTO DIFF (03-06-2013 00:45) WBC # 10-13-2 7.1 4.8-10. complet Bld 013 K/MM3 8 ed Auto 00:45 RBC # 1013-2 4.02 4.2-5.4 complet Bld 013 M/mm3 ed Auto 00:45 Hgb --2 13.1 12.2-16 complet Bld-mCn 013 g/dL .2 ed c 00:45 Hct Fr 03-06-2 39.4 % 37.0-47 complet Bld 013 .0 ed 00:45 MCV RBC 10-2 98.0 fl 82.2-97 complet 013 .8 ed 00:45 MCH RBC 03-06-2 32.6 pg 27-31.2 complet Qn 013 ed Auto 00:45 MEAN --2 33.3 31.8-35 complet CORPUSC 013 g/dl .4 ed ULAR 00:45 HGB CONC RDW RBC 10-2 16.0 % 11.5-17 complet Auto 013 .5 ed 00:45 Platele 10-13-2 315 142-424 complet t Bld 013 K/mm3 ed Ql 00:45 Manual MEAN 10-13-2 7.1 fl 7.4-10. complet PLATELE 013 4 ed T 00:45 VOLUME Granulo --2 68.8 % 37.0-80 complet cytes 013 .0 [...] Auto BASIC METABOLIC PANEL (08-06-2012 06:00) Glucose 82 74-106 complet 013 mg/dL ed Bld-mCn 06:00 c BUN 17 7-18 complet Bld-mCn 013 mg/dL ed c 06:00 Creat 1.1 0.6-1.0 complet SerPl-m 013 mg/dL ed [...] 013 mmoL/L .0 ed Cnc 06:00 Calcium -15-2 8.2 8.5-10. complet 013 mg/dL 1 ed SerPl-m 06:00 Cnc CBC with AUTO DIFF (08-06-2012 06:00) WBC # 03-15-2 9.3 4.8-10. complet Bld 013 K/MM3 8 ed Auto 06:00 RBC # -15-2 3.71 4.2-5.4 complet Bld 013 M/mm3 ed Auto 06:00 Hgb 15-2 11.3 12.2-16 complet Bld-mCn 013 g/dL .2 ed c 06:00 Hct Fr 08-06- 34.8 % 37.0-47 complet Bld 013 .0 ed 06:00 MCV RBC 08-06-2 93.9 fl 82.2-97 complet 013 .8 ed 06:00 MCH RBC 08-06- 30.6 pg 27-31.2 complet Qn 013 ed Auto 06:00 MEAN 08-06- 32.5 31.8-35 complet CORPUSC 013 g/dl .4 ed ULAR 06:00 HGB CONC RDW RBC 08-06-2 14.1 % 11.5-17 complet Auto 013 .5 ed 06:00 Platele 08-06-2 255 142-424 complet t Bld 013 K/mm3 ed Ql 06:00 Manual MEAN 08-06-2 7.6 fl 7.4-10. complet PLATELE 013 4 ed T 06:00 VOLUME Granulo 08-06-2 78.2 % 37.0-80 complet cytes 013 .0 ed Fr Bld 06:00 Auto LYMPH % 08-06-2 9.2 % 10-50.0 complet 013 ed 06:00 Monocyt 08-06-2 10.2 % 1.7-9.3 complet es Fr 013 ed Bld 06:00 Auto Eosinop 15-2 2.3 % 0.1-12. complet hil Fr 013 0 ed Bld 06:00 Auto Basophi 15-2 0.1 % 0.1-2.0 complet ls Fr 013 ed Bld 06:00 Auto Granulo 08-06-2 7.3 1.8-7.8 complet cytes # 013 K/mm3 ed Bld 06:00 Auto Lymphoc 08-06-2 0.9 0.7-4.5 complet ytes Fr 013 K/mm3 ed Bld 06:00 Auto Monocyt 08-06-2 1.0 0.1-1.0 complet es # 013 K/mm3 ed Bld 06:00 Auto Eosinop 08-06-2 0.2 0.0-0.4 complet hil # 013 K/mm3 ed Bld 06:00 Auto Basophi 08-06-2 0.0 0-0.2 complet ls # 013 K/MM3 ed Bld 06:00 Auto BASIC METABOLIC PANEL (08-05-2012 06:10) Glucose 08-05- 97 74-106 complet 013 mg/dL ed Bld-mCn 06:10 c BUN 08-05-2 20 7-18 complet Bld-mCn 013 mg/dL ed c 06:10 Creat 08-05- 1.4 0.6-1.0 complet SerPl-m 013 mg/dL ed Cnc 06:10 ESTIMAT 08-05- 46 50-200 complet ED 013 ML/MIN ed CREATIN 06:10 INE CLEARAN CE GFR 39 59- complet (ESTIMA 013 ML/MIN ed LUANN) 06:10 Sodium 133 136-145 complet SerPl-s 013 mmoL/L ed Cnc 06:10 Potassi 08-05- 3.7 3.5-5.1 complet um 013 mmoL/L ed SerPl-s 06:10 Cnc Chlorid 100 98-107 complet e 013 mmoL/L ed SerPl-s 06:10 Cnc CO2 26 21.0-32 complet SerPl-s 013 mmoL/L .0 ed Cnc 06:10 Calcium 08-05- 8.2 8.5-10. complet 013 mg/dL 1 ed SerPl-m 06:10 Cnc CBC with AUTO DIFF (08-05-2012 06:10) WBC # -14-2 15.9 4.8-10. complet Bld 013 K/MM3 8 ed Auto 06:10 RBC # 14-2 3.78 4.2-5.4 complet Bld 013 M/mm3 ed Auto 06:10 Hgb 08-05-2 12.0 12.2-16 complet Bld-mCn 013 g/dL .2 ed c 06:10 Hct Fr 08-05-2 35.6 % 37.0-47 complet Bld 013 .0 ed 06:10 MCV RBC 08-05-2 94.3 fl 82.2-97 complet 013 .8 ed 06:10 MCH RBC 08-05-2 31.7 pg 27-31.2 complet Qn 013 ed Auto 06:10 MEAN 08-05-2 33.6 31.8-35 complet CORPUSC 013 g/dl .4 ed ULAR 06:10 HGB CONC RDW RBC 08-05-2 14.1 % 11.5-17 complet Auto 013 .5 ed 06:10 Platele 08-05-2 247 142-424 complet t Bld 013 K/mm3 ed Ql 06:10 Manual MEAN 08-05-2 7.3 fl 7.4-10. complet PLATELE 013 4 ed T 06:10 VOLUME Granulo 14-2 88.4 % 37.0-80 complet cytes 013 .0 ed Fr Bld 06:10 Auto LYMPH % -14-2 4.2 % 10-50.0 complet 013 ed 06:10 Monocyt -14-2 6.9 % 1.7-9.3 complet es Fr 013 ed Bld 06:10 Auto Eosinop -14-2 0.4 % 0.1-12. complet hil Fr 013 0 ed Bld 06:10 Auto Basophi -14-2 0.1 % 0.1-2.0 complet ls Fr 013 [...] Bld 06:10 Auto URINALYSIS/COMPLETE (08-04-2012 13:05) URINE YELLOW YELLOW complet COLOR 013 ed 13:05 URINE CLEAR CLEAR complet APPEARA 013 ed NCE 13:05 URINE NEGATIV NEG complet GLUCOSE 013 E ed - 13:05 DIPSTIC K URINE NEGATIV NEG complet BILIRUB 013 E ed IN - 13:05 DIPSTIC K URINE NEGATIV NEG complet KETONE 013 E mg/dL ed 13:05 URINE 1.010 1.005-1 complet SPECIFI 013 UNK .030 ed C 13:05 GRAVITY URINE TRACE-I NEG complet BLOOD 013 NTACT ed 13:05 URINE 6.5 UNK 5.0-8.5 complet PH 013 ed 13:05 URINE 1+ NEG complet PROTEIN 013 mg/dL ed - 13:05 DIPSTIC K URINE 0.2 NEG complet UROBILI 013 E.U./dL ed NOGEN - 13:05 DIPSTIC K URINE NEGATIV NEG complet NITRATE 013 E ed - 13:05 DIPSTIC K URINE 2+ NEG complet LEUK 013 ed ESTERAS [...] 013 gm/dL ed Ser-mCn 12:00 c Albumin 0.5 UNK 1.1-1.8 complet /Glob 013 ed SerPl-m 12:00 Rto Bilirub 0.6 0.2-1.0 complet 013 mg/dL ed SerPl-m 12:00 Cnc AST 21 U/L 15-37 complet SerPl-c 013 ed Cnc 12:00 ALT 37 U/L 30-65 complet SerPl-c 013 ed Cnc 12:00 ALP 167 U/L 50-136 complet SerPl-c 013 ed Cnc 12:00 Amylase SerPl-cCnc (08-04-2012 12:00) Amylase 08-04- 11 U/L 25-115 complet 013 ed SerPl-c 12:00 Cnc LIPASE (08-04-2012 12:00) LIPASE 40 U/L 73-393 complet 013 ed 12:00 CBC with AUTO DIFF (08-04-2012 12:00) WBC # 08-04-2 23.8 4.8-10. High complet Bld 013 K/MM3 8 alert ed Auto 12:00 RBC # 08-04-2 4.56 4.2-5.4 complet Bld 013 M/mm3 ed Auto 12:00 Hgb 08-04-2 14.3 12.2-16 complet Bld-mCn 013 g/dL .2 ed c 12:00 Hct Fr 42.6 % 37.0-47 complet Bld 013 .0 ed 12:00 MCV RBC 08-04- 93.5 fl 82.2-97 complet 013 .8 ed 12:00 MCH RBC 31.4 pg 27-31.2 complet Qn 013 ed Auto 12:00 MEAN 33.5 31.8-35 complet CORPUSC 013 g/dl .4 ed ULAR 12:00 HGB CONC RDW RBC 08-04-2 14.6 % 11.5-17 complet Auto 013 .5 ed 12:00 Platele 08-04-2 305 142-424 complet t Bld 013 K/mm3 ed Ql 12:00 Manual MEAN 6.7 fl 7.4-10. complet PLATELE 013 4 ed T 12:00 VOLUME Granulo 08-04-2 90.7 % 37.0-80 complet cytes 013 .0 ed Fr Bld 12:00 Auto LYMPH % 08-04-2 3.6 % 10-50.0 complet 013 ed 12:00 Monocyt 08-04-2 4.2 % 1.7-9.3 complet es Fr 013 ed Bld 12:00 Auto Eosinop --2 1.5 % 0.1-12. complet hil Fr 013 0 ed Bld 12:00 Auto Basophi 08-04-2 0.1 % 0.1-2.0 complet ls Fr 013 ed Bld 12:00 Auto Granulo -13-2 21.5 1.8-7.8 complet cytes # 013 K/mm3 ed Bld 12:00 Auto Lymphoc -13-2 0.8 0.7-4.5 complet ytes Fr 013 K/mm3 ed Bld 12:00 Auto Monocyt -13-2 1.0 0.1-1.0 complet es # 013 K/mm3 ed Bld 12:00 Auto Eosinop -13-2 0.4 0.0-0.4 complet hil # 013 K/mm3 ed Bld 12:00 Auto Basophi 08-04-2 0.0 0-0.2 complet ls # 013 K/MM3 ed Bld 12:00 Auto Procedures Procedure DOS Code Location Performer Comment O2 CONC 1 E1390 [place] 7 HOME HOME 85%/>02 MEDICAL MEDICAL CONC AT EQUIPME EQUIPME PRS FLW RATE RADIOLOGI 64215 [facility]OBAR C 7 [facility] EXAMINATI INC INC ON PELVIS 1/2 VIEWS RADEX 73206 LUZ ESCOBAR SPINE 7 [facility] LUMBOSACR INC INC AL MINIMUM 4 VIEWS RADIOLOGI 79084 LUZ ESCOBAR C 7 [facility] EXAMINATI INC INC ON KNEE 3 VIEWS DRUG TEST 38476 LUZ ESCOBAR PRSMV 7 [facility] QUAL DIR INC INC OPTICAL OBS PER DAY O2 CONC 1 E1390 CAITLIN [place] 7 HOME HOME 85%/>02 MEDICAL MEDICAL CONC AT EQUIPME EQUIPME PRS FLW RATE O2 CONC 1 E1390 CAITLIN T[place] 7 HOME HOME 85%/>02 MEDICAL MEDICAL CONC AT EQUIPME EQUIPME PRS FLW RATE O2 CONC 1 E1390 CAITLIN [place] 7 HOME HOME 85%/>02 MEDICAL MEDICAL CONC AT EQUIPME EQUIPME PRS FLW RATE DRUG TEST 11424 SIENA ALVARADO PRSMV 7 SHASTA FELDMAN INSTRMNT MD,PSC CHEMISTRY ANALYZERS O2 CONC 1 E1390 [place]LIN [place] 7 HOME HOME 85%/>02 MEDICAL MEDICAL CONC AT EQUIPME EQUIPME [facility] FLW RATE DUP-SCAN 67483 [place] OROZCO XTR VEINS 7 MEDICAL IMAGING [place] ASS L/LIMITED STUDY THERAPEUT 09895 LUZ ESCOBAR IC 7 [facility] PROPHYLAC INC INC TIC/DX INJECTION SUBQ/IM HOSPITAL G0463 LUZ ESCOBAR OUTPATIEN 7 [facility] T CLIN INC INC VISIT ASSESS & MGMT PT O2 CONC 1 E1390 CAITLIN [place]LIN [place] 7 HOME HOME 85%/>02 MEDICAL MEDICAL CONC AT [facility] FLW RATE DRUG TEST 17979 SIENA VALENCIAARD PRS 7 HO FELDMAN MD,PSC CHEMISTRY ANALYZERS O2 CONC 1 E1390 [place]LIN [place] [address] HOME HOME 85%/>02 MEDICAL MEDICAL CONC AT [facility] FLW RATE PREPJ& 14472 ALLERGY DWYER ALLERGEN 7 PARTNERS IMMUNOTHE OF [place] RAPY CO 1/TENTMAKER ANTIGEN O2 CONC 1 E1390 [place] [address] HOME HOME 85%/>02 MEDICAL MEDICAL CONC AT [facility] FLW RATE PREPJ& 95703 ALLERGY DWYER ALLERGEN 7 PARTNERS IMMUNOTHE OF [place] RAPY CO 1/TENTMAKER ANTIGEN DRUG TEST 01953 SIENA HERRERA PRSMV 7 HO FELDMAN MD,PSC CHEMISTRY ANALYZERS O2 CONC 1 E1390 [place] [address] HOME HOME 85%/>02 MEDICAL MEDICAL CONC AT [facility] FLW RATE DEMO&/YOSI 35059 ALLERGY DWYER L OF PT 7 PARTNERS UTILIZ OF [place] AERSL CO GEN/NEB/I NHLR/IP NITRIC 76911 ALLERGY DWYER OXIDE 7 PARTNERS OF [place] GAS CO DETERMINA TION PROF SVCS 81706 ALLERGY ALLERGY ALLG 7 PARTNERS PARTNERS IMMNTX X OF [place] OF [place] W/PRV CO CO ALLGIC XTRCS NJXS BRNCDILAT 10891 ALLERGY DWYER RSPSE 7 PARTNERS SPMTRY OF [place] PRE&POST- CO BRNCDILAT ADMN OPHTH 65527 [facility] 7 [facility] XM&EVAL CENTER COMPRE NEW PT 1/> VST O2 CONC 1 E1390 [place] [address] HOME HOME 85%/>02 [facility]ICAL MEDICAL CONC AT [facility] [place] [address] SIENA WREN PHOSPHORU 6 TRAVIS FELDMAN MD,PSC INORGANIC COMPREHEN 24740 SIENA WREN SIVE 6 TRAVIS FELDMAN MD,PSC PANEL BLOOD 73245 SIENA WREN COUNT 6 TRAVIS FELDMAN MD,[facility] AUTO&[place] [address] SIENA WREN GLUTAMYLT 6 TRAVIS FELDMAN MD,[facility] GAMMA COLLECTIO 81371 SIENA WREN N VENOUS 6 TRAVIS FELDMAN MD,[facility] VENIPUNCT URE DXA BONE 61647 SIENA FELDMAN DENSITY 6 FRANCIA, PET STUDY 1/> ,[facility] SITES AXIAL SKEL DRUG TEST G0479 SIENA WREN 6 TRAVIS FELDMAN PRESUMP;I ,[facility] NSTRUMENT ED CHEMISTRY ANLYZER BILIRUBIN 59034 SIENA WREN DIRECT 6 TRAVIS FELDMAN MD,[facility] O2 CONC 1 E1390 CAITLIN [place] 6 HOME HOME 85%/>02 MEDICAL MEDICAL CONC AT EQUIPME EQUIPME [facility] FLW RATE PREPJ& 73924 ALLERGY DWYER MAR ALLERGEN 6 PARTNERS IMMUNOTHE OF [place] RAPY CO 1/TENTMAKER ANTIGEN NITRIC 82522 ALLERGY DWYER MAR OXIDE 6 PARTNERS [place] GAS CO DETERMINA TION PERCUTANE 93123 ALLERGY DWYER MAR OUS TESTS 6 PARTNERS [place] W/ALLERGE CO MARIANN EXTRACTS INTRACUTA 83438 ALLERGY DWYER MAR NEOUS 6 PARTNERS TESTS OF [place] W/ALLERGE CO MARIANN EXTRACTS BRNCDILAT 24511 ALLERGY DWYER MAR RSPSE 6 PARTNERS SPMTRY OF [place] PRE&POST- CO BRNCDILAT ADMN DEMO&/YOSI 48163 ALLERGY DWYER MAR L OF PT 6 PARTNERS UTILIZ OF [place] AERSL CO GEN/NEB/I NHLR/IP O2 CONC 1 E1390 CAITLIN [place] 6 HOME HOME 85%/>02 MEDICAL MEDICAL CONC AT EQUIPME EQUIPME [facility] FLW RATE O2 CONC 1 E1390 CAITLIN [place] 6 HOME HOME 85%/>02 [facility]C 1 E1390 CAITLIN [place] 6 HOME HOME 85%/>02 MEDICAL MEDICAL CONC AT EQUIPME EQUIPME [facility] FLW RATE O2 CONC 1 E1390 CAITLIN [place] 6 HOME HOME 85%/>02 MEDICAL MEDICAL CONC AT EQUIPME EQUIPME PRS FLW RATE DRUG TST G0477 LUZ ESCOBAR PRESUMP;C 6 [facility] PBL BEING INC INC READ DC OPT OBV ONLY DRUG TEST G0481 LUZ LUZ DEFINITV [address] [facility] [address] [address] ID INC INC METH P DAY 8-14 DRUG CL SCREENING G0202 LUZMATTY ESCOBAR 6 [facility] MAMMOGRAP INC INC HY JOSSELYN INCL CAD WHEN PERFORMD COMPUTER- 07293 LUZMATTY ESCOBAR AIDED 6 [facility] DETECTION INC INC SCREENING MAMMOGRAP HY SUSCEPTIB 23006 LUZ ESCOBAR LTY STDY 6 [facility] ANTIMICRB INC INC IAL MICRO/AGA R DILUTJ CULTURE 73741 LUZ ESCOBAR BACTERIAL 6 [facility] INC INC QUANTTATI VE COLONY COUNT URINE CULTURE 62615 LUZ ESCOBAR BCT 6 [facility] ISOL&PRSM INC INC PTV ID ISOLATE EA URINE URNLS DIP 17429 LUZ LUZ 6 [facility] STICK/TAB INC [...] MEDICAL MEDICAL AIRWAY [place] [address] LUZ ESCOBAR ABDOMEN & 6 [facility] PELVIS INC INC W/CONTRAS T MATERIAL LOCM Q9967 LUZ ESCOBAR 300-399 6 [facility] MG/ML INC INC IODINE CONCENTRA TION PER ML O2 CONC 1 E1390 CAITLIN [place] PORT 6 HOME HOME 85%/>02 MEDICAL MEDICAL CONC AT EQUIPME EQUIPME [facility] FLW RATE URNLS DIP 64578 LUZ ESCOBAR 6 [facility] STICK/TAB INC INC LET REAGENT AUTO MICROSCOP Y BLOOD 71057 LUZ ESCOBAR COUNT 6 [facility] COMPLETE INC INC AUTO&AUTO DIFRNTL WBC COLLECTIO 01227 LUZ ESCOBAR N VENOUS 6 [facility] BLOOD INC INC VENIPUNCT URE SUSCEPTIB 29835 LUZ ESCOBAR LTY STDY 6 [facility] ANTIMICRB INC INC IAL MICRO/AGA R DILUTJ CULTURE 41411 LUZ ESCOBAR BACTERIAL 6 [facility] INC INC QUANTTATI VE COLONY COUNT URINE CULTURE 73030 LUZ ESCOBAR BCT 6 [facility] ISOL&PRSM INC INC PTV ID ISOLATE EA URINE BASIC 81115 LUZ ESCOBAR METABOLIC 6 [facility] PANEL INC INC CALCIUM TOTAL DRUG TST G0477 LUZ LUZ PRESUMP;C 6 [facility] PBL BEING INC INC READ DC OPT OBV ONLY APPLICATI 25597 LUZ ESCOBAR ON 6 [facility] MODALITY INC INC 1/> AREAS HOT/COLD PACKS E-STIM G0283 LUZ ESCOBAR 1/> AREAS 6 [facility] OTH THAN INC INC WND CARE PART TX PLAN THERAPEUT 69497 LUZ ESCOBAR IC PX 1/> 6 [facility] AREAS INC INC EACH 15 MIN EXERCISES E-STIM G0283 LUZ ESCOBAR 1/> AREAS 6 [facility] OTH THAN INC INC WND CARE PART TX PLAN APPLICATI 73781 LUZ ESCOBAR ON 6 [facility] MODALITY INC INC 1/> AREAS HOT/COLD PACKS THERAPEUT 37006 LUZ ESCOBAR IC PX 1/> 6 [facility] AREAS INC INC EACH 15 MIN EXERCISES CONTINUOU E0601 CAITLIN TUCKER S 6 HOME HOME POSITIVE MEDICAL MEDICAL AIRWAY EQUIPME EQUIPME PRESSURE DEVICE E-STIM G0283 LUZ ESCOBAR 1/> AREAS 6 [facility] OTH THAN INC INC WND CARE PART TX PLAN PHYSICAL 70143 LUZ ESCOBAR THERAPY 6 [facility] EVALUATIO INC INC N APPLICATI 86827 LUZ ESCOBAR ON 6 [facility] MODALITY INC INC 1/> AREAS HOT/COLD PACKS THERAPEUT 40259 LUZ ESCOBAR IC PX 1/> 6 [facility] AREAS INC INC EACH 15 MIN EXERCISES DRUG TST G0477 LUZ ESCOBAR PRESUMP;C 6 [facility] PBL BEING INC INC READ DC OPT OBV ONLY O2 CONC 1 E1390 CAITLIN [place]LIN [place] 6 HOME HOME 85%/>02 MEDICAL MEDICAL CONC AT EQUIPME EQUIPME PRS FLW RATE SEDIMENTA 81391 LUZ ESCOBAR TION RATE 6 [facility]OSP RBC INC INC NON-AUTOM ATED COMPREHEN 47001 LUZ ESCOBAR SIVE 6 [facility] METABOLIC INC INC PANEL COLLECTIO 83799 LUZ ESCOBAR N VENOUS 6 [facility] BLOOD INC INC VENIPUNCT URE RADEX HIP 07562 [facility] 6 MEDICAL [place] IMAGING L WITH ASS PELVIS 1 VIEW BLOOD 78525 LUZ ESCOBAR COUNT 6 [facility] COMPLETE INC INC AUTO&AUTO DIFRNTL WBC RADEX HIP 29111 LUZ ESCOBAR 6 [facility] [place] INC INC L WITH PELVIS 2-3 VIEWS CONTINUOU E0601 CAITLIN TUCKER S 6 HOME HOME POSITIVE MEDICAL MEDICAL AIRWAY EQUIPME EQUIPME PRESSURE DEVICE O2 CONC 1 E1390 CAITLIN TUCKER [place] PORT 6 HOME HOME 85%/>02 MEDICAL MEDICAL CONC AT EQUIPME EQUIPME [facility] FLW RATE INJECTION J0330 [place] [address] [facility] HOLINE CHLORIDE UP TO 20 MG INJECTION J2370 [address] RINE HCL UP TO 1 ML INJECTION J2405 [place] [address] Y [facility] ON HCL PER 1 MG CATHETER C1753 [place] [address] Y [facility] [place] [address] [facility] EXAM 6 Y [facility] ALTER STOM DUODENUM/ JEJUNUM INFUSION J7030 [facility] NORMAL 6 Y [facility] SOLUTION 1000 CC INJECTION J2704 [facility] PROPOFOL 6 Y Y 10 MG H[facility]PITAL HOSPITAL CONTINUOU E0601 CAITLIN Leal 6 HOME HOME POSITIVE MEDICAL MEDICAL AIRWAY EQUIPME EQUIPME PRESSURE DEVICE O2 CONC 1 E1390 CAITLIN THOM[place] PORT 6 HOME HOME 85%/>02 MEDICAL MEDICAL CONC AT EQUIPME EQUIPME PRSC FLW RATE ECG 85027 ERMA SEGURA ROUTINE 6 MEDICAL ECG SERV W/LEAST FOUNDATIO 12 LDS N I&R ONLY HOSPITAL G0463 [facility] OUTPATI 6 Y Y T CLIN [facility] VISIT ASSESS & MGMT PT CONTINUOU E0601 CAITLIN Leal 6 HOME HOME POSITIVE MEDICAL MEDICAL AIRWAY EQUIPME EQUIPME PRESSURE DEVICE O2 CONC 1 E1390 CAITLIN THOMPSON PORT 6 HOME HOME 85%/>02 MEDICAL MEDICAL CONC AT EQUIPME EQUIPME PRSC FLW RATE COLLECTIO 84565 LUZ Montano VENOUS 6 [facility] BLOOD INC INC VENIPUNCT URE COMPREHEN 77821 LUZ ESCOBAR SIVE 6 [facility] METABOLIC INC INC PANEL BILIRUBIN 10578 LUZ ESCOBAR DIRECT 6 [facility] INC INC HEPATITIS 22791 LUZ ESCOBAR C 6 [facility] ANTIBODY INC INC HEPATITIS 18844 LUZ Drew SURF 6 [facility] ANTIBODY INC INC HBSAB HEPATITIS 51645 LUZ Drew CORE 6 [facility] [place] [address] LUZ ESCOBAR HEPATITIS 6 [facility] B INC INC SURFACE ANTIGEN HEPATITIS 83292 LUZ ESCOBAR A 6 [facility] ANTIBODY INC INC HAAB DRUG TST G0477 LUZ ESCOBAR PRESUMP;C 6 [facility] PBL BEING INC INC READ DC OPT OBV ONLY COL-CHR/M 68202 LUZ LUZ S NONDRUG 6 [facility] ANALYTE INC INC RONALDO QUAL/VICKEY EA SPEC COMPREHEN 65540 LUZ ESCOBAR SIVE 6 [facility] [place] [address] LUZ ESCOBAR LACTATE 6 [facility] INC INC BLOOD 16254 LUZ ESCOBAR COUNT 6 [facility] COMPLETE INC INC AUTO&[place] [address] ALEXANDRO JAIMES ABDOMEN & 6 MEDICAL ALLISON PELVIS IMAGING W/CONTRAS ASS T MATERIAL THER 19114 LUZ ESCOBAR PROPH/DX 6 [facility] NJX IV INC INC PUSH SINGLE/1S T SBST/[place] [address] LUZ ESCOBAR LIPASE 6 [facility] INC INC CANISTER A7000 NATIONAL NATIONAL DISPOSABL 5 WOUND WOUND E USED [facility] WITH SUCTION PUMP EACH WND CARE A6550 NATIONAL NATIONAL SET NEG 5 WOUND WOUND PRSS WND [facility] LLC CARE LLC TX ELEC PUMP SPL CONTINUOU E0601 CAITLIN TUCKER S 5 HOME HOME POSITIVE MEDICAL MEDICAL AIRWAY EQUIPME EQUIPME PRESSURE DEVICE RMVL 49908 LUZ LUZ DEVITAL 5 [facility]OS[facility] TISS INC INC N-SLCTV DBRDMT W/O ANES 1 SESS O2 CONC 1 E1390 CAITLIN [place]UCKER [place] 5 HOME HOME 85%/>02 MEDICAL MEDICAL CONC AT EQUIPME EQUIPME PRSC FLW RATE CANISTER A7000 NATIONAL NATIONAL DISPOSABL 5 WOUND [...] CARE LLC WITH SUCTION PUMP EACH NEGATIVE 88931 LUZ ESCOBAR PRESSURE 5 [facility] WOUND INC INC THERAPY DME </= 50 SQ CM NEG PRESS E2402 NATIONAL NATIONAL WOUND 5 WOUND WOUND THERAPY [facility]ARE [facility] CARE LLC ELEC PUMP STATION/P RTBLE CUL BACT 95779 ULZ ESCOBAR XCPT 5 [facility] URINE INC INC BLOOD/STO OL AEROBIC ISOL CUL BACT 91986 LUZ ESCOBAR AEROBIC 5 [facility] ADDL INC INC METHS DEFINITIV E EA ISOL NEGATIVE 10215 LUZ ESCOBAR PRESSURE 5 [facility] WOUND INC INC THERAPY DME </= 50 SQ CM NEGATIVE 95425 LUZ LUZ PRESSURE 5 [facility] WOUND INC INC THERAPY DME </= 50 SQ CM CANISTER A7000 NATIONAL NATIONAL DISPOSABL 5 WOUND WOUND E USED [facility] WITH SUCTION PUMP EACH WND CARE A6550 NATIONAL NATIONAL SET NEG 5 WOUND WOUND PRSS [facility] CARE LLC CARE LLC TX ELEC PUMP SPL NEGATIVE 81063 LUZ ESCOBAR PRESSURE 5 [facility] WOUND INC INC THERAPY DME </= 50 SQ CM NEGATIVE 61701 LUZ ESCOBAR PRESSURE 5 [facility] WOUND INC INC THERAPY DME </= 50 SQ CM WND CARE A6550 NATIONAL NATIONAL SET NEG 5 WOUND WOUND PRSS D CARE LLC CARE LLC TX ELEC PUMP SPL CANISTER A7000 NATIONAL NATIONAL DISPOSABL 5 WOUND WOUND E USED CARE [facility] CARE LLC WITH SUCTION PUMP EACH NEGATIVE 67506 LUZ LUZ PRESSURE 5 [facility] WOUND INC INC THERAPY DME </= 50 SQ CM CONTINUOU E0601 CAITLIN TUCKER S 5 HOME HOME POSITIVE MEDICAL MEDICAL AIRWAY EQUIPME EQUIPME PRESSURE DEVICE NEGATIVE 14348 LUZ ESCOBAR PRESSURE 5 [facility] WOUND INC INC THERAPY DME </= 50 SQ CM O2 CONC 1 E1390 CAITLIN [place]ER [place] 5 HOME HOME 85%/>02 MEDICAL MEDICAL CONC AT EQUIPME EQUIPME PRSC FLW RATE NEGATIVE 85846 LUZ EVANSON PRESSURE 5 [facility] WOUND INC INC THERAPY DME </= 50 SQ CM URNLS DIP 14873 LUZ JHAVERI [address] [facility] LET RGNT P NON-AUTO W/O [...] CARE LLC ELEC PUMP STATION/P RTBLE NEGATIVE 75863 ULZ ESCOBAR PRESSURE 5 [facility] WOUND INC INC THERAPY DME </= 50 SQ CM DEBRIDEME 21873 LUZ ESCOBAR NT OPEN 5 [facility] WOUND 20 INC INC SQ CM/< NEGATIVE 73238 LUZ ESCOBAR PRESSURE 5 [facility] WOUND INC INC THERAPY DME </= 50 SQ CM RMVL 18816 LUZ ESCOBAR DEVITAL 5 [facility] TISS INC INC N-SLCTV DBRDMT W/O ANES 1 SESS INJECTION J2250 [facility] 5 Y Y [place] [facility] HCL PER 1 MG SIGMOIDOS 92230 [facility] COPY FLX 5 Y Y DX [facility] W/COLLJ SPEC BR/WA IF PFRMD INFUSION J7030 [facility] NORMAL 5 Y Y [facility] SOLUTION 1000 CC INJECTION J3010 [facility] FENTANYL 5 Y Y [place] [facility] 0.1 MG RMVL 67924 LUZ SHANETAL 5 [facility] TISS INC INC N-SLCTV DBRDMT W/O ANES 1 SESS ALBUTEROL J7613 [facility] INHAL 5 PHARMACY PHARMACY NON-CP OF OF PROD THRU DAVION DAVION DME U DOSE 1 MG PHRM Q0513 [facility] DISPENSIN 5 PHARMACY PHARMACY G FEE OF OF INHALATIO DAVION DAVION N RX; PER 30 DAYS RMVL 42442 LUZ SHANETAL 5 [facility] TISS INC INC N-SLCTV DBRDMT W/O ANES 1 SESS RMVL 29743 LUZ ESCOBAR DEVITAL 5 [facility] TISS INC INC N-SLCTV DBRDMT W/O ANES 1 SESS DEBRIDEME 23528 [facility] NT OPEN 5 [facility] WOUND 20 INC INC SQ CM/< [place] [address]265 [facility] INFUSION 5 [facility] THERAPY INC INC PROPHYLAX IS/DX EA HOUR RMVL 47466 [facility] DEVITAL [facility] TISS INC INC N-SLCTV DBRDMT W/O [place]ES 1 [place] [address] [facility] INFUSION 5 [facility] THERAPY/P INC INC ROPHYLAXI S /DX 1ST TO 1 HR IAADI 95342 [facility] DANIELEElvis INFLUENZA 5 [facility] MEDICAL B VIRUS INC LAB IAADI 36357 [facility] INFFLUENZ 5 [facility] A A VIRUS INC INC URNLS DIP 07663 [facility] STICK/TAB INC INC LET REAGENT AUTO MICROSCOP Y BLOOD 16968 [facility] COUNT 5 [facility] COMPLETE INC INC AUTO&AUTO DIFRNTL WBC RADIOLOGI 37240 [place] OR[facility] ALL C 5 MEDICAL EXAMINATI IMAGING ON CHEST ASS SINGLE VIEW FRONTAL COMPREHEN 44814 [facility] SIVE 5 [facility] METABOLIC INC INC PANEL CANISTER A7000 NATIONAL NATIONAL DISPOSABL 5 WOUND WOUND E [facility]ED [facility] WITH SUCTION PUMP EACH WND CARE A6550 NATIONAL NATIONAL SET NEG 5 WOUND WOUND PRSS WND [facility] TX ELEC PUMP SPL INJECTION J3010 [facility] FENTANYL 5 Y Y CITRATE [facility] 0.1 MG INFUSION J7030 [facility] NORMAL 5 Y Y SALINE [facility] SOLUTION 1000 CC INJECTION J2250 [facility] 5 Y Y [facility] HCL PER 1 MG CONTINUOU E0601 [facility] TUCKER S 5 HOME HOME POSITIVE MEDICAL MEDICAL AIRWAY EQUIPME EQUIPME PRESSURE DEVICE COLONOSCO 94701 [facility] PY 5 Y Y W/[facility] SINGLE/[place] [address] [facility] SURG 5 Y Y PATHOLOGY HOSPITAL HOSPITAL GROSS&ROSA MARIA ROSCOPIC EXAM RMVL 28702 [facility] MC 5 [facility] TISS INC INC N-SLCTV DBRDMT W/O ANES 1 SESS URNLS DIP 42648 [facility] EMILIO [address] [facility] LET RGNT P NON-AUTO W/O MICRSCP RMVL 84571 [facility] SHANETAL 5 [facility] TISS INC INC N-SLCTV DBRDMT W/O ANES 1 SESS PHYSICAL 08409 [facility] ESCOBAR THERAPY 5 [facility] EVALUATIO INC INC N O2 CONC 1 E1390 [facility] TUCKER [facility] 5 HOME HOME 85%/>02 MEDICAL MEDICAL [...] CARE LLC WITH SUCTION PUMP EACH DETERMINA 08282 [place] [facility] TION 5 MEDICAL REFRACTIV [facility] N CANISTER A7000 NATIONAL NATIONAL DISPOSABL 5 WOUND WOUND E USED [facility] WITH SUCTION PUMP EACH NEG PRESS E2402 NATIONAL NATIONAL WOUND 5 WOUND WOUND THERAPY [facility] LLC ELEC PUMP STATION/P RTBLE WND CARE A6550 NATIONAL NATIONAL SET NEG 5 WOUND WOUND PRSS WND [facility] TX ELEC PUMP SPL PHRM Q0513 [facility] 5 PHARMACY PHARMACY G FEE OF OF INHALATIO DAVION CRYSTALA N RX; PER 30 DAYS ALBUTEROL J7613 [facility] INHAL 5 PHARMACY PHARMACY NON-CP OF OF PROD THRU DAVION DAVION DME U DOSE 1 MG [facility] G0463 [facility] 5 Y Y T [facility] HOSPITAL VISIT ASSESS & MGMT PT CONTINUOU E0601 [facility] Leal 5 HOME HOME POSITIVE MEDICAL MEDICAL AIRWAY EQUIPME EQUIPME PRESSURE DEVICE O2 CONC 1 E1390 [facility] [place] 5 HOME HOME 85%/>02 MEDICAL MEDICAL CONC AT EQUIPME EQUIPME PRSC FLW RATE URNLS DIP [address]/[facility] LET RGNT P NON-AUTO W/O MICRSCP RIKKI 74713 [facility] [address] [place] [address] RESIDUAL P URINE&/BL ADDER CAP ALBUTEROL J7613 [facility] INHAL 5 PHARMACY PHARMACY NON-CP OF OF PROD THRU DAVION RICARDO DME U DOSE 1 MG PHRM Q0513 [facility] DISPENSIN 5 PHARMACY PHARMACY G FEE OF OF INHALATIO DAVION RICARDO N RX; PER 30 DAYS RADEX 76816 [place] F[place] ABDOMEN 5 MEDICAL ALLISON COMPL IMAGING W/DCBTS&/ ASS ERC VIEWS INITIAL [address]/[facility] 30 P MINUTES US PELVIC 53170 [place] OROZ[facility] ALL 5 MEDICAL NONOBSTET IMAGING RYLAN IMAGE ASS DCMTN LIMITED/F /U DECALCIFI 41304 [facility] GARCIA CATION 5 ANNA & RYLAN PROCEDURE DUBILIER LEVEL 91609 CHIPPS GARCIA SURG 5 ANNA & RYLAN PATHOLOGY DUBILIER GROSS&ROSA MARIA ROSCOPIC EXAM TOTAL 12567 [facility] KEARNS ABDOMINAL 5 PHYSICIAN MOY S GROUP HYSTERECT W/WO RMVL TUBE OVARY ANESTHESI 07612 [facility] AD[facility]KARI LAYNE A 5 ANESTH INTRAPERI OF [...] MEDICAL AIRWAY EQUIPME EQUIPME PRESSURE DEVICE ECG 29908 LUZ GALLO JR ROUTINE 5 [facility] W/LEAST P 12 LDS I&R ONLY O2 CONC 1 E1390 CAITLIN THOMPSON PORT 5 HOME HOME 85%/>02 MEDICAL MEDICAL CONC AT EQUIPME EQUIPME [facility] [place]X [address] NATHAN BUX ANJ DX/THER 5 MD MEHNAZ, AGT PVRT PSC FACET JT LMBR/SAC 1 LEVEL NJX 02491 NATHAN BUX ANJ DX/THER 5 MD MEHNAZ, AGT PVRT PSC FACET JT LMBR/SAC 2ND LEVEL INJECTION J1030 [facility] ESCOBAR 5 [facility] METHYLPRE INC INC DNISOLONE ACETATE 40 MG LOCM Q9967 LUZ ESCOBAR [phone] [facility] MG/ML INC INC IODINE CONCENTRA TION PER ML CT THORAX 14960 [place] ZULEY[place] W/O 5 MEDICAL [place] [address] [facility] SURG [address] [place] [address] PATHOLOGY GROSS&ROSA MARIA ROSCOPIC EXAM CONTINUOU E0601 CAITLIN TUCKER S 5 HOME HOME POSITIVE MEDICAL MEDICAL AIRWAY EQUIPME EQUIPME PRESSURE DEVICE O2 CONC 1 E1390 CAITLIN ZUNIGA 5 HOME HOME 85%/>02 MEDICAL MEDICAL CONC AT EQUIPME EQUIPME [facility] FLW RATE INJECTION J1030 LUZ ESCOBAR 5 [...] EQUIPME EQUIPME [facility] FLW RATE CONTINUOU E0601 CAITLIN TUCKER S 5 HOME HOME POSITIVE MEDICAL MEDICAL AIRWAY EQUIPME EQUIPME PRESSURE DEVICE HUMDIFIR E0562 CAITLIN TUCKER HEATED 5 HOME HOME USED MEDICAL MEDICAL W/POS EQUIPME EQUIPME ARWAY PRESSURE DEVICE FULL FACE A7030 CAITLIN TUCKER MASK 5 HOME HOME USED MEDICAL MEDICAL W/POS EQUIPME EQUIPME ARWAY PRESS DEVICE EA FILTER A7038 CAITLIN TUCKER DISPBL 5 HOME HOME USED MEDICAL MEDICAL W/POS EQUIPME EQUIPME ARWAY PRESSURE DEVICE FILTER A7039 CAITLIN TUCKER NON 5 HOME HOME DISPBL MEDICAL MEDICAL USED EQUIPME EQUIPME W/POS ARWAY PRESS DEVICE HEADGEAR A7035 CAITLIN TUCKER USED 5 HOME HOME W/POSITIV MEDICAL MEDICAL E AIRWAY EQUIPME EQUIPME PRESSURE DEVICE TUBING A7037 CAITLIN TUCKER USED WITH 5 HOME HOME POSITIVE MEDICAL MEDICAL AIRWAY EQUIPME EQUIPME PRESSURE DEVICE O2 CONC 1 E1390 CAITLIN TUCKER DEL PORT 5 HOME HOME 85%/>02 MEDICAL MEDICAL CONC AT EQUIPME EQUIPME [facility] FLW RATE PHRM Q0513 YOUR YOUR DISPENSIN 5 PHARMACY PHARMACY G FEE Clutch INHALATIO N RX; PER 30 DAYS ALBUTEROL J7613 YOUR YOUR INHAL 5 PHARMACY PHARMACY NON-CP Clutch PROD THRU DME U DOSE 1 MG O2 CONC 1 E1390 CAITLIN THOM[place]ON PORT 5 HOME HOME 85%/>02 MEDICAL MEDICAL CONC AT EQUIPME EQUIPME [facility] FLW RATE POLYSOM 57468 JENNIFER RODRIGUEZ MAR 6/>YRS 5 SLEEP 4/> ADDL TONY ATTND O2 CONC 1 E1390 CAITLIN TH[place]ON PORT 5 HOME HOME 85%/>02 MEDICAL MEDICAL CONC AT EQUIPME EQUIPME PRS FLW RATE POLYSOM 21014 LUZ ESCOBAR 6/>YRS 5 [facility] SLEEP 4/> INC INC ADDL TONY ATTND CT THORAX 05792 LUZ ESCOBAR W/O 5 [facility] CONTRAST INC INC MATERIAL O2 CONC 1 E1390 CAITLIN THOMPSON PORT 5 HOME HOME 85%/>02 MEDICAL MEDICAL CONC AT EQUIPME EQUIPME PRS FLW RATE INSERTION 64794 [place] SEA /RPLCMT 5 MEDICAL PERIPHERA SERV L/GASTRIC FOUNDATIO NPGR N ELEC ARCHANA [address] [place] KAIDEN SEA NSTIM 5 MEDICAL PLS GEN SERV CPLX FOUNDATIO SC/PERPH N W/PRGRMG INJECTION J2704 [facility] PROPOFOL 5 Y Y 10 MG HOSPITAL HOSPITAL INJECTION J2710 [facility] 5 Y Y NEOSTIGMI [facility] NE METHYLSUL FATE UP TO 0.5 MG INJECTION J3010 [facility] FENTANYL 5 Y Y CITRATE [facility] 0.1 MG INJECTION J3370 [facility] 5 Y Y VANCOMYCI [facility] N HCL 500 MG INFUSION J7050 [facility] NORMAL 5 Y Y SALINE [facility] SOLUTION 250 CC INTRDUCR/ C1894 [facility] SHEATH 5 Y Y NOT GUID [facility] INTRACARD EP NON-LASR FLUOROSCO 15877 [facility] PY SPX UP 5 Y Y TO 1 HOSPITAL HOSPITAL HOUR PHYS/QHP TIME INJECTION J1100 [facility] 5 Y Y DEXAMETHO [facility] SONE SODIUM PHOSPHATE 1 MG RINGERS J7120 [facility] LACTATE 5 Y Y INFUSION [facility] UP TO 1000 CC INJECTION J2405 [facility] 5 [facility] PER 1 MG INJECTION J0330 [facility] 5 Y Y SUCCINYLC [facility] HOLINE CHLORIDE UP TO 20 MG INJECTION J1580 [facility] 5 Y Y GARAMYCIN [facility] GENTAMICI N UP TO 80 MG LEAD C1897 [facility] NEUROSTIM 5 Y Y [facility] TEST KIT INC 76102 [facility] IMPLTJ 5 Y Y NEUROSTIM [facility] ELTRD SACRAL NERVE O2 CONC 1 E1390 CAITLIN TH[place]ON [place] 5 HOME HOME 85%/>02 MEDICAL MEDICAL CONC AT EQUIPME EQUIPME [facility] FLW RATE NONEMERG A0120 FEDERATED FEDERATED TRNSPRT: 5 MINI-BUS TRANSPORT TRANSPORT [facility] AREA/OTH SYS O2 CONC 1 E1390 CAITLIN CAITLINVANESA THOMPSON [facility] 4 HOME HOME 85%/>02 MEDICAL MEDICAL CONC AT EQUIPME EQUIPME PRSC FLW RATE RADIOLOGI 41110 LUZ ESCOBAR C EXAM 4 [facility] CHEST 2 INC INC VIEWS FRONTAL&L ATERAL ALBUTEROL J7613 YOUR YOUR INHAL 4 PHARMACY PHARMACY NON-CP [employer] PROD THRU DME U DOSE 1 MG PHARM G0333 YOUR YOUR DISPEN 4 PHARMACY PHARMACY FEE INHAL [employer] RX; INITIAL 30-DAY SUPPLY ADMN SET A7005 YOUR YOUR W/SM VOL 4 PHARMACY PHARMACY NONFILTR Clutch NEBULIZR NON-DISPB L NONEMERG A0120 FEDERATED FEDERATED TRNSPRT: 4 TRANS MINI-BUS TRANSPORT [facility] ARE[facility]/[place] [address] [place] SE[place] ANORECTAL 4 MEDICAL WALL SERV ANAL FOUNDATIO APPROACH N BIOPSY 63729 [place] R[place] SA[place] VAGINAL 4 MEDICAL MUCOSA SERV SIMPLE FOUNDATIO N ANESTHESI 01230 SORAYA YANG GAV A 4 LTH ANORECTAL ANESTHESI A PSC PROCEDURE ANOSCOPY 94932 [place] W/BX 4 MEDICAL SINGLE/MU SERV LTIPLE FOUNDATIO N COLLECTIO 21688 [facility] N VENOUS 4 Y Y BLOOD [facility] VENIPUNCT URE ECG 75154 [place] RACHAEL IMELDA ROUTINE 4 MEDICAL ECG SERV W/LEAST FOUNDATIO 12 LDS N I&R ONLY BLOOD 85341 [facility] UN[facility] COUNT 4 Y Y COMPLETE HOSPITAL HOSPITAL AUTOMATED ECG 39381 UNIVERS UNIVERS ROUTINE 4 Y Y ECG [facility] W/LEAST 12 LDS TRCG ONLY W/O I&R TENS E0730 EMPI INC EMPI INC DEVICE 4 4/MORE LEADS MULTI NERVE STIMULATI ON PRESSURIZ 48313 LUZ ESCOBAR ED/NONPRE 4 [facility] SSURIZED INC INC INHALATIO N TREATMENT ANES 63372 [facility] 4 ANESTH SHE INTESTINE OF THE BLUE ENDOSCOPY DISTAL DUODENUM UNCLASSIF J3490 LUZ ESCOBAR IED DRUGS 4 [place] [address] LUZ ESCOBAR INFUSION 4 [facility] THERAPY INC INC PROPHYLAX IS/[place] [address] [facility], SURG 4 [facility] PATHOLOGY GROSS&ROSA MARIA ROSCOPIC EXAM COLONOSCO 68377 LUZ ESCOBAR PY 4 [facility] W/BIOPSY INC INC SINGLE/MU LTIPLE COLSC FLX 61864 [place] ANN PITER W/RMVL 4 MEDICAL OF TUMOR SERV POLYP FOUNDATIO LESION N SNARE TQ NONEMERG A0120 FEDERATED FEDERATED TRNSPRT: 4 TRANS MINI-BUS TRANSPORT [facility] SER ELIU AREA/OTH SYS NONEMERG A0120 FEDERATED FEDERATED TRNSPRT: 4 TRANS MINI-BUS TRANSPORT [facility] AREA/[place] [address] LUZ ESCOBAR DIFFUSING 4 MEM [facility] HOSP CAPACITY INC INC GAS 44082 LUZ ESCOBAR DILUT/WAS 4 [facility] HOSP HOUT LUNG INC INC VOL W/WO DISTRIB VENT&V BRNCDILAT 44358 LUZ ESCOBAR RSPSE 4 MEM [facility] HOSP SPMTRY INC INC PRE&POST- BRNCDILAT ADMN PRESSURIZ 06900 LUZ ESCOBAR ED/NONPRE 4 [facility] SSURIZED INC INC INHALATIO N TREATMENT O2 CONC 1 E1390 CAITLIN THOMPSON PORT 4 HOME HOME 85%/>02 MEDICAL MEDICAL CONC AT EQUIPME EQUIPME PRSC FLW RATE NONEMERG A0120 FEDERATED FEDERATED TRNSPRT: 4 TRANS MINI-BUS TRANSPORT [facility] SER ELIU AREA/OTH SYS BLOOD 27083 LUZ ESCOBAR COUNT 4 [facility] COMPLETE INC INC AUTO&AUTO DIFRNTL WBC HEMOGLOBI 43500 LUZ ESCOBAR N 4 [facility] GLYCOSYLA [place] [address] LUZ ESCOBAR THYROID 4 [facility] STIMULATI INC INC NG HORMONE TSH TENS E0730 EMPI INC EMPI INC DEVICE 4 4/MORE LEADS [place] [address] LUZ ESCOBAR THYROXINE 4 [facility] [place] [address] LUZ ESCOBAR BLOOD/URI 4 [facility] C ACID INC INC COMPREHEN 03114 LUZ ESCOBAR SIVE 4 [facility] METABOLIC INC INC PANEL HEPATITIS 22623 LUZ Drew CORE 4 [facility] ANTIBODY INC INC HBCAB TOTAL SEDIMENTA 84147 LUZ ESCOBAR TION RATE 4 [facility] [place] [address] LUZ ESCOBAR HEPATITIS 4 [facility] B INC INC SURFACE ANTIGEN HEPATITIS 76960 LUZ Drew SURF 4 [facility] ANTIBODY INC INC HBSAB LIPID 34570 LUZ ESCOBAR PANEL 4 [facility]OS[facility] INC INC RHEUMATOI 80394 LUZ LUZ D FACTOR 4 MEM H[facility]OS[facility] QUANTITAT INC INC FLAQUITO HEPATITIS 70349 LUZ ESCOBAR C 4 [facility] ANTIBODY INC INC APPL 18292 LUZ ESCOBAR MODALITY 4 MEM H[facility]OS[facility] 1/> AREAS INC INC ELEC STIMJ EA 15 MIN HEPATITIS 63602 LUZ LUZ A 4 [facility] ANTIBODY INC INC HAAB ANTINUCLE 14548 LUZ ESCOBAR AR 4 [facility] ANTIBODIE INC INC S DUANE APPLICATI 62286 LUZ CHILDONE OF ON 4 MEM [facility]OS[facility] [place], MODALITY INC INC. 1/> AREAS HOT/COLD PACKS APPL 14029 LUZ LZU MODALITY 4 [facility] 1/> AREAS INC INC ELEC STIMJ UNATTENDE D NONEMERG A0120 FEDERATED FEDERATED TRNSPRT: 4 TRANS MINI-BUS TRANSPORT [facility] ATION SER ELIU AREA/OTH SYS THERAPEUT 68980 LUZ ESCOBAR IC PX 1/> 4 [facility] AREAS INC INC EACH 15 MIN EXERCISES THERAPEUT 36865 LUZ ESCOBAR IC PX 1/> 4 [facility] AREAS INC INC EACH 15 MIN EXERCISES NONEMERG A0120 FEDERATED FEDERATED TRNSPRT: 4 TRANS MINI-BUS TRANSPORT [facility] SER ELIU AREA/OTH SYS O2 CONC 1 E1390 CAITLIN TUCKER DEL PORT 4 HOME HOME 85%/>02 MEDICAL MEDICAL CONC AT [facility] FLW RATE APPL 39836 LUZ ESCOBAR MODALITY 4 [facility] 1/> AREAS INC INC ELEC STIMJ UNATTENDE D APPLICATI 02099 LUZ ESCOBAR ON 4 [facility] MODALITY INC INC 1/> AREAS HOT/COLD PACKS APPLICATI 95596 LUZ ESCOBAR ON 4 [facility] MODALITY INC INC 1/> AREAS HOT/COLD PACKS APPL 60169 LUZ ESCOBAR MODALITY 4 [facility] 1/> AREAS INC INC ELEC STIMJ UNATTENDE D THERAPEUT 47257 LUZ ESCOBAR IC PX 1/> 4 [facility] AREAS INC INC EACH 15 MIN EXERCISES NONEMERG A0120 FEDERATED FEDERATED TRNSPRT: 4 TRANS MINI-BUS TRANSPORT [facility] SER ELIU AREA/OTH SYS NONEMERG A0120 FEDERATED FEDERATED TRNSPRT: 4 TRANS MINI-BUS TRANSPORT [facility] SER ELIU AREA/OTH SYS APPL 41041 LUZ ESCOBAR MODALITY 4 [facility] 1/> AREAS INC INC ELEC STIMJ UNATTENDE D APPLICATI 00032 LUZ ESCOBAR ON 4 [facility] MODALITY INC INC 1/> AREAS HOT/COLD PACKS THERAPEUT 05983 LUZ ESCOBAR IC PX 1/> 4 [facility] AREAS INC INC EACH 15 MIN EXERCISES APPLICATI 91190 LUZ ESCOBAR ON 4 [facility] MODALITY INC INC 1/> AREAS HOT/COLD PACKS APPL 36633 LUZ ESCOBAR MODALITY 4 [facility] 1/> AREAS INC INC ELEC STIMJ UNATTENDE D THERAPEUT 06443 LUZ LUZ IC PX 1/> 4 [facility] AREAS INC INC EACH 15 MIN EXERCISES NONEMERG A0120 FEDERATED FEDERATED TRNSPRT: 4 TRANS [facility]BUS [facility] ARE[facility]/OTH SYS THERAPEUT 03359 LUZ LUZ IC PX 1/> 4 [facility] AREAS INC INC EACH 15 MIN EXERCISES APPL 41970 LUZ ESCOBAR MODALITY 4 MEM HOSP [facility]OSP 1/> AREAS INC INC ELEC STIMJ UNATTENDE D APPLICATI 92046 LUZ SALINAS ON 4 MEM HOSP MODALITY INC 1/> AREAS HOT/COLD PACKS 3D 44163 LUZ ESCOBAR RENDERING 4 [facility] W/INTERP INC INC & POSTPROCE SS SUPERVISI ON MRI 74663 LUZ ESCOBAR SPINAL 4 [facility] CANAL INC INC LUMBAR W/O CONTRAST MATERIAL PHYSICAL 28838 LUZ ESCOBAR THERAPY 4 [facility] EVALUATIO INC INC N O2 CONC 1 E1390 CAITLIN MARMOLEJORELL DEL PORT 4 HOME HOME 85%/>02 MEDICAL MEDICAL CONC AT EQUIPME EQUIPME PRS FLW RATE NONEMERG A0120 FEDERATED FEDERATED TRNSPRT: 4 TRANS [facility]BUS [facility]OTH SYS PHYSICAL 23760 LUZ ESCOBAR THERAPY 4 [facility] EVALUATIO INC INC N SLINGS A4565 BREG INC. BREG INC. 4 O2 CONC 1 E1390 CAITLIN CAITLIN DEL PORT 4 HOME HOME 85%/>02 MEDICAL MEDICAL CONC AT EQUIPME EQUIPME [facility] FLW RATE THERAPEUT 20613 [facility] CRISTIAN IC 4 PHYSICIAN ROSA MARIA PROPHYLAC S GROUP TIC/DX INJECTION SUBQ/IM INJECTION J1885 [facility] CRISTIAN 4 PHYSICIAN ROSA MARIA KETOROLAC S GROUP TROMETHAM INE PER 15 MG INJECTION J1040 [facility] CRISTIAN 4 PHYSICIAN ROSA MARIA METHYLPRE S GROUP DNISOLONE ACETATE 80 MG NON-INVAS 63704 LUZ ESCOBAR FLAQUITO 4 MEM H[facility] PHYSIOLOG INC INC IC STUDY EXTREMITY 3 LEVLS O2 CONC 1 E1390 CAITLIN TUCKER DEL PORT 4 HOME HOME 85%/>02 MEDICAL MEDICAL CONC AT EQUIPME EQUIPME PRSC FLW RATE NEBULIZER E0570 CAITLIN TUCKER WITH 4 HOME HOME COMPRESSO MEDICAL MEDICAL R EQUIPME EQUIPME ADMN SET A7005 YOUR YOUR W/SM VOL 4 PHARMACY PHARMACY [facility] NEBULIZR NON-DISPB L THERAPEUT 33964 [facility] IC 4 PHYSICIAN ROSA MARIA PROPHYLAC S GROUP TIC/DX INJECTION SUBQ/IM INJECTION J1040 [facility] CRISTIAN 4 PHYSICIAN ROSA MARIA METHYLPRE S GROUP DNISOLONE ACETATE 80 MG INJECTION J1885 [facility] CRISTIAN 4 PHYSICIAN ROSA MARIA KETOROLAC S GROUP TROMETHAM INE PER 15 MG URNLS DIP 59024 [facility] STICK/TAB [facility] DEPT [facility] DEPT LET RGNT MADI MADI NON-AUTO W/O MICRSCP SMR PRIM 09349 [facility] SRC WET 4 [facility] DEPT [facility] DEPT NFCT AGT MADI MADI WET Q0111 [facility] FARRA[facility] 4 [facility] DISTRICT INCL PREP TH DEPT [facility] DEPT VAGINAL MADI MADI CERV/SKIN SPECIMENS IMHISTOCH 50500 [facility], EM/CYTCHM 4 [facility] 1ST [place] [address] [facility], SURG 4 [facility] PATHOLOGY GROSS&[place] [address] LUZ ESCOBAR THYROID 4 [facility] STIMULATI INC INC NG HORMONE TSH BLOOD 51859 LUZ ESCOBAR COUNT 4 [facility] COMPLETE INC INC AUTO&AUTO DIFRNTL WBC CYANOCOBA 07811 LUZ ESCOBAR TIFFANY 4 [facility] VITAMIN INC INC B-12 COLPOSCOP 25030 [facility] CERVIX [facility] ENDOCRV CURRETAGE COMPREHEN 78706 LUZ ESCOBAR SIVE 4 [facility] METABOLIC INC INC PANEL SCREENING G0202 LUZ ESCOBAR 4 [facility] MAMMOGRAP INC INC HY JOSSELYN INCL CAD WHEN PERFORMD COMPUTER- 07887 LUZ ESCOBAR AIDED 4 [facility] DETECTION INC INC SCREENING MAMMOGRAP HY IADNA 45040 [facility] PAPILLOMA 4 [facility] VIRUS HUMAN AMPLIFIED PROBE TQ CYTP 12002 [facility], CERVICAL/ 4 [facility] VAGINAL REQ INTERP PHYSICIAN IADNA 56309 [facility] NEISSERIA 4 DISTRICT DISTRICT [facility] DEPT [facility] DEPT [facility]E [facility] AE AMPLIFIED PROBE TQ SMR PRIM 70955 [facility] SRC WET 4 [facility] DEPT NFCT AGT [facility] IADNA 06011 [facility] CHLAMYDIA 4 DISTRICT DISTRICT [facility] DEPT [facility] DEPT TRACHOMAT [facility] IS AMPLIFIED PROBE TQ CYTP 41166 [facility] CERV/VAG 4 [facility] AUTO THIN LAYER PREP MNL SCREEN AMINES 26012 [facility] VAGINAL 4 [facility] DISTRICT [facility] DEPT QUALITATI MADI BANNER VE PH BODY 45815 [facility] FLUID NOT 4 DISTRICT DISTRICT [facility] DEPT [facility] DEPT ELSEWHERE MADI MADI SPECIFIED WET Q0111 [facility] FARRA[facility] 4 [facility] DISTRICT INCL PREP [facility] DEPT [facility] DEPT VAGINAL MAID MADI CERV/SKIN SPECIMENS ALL Q0112 [facility] POTASSIUM 4 [facility] DISTRICT [facility] DEPT HYDROXIDE AMDI MADI PREPARATI ONS Encounters Encounter Start End Date Code Location Performer Type Date [facility] LUZ - 7 7 [facility] LUZ - [facility] 7 7 [facility] OFFICE 81121 [facility] [place] 7 7 Diya FELDMAN MD,PSC 25 MINUTES OFFICE 36030 [facility] [place] [facility] 7 7 SHASTA FELDMAN T VISIT 5 MD,PSC MINUTES OFFICE 31858 [facility] [place] 7 7 SHASTA FELDMAN T VISIT ,PSC 25 MINUTES HOSPITAL LUZ - 7 7 [facility] LUZ - 7 7 [facility] OFFICE 93725 [facility] 7 7 Diya FELDMAN MD,PSC 25 MINUTES OFFICE 42726 [facility] [place] [facility] 7 7 Diya FELDMAN MD,PSC 25 MINUTES OFFICE 15030 [facility] OUT[facility] 7 7 PARTNERS T VISIT OF GONZALEZ 40 CO MINUTES OFFICE 11090 [facility] OUT[facility] 6 6 TRAVIS FELDMAN T RACHID MENSAH,PSC 25 MINUTES OFFICE 65757 [facility] MAR OUTPATIEN 6 6 PARTNERS T NEW 60 OF GONZALEZ MINUTES CO OFFICE 96010 [facility] 6 6 SHASTA FELDMAN T VISIT ,PSC 25 MINUTES OFFICE 84365 [facility] CRISTIAN OUTPATIEN 6 6 PHYSICIAN ROSA MARIA T VISIT S GROUP 25 MINUTES OFFICE 47613 [facility] [place] [facility] 6 6 NAHID FELDMAN 30 MD,PSC MINUTES HOSPITAL LUZ - OTHER 6 6 [facility] OFFICE 28341 [facility] CRISTIAN OUTPATIEN 6 6 PHYSICIAN ROSA MARIA T VISIT S GROUP 25 MINUTES HOSPITAL LUZ - 6 6 [facility] LUZ [facility] OTHER 6 6 [facility] HOSPITAL LUZ - OTHER 6 6 MEM H[facility] INC OFFICE 04532 [facility] CRISTIAN OUTPATIEN 6 6 PHYSICIAN ROSA MARIA T VISIT S GROUP 10 MINUTES OFFICE 37149 [facility] ROZ DAO OUTPATIEN 6 6 PHYSICIAN T VISIT S GROUP 10 MINUTES OFFICE 83537 [facility] SONG OUTPATIEN 6 6 PHYSICIAN LEANDER T VISIT S GROUP 15 MINUTES OFFICE 59500 [facility] PETTEY OUTPATIEN 6 6 PHYSICIAN JAM T NEW 30 S GROUP MINUTES HOSPITAL LUZ - 6 6 [facility] T OFFICE 47007 [facility] ROZ DAO OUTPATIEN 6 6 PHYSICIAN T VISIT S GROUP 25 MINUTES HOSPITAL LUZ - OTHER 6 6 MEM [facility] OFFICE 30162 [facility] CRISTIAN OUTPATIEN 6 6 PHYSICIAN ROSA MARIA T VISIT S GROUP 15 MINUTES HOSPITAL LUZ - OTHER 6 6 [facility] HOSPITAL LUZ - 6 6 [facility] 6 6 [facility] OUTPATIEN [facility] T OFFICE 84003 [facility] CRISTIAN OUTPATIEN 6 6 PHYSICIAN ROSA MARIA T VISIT S GROUP 15 MINUTES HOSPITAL LUZ - OTHER 6 6 MEM [facility] OFFICE 22243 [facility] CRISTIAN OUTPATIEN 6 6 PHYSICIAN ROSA MARIA T VISIT S GROUP 10 MINUTES HOSPITAL LUZ - 6 6 [facility] OUTPATIEN [facility] T OFFICE 31175 [facility] CRISTIAN OUTPATIEN 6 6 PHYSICIAN ROSA MARIA T VISIT S GROUP 10 MINUTES HOSPITAL UNIVERSIT - 6 6 Y [facility] UNIVERSIT - 6 6 Y [facility] LUZ - OTHER 6 6 MEM [facility] HOSPITAL LUZ - 6 6 [facility] OUTPATIEN [facility] T OFFICE 28195 NATHANSHRUTHI RAMOS [facility] MD MEHNAZ, T VISIT PSC 15 MINUTES EMERGENCY 31805 LUZ 6 6 [facility] T VISIT MODERATE SEVERITY [facility] LUZ - 6 6 [facility] OUTPATIEN [facility] T HOSPITAL LUZ - OTHER 5 5 MEM [facility] OFFICE 90443 [facility] 5 PHYSICIAN LEANDER T VISIT S GROUP 15 MINUTES HOSPITAL LUZ - 5 5 [facility] T OFFICE 41258 NATHAN ALEXIS [facility] 5 MD MEHNAZ, T [facility] 10 MINUTES HOSPITAL UNIVERSIT [facility] 5 5 Y [facility] LUZ - 5 5 [facility] LUZ [facility] 5 5 [facility] OUTPATIEN [facility] T EMERGENCY 09553 LUZ 5 5 [facility] T VISIT HIGH/URGE NT SEVERITY HOSPITAL UNIVERSIT - 5 5 Y [facility] T OFFICE 88621 LUZ JHAVERI OUTPATIEN 5 5 [facility] T VIS[facility] HOSPITAL 10 P MINUTES HOSPITAL LUZ [facility] 5 5 [facility] OUT[facility]EN [facility] LUZ [facility] 5 5 [facility] T OFFICE 11694 NATHAN ALEXIS OUTPATIEN 5 5 MD MEHNAZ, T [facility] 10 MINUTES OFFICE 06342 [place] ARA COOPER [facility] 5 [facility] 45 SERV MINUTES FOUNDATIO N OFFICE 58861 ERMA OSEI OUTPATIEN 5 5 MEDICAL T VISIT SERV 25 FOUNDATIO MINUTES [facility] UNIVERSIT [facility] 5 5 Y [facility] T OFFICE 97019 [facility] ROZ DAO OUTPATIEN 5 5 PHYSICIAN T VISIT S GROUP 10 [facility] LUZ - 5 5 [facility] OUTPATIEN [facility] T OFFICE 80764 LUZ JHAVERI OUTPATIEN 5 5 [facility] 10 P [facility] LUZ - 5 5 [facility] INPATIENT [facility] LUZ [facility] 5 5 [facility]IENT [facility] LUZ [facility] 5 5 [facility] 04342 NATHAN VICENTE OUTPATIEN 5 5 MD MEHNAZ[facility] T [facility]IT [facility] 15 [facility] LUZ - 5 5 [facility] 11440 HEATHER VICENTE OUTPATIEN 5 5 MD T VISIT 10 [facility] LUZ [facility] 5 5 [facility] 5 [facility] OUT[facility] T OFFICE 98763 ERMA LOPEZ OUTPATIEN 5 5 MEDICAL JAM T VISIT SERV 25 FOUNDATIO MINUTES N OFFICE 73201 [facility] V[facility] OUTPATIEN 5 5 [facility] UNIVERSIT [facility] 5 5 [facility] T OFFICE 17068 ERMA OSEI OUTPATIEN 5 5 MEDICAL T VISIT SERV 25 FOUNDATIO MINUTES [facility] UNIVERSIT [facility] 5 5 Y [facility] LUZ - 4 4 [facility] OUTPATIEN INC T PERIODIC 45782 [facility] CRISTIAN PREVENTIV 4 4 PHYSICIAN ROSA MARIA E MED EST S GROUP PATIENT [id number] [facility] UNIVERSIT - 4 4 Y [facility] T OFFICE 10291 [facility] CRISTIAN OUTPATIEN 4 4 PHYSICIAN ROSA MARIA T VISIT S GROUP 10 MINUTES OFFICE 47690 [place] KAIDEN SEA OUTPATIEN 4 4 MEDICAL T NEW 45 SERV MINUTES [facility] UNIVERSIT - 4 4 Y [facility] T OFFICE 14946 [facility] OUTPATI 4 4 Y T VISIT HOSPITAL 40 MINUTES [facility] LUZ - 4 4 [facility] OUTPAT[facility] INC T OFFICE 76369 [place] AMBER PHI OUTPATIEN 4 4 MEDICAL T NEW 30 SERV MINUT[facility] 4 [facility] T OFFICE 37070 [facility] CRISTAIN OUTPATIEN 4 4 PHYSICIAN ROSA MARIA T VISIT S GROUP 15 MINUTES OFFICE 77234 [place] MARISSA CASTILLOI CONSULTAT 4 4 MEDICAL ION SERV NEW/ESTAB FOUNDATIO PATIENT N 60 MIN OFFICE 23008 [facility] CRISTIAN OUTPATIEN 4 4 PHYSICIAN ROSA MARIA T VISIT S GROUP 25 MINUTES HOSPITAL LUZ - 4 4 [facility] T OFFICE 11677 [facility] CRISTIAN OUTPATIEN 4 4 PHYSICIAN ROSA MARIA T VISIT S [facility] 10 [facility]ES [facility] - 4 4 [facility] T OFFICE [id number] [facility] 4 4 D VANESA T VISIT PATHOLOGI [facility] MINUTES [facility] - [facility] T OFFICE [id number] [facility] SIDHU JR OUTPATIEN 4 4 [facility] V[facility] 10 P MINUTES OFFICE 06468 [facility] OUTPATI[facility] 4 4 D VANESA T VISIT PATHOLOGI [facility] MINUTES OFFICE 05157 [facility] CRISTIAN OUTPATIEN 4 4 PHYSICIAN ROSA MARIA T VISIT S GROUP 10 MINUTES OFFICE 27846 [facility] SIDHU JR CONSULTAT 4 4 [facility] NEW/ESTAB P PATIENT 60 MIN [facility] - 4 4 [facility] T OFFICE 83751 [facility] CRISTIAN OUTPATIEN 4 4 PHYSICIAN ROSA MARIA T VISIT S GROUP 15 MINUTES OFFICE 39343 [facility] CRISTIAN OUTPATIEN 4 4 PHYSICIAN [facility] T VISIT S GROUP 15 MINUTES OFFICE 92655 [facility] CRISTIAN OUTPATIEN 4 4 PHYSICIAN ROSA AMRIA T VISIT S GROUP 15 MINUTES OFFICE 72259 [facility] CRISTIAN OUTPATIEN 4 4 PHYSICIAN ROSA MARIA T NEW 30 S GROUP MINUTES OFFICE 05388 [facility] DEPT TH [facility]PT 10 [facility] - 4 4 [facility] T [facility] - 4 4 [facility] T PERIODIC [id number] [facility] MED EST TH DEPT TH [facility]PT PATIENT [facility] [id number] OFFICE 36101 [facility] T VISIT TH DEPT TH [facility]PT 15 [facility] Inpatient ADOLFO STOUT (IN) 3 00:35 3 18:03 [facility] Inpatient ADOLFO Meadows MD (IN) 3 11:34 3 12:50 [facility]
--- OUTSIDE RECORDS SUMMARY | 2017-03-12 13:49 | External Medical Summary Rpt | CCD ---
Author Author , HARLEY SOUZA Address Unknown Phone [email or web address] Care Team Providers Care Material Yard Clerk Name Role Phone JHAVERI FABY, JHAVERI Unavailable [...] FIONA ALLISON [facility] Unavailable Unavailable [facility] ADHIKARI LAYNE, ADHIKARI LAYNE Unavailable Unavailable DUFF VANESA, DUFF VANESA Unavailable Unavailable [facility], [facility] Unavailable Unavailable [facility], [facility] Unavailable Unavailable [facility] Unavailable Unavailable [facility] Unavailable Unavailable [facility], [facility] KEARNS MOY, KEARNS Unavailable Unavailable MOY FOSTER ROSA MARIA, CRISTIAN Unavailable Unavailable ROSA MARIA [facility] Unavailable Unavailable INC, [facility] Unavailable Unavailable HOSPITAL P, [facility] P [facility], [facility]available Unavailable [facility] Un[facility]available [facility] Unavailable [facility]available [facility] PERRYAN IMELDA Unavailable Unavailable BULLOCK ALLISON, BULLOCK ALLISON Unavailable Unavailable [facility] Un[facility] Unavailable Unavailable [facility] E[facility] C[facility], [facility] Unavailable Unavailable [...] [facility] Unavailable Unavailable [facility], [facility] ERYN SHE, Unavailable Unavailable ERYN SHE GOODMAN VANESA, GOODMAN Unavailable Unavailable VANESA [facility], Unavailable Unavailable [facility] Camron Meadows MD, Unavailable Unavailable Camron Meadows MD AMBER PHI, AMBER PHI Unavailable Unavailable [facility], Unavailable Unavailable [facility] Unavailable Unavailable DEPT [facility] DEPT [facility] Unavailable Unavailable DEPT [facility] DEPT [facility] BERTHA, Unavailable Unavailable BERTHA BERTHA TRA, Unavailable Unavailable BERTHA TRA DWYER, DWYER Unavailable Unavailable DWYER MAR, DWYER MAR Unavailable Unavailable [facility] Unavailable Unavailable 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 M545 LOW BACK 01-30-2017 [facility] [facility]IN [facility] [id number] OTHER LONG 01-23-2017 [facility] TERM [facility] CURRENT INC DRUG THERAPY O95879 SPONDYLOSIS 12-26-2016 [facility] W/O FRANCIA MYELANNY/R ,PSC ADICULOPATH Y LUMB RGN [id number] CUSTODIAL 12-09-2016 [facility] CURRENT USE FRANCIA OF OPIATE ,PSC ANALGESIC L819 DISORDER OF 09-26-2016 [facility] PIGMENTATIO INC N UNSPECIFIED C26694 PAIN IN 09-26-2016 [place] [facility]G [facility] R2241 LOCALIZED 09-26-2016 [facility] SWELLING [facility] MASS & LUMP INC RIGHT LOWER LIMB R600 LOCALIZED 09-26-2016 [facility] [facility]MA [facility] [id number] PERSONAL 09-26-2016 [place] [facility] VENOUS IMAGING ASS THROMBOSIS& EMBOLISM I10 ESSENTIAL 09-25-2016 [facility] PRIMARY [facility] HYPERTENSIO INC N K219 GASTRO-ESOP 09-25-2016 [facility] H REFLUX [facility] DISEASE INC WITHOUT ESOPHAGITIS J80130 PAIN IN 09-25-2016 [facility] RIGHT FOOT [facility] INC Z720 TOBACCO USE 09-25-2016 [facility] INC J301 ALLERGIC 07-22-2016 [facility] RHINITIS PARTNERS OF DUE TO [place] CO POLLEN J3081 ALLERG 07-22-2016 [facility] RHINITIS PARTNERS OF D/T ANIMAL [place] CO CAT DOG HAIR & DANDER J3089 OTHER 07-22-2016 [facility] ALLERGIC PARTNERS OF RHINITIS [place] 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-02-2016 MARIANN JOHNS MD,PSC DEGEN LUMBAR REGION [id number] ADVERS EFF 06-11-2016 [facility] OTH RX MEDS PARTNERS OF BIO [place] CO SUBSTANCES INIT ENC H2513 AGE-RELATED 06-06-2016 [facility] NUCLE[facility] CATARACT CENTER BILATERAL M810 AGE-RELATED 04-30-2016 ELICEO MEDINA MD,PSC S W/O CURRNT PATH FX J440 COPD WITH 04-02-2016 [facility] ACUTE LOWER PARTNERS OF [place] CO RESPIRATORY INFECTION J4530 MILD 04-02-2016 [facility] PERSISTENT PARTNERS OF ASTHMA [place] CO UNCOMPLICAT ED Z889 ALLERGY 04-02-2016 [facility] STATUS UNS PARTNERS OF RX MEDS & [place] CO BIOLOG SUBSTANC STS G8929 OTHER 01-02-2016 [facility] CHRONIC PHYSICIANS PAIN GROUP M5137 OTH 01-02-2016 [facility]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 V68548 PAIN IN 01-02-2016 [facility] LEFT HAND PHYSICIANS GROUP M5416 RADICULOPAT 12-28-2015 [facility] LUMBAR CAILIN FELDMAN MD,PSC Z1231 ENCOUNTER 11-23-2015 [place] SCREENING MEDICAL MAMMO MALIG IMAGING ASS NEOPLASM BREAST N390 URINARY 11-16-2015 [facility] TRACT [facility] INFECTION INC SITE NOT SPECIFIED M519 UNS THOR 11-06-2015 [facility] THORACOLUMB PHYSICIANS AR GROUP LUMBOSACRAL IV DISC D/O 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 GROUP R102 PELVIC AND 10-24-2015 [facility] PERINEAL PHYSICIANS PAIN GROUP R109 UNSPECIFIED 10-24-2015 [facility] ABDOMINAL PHYSICIANS PAIN GROUP M1527YB OTHER 10-24-2015 [facility] COMPLICATIO PHYSICIANS NS PROC NEC GROUP INITIAL ENCOUNTER G4733 OBSTRUCTIVE 10-20-2015 [facility] SLEEP HOME APNEA ADULT MEDICAL PEDIATRIC EQUIPME M6580 OTHER 10-16-2015 [facility] SYNOVITIS & PHYSICIANS GROUP TENOSYNOVIT IS UNSPECIFIED SITE K469 UNS 10-15-2015 [facility] ABDOMINAL [facility] HERNIA W/O INC OBSTRUCTION OR GANGRENE R1031 RIGHT LOWER 10-15-2015 [place] [facility] PAIN [facility] C02435 PERSONAL HX 10-15-2015 [facility] RECTUM IMAGING ASS RS JUNC & ANUS R8290 UNSPECIFIED 10-10-2015 [facility] ABNORMAL [facility] FINDINGS IN INC URINE E039 HYPOTHYROID 10-09-2015 [facility] ISM PHYSICIANS UNSPECIFIED GROUP E785 HYPERLIPIDE 10-09-2015 [facility] MARY PHYSICIANS UNSPECIFIED GROUP M5116 INTERVERTEB 10-09-2015 [facility] RAL DISC PHYSICIANS D/O GROUP W/RADICULOP ATHY LUMB RGN H72896 PAIN IN 09-17-2015 [facility] RIGHT HIP PHYSICIANS GROUP R1030 LOWER 07-27-2015 [facility] PAIN UNSPECIFIED R748 ABNORMAL 07-27-2015 [facility] OTHER SERUM ENZYMES Z0000 ENCOUNTER 07-11-2015 [facility] MED EXAM W/O ABNORMAL FIND R1032 LEFT LOWER 06-09-2015 [place] [facility] R1084 GENERALIZED 06-09-2015 [facility]BDOMINAL [facility] PAIN INC K651 PERITONEAL 05-08-2015 [facility] ABSCESS [facility] INC [id number] LAC NO FB 04-24-2015 [facility] AW UNS QUAD [facility] NO PEN INC PERITN CAV SEQUELA J28629 ACQUIRED 04-24-2015 [facility] ABSENCE OF [facility] BOTH CERVIX INC AND UTERUS 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 UNSPECIFIED 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 J471 BRONCHIECTA 04-02-2015 [place] [facility]ACY OF ACUTE [facility] EXACERBATIO N R05 COUGH 03-22-2015 [facility] R509 FEVER 03-22-2015 [place] [facility]PEC[facility] IM[facility]ING ASS G5355AH OTHER 03-22-2015 [facility] COMPLICATIO [facility] NS INC ANESTHESIA INITIAL ENCOUNTER D125 BENIGN 03-21-2015 [facility] NEOPLASM OF [facility] SIGMOID COLON Z1211 ENCOUNTER 03-21-2015 [facility] MALIGNANT NEOPLASM OF COLON R32 UNSPECIFIED 03-20-2015 [facility] P E Y66064 COMBINED 03-13-2015 [place] [facility] OF SERV 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 Q22909 UNSPECIFIED 03-13-2015 [place] [facility] ASTIGMATISM [facility]OUND[facility] BILATERAL K921 MELENA 02-23-2015 [facility] D80417 OTHER 02-23-2015 [place] [facility] SPECIFIED SERV URINARY FOUNDATION INCONTINENC E R159 FULL 02-23-2015 [facility] E OF FECES H79725 PERSONAL 02-23-2015 [place] [facility] 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 43171 OBSTRUCTIVE 02-19-2015 [facility] APNEA MEDICAL EQUIPME 496 CHRONIC 02-14-[address] [facility] [facility] OBSTRUCTION MEDICAL NEC EQUIPME 5693 HEMORRHAGE 02-14-2015 [facility] OF RECTUM PHYSICIANS AND ANUS GROUP 71558 DEGEN 02-06-2015 [facility] LUMBAR/LUMB [facility] OSACRAL INC INTERVERTEB RAL DISC 7244 THORACIC/JONATHAN 02-06-2015 ZEINA SARGENT MD, PSC NEURITIS/RA DICULITIS UNSPEC 40206 UNSPECIFIED 02-06-2015 [facility] URINE [facility] P 93810 EXTRINSIC 02-01-2015 [place] [facility]MA, PHARMACY OF UNSPECIFIED [facility] 4019 UNSPECIFIED 01-30-2015 [facility] HYPERTENSIO [facility] P N 8793 OPEN WOUND 01-30-2015 [place] ABDOMINAL MEDICAL WALL IMAGING ASS ANTERIOR COMPLICATED 9975 URINARY 01-30-2015 [facility] COMPLICATIO [facility] NS NEC HOSPITAL P V1089 PERSONAL 01-30-2015 [facility] HISTORY [facility] MALIGNANT HOSPITAL P NEOPLASM OTHER SITE V8801 ACQUIRED 01-25-2015 [place] ABSENCE OF MEDICAL BOTH CERVIX IMAGING ASS AND UTERUS 2331 CARCINOMA 01-22-2015 [facility] OF ANNA & CERVIX DUBILIER UTERI 6271 POSTMENOPAU 01-22-2015 [facility] LUDY PHYSICIANS BLEEDING GROUP 43968 PAP SMER 01-22-2015 [facility] CERV W/HI [facility] GRADE INC SQUAMOUS INTRAEPITH LES 7969 OTHER 01-22-2015 [facility] NONSPECIFIC PHYSICIANS ABNORMAL GROUP FINDING V1090 PERSONAL 01-22-2015 [facility] HISTORY PHYSICIANS UNSPECIFIED GROUP MALIGNANT NEOPLASM 7213 LUMBOSACRAL 01-12-2015 NATHAN DARBY MD, PSC SPONDYLOSIS WITHOUT MYELOPATHY 7248 OTHER 01-12-2015 [facility] SYMPTOMS [facility] REFERABLE INC TO BACK 47979 OTHER 01-09-2015 [facility] NONSPECIFIC [facility] ABNORMAL INC FINDING OF LUNG FIELD 03753 DISPLCMT 01-08-2015 NATHAN DARBY, LUMBAR , PSC INTERVERT DISC W/O MYELOPATHY 0398 ACTINOMYCOT 12-25-2014 [facility] INFECTION OF OTHER SPECIFIED SITES 2360 NEOPLASM OF 12-25-2014 [facility] UNCERTAIN [facility] BEHAVIOR OF UTERUS 70650 OBSTRUCTIVE 07-26-2014 [facility] CHRONIC [facility] BRONCHITIS INC WITHOUT EXACERBAT 06617 NONSPEC 07-26-2014 [facility] REACT [facility] TUBERCULIN [place] W/[place] [address] HYPOXEMIA 07-26-2014 [facility] INC 3669 UNSPECIFIED 07-21-2014 [place] [facility] CATARACT [facility] 29780 ESOPHAGEAL 07-21-2014 [place] [facility] REFLUX [facility] 76211 OTHER SLEEP 07-21-2014 [place] [facility] DISTURBANCE [facility] S 08440 FULL 07-10-2014 [place] [facility] INCONTINENC SERV E OF FECES FOUNDATION 10270 UNSPECIFIED 07-10-2014 [place] [facility] URINARY SERV INCONTINENC FOUNDATION E V1006 PERS HX MAL 07-10-2014 [place] [facility] NEOPLSM SERV RECT [facility]OUNDATION RECTOSIGMOI D JUNC&ANUS 1541 MALIGNANT 06-26-2014 [place] [facility] NEOPLASM OF SERV RECTUM FOUNDATION V153 PERS HX 06-26-2014 [facility] PRESENTING [facility] 1542 MALIGNANT 06-02-2014 [place] [facility] NEOPLASM OF SERV ANAL CANAL FOUNDATION 60777 OTHER 06-02-2014 [facility] PAIN 15222 URGENCY OF 06-02-2014 [facility] URINATION [facility] 28859 06-02-2014 [facility] 08215 SHORTNESS 05-10-2014 [facility] BREATH MEDICAL IMAGING ASS 96726 OTHER 04-10-2014 [place] [facility] SPECIFIED SERV DISORDER OF FOUNDATION RECTUM AND ANUS 6238 OTHER 04-10-2014 [place] [facility] SPECIFIED SERV NONINFLAMMA FOUNDATION TORY DISORDER VAGINA V7284 UNSPECIFIED 04-06-2014 [facility] PHYSICIANS PRE-OPERATI GROUP VE EXAMINATION 1543 MALIGNANT 04-05-2014 [facility] NEOPLASM OF HOSPITAL ANUS UNSPECIFIED SITE 90032 CHRONIC 04-05-2014 [facility] ASTHMA UNSPECIFIED 16285 NONSPECIFIC 04-05-2014 [facility] ELECTROCARD IOGRAM V7283 OTHER 04-05-2014 [facility] PRE-OPERATI VE EXAMINATION 6829 CELLULITIS 03-27-2014 [facility] AND ABSCESS PHYSICIANS OF GROUP UNSPECIFIED SITE 35221 UNSPECIFIED 03-24-2014 [facility] CONSTIPATIO N 89620 FECAL 03-24-2014 [facility] [place] [place] V463 WHEELCHAIR 03-24-2014 [facility] 7242 LUMBAGO 03-15-2014 [facility] 2113 BENIGN 03-13-2014 [place] [facility] NEOPLASM OF SERV COLON FOUNDATION 2114 BENIGN 03-13-2014 [facility] NEOPLASM OF LLC RECTUM AND ANAL CANAL 2352 NEOPLASM 03-13-2014 [facility] UNCERTAIN [facility] BEHAVIOR INC STOMACH INTEST&RECT 27716 DIVERTICULO 03-13-2014 [place] [facility] SIS OF SERV COLON FOUNDATION 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 LLC 07964 OTHER 03-13-2014 [facility] SPECIFIED LLC DISORDER OF INTESTINES V142 PERSONAL 03-13-2014 [facility] HISTORY OF [facility]OS[facility] ALLERGY TO INC SULFONAMIDE S V1551 PERSONAL 03-09-2014 [place] [facility] H[facility] OF SERV TRAUMATIC FOUNDATION FRACTURE 2449 UNSPECIFIED 02-24-2014 [facility] PHYSICIANS HYPOTHYROID GROUP ISM 40115 PAIN IN 02-13-2014 [facility] JOINT, SITE MEM HOSP INC UNSPECIFIED 00034 OTHER&UNSPE 02-13-2014 [facility] CIFIED DISC PHYSICIANS DISORDER GROUP CERVICAL REGION 83651 OSTEOARTHRO 02-07-2014 [facility] S UNSPEC PHYSICIANS WHETHER GROUP GEN/LOC UNSPEC SITE 86845 PAIN IN 01-23-2014 [facility], MEM HOS[facility] UPPER ARM INC 83123 PAIN IN 01-23-2014 [facility], MEM [facility]OS[facility] LOWER LEG INC V571 OTHER 01-23-2014 [facility] PHYSICAL [facility] THERAPY INC 22844 ANAL OR 12-14-2013 [facility] RECTAL PAIN 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 46016 PAP SMER 06-29-2013 [facility] W/ATYPICAL CLINIC OF SQUAMOUS [place] CELLS UNDET 41114 OTH 06-29-2013 [facility] U SMEAR [place] CERVIX&CERV HPV V2542 SURVEILLANC 06-29-2013 [facility] E PREV PRSC HEALTH INTRAUTERN CLINIC OF CNTRACPT [place] DEVC V7612 OTHER 06-15-2013 [facility] SCREENING [facility] HOSP MAMMOGRAM INC 89387 CERV HIGH 06-07-2013 [facility] RISK HUMAN LLC PAPILLOMAVI MISAEL DNA TEST POS V2689 OTHER 06-07-2013 [facility] SPECIFIED DISTRICT PROCREATIVE [facility] DEPT MANAGEMENT [facility] V700 ROUTINE 06-07-2013 [facility] MEDICAL [facility] DEPT EXAM@HEALTH [facility] CARE FACL V7231 ROUTINE 06-07-2013 [facility], GYNECOLOGIC LLC AL EXAMINATION [id number] Alcohol [place] abuse [facility] 244.9 Hypothyroid [place] [facility]1 Tobacco [place] user [facility] [id number] Acute [place] pyelonephri [facility] [id number] Major [place] depressive [facility] 401.9 Essential [place] hypertensio [facility] [id number] Obesity [facility] 530.81 Gastroesoph [place] ageal [facility] reflux Hospital disease 794.4 Abnormal [place] renal [facility] function Hospital 977.9 Drug [facility] I10 ESSENTIAL (PRIMARY) HYPERTENSIO N R10.9 UNSPECIFIED ABDOMINAL PAIN S40.019A CONTUSION OF UNSPECIFIED SHOULDER, INITIAL ENCOUNTER S50.10XA CONTUSION OF UNSPECIFIED FOREARM, INITIAL ENCOUNTER T88.59XA OTHER COMPLICATIO NS OF ANESTHESIA, INITIAL ENCOUNTER Z12.31 ENCNTR SCREEN MAMMOGRAM FOR MALIGNANT NEOPLASM OF BREAST Z79.899 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 Allergies, Adverse Reactions, Alerts [...] SI 18 -1 NO 00 4- Lo HI 51 20 ng IL 80 13 er [...] SI 18 -1 NO 00 4- Lo HI 51 20 ng IL 80 13 er [...] Ac MG ti /M ve L AL HI 00 03 3 No OM 64 -1 [...] AT EQUIPME EQUIPME PRS FLW RATE RADIOLOGI 88135 [facility] C 7 MEM [facility]OS[facility] MEM HOSP EXAMINATI INC INC ON PELVIS 1/2 VIEWS RADEX 78868 [facility] SPINE 7 MEM HOSP MEM HOSP LUMBOSACR INC INC AL MINIMUM 4 VIEWS RADIOLOGI 62143 [facility] C 7 MEM [facility]OS[facility] MEM HOSP EXAMINATI INC INC ON KNEE 3 VIEWS DRUG TEST 30520 [facility] PRSMV 7 MEM HOSP MEM [...] EQUIPME EQUIPME PRS FLW RATE DRUG TEST 64500 SIENA ALVARADO PRSMV 7 SHASTA FELDMAN INSTRMNT MD,PSC CHEMISTRY ANALYZERS O2 CONC 1 E1390 [facility] TUCKER DEL PORT 7 HOME HOME 85%/>02 MEDICAL MEDICAL CONC AT EQUIPME EQUIPME [facility] FLW RATE DUP-SCAN 66672 [place] OROZCO XTR VEINS 7 MEDICAL IMAGING UNILATERA ASS L/LIMITED STUDY THERAPEUT 46244 [facility] IC 7 MEM HOSP MEM HOSP PROPHYLAC INC INC TIC/DX INJECTION SUBQ/IM HOSPITAL G0463 [facility] OUTPATIEN 7 MEM HOSP MEM HOSP T CLIN INC INC VISIT ASSESS & MGMT PT O2 CONC 1 E1390 [facility] DEL PORT 7 HOME HOME 85%/>02 MEDICAL MEDICAL CONC AT [facility] FLW RATE DRUG TEST 23101 SIENA VALENCIAARD PRS 7 HO FELDMAN MD,PSC CHEMISTRY ANALYZERS O2 CONC 1 E1390 [place] [place] [address] HOME HOME 85%/>02 MEDICAL MEDICAL CONC AT [facility] FLW RATE PREPJ& 30769 ALLERGY DWYER ALLERGEN 7 PARTNERS IMMUNOTHE OF GONZALEZ RAPY CO 1/SEASONAL GREENERY BUNDLER ANTIGEN O2 CONC 1 E1390 [place] [address] HOME HOME 85%/>02 MEDICAL MEDICAL CONC AT [facility] FLW RATE PREPJ& 23045 ALLERGY DWYER ALLERGEN 7 PARTNERS IMMUNOTHE OF [place] RAPY CO 1/SEASONAL GREENERY BUNDLER ANTIGEN DRUG TEST 16565 SIENA HERRERA PRSMV 7 HO FELDMAN MD,PSC CHEMISTRY ANALYZERS O2 CONC 1 E1390 [place] [address] HOME HOME 85%/>02 MEDICAL MEDICAL CONC AT [facility] FLW RATE DEMO&/YOSI 23349 ALLERGY DWYER L OF PT 7 PARTNERS UTILIZ OF [place] AERSL CO GEN/NEB/I NHLR/IP NITRIC 87192 ALLERGY DWYER OXIDE 7 PARTNERS OF [place] GAS CO DETERMINA TION PROF SVCS 37935 ALLERGY ALLERGY ALLG 7 PARTNERS PARTNERS IMMNTX X OF GON[place] OF [place] W/PRV CO CO ALLGIC XTRCS NJXS BRNCDILAT 59962 ALLERGY DWYER RSPSE 7 PARTNERS SPMTRY OF [place] PRE&POST- CO BRNCDILAT ADMN OPHTH 86395 [facility] 7 VISION XM&EVAL CENTER COMPRE NEW PT 1/> VST O2 CONC 1 E1390 [place] [address] HOME HOME 85%/>02 MEDICAL MEDICAL CONC AT [facility] [place] [address] SIENA WREN PHOSPHORU 6 TRAVIS FELDMAN MD,PSC INORGANIC COMPREHEN 79729 SIENA WREN SIVE 6 TRAVIS FELDMAN MD,PSC PANEL BLOOD 62461 SIENA WREN COUNT 6 TRAVIS FELDMAN MD,[facility] AUTO&[place] [address] SIENA WREN GLUTAMYLT 6 TRAVIS FELDMAN MD,[facility] GAMMA COLLECTIO 47995 SIENA WREN N VENOUS 6 TRAVIS FELDMAN MD,[facility] VENIPUNCT URE DXA BONE 09968 SIENA FELDMAN DENSITY 6 FRANCIA, PET STUDY 1/> ,[facility] SITES AXIAL SKEL DRUG TEST G0479 SIENA WREN 6 TRAVIS FELDMAN PRESUMP;I ,[facility] NSTRUMENT ED CHEMISTRY ANLYZER BILIRUBIN 46434 SIENA WREN DIRECT 6 TRAVIS FELDMAN MD,[facility] O2 CONC 1 E1390 [facility] TUCKER [place] 6 HOME HOME 85%/>02 MEDICAL MEDICAL CONC AT EQUIPME EQUIPME [facility] FLW RATE PREPJ& 59276 ALLERGY DWYER MAR ALLERGEN 6 PARTNERS IMMUNOTHE OF [place] RAPY CO 1/SEASONAL GREENERY BUNDLER ANTIGEN NITRIC 52218 ALLERGY DWYER MAR OXIDE 6 PARTNERS OF [place] GAS CO DETERMINA TION PERCUTANE 95552 ALLERGY DWYER MAR OUS TESTS 6 PARTNERS OF [place] W/ALLERGE CO MARIANN EXTRACTS INTRACUTA 07711 ALLERGY DWYER MAR NEOUS 6 PARTNERS TESTS OF [place] W/ALLERGE CO MARIANN EXTRACTS BRNCDILAT 33638 ALLERGY DWYER MAR RSPSE 6 PARTNERS SPMTRY OF [place] PRE&POST- CO BRNCDILAT ADMN DEMO&/YOSI 94577 ALLERGY DWYER MAR L OF PT 6 PARTNERS UTILIZ OF [place] AERSL CO GEN/NEB/I NHLR/IP O2 CONC 1 E1390 [facility] T[place] 6 HOME HOME 85%/>02 MEDICAL MEDICAL CONC AT EQUIPME EQUIPME [facility] FLW RATE O2 CONC 1 E1390 [facility] [place] 6 HOME HOME 85%/>02 MEDICAL MEDICAL CONC [facility] E[facility] O2 CONC 1 E1390 [facility] [place] 6 HOME HOME 85%/>02 MEDICAL MEDICAL CONC AT EQUIPME EQUIPME [facility] FLW RATE O2 CONC 1 E1390 [facility] [...] HY JOSSELYN INCL CAD WHEN PERFORMD COMPUTER- 85376 [facility] AIDED 6 MEM HOSP MEM HOS[facility] DETECTION INC INC SCREENING MAMMOGRAP HY SUSCEPTIB 28243 [facility] LTY STDY 6 MEM HOSP MEM HOSP ANTIMICRB INC INC IAL MICRO/AGA R DILUTJ CULTURE 97442 [facility] BACTERIAL 6 MEM HOSP [facility] HOS[facility] INC INC QUANTTATI VE COLONY COUNT URINE CULTURE 30243 [facility] BCT 6 MEM HOS[facility]OS[facility] ISOL&PRSM INC INC PTV ID ISOLATE EA URINE URNLS DIP 86046 [facility] LUZ 6 MEM HOSP MEM HOSP [...] MEDICAL AIR[place] [address] [facility] ABDOMEN & 6 MEM HOSP MEM HOSP PELVIS INC INC W/CONTRAS T MATERIAL LOCM Q9967 [facility] [phone] MEM HOSP MEM HOSP MG/ML INC INC IODINE CONCENTRA TION PER ML O2 CONC 1 E1390 [facility] THOMPSON PORT 6 HOME HOME 85%/>02 MEDICAL MEDICAL CONC AT EQUIPME EQUIPME [facility] FLW RATE URNLS DIP 32533 [facility] STICK/TAB INC INC LET REAGENT AUTO MICROSCOP Y BLOOD 87979 [facility] COUNT 6 [facility] COMPLETE INC INC AUTO&AUTO DIFRNTL WBC COLLECTIO 02003 [facility] N VENOUS 6 [facility] BLOOD INC INC VENIPUNCT URE SUSCEPTIB 41889 [facility] LTY STDY 6 [facility] ANTIMICRB INC INC IAL MICRO/AGA R DILUTJ CULTURE 85322 [facility] BACTERIAL 6 [facility] INC INC QUANTTATI VE COLONY COUNT URINE CULTURE 92811 [facility] BCT 6 [facility] ISOL&PRSM INC INC PTV ID ISOLATE EA URINE BASIC 84418 [facility] METABOLIC 6 [facility] PANEL INC INC CALCIUM TOTAL DRUG TST G0477 [facility] PRESUMP;C 6 [facility] PBL BEING INC INC READ DC OPT OBV ONLY APPLICATI 64136 [facility] ON 6 [facility] MODALITY INC INC 1/> AREAS HOT/COLD PACKS E-STIM G0283 [facility] 1/> AREAS 6 [facility] OTH THAN INC INC WND CARE PART TX PLAN THERAPEUT 43226 [facility] IC PX 1/> 6 [facility] AREAS INC INC EACH 15 MIN EXERCISES E-STIM G0283 [facility] 1/> AREAS 6 [facility] OTH THAN INC INC WND CARE PART TX PLAN APPLICATI 84904 [facility] ON 6 [facility] MODALITY INC INC 1/> AREAS HOT/COLD PACKS THERAPEUT 36751 [facility] IC PX 1/> 6 [facility] AREAS INC INC EACH 15 MIN EXERCISES CONTINUOU E0601 CAITLIN TUCKER S 6 HOME HOME POSITIVE MEDICAL MEDICAL AIRWAY EQUIPME EQUIPME PRESSURE DEVICE E-STIM G0283 [facility] 1/> AREAS 6 [facility] OTH THAN INC INC WND CARE PART TX PLAN PHYSICAL 57270 [facility] THERAPY 6 [facility] EVALUATIO INC INC N APPLICATI 18158 [facility] ON 6 [facility] MODALITY INC INC 1/> AREAS HOT/COLD PACKS THERAPEUT 37185 LUZ ESC[facility] IC PX 1/> 6 [facility] AREAS INC INC EACH 15 MIN EXERCISES DRUG TST G0477 [facility] PRESUMP;C 6 [facility] PBL BEING INC INC READ DC OPT OBV ONLY O2 CONC 1 E1390 CAITLIN CAITLIN DEL PORT 6 HOME HOME 85%/>02 MEDICAL MEDICAL CONC AT EQUIPME EQUIPME PRS FLW RATE SEDIMENTA 86065 [facility] TION RATE 6 [facility] RBC INC INC NON-AUTOM ATED COMPREHEN 21006 [facility] SIVE 6 [facility] METABOLIC INC INC PANEL COLLECTIO 26992 LUZ ESCOBAR N VENOUS 6 [facility] BLOOD INC INC VENIPUNCT URE RADEX HIP 66341 [facility] 6 [facility] [place] [facility] L WITH ASS PELVIS 1 VIEW BLOOD 81213 [facility] ESCOBAR COUNT 6 [facility] COMPLETE INC INC AUTO&AUTO DIFRNTL WBC RADEX HIP 41287 [facility]Z ESCOBAR 6 [facility] UNILATERA INC INC L WITH PELVIS 2-3 VIEWS CONTINUOU E0601 CAITLIN TUCKER S 6 HOME HOME POSITIVE MEDICAL MEDICAL AIRWAY EQUIPME EQUIPME PRESSURE DEVICE O2 CONC 1 E1390 CAITLIN TUCKER [place] PORT 6 HOME HOME 85%/>02 MEDICAL MEDICAL CONC AT EQUIPME EQUIPME [facility] FLW RATE INJECTION J0330 [place] [address] [facility]OL[facility] CHLOR[facility] UP TO 20 MG INJECTION J2370 [address] RINE HCL UP TO 1 ML INJECTION J2405 [place] [address] [facility] ON HCL PER 1 MG CATHETER C1753 [place] [address] [facility] [place] [address] [facility] EXAM 6 Y Y SURGICAL [facility]PITAL HOSPITAL ALTER STOM DUODENUM/ JEJUNUM INFUSION J7030 [facility] NORMAL 6 Y Y SALINE [facility]OSPITAL HOSPITAL SOLUTION 1000 CC INJECTION J2704 [facility] PROPOFOL 6 Y Y 10 MG H[facility]PITAL HOSPITAL CONTINUOU E0601 CAITLIN Leal 6 HOME HOME POSITIVE MEDICAL MEDICAL AIRWAY EQUIPME EQUIPME PRESSURE DEVICE O2 CONC 1 E1390 CAITLIN THOMPSON PORT 6 HOME HOME 85%/>02 MEDICAL MEDICAL CONC AT EQUIPME EQUIPME PRSC FLW RATE ECG 38021 ERMA SEGURA ROUTINE 6 MEDICAL ECG SERV W/LEAST FOUNDATIO 12 LDS N I&R ONLY HOSPITAL G0463 [facility] OUTPATI 6 Y Y T CLIN [facility] HOSPITAL VISIT ASSESS & MGMT PT CONTINUOU E0601 CAITLIN Leal 6 HOME HOME POSITIVE MEDICAL MEDICAL AIRWAY EQUIPME EQUIPME PRESSURE DEVICE O2 CONC 1 E1390 CAITLIN THOMPSON PORT 6 HOME HOME 85%/>02 MEDICAL MEDICAL CONC AT EQUIPME EQUIPME PRSC FLW RATE COLLECTIO 30479 LUZ Montano VENOUS 6 [facility] BLOOD INC INC VENIPUNCT URE COMPREHEN 22608 LUZ ESCOBAR SIVE 6 [facility] METABOLIC INC INC PANEL BILIRUBIN 83311 LUZ ESCOBAR DIRECT 6 [facility] INC INC HEPATITIS 81876 LUZ ESCOBAR C 6 [facility] ANTIBODY INC INC HEPATITIS 12546 LUZ Drew SURF 6 [facility] ANTIBODY INC INC HBSAB HEPATITIS 28152 LUZ Drew CORE 6 [facility] [place] [address] LU[facility] ESCOBAR HEPATITIS 6 [facility] B INC INC SURFACE ANTIGEN HEPATITIS 32900 [facility] ESCOBAR A 6 [facility] ANTIBODY INC INC HAAB DRUG TST G0477 LUZ ESCOBAR PRESUMP;C 6 [facility] PBL BEING INC INC READ DC OPT OBV ONLY COL-CHR/M 59575 LUZ LUZ S NONDRUG 6 [facility] ANALYTE INC INC RONALDO QUAL/VICKEY EA SPEC COMPREHEN 96817 LUZ ESCOBAR SIVE 6 [facility] [place] [address] LUZ ESCOBAR LACTATE 6 [facility] INC INC BLOOD 78795 LUZ ESCOBAR COUNT 6 [facility] COMPLETE INC INC AUTO&[place] [address] ALEXANDRO JAIMES ABDOMEN & 6 MEDICAL ALLISON PELVIS IMAGING W/CONTRAS ASS T MATERIAL THER 76976 LUZ ESCOBAR PROPH/DX 6 [facility] NJX IV INC INC PUSH SINGLE/1S T SBST/[place] [address] LUZ ESCOBAR LIPASE 6 [facility] INC INC CANISTER A7000 NATIONAL NATIONAL DISPOSABL 5 WOUND WOUND E USED [facility] WITH SUCTION PUMP EACH WND CARE A6550 NATIONAL NATIONAL SET NEG 5 WOUND WOUND PRSS WND [facility]ARE LLC CARE LLC TX ELEC PUMP SPL CONTINUOU E0601 CAITLIN TUCKER S 5 HOME HOME POSITIVE MEDICAL MEDICAL AIRWAY EQUIPME EQUIPME PRESSURE DEVICE RMVL 06911 LUZ LUZ DEVITAL 5 [facility] TISS INC INC N-SLCTV DBRDMT W/O [...] CARE LLC WITH SUCTION PUMP EACH NEGATIVE 34419 LUZ ESCOBAR PRESSURE 5 [facility] WOUND INC INC THERAPY DME </= 50 SQ CM NEG PRESS E2402 NATIONAL NATIONAL WOUND 5 WOUND WOUND THERAPY [facility] LLC CARE LLC ELEC PUMP STATION/P RTBLE CUL BACT 24197 LUZ ESCOBAR XCPT 5 [facility] URINE INC INC BLOOD/STO OL AEROBIC ISOL CUL BACT 43988 LUZ ESCOBAR AEROBIC 5 [facility] ADDL INC INC METHS DEFINITIV E EA ISOL NEGATIVE 97032 LUZ ESCOBAR PRESSURE 5 [facility] WOUND INC INC THERAPY DME </= 50 SQ CM NEGATIVE 04906 LUZ LUZ PRESSURE 5 [facility] WOUND INC INC THERAPY DME </= 50 SQ CM CANISTER A7000 NATIONAL NATIONAL DISPOSABL 5 WOUND WOUND E USED [facility]ARE LLC WITH SUCTION PUMP EACH WND CARE A6550 NATIONAL NATIONAL SET NEG [address] [facility] CARE LLC CARE LLC TX ELEC PUMP SPL NEGATIVE 69685 LUZ ESCOBAR PRESSURE 5 [facility] WOUND INC INC THERAPY DME </= 50 SQ CM NEGATIVE 59947 LUZ ESCOBAR PRESSURE 5 [facility] WOUND INC INC THERAPY DME </= 50 SQ CM WND CARE A6550 NATIONAL NATIONAL SET NEG 5 WOUND WOUND PRSS D CARE LLC CARE LLC TX ELEC PUMP SPL CANISTER A7000 NATIONAL NATIONAL DISPOSABL 5 WOUND WOUND E USED CARE [facility]ARE LLC WITH SUCTION PUMP EACH NEGATIVE 03655 LUZ LUZ PRESSURE 5 [facility] WOUND INC INC THERAPY DME </= 50 SQ CM CONTINUOU E0601 CAITLIN TUCKER S 5 HOME HOME POSITIVE MEDICAL MEDICAL AIRWAY EQUIPME EQUIPME PRESSURE DEVICE NEGATIVE 61740 LUZ ESCOBAR PRESSURE 5 [facility] WOUND INC INC THERAPY DME </= 50 SQ CM O2 CONC 1 E1390 CAITLIN TUCKER DEL PORT 5 HOME HOME 85%/>02 MEDICAL MEDICAL CONC AT EQUIPME EQUIPME PRSC FLW RATE NEGATIVE 60464 LUZ EVANSON PRESSURE 5 [facility] WOUND INC INC THERAPY DME </= 50 SQ CM URNLS DIP 72855 LUZ JHAVERI 5 [facility] LET RGNT P NON-AUTO W/O [...] CARE LLC ELEC PUMP STATION/P RTBLE NEGATIVE 54802 LUZ ESCOBAR PRESSURE 5 [facility] WOUND INC INC THERAPY DME </= 50 SQ CM DEBRIDEME 67321 LUZ ESCOBAR NT OPEN 5 [facility] WOUND 20 INC INC SQ CM/< NEGATIVE 45103 LUZ ESCOBAR PRESSURE 5 [facility] WOUND INC INC THERAPY DME </= 50 SQ CM RMVL 70102 LUZ ESCOBAR DEVITAL 5 [facility] TISS INC INC N-SLCTV DBRDMT W/O ANES [address] IN[address] [facility] UNIVERS 5 Y Y MIDAZOLAM [facility]PITAL HCL PER 1 MG SIGMOIDOS 25173 [facility] COPY FLX 5 Y Y DX [facility] W/COLLJ SPEC BR/WA IF PFRMD INFUSION J7030 [facility] NORMAL 5 Y Y SALINE [facility] SOLUTION 1000 CC INJECTION J3010 [facility] FENTANYL 5 Y Y CITRATE [facility]PITAL 0.1 MG RMVL 10147 LUZ SHANETAL 5 [facility] TISS INC INC N-SLCTV DBRDMT W/O ANES 1 SESS ALBUTEROL J7613 [facility] INHAL 5 PHARMACY PHARMACY NON-CP OF OF PROD THRU DAVION DAVION DME U DOSE 1 MG PHRM Q0513 [facility] DISPENSIN 5 PHARMACY PHARMACY G FEE OF OF INHALATIO DAVION DAVION N RX; PER 30 DAYS RMVL 56819 LUZ SHANETAL 5 [facility] TISS INC INC N-SLCTV DBRDMT W/O ANES 1 SESS RMVL 67792 LUZ ESCOBAR DEVITAL 5 [facility] TISS INC INC N-SLCTV DBRDMT W/O ANES 1 SESS DEBRIDEME 84286 LUZ ESCOBAR NT OPEN 5 [facility] WOUND 20 INC [place] SQ CM/< [place] [address] LUZ ESCOBAR INFUSION 5 [facility] THERAPY INC INC PROPHYLAX IS/DX EA HOUR RMVL 09587 LUZ ESCOBAR DEVITAL 5 [facility] TISS INC INC N-SLCTV DBRDMT W/O ANES 1 [place] [address] LUZ ESCOBAR INFUSION 5 [facility] THERAPY/P INC INC ROPHYLAXI S /DX 1ST TO 1 HR IAADI 98768 LUZ DANIELEElvis INFLUENZA 5 [facility] MEDICAL B VIRUS INC LAB IAADI 22103 LUZ ESCOBAR INFFLUENZ 5 [facility] A A VIRUS INC INC URNLS DIP 67572 [facility] ESCOBAR 5 [facility] STICK/TAB INC INC LET REAGENT AUTO MICROSCOP Y BLOOD 34753 LUZ ESCOBAR COUNT 5 [facility] COMPLETE INC INC AUTO&AUTO DIFRNTL WBC RADIOLOGI 50068 [place] OROZCO ALL C 5 MEDICAL EXAMINATI IMAGING ON CHEST ASS SINGLE VIEW FRONTAL COMPREHEN 86531 LUZ ESCOBAR SIVE 5 [facility] METABOLIC INC INC PANEL CANISTER A7000 NATIONAL NATIONAL DISPOSABL 5 WOUND WOUND E USED CARE LLC CARE LLC WITH SUCTION PUMP EACH WND CARE A6550 NATIONAL NATIONAL SET NEG 5 WOUND WOUND PRSS WND CARE LLC CARE LLC TX ELEC PUMP SPL INJECTION J3010 [facility] FENTANYL 5 Y Y CITRATE [facility] 0.1 MG INFUSION J7030 [facility] NORMAL 5 Y Y SALINE [facility] SOLUTION 1000 CC INJECTION J2250 [facility] 5 Y Y MIDAZOLAM [facility] HCL PER 1 MG CONTINUOU E0601 CAITLIN TUCKER S 5 HOME HOME POSITIVE MEDICAL MEDICAL AIRWAY EQUIPME EQUIPME PRESSURE DEVICE COLONOSCO 87554 [facility] PY 5 Y Y W/BIOPSY HOSPITAL HOSPITAL [place]INGLE/[place] [address] [facility] SURG 5 Y Y PATHOLOGY HOSPITAL HOSPITAL GROSS&ROSA MARIA ROSCOPIC EXAM RMVL 67375 LUZ MC 5 [facility] TISS INC INC N-SLCTV DBRDMT W/O ANES 1 SESS URNLS DIP 89521 LUZ EMILIO 5 [facility] LET RGNT P NON-AUTO W/O MICRSCP RMVL 64672 LUZ SHANETAL 5 [facility] TISS INC INC N-SLCTV DBRDMT W/O ANES 1 SESS PHYSICAL 54684 LUZ ESCOBAR THERAPY 5 [facility] EVALUATIO INC INC N O2 CONC 1 E1390 CA[facility]LIN [facility] 5 HOME HOME 85%/>02 MEDICAL MEDICAL CONC [...] CARE LLC WITH SUCTION PUMP EACH DETERMINA 53871 [place] [facility] [facility] TION 5 MEDICAL REFRACTIV [...] DAVION DAVION DME U DOSE 1 MG [facility] G0463 [facility] 5 Y Y T [facility] VISIT ASSESS & MGMT PT CONTINUOU E0601 CAITLIN Leal 5 HOME HOME POSITIVE MEDICAL MEDICAL AIRWAY EQUIPME EQUIPME PRESSURE DEVICE O2 CONC 1 E1390 CAITLIN THOMPSON PORT 5 HOME HOME 85%/>02 MEDICAL MEDICAL CONC AT EQUIPME EQUIPME PRSC FLW RATE URNLS DIP [address]/[facility] LET RGNT P NON-AUTO W/O MICRSCP RIKKI [address] [facility] [address] [place] [address] RESIDUAL P URINE&/BL ADDER CAP ALBUTEROL J7613 [facility] INHAL 5 PHARMACY PHARMACY NON-CP OF OF PROD THRU DAVION RICARDO DME U DOSE 1 MG PHRM Q0513 [facility] DISPENSIN 5 PHARMACY PHARMACY G FEE OF OF INHALATIO DAVION RICARDO N RX; PER 30 DAYS RADEX 36625 [place] FIONA ABDOMEN 5 MEDICAL ALLISON COMPL IMAGING W/DCBTS&/ ASS ERC VIEWS INITIAL [address]/[facility] 30 P MINUTES US PELVIC 33183 [place] OROZCO ALL 5 MEDICAL NONOBSTET IMAGING RYLAN IMAGE ASS DCMTN LIMITED/F /U DECALCIFI 56583 CHIPPS GARCIA CATION 5 ANNA & RYLAN PROCEDURE DUBILIER LEVEL 46943 CHIPPS GARCIA SURG 5 ANNA & RYLAN PATHOLOGY DUBILIER GROSS&ROSA MARIA ROSCOPIC EXAM TOTAL 05377 [facility] KEARNS ABDOMINAL 5 PHYSICIAN MOY S GROUP HYSTERECT W/WO RMVL TUBE OVARY ANESTHESI 17839 [facility] ADHIKARI LAYNE A 5 ANESTH INTRAPERI [...] MEDICAL AIRWAY EQUIPME EQUIPME PRESSURE DEVICE ECG 84074 LUZ GALLO JR ROUTINE 5 [facility] W/LEAST P 12 LDS I&R ONLY O2 CONC 1 E1390 CAITLIN THOMPSON PORT 5 HOME HOME 85%/>02 MEDICAL MEDICAL CONC AT EQUIPME EQUIPME [facility] [place] [address] NATHAN BUX ANJ DX/THER 5 MD MEHNAZ, AGT PVRT PSC FACET JT LMBR/SAC 1 LEVEL NJX 75101 NATHAN BUX ANJ DX/THER 5 MD MEHNAZ, AGT PVRT PSC FACET JT LMBR/SAC 2ND LEVEL INJECTION J1030 [facility] ESCOBAR 5 [facility] METHYLPRE INC INC DNISOLONE ACETATE 40 MG LOCM Q9967 LUZ ESCOBAR 300-399 5 [facility] MG/ML INC INC IODINE CONCENTRA TION PER ML CT THORAX 90470 [place] ZULEYMA W/O 5 MEDICAL [place] [address] [facility], SURG [address] [place] [address] PATHOLOGY GROSS&ROSA MARIA ROSCOPIC EXAM CONTINUOU E0601 CAITLIN TUCKER S 5 HOME HOME POSITIVE MEDICAL MEDICAL AIRWAY EQUIPME EQUIPME PRESSURE DEVICE O2 CONC 1 E1390 CAITLIN ZUNIGA 5 HOME HOME 85%/>02 MEDICAL MEDICAL CONC AT EQUIPME EQUIPME [facility] FLW RATE INJECTION J1030 LUZ ESCOBAR 5 [...] 85%/>02 MEDICAL MEDICAL CONC AT EQUIPME EQUIPME [facility] FLW RATE CONTINUOU E0601 CAITLIN TUCKER S [...] 85%/>02 MEDICAL MEDICAL CONC AT EQUIPME EQUIPME [facility] FLW RATE PHRM Q0513 YOUR YOUR DISPENSIN 5 PHARMACY PHARMACY G FEE [employer] INHALATIO N RX; PER 30 DAYS ALBUTEROL J7613 YOUR YOUR INHAL 5 PHARMACY PHARMACY NON-CP [employer] PROD THRU DME U DOSE 1 MG O2 CONC 1 E1390 CAITLIN THOMPSON PORT 5 HOME HOME 85%/>02 MEDICAL MEDICAL CONC AT EQUIPME EQUIPME [facility] FLW RATE POLYSOM 49695 JENNIFRE RODRIGUEZ MAR 6/>YRS 5 SLEEP 4/> ADDL TONY ATTND O2 CONC 1 E1390 CAITLIN THOM[place]ON PORT 5 HOME HOME 85%/>02 MEDICAL MEDICAL CONC AT EQUIPME EQUIPME PRS FLW RATE POLYSOM 81722 LUZ ESCOBAR 6/>YRS 5 [facility] SLEEP 4/> INC INC ADDL TONY ATTND CT THORAX 53839 LUZ ESCOBAR W/O 5 [facility] CONTRAST INC INC MATERIAL O2 CONC 1 E1390 CAITLIN THOMPSON PORT 5 HOME HOME 85%/>02 MEDICAL MEDICAL CONC AT EQUIPME EQUIPME PRS FLW RATE INSERTION 70585 [place] /RPLCMT 5 MEDICAL PERIPHERA SERV L/GASTRIC FOUNDATIO NPGR N ELEC ARCHANA 10243 [place] K[facility] SE[facility] NSTIM 5 MEDICAL PLS GEN SERV CPLX FOUNDATIO SC/PERPH N W/PRGRMG INJECTION J2704 [facility] PROPOFOL 5 Y Y 10 MG HOSPITAL HOSPITAL INJECTION J2710 [facility] 5 Y Y NEOSTIGMI [facility] NE METHYLSUL FATE UP TO 0.5 MG INJECTION J3010 [facility] FENTANYL 5 Y Y CITRATE [facility] 0.1 MG INJECTION J3370 [facility] 5 Y Y VANCOMYCI [facility] N HCL 500 MG INFUSION J7050 [facility] NORMAL 5 Y Y SALINE [facility] SOLUTION 250 CC INTRDUCR/ C1894 [facility] SHEATH 5 Y Y NOT GUID [facility] INTRACARD EP NON-LASR FLUOROSCO 62124 [facility] PY SPX UP 5 Y Y TO 1 HOSPITAL HOSPITAL HOUR PHYS/QHP TIME INJECTION J1100 [facility] 5 Y Y DEXAMETHO [facility] SONE SODIUM PHOSPHATE 1 MG RINGERS J7120 [facility] LACTATE 5 Y Y INFUSION [facility] UP TO 1000 CC INJECTION J2405 [facility] 1 MG INJECTION J0330 [facility] 5 Y Y SUCCINYLC [facility] HOLINE CHLORIDE UP TO 20 MG INJECTION J1580 [facility] 5 Y Y GARAMYCIN [facility] GENTAMICI N UP TO 80 MG LEAD C1897 [facility] NEUROSTIM 5 Y Y [facility] TEST KIT INC 48140 [facility] IMPLTJ 5 Y Y NEUROSTIM [facility] ELTRD SACRAL NERVE O2 CONC 1 E1390 CAITLIN THOM[place]ON PORT 5 HOME HOME 85%/>02 MEDICAL MEDICAL CONC AT EQUIPME EQUIPME [facility] FLW RATE NONEMERG A0120 FEDERATED FEDERATED TRNSPRT: 5 [facility] TRANSPORT TRANSPORT [facility] AREA/OTH SYS O2 CONC 1 E1390 CAITLIN CAITLINVANESA [facility] 4 HOME HOME 85%/>02 MEDICAL MEDICAL CONC AT EQUIPME EQUIPME PRSC FLW RATE RADIOLOGI 93582 LUZ ESCOBAR C EXAM 4 [facility] CHEST 2 INC INC VIEWS FRONTAL&L ATERAL ALBUTEROL J7613 YOUR YOUR INHAL 4 PHARMACY PHARMACY NON-CP [employer] PROD THRU DME U DOSE 1 MG PHARM G0333 YOUR YOUR DISPEN 4 PHARMACY PHARMACY FEE INHAL [employer] RX; INITIAL 30-DAY SUPPLY ADMN SET A7005 YOUR YOUR W/SM VOL 4 PHARMACY PHARMACY NONFILTR [employer] NEBULIZR NON-DISPB L NONEMERG A0120 FEDERATED FEDERATED TRNSPRT: 4 TRANS [facility] ARE[place] [address] [place] ANORECTAL 4 MEDICAL WALL SERV ANAL FOUNDATIO APPROACH N BIOPSY 88722 [place] VAGINAL 4 MEDICAL MUCOSA SERV SIMPLE FOUNDATIO N ANESTHESI 41121 SORAYA YANG GAV A 4 LTH ANORECTAL ANESTHESI A PSC PROCEDURE ANOSCOPY 82952 [place] W/BX 4 MEDICAL SINGLE/MU SERV LTIPLE FOUNDATIO N COLLECTIO 03248 [facility] UNIVERS N VENOUS 4 Y Y BLOOD [facility] VENIPUNCT URE ECG 97896 [place] RACHAEL IMELDA ROUTINE 4 MEDICAL ECG SERV W/LEAST FOUNDATIO 12 LDS N I&R ONLY BLOOD 60349 UNIVERSIT UNIVERSIT COUNT 4 Y Y COMPLETE HOSPITAL HOSPITAL AUTOMATED ECG 00149 UNIVERS UNIVERS ROUTINE 4 Y Y ECG [facility] W/LEAST 12 LDS TRCG ONLY W/O I&R TENS E0730 EMPI INC EMPI INC DEVICE 4 4/MORE LEADS MULTI NERVE STIMULATI ON PRESSURIZ 64607 LUZ ESCOBAR ED/NONPRE 4 [facility] SSURIZED INC INC INHALATIO N TREATMENT ANES 37876 [facility] LOWER 4 ANESTH SHE INTESTINE OF THE BLUE ENDOSCOPY DISTAL DUODENUM UNCLASSIF J3490 LUZ ESCOBAR IED DRUGS 4 [place] [address] LUZ ESCOBAR INFUSION 4 MEM HOS[facility] THERAPY INC INC PROPHYLAX IS/[place] [address] [facility], SURG 4 [facility] PATHOLOGY GROSS&ROSA MARIA ROSCOPIC EXAM COLONOSCO 82506 LUZ ESCOBAR PY 4 [facility] W/BIOPSY INC INC SINGLE/MU LTIPLE COLSC FLX 83311 [place] ANN PITER W/RMVL 4 MEDICAL OF TUMOR SERV POLYP FOUNDATIO LESION N SNARE TQ NONEMERG A0120 FEDERATED FEDERATED TRNSPRT: 4 TRANS [facility] SER ELIU AREA/OTH SYS NONEMERG A0120 FEDERATED FEDERATED TRNSPRT: 4 TRANS [facility] AREA/[place] [address] LUZ ESCOBAR DIFFUSING 4 MEM [facility] HOSP CAPACITY INC INC GAS 96081 LUZ ESCOBAR DILUT/WAS 4 [facility] HOUT LUNG INC INC VOL W/WO DISTRIB VENT&V BRNCDILAT 57144 LUZ ESCOBAR RSPSE 4 MEM [facility] HOSP SPMTRY INC INC PRE&POST- BRNCDILAT ADMN PRESSURIZ 68877 LUZ ESCOBAR ED/NONPRE 4 MEM HOSP [facility] SSURIZED INC INC INHALATIO N TREATMENT O2 CONC 1 E1390 CAITLIN [facility] PORT 4 HOME HOME 85%/>02 MEDICAL MEDICAL CONC AT EQUIPME EQUIPME PRSC FLW RATE NONEMERG A0120 FEDERATED FEDERATED TRNSPRT: 4 TRANS [facility] SER ELIU AREA/OTH SYS BLOOD 99222 LUZ ESCOBAR COUNT 4 [facility] COMPLETE INC INC AUTO&AUTO DIFRNTL WBC HEMOGLOBI 81966 LUZ ESCOBAR N 4 [facility]OS[facility] GLYCOSYLA [place] [address] LUZ ESCOBAR THYROID 4 [facility] STIMULATI INC INC NG HORMONE TSH TENS E0730 EMPI INC EMPI INC DEVICE 4 4/MORE LE[place] [address] LUZ ESCOBAR THYROXINE 4 [facility] [place] [address] LUZ ESCOBAR BLOOD/URI 4 [facility] C ACID INC INC COMPREHEN 17740 LUZ ESCOBAR SIVE 4 [facility] METABOLIC INC INC PANEL HEPATITIS 79713 LUZ Drew CORE 4 [facility] ANTIBODY INC INC HBCAB TOTAL SEDIMENTA 72653 LUZ ESCOBAR TION RATE 4 [facility] H[facility] [place] [address] LUZ ESCOBAR HEPATITIS 4 [facility] B INC INC SURFACE ANTIGEN HEPATITIS 04301 LUZ Drew SURF 4 [facility] ANTIBODY INC INC HBSAB LIPID 55916 LUZ ESCOBAR PANEL 4 [facility]OS[facility] INC INC RHEUMATOI 87159 LUZ LUZ D FACTOR 4 MEM HOS[facility] MEM HOSP QUANTITAT INC INC FLAQUITO HEPATITIS 35941 LUZ ESCOBAR C 4 MEM [facility]OS[facility] ANTIBODY INC INC APPL 39971 LUZ ESCOBAR MODALITY 4 MEM HOS[facility] HOSP 1/> AREAS INC INC ELEC STIMJ EA 15 MIN HEPATITIS 21152 LUZ LUZ A 4 [facility]OS[facility] ANTIBODY INC INC HAAB ANTINUCLE 87451 LUZ ESCOBAR AR 4 [facility] ANTIBODIE INC INC S DUANE APPLICATI 79111 LUZ CHILDONE OF ON 4 MEM HOS[facility] [place], MODALITY INC INC. 1/> AREAS HOT/COLD PACKS APPL 44984 LUZ LUZ MODALITY 4 MEM H[facility] 1/> AREAS INC INC ELEC STIMJ UNATTENDE D NONEMERG A0120 FEDERATED FEDERATED TRNSPRT: 4 TRANS [facility] TRANSPORT SERVBLUEG MTN ATION SER ELIU AREA/OTH SYS THERAPEUT 15430 LUZ ESCOBAR IC PX 1/> 4 [facility] AREAS INC INC EACH 15 MIN EXERCISES THERAPEUT 98054 LUZ ESCOBAR IC PX 1/> 4 [facility] AREAS INC INC EACH 15 MIN EXERCISES NONEMERG A0120 FEDERATED FEDERATED TRNSPRT: 4 TRANS [facility] SER ELIU AREA/OTH SYS O2 CONC 1 E1390 CAITLIN TUCKER [place] 4 HOME HOME 85%/>02 MEDICAL MEDICAL CONC AT [facility] FLW RATE APPL 82176 LUZ ESCOBAR MODALITY 4 [facility] 1/> AREAS INC INC ELEC STIMJ UNATTENDE D APPLICATI 47311 LUZ ESCOBAR ON 4 [facility] MODALITY INC INC 1/> AREAS HOT/COLD PACKS APPLICATI 31354 LUZ ESCOBAR ON 4 [facility] MODALITY INC INC 1/> AREAS HOT/COLD PACKS APPL 32334 LUZ ESCOABR MODALITY 4 [facility] 1/> AREAS INC INC ELEC STIMJ UNATTENDE D THERAPEUT 89773 LUZ ESCOBAR IC PX 1/> 4 [facility] AREAS INC INC EACH 15 MIN EXERCISES NONEMERG A0120 FEDERATED FEDERATED TRNSPRT: 4 TRANS [facility] SER ELIU AREA/OTH SYS NONEMERG A0120 FEDERATED FEDERATED TRNSPRT: 4 TRANS [facility] SER ELIU AREA/OTH SYS APPL 56769 LUZ ESCOBAR MODALITY 4 [facility] 1/> AREAS INC INC ELEC STIMJ UNATTENDE D APPLICATI 35102 LUZ ESCOBAR ON 4 [facility] MODALITY INC INC 1/> AREAS HOT/COLD PACKS THERAPEUT 89079 LUZ ESCOBAR IC PX 1/> 4 [facility] AREAS INC INC EACH 15 MIN EXERCISES APPLICATI 99230 LUZ ESCOBAR ON 4 [facility] MODALITY INC INC 1/> AREAS HOT/COLD PACKS APPL 38971 LUZ ESCOBAR MODALITY 4 [facility] 1/> AREAS INC INC ELEC STIMJ UNATTENDE D THERAPEUT 25739 LUZ LUZ IC PX 1/> 4 [facility] AREAS INC INC EACH 15 MIN EXERCISES NONEMERG A0120 FEDERATED FEDERATED TRNSPRT: 4 [facility] S[facility] THERAPEUT 62560 LUZ LUZ IC PX 1/> 4 [facility] AREAS INC INC EACH 15 MIN EXERCISES APPL 87825 LUZ ESCOBAR MODALITY 4 [facility] 1/> AREAS INC INC ELEC STIMJ UNATTENDE D APPLICATI 75672 LUZ SALINAS ON 4 [facility] MODALITY INC 1/> AREAS HOT/COLD PACKS 3D 74365 LUZ ESCOBAR RENDERING 4 [facility] W/INTERP INC INC & POSTPROCE SS SUPERVISI ON MRI 74421 LUZ ESCOBAR SPINAL 4 [facility] CANAL INC INC LUMBAR W/O CONTRAST MATERIAL PHYSICAL 79837 LUZ ESCOBAR THERAPY 4 [facility] EVALUATIO INC INC N O2 CONC 1 E1390 CAITLIN MARMOLEJORELL [place] 4 HOME HOME 85%/>02 MEDICAL MEDICAL CONC AT EQUIPME EQUIPME PRS FLW RATE NONEMERG A0120 FEDERATED FEDERATED TRNSPRT: 4 [facility]ANS [facility]OTH SYS PHYSICAL 48119 LUZ ESCOBAR THERAPY 4 [facility] EVALUATIO INC INC N SLINGS A4565 BREG INC. BREG INC. 4 O2 CONC 1 E1390 CAITLIN CAITLIN [place] 4 HOME HOME 85%/>02 MEDICAL MEDICAL CONC AT EQUIPME EQUIPME [facility] FLW RATE THERAPEUT 41044 [facility] CRISTIAN IC 4 PHYSICIAN ROSA MARIA PROPHYLAC S GROUP TIC/DX INJECTION SUBQ/IM INJECTION J1885 [facility] CRISTIAN 4 PHYSICIAN ROSA MARIA KETOROLAC S GROUP TROMETHAM INE PER 15 MG INJECTION J1040 [facility] CRISTIAN 4 PHYSICIAN ROSA MARIA METHYLPRE S GROUP DNISOLONE ACETATE 80 MG NON-INVAS 53957 LUZ ESCOBAR FLAQUITO 4 [facility] PHYSIOLOG INC INC IC STUDY EXTREMITY 3 LEVLS O2 CONC 1 E1390 CAITLIN TUCKER [place] 4 HOME HOME 85%/>02 MEDICAL MEDICAL CONC AT EQUIPME EQUIPME PRSC FLW RATE NEBULIZER E0570 CAITLIN TUCKER WITH 4 HOME HOME [facility]ICAL [facility]ICAL R EQUIPME EQUIPME ADMN SET A7005 YOUR YOUR W/SM VOL 4 PHARMACY [facility] NE[facility]UL[facility] NON-DISPB L THERAPEUT 18710 [facility] IC 4 PHYSICIAN ROSA MARIA PROPHYLAC S GROUP TIC/DX INJECTION SUBQ/IM INJECTION J1040 [facility] CRISTIAN 4 PHYSICIAN ROSA MARIA METHYLPRE S GROUP DNISOLONE ACETATE 80 MG INJECTION J1885 [facility] CRISTIAN 4 PHYSICIAN ROSA MARIA KETOROLAC S GROUP TROMETHAM INE PER 15 MG URNLS DIP 30364 [facility] ST[facility]/TAB [facility] [facility] LET RGNT MADI MADI NON-AUTO W/O MICRSCP SMR PRIM 74866 [facility] WET 4 [facility] DEPT [facility] DEPT NFCT AGT MADI MADI WET Q0111 [facility] FARRA[facility] 4 [facility] DISTRICT INCL PREP TH DEPT [facility] DEPT VAGINAL MADI MADI CERV/SKIN SPECIMENS IMHISTOCH 66423 [facility], EM/CYTCHM 4 [facility] 1ST [place] [address] [facility], SURG 4 [facility] PATHOLOGY GROSS&[place] [address] [facility] THYROID 4 [facility] STIMULATI INC INC NG HORMONE TSH BLOOD 31034 [facility] COUNT 4 [facility] COMPLETE INC INC AUTO&AUTO DIFRNTL WBC CYANOCOBA 88782 [facility] TIFFANY 4 [facility] VITAMIN INC INC B-12 COLPOSCOP 85728 [facility] CERVIX [facility] ENDOCRV CURRETAGE COMPREHEN 40451 [facility] SIVE 4 [facility] METABOLIC INC INC PANEL SCREENING G0202 [facility] MAMMOGRAP INC INC HY JOSSELYN INCL CAD WHEN PERFORMD COMPUTER- 25486 [facility] AIDED 4 [facility] DETECTION INC INC SCREENING MAMMOGRAP HY IADNA 49285 [facility], PAPILLOMA 4 [facility] VIRUS HUMAN AMPLIFIED PROBE TQ CYTP 36543 [facility], CERVICAL/ 4 [facility] VAGINAL REQ INTERP PHYSICIAN IADNA 38462 [facility] NEISS[facility] 4 [facility] DISTRICT [facility] DEPT [facility] DEPT GONORRHOE [facility] AE AMPLIFIED PROBE TQ SMR PRIM 08159 [facility] SRC WET 4 [facility]PT NFCT AGT [facility] IADNA 22210 [facility] CHLAMYDIA 4 [facility] DISTRICT [facility] DEPT [facility] DEPT TRACHOMAT [facility] IS AMPLIFIED PROBE TQ CYTP 46847 [facility], CERV/VAG 4 [facility] AUTO THIN LAYER PREP MNL SCREEN AMINES 91062 [facility] VAGINAL 4 DISTRICT DISTRICT FLUID [facility] DEPT QUALITATI [facility] VE PH [facility]ODY 44530 [facility] FLUID NOT 4 DISTRICT DISTRICT [facility] DEPT [facility] DEPT ELSEWHERE MADI MADI SPECIFIED WET Q0111 [facility] 4 [facility] DISTRICT INCL PREP [facility] DEPT [facility] DEPT VAGINAL MADI MADI CERV/SKIN SPECIMENS ALL Q0112 [facility] POTASSIUM 4 [facility] DEPT HYDROXIDE MADI MADI PREPARATI ONS Encounters Encounter Start End Date Code Location Performer Type Date [facility] LUZ - 7 7 [facility] OUTPATIEN INC HOSPITAL LUZ - CRISTA 7 7 [facility] INC OFFICE 04785 [facility] [place] 7 7 Diya FELDMAN MD,PSC 25 MINUTES OFFICE 23204 [facility] [place] [facility] 7 7 SHASTA FELDMAN T VISIT 5 MD,PSC MINUTES OFFICE 92390 [facility] [place] [facility] 7 7 SHASTA FELDMAN T VISIT ,PSC 25 MINUTES HOSPITAL LUZ - 7 7 [facility]EN [facility] LUZ - 7 7 [facility] OFFICE 82568 [facility] 7 7 Diya FELDMAN MD,PSC 25 MINUTES OFFICE 83732 [facility] [place] [facility] 7 7 Diya FELDMAN MD,PSC 25 MINUTES OFFICE 33420 [facility] OUT[facility] 7 7 PARTNERS T VISIT OF GONZALEZ 40 CO MINUTES OFFICE 58789 [facility] OUT[facility] 6 6 TRAVIS FELDMAN T RACHID MENSAH,PSC 25 MINUTES OFFICE 94526 [facility] MAR OUTPATIEN 6 6 PARTNERS T NEW 60 OF GONZALEZ MINUTES CO OFFICE 27734 [facility] 6 6 SHASTA FELDMAN T VISIT ,PSC 25 MINUTES OFFICE 48946 [facility] CRISTIAN OUTPATIEN 6 6 PHYSICIAN ROSA MARIA T VISIT S GROUP 25 MINUTES OFFICE 66535 [facility] 6 6 NAHID FELDMAN 30 MD,PSC MINUTES HOSPITAL LUZ - OTHER 6 6 [facility] OFFICE 43296 [facility] CRISTIAN OUTPATIEN 6 6 PHYSICIAN ROSA MARIA T VISIT S GROUP 25 MINUTES HOSPITAL LUZ - 6 6 [facility] OUTPATIEN [facility] LUZ - OTHER 6 6 [facility] H[facility]PITAL LUZ - OTHER 6 6 [facility] INC OFFICE 98590 [facility] CRISTIAN OUTPATIEN 6 6 PHYSICIAN ROSA MARIA T VISIT S GROUP 10 MINUTES OFFICE 82085 [facility] ROZ DAO OUTPATIEN 6 6 PHYSICIAN T VISIT S GROUP 10 MINUTES OFFICE 16688 [facility] SONG OUTPATIEN 6 6 PHYSICIAN LEANDER T VISIT S GROUP 15 MINUTES OFFICE 90404 [facility] PETTEY OUTPATIEN 6 6 PHYSICIAN JAM T NEW 30 S GROUP MINUTES HOSPITAL LUZ - 6 6 [facility] T OFFICE 40788 [facility] ROZ DAO OUTPATIEN 6 6 PHYSICIAN T VISIT S GROUP 25 MINUTES HOSPITAL LUZ - OTHER 6 6 [facility] OFFICE 55483 [facility] CRISTIAN OUTPATIEN 6 6 PHYSICIAN ROSA MARIA T VISIT S GROUP 15 MINUTES HOSPITAL LUZ [facility] OTHER 6 6 [facility] LUZ - 6 6 [facility] OUT[facility] T OFFICE 92148 [facility] CRISTIAN OUTPATIEN 6 6 PHYSICIAN ROSA MARIA T VISIT S GROUP 15 MINUTES HOSPITAL LUZ - OTHER 6 6 [facility] OFFICE 49882 [facility] CRISTIAN OUTPATIEN 6 6 PHYSICIAN ROSA MARIA T VISIT S GROUP 10 MINUTES HOSPITAL LUZ - 6 6 [facility] OUTPATIEN [facility] T OFFICE 01745 [facility] CRISTIAN OUTPATIEN 6 6 PHYSICIAN ROSA MARIA T VISIT S GROUP 10 MINUTES HOSPITAL UNIVERSIT - [address] [facility] UNIVERSIT - [address] [facility] LUZ - OTHER 6 6 [facility] H[facility]PITAL LUZ - 6 6 [facility] OUTPATIEN [facility] T OFFICE 57859 NATHANSHRUTHI RAMOS [facility] 6 6 MD MEHNAZ, T VISIT PSC 15 MINUTES EMERGENCY 05221 LUZ 6 6 [facility] T VISIT MODERATE SEVERITY HOSPITAL LUZ - 6 6 [facility] OUTPATIEN [facility] T HOSPITAL LUZ - OTHER 5 5 [facility] OFFICE 81482 [facility] 5 5 PHYSICIAN LEANDER T VISIT S GROUP 15 MINUTES HOSPITAL LUZ - 5 5 [facility] T OFFICE 64761 NATAHN ALEXIS [facility] 5 5 MD MEHNAZ, T VISIT [facility] 10 MIN[facility]ES HOSPITAL UNIVERSIT - 5 5 Y [facility] T [facility] LUZ - 5 5 [facility] LUZ [facility] 5 5 [facility] OUTPATIEN [facility] T EMERGENCY 41745 LUZ 5 5 [facility] T VISIT [facility]IGH/URGE NT SEVERITY HOSPITAL UNIVERSIT - 5 5 Y [facility] T OFFICE 86373 LUZ JHAVERI OUTPATIEN 5 5 [facility] T VISIT HOSPITAL 10 P MINUTES HOSPITAL LUZ - 5 5 [facility] LUZ - 5 5 [facility] T OFFICE 05394 NATHAN ALEXIS OUTPATIEN 5 5 MD MEHNAZ, T VISIT [facility] 10 MINUTES OFFICE 38353 [place] ARA COOPER [facility] 5 5 MEDICAL T [facility] 45 SERV MINUTES FOUNDATIO N OFFICE 89150 ERMA OSEI OUTPATIEN 5 5 MEDICAL T VISIT SERV 25 FOUNDATIO MINUTES [facility] 5 5 Y [facility] T OFFICE 11359 [facility] ROZ DAO OUTPATIEN 5 5 PHYSICIAN T VISIT S GROUP 10 [facility] LUZ [facility] 5 5 [facility] OUTPATIEN [facility] T OFFICE 97171 LUZ JHAVERI OUTPATIEN 5 5 [facility] 10 P [facility] LUZ - 5 5 [facility] LUZ [facility] 5 5 [facility] LU[facility] 5 5 [facility] LU[facility] - 5 5 [facility] 68371 NATHAN VICENTE OUTPATIEN 5 5 MD MEHNAZ, T VISIT [facility] 15 [facility] LUZ - 5 5 [facility] 86221 HEATHER VICENTE OUTPATIEN 5 5 MD T VISIT 10 [facility] LUZ - 5 5 [facility] LUZ [facility] 5 5 [facility] OUTPATIEN [facility] T OFFICE 33511 ERMA LOPEZ OUTPATIEN 5 5 MEDICAL JAM T VISIT SERV 25 FOUNDATIO MINUTES N OFFICE 57566 [facility] VICENTE OUTPATIEN 5 5 [facility] UNIVERSIT - 5 5 [facility] T OFFICE 47641 ERMA OSEI OUTPATIEN 5 5 MEDICAL T VISIT SERV 25 FOUNDATIO MINUTES [facility] [address] [facility] LUZ - 4 4 [facility] OUTPATIEN INC T PERIODIC 58887 [facility] CRISTIAN PREVENTIV 4 4 PHYSICIAN ROSA MARIA E MED EST S GROUP PATIENT [id number] [facility] UNIVERSIT - 4 4 Y [facility] T OFFICE 38551 [facility] CRISTIAN OUTPATIEN 4 4 PHYSICIAN ROSA MARIA T VISIT S GROUP 10 MINUTES OFFICE 41242 [place] KAIDEN SEA OUTPATIEN 4 4 MEDICAL T NEW [address] [facility] UNIVERSIT - 4 4 Y [facility] T OFFICE [address]8668 [facility] OUTPATI 4 4 Y T VISIT HOSPITAL 40 MINUTES [facility] LUZ - 4 4 [facility] OUTPATIEN INC T OFFICE 29290 [place] AMBER PHI OUTPATIEN 4 4 MEDICAL T NEW [facility] - [facility] OUTPATI[facility] INC T OFFICE 67502 [facility] CRISTIAN OUTPATIEN 4 4 PHYSICIAN ROSA MARIA T VISIT S GROUP 15 MINUTES OFFICE 40516 [place] MARISSA CASTILLOI CONSULTAT 4 4 MEDICAL ION SERV NEW/ESTAB FOUNDATIO PATIENT N 60 MIN OFFICE 04985 [facility] CRISTIAN OUTPATIEN 4 4 PHYSICIAN ROSA MARIA T VISIT S GROUP 25 MINUTES HOSPITAL LUZ - 4 4 [facility] OUTPATIEN INC T OFFICE 16848 [facility] CRISTIAN OUTPATIEN 4 4 PHYSICIAN ROSA MARIA T VISIT S GROUP 10 MINUTES HOSPITAL LUZ - 4 4 [facility]PAT[facility]EN [facility] LUZ - 4 4 [facility] OUTPATIEN INC [facility]OSPITAL LUZ - 4 4 [facility] OUTPATIEN INC T OFFICE 20171 [facility] OUTPATIEN 4 4 D VANESA T VISIT PATHOLOGI [facility] MINUTES HOSPITAL LUZ - 4 4 [facility] OUTPATIEN INC T OFFICE 21168 LUZ SIDHU JR OUTPATIEN 4 4 [facility] 10 P MINUTES OFFICE 57896 [facility] OUTPATIEN 4 4 D VANESA T VISIT PATHOLOGI [facility] MINUTES OFFICE 19095 [facility] CRISTIAN OUTPATIEN 4 4 PHYSICIAN ROSA MARIA T VISIT S GROUP 10 MINUTES OFFICE 58622 LUZ SIDHU JR CONSULTAT 4 4 [facility] NEW/ESTAB P PATIENT 60 MIN HOSPITAL LUZ - 4 4 [facility] OUTPATIEN INC T OFFICE 90575 [facility] CRISTIAN OUTPATIEN 4 4 PHYSICIAN ROSA MARIA T VISIT S GROUP 15 MINUTES OFFICE 49730 [facility] CRISTIAN OUTPATIEN 4 4 PHYSICIAN ROSA MARIA T VISIT S GROUP 15 MINUTES OFFICE 80166 [facility] CRISTIAN OUTPATIEN 4 4 PHYSICIAN ROSA MARIA T VISIT S GROUP 15 MINUTES OFFICE 14539 [facility] CRISTIAN OUTPATIEN 4 4 PHYSICIAN ROSA MARIA T NEW 30 S GROUP MINUTES OFFICE 16250 [facility] T VISIT [facility] DEPT TH DEPT 10 MADI [facility] HOSPITAL LUZ - 4 4 [facility] OUTPATIEN INC T HOSPITAL LUZ - 4 4 [facility] OUTPATIEN INC T PERIODIC 19271 [facility] PREVENTIV [facility] E MED EST TH DEPT TH DEPT PATIENT [facility] 40-64YRS OFFICE 52607 [facility] OUT[facility] 4 4 [facility] T VISIT TH DEPT TH DEPT 15 MADI [facility] Inpatient ADOLFO STOUT (IN) 3 00:35 3 18:03 [facility] Inpatient ADOLFO Meadows MD (IN) 3 11:34 3 12:50 [facility]
--- OUTSIDE RECORDS SUMMARY | 2017-03-12 13:58 | External Medical Summary Rpt | CCD ---
Author Author , HARLEY Organization HARLEY Address Unknown Phone [email or web address] Care Team Providers Care Sand Drier Name Role Phone JHAVERI FABY, JHAVERI Unavailable Unavailable FABY [facility] Unavailable Unavailable [facility], [facility] ALLRAN JR LOUIE, ALLRAN Unavailable Unavailable JR LIBAN NATHAN DARBY MD, PSC, Unavailable Unavailable NATHAN DARBY MD, PSC [facility] Unavailable [facility] SIENA WREN Unavailable Unavailable SIENA ROBLES, SIENA Unavailable Unavailable TRAVIS FELDMAN, Unavailable Unavailable MD,PSC, SIENA FELDMAN MD,PSC FRANK PORTER, FRANK Unavailable Unavailable CHARLOTTE OROZCO, OROZCO Unavailable Unavailable OR[facility] ALL, OROZCO ALL Unavailable Unavailable [facility] [employer] [employer] Unavailable Unavailable BUX ANJ, BUX ANJ Unavailable Unavailable CHIPPS ANNA & Unavailable Unavailable DUBILIER, [facility] DUBILIER SONG LEANDER, SONG Unavailable Unavailable LEANDER FIONA ALLISON, Unavailable Unavailable FIONA ALLISON [facility] ADHIKARI LAYNE, ADHIKARI LAYNE Unavailable Unavailable DUFF VANESA, DUFF VANESA Unavailable Unavailable [facility], [facility] Unavailable Unavailable [facility], [facility] Unavailable Unavailable [facility] Unavailable Unavailable [facility], [facility] Unavailable Unavailable TRAN[facility]ATION [facility], [facility] CRISTIAN ROSA MARIA, CRISTIAN Unavailable Unavailable ROSA MARIA [facility] Unavailable Unavailable INC, [facility] Unavailable Unavailable HOSPITAL P, [facility] P [facility], [facility]available Unavailable [facility] Unavailable Unavailable [facility], [facility] Unavailable Unavailable [facility], [facility] RACHAEL MANNINGO, RACHAEL IMELDA Unavailable Unavailable BULLOCK ALLISON, BULLOCK ALLISON Unavailable Unavailable [facility] Un[facility] [employer] Unavailable Unavailable [facility] [place] ETTA CRI, ETTA CRI Unavailable Unavailable [...] PAVEZ MAR Unavailable Unavailable ANN PITER, ANN IPTER Unavailable Unavailable PETTEY JAM, PETTEY Unavailable Unavailable JAM RAYBON, RAYBON Unavailable Unavailable ROZ TOD, ROZ TOD Unavailable Unavailable YANG GAV, YANG GAV Unavailable Unavailable SCIFRES, SCIFRES Unavailable Unavailable [facility] Unavailable Unavailable [facility], [facility] Unavailable Unavailable [facility], [facility] ERYN SHE, Unavailable Unavailable ERYN SHE GODOMAN VANESA, GOODMAN Unavailable Unavailable VANESA [facility], Unavailable Unavailable [facility] AMBER PHI, AMBER PHI Unavailable Unavailable [facility], Unavailable Unavailable [facility] Unavailable Unavailable DEPT [facility] Unavailable Unavailable DEPT [facility] DEPT [facility] BERTHA, Unavailable Unavailable BERTHA BERTHA [...] 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 UNS EQUIPME [id number] PAIN IN 01-30-2017 [place] [facility]PEC[facility]IED [facility] [id number] PAIN IN 01-30-2017 [place] [facility]EE [facility] 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 M545 LOW BACK 01-30-2017 [place] PAIN [facility] [id number] OTHER LONG 01-23-2017 [facility]M [facility] CURRENT INC DRUG THERAPY [id number] SPONDYLOSIS 12-26-2016 SIENA W/O FRANCIA MYELOPATH/R ,PSC ADICULOPATH Y LUMB RGN 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 FRANCIA 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 ,PSC ANALGESIC L819 DISORDER OF 09-26-2016 [facility] PIGMENTATIO INC N UNSPECIFIED [id number] PAIN IN 09-26-2016 [place] [facility]G [facility] R2241 LOCALIZED 09-26-2016 [place] SWE[facility] MASS & LUMP INC RIGHT LOWER LIMB R600 LOCALIZED 09-26-2016 [place] EDEMA [facility] V66404 PERSONAL 09-26-2016 [place] HISTORY OT MEDICAL VENOUS IMAGING ASS THROMBOSIS& EMBOLISM I10 ESSENTIAL 09-25-2016 [facility] HYPERTENSIO INC N K219 GASTRO-ESOP 09-25-2016 [place] H REFLUX [facility] DISEASE INC WITHOUT ESOPHAGITIS [id number] PAIN IN 09-25-2016 [place] RIGHT FOOT [facility] INC Z720 TOBACCO USE 09-25-2016 [facility] INC J301 ALLERGIC 07-22-2016 [facility] RHINITIS PARTN[facility] OF DUE TO [place] [facility] POLLEN J3081 ALLERG 07-22-2016 [facility] RHINITIS [facility] OF D/T ANIMAL [place] CAT DOG HAIR & DANDER J3089 OTHER 07-22-2016 [facility] ALLERGIC [facility] OF RHINITIS [place] M5136 OT 07-02-2016 MARIANN JOHNS MD,PSC DEGEN LUMBAR REGION [id number] ADVERS EFF 06-11-2016 [facility] OT RX MEDS PARTNERS OF BIO [place] SUBSTANCES INIT ENC H2513 AGE-RELATED 06-06-2016 [facility] BILATERAL M810 AGE-RELATED 04-30-2016 ELICEO MEDINA MD,PSC S W/O CURRNT PATH FX J440 COPD WITH 04-02-2016 [facility] ACUTE LOWER [facility] [place] RESPIRATORY INFECTION J4530 MILD 04-02-2016 [facility] PERSISTENT PARTN[facility] OF ASTHMA [place] UNCOMPLICAT ED Z889 ALLERGY 04-02-2016 [facility] STATUS UNS PARTNERS OF RX MEDS & [place] BIOLOG SUBSTANC STS G8929 OTHER 01-02-2016 [facility] CHRONIC PHYSICIANS PAIN GROUP 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 OTH 01-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 A08047 PAIN IN 01-02-2016 [facility] LEFT HAND PHYSICIANS GROUP M5416 RADICULOPAT 12-28-2015 [facility] HY LUMBAR CAILIN FELDMAN MD,PSC Z1231 ENCOUNTER 11-23-2015 [facility] MEDICAL MAMMO MALIG IMAGING ASS NEOPLASM BREAST N390 URINARY 11-16-2015 [facility] TRACT [facility] INFECTION INC SITE NOT SPECIFIED M519 UNS THOR 11-06-2015 [facility] THORACOLUMB PHYSICIANS AR GROUP LUMBOSACRAL IV DISC D/O 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 R102 PELVIC AND 10-24-2015 [facility] PERINEAL PHYSICIANS PAIN GROUP R109 UNSPECIFIED 10-24-2015 [facility] ABDOMINAL PHYSICIANS PAIN GROUP [id number] OTHER 10-24-2015 [facility] COMPLICATIO PHYSICIANS NS PROC NEC GROUP INITIAL ENCOUNTER G4733 OBSTRUCTIVE 10-20-2015 [facility] APNEA ADULT MEDICAL PEDIATRIC EQUIPME M6580 OTHER 10-16-2015 [facility] SYNOVITIS & PHYSICIANS GROUP TENOSYNOVIT IS UNSPECIFIED SITE K469 UNS 10-15-2015 [facility]AL [facility] HERNIA W/O INC OBSTRUCTION OR GANGRENE R1031 RIGHT LOWER 10-15-2015 [facility] MEDICAL PAIN IMAGING ASS D01845 PERSONAL HX 10-15-2015 [facility] RECTUM IMAGING ASS RS JUNC & ANUS R8290 UNSPECIFIED 10-10-2015 [facility] ABNORMAL [facility] FINDINGS IN INC URINE E039 HYPOTHYROID 10-09-2015 [facility] ISM PHYSICIANS UNSPECIFIED GROUP E785 HYPERLIPIDE 10-09-2015 [facility] MARY PHYSICIANS UNSPECIFIED GROUP M5116 INTERVERTEB 10-09-2015 [facility] RAL DISC PHYSICIANS D/O GROUP W/RADICULOP ATHY LUMB RGN D53677 PAIN IN 09-17-2015 [facility] RIGHT HIP PHYSICIANS GROUP R1030 LOWER 07-27-2015 [facility] PAIN UNSPECIFIED R748 ABNORMAL 07-27-[address] 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 45398 OBSTRUCTIVE 02-19-2015 [facility] APNEA MEDICAL EQUIPME 496 CHRONIC 02-14-2015 [facility] OBSTRUCTION MEDICAL NEC EQUIPME 5693 HEMORRHAGE 02-14-2015 [facility] OF RECTUM PHYSICIANS AND ANUS GROUP 32781 DEGEN 02-06-2015 [facility] LUMBAR/LUMB [facility] OSACRAL INC INTERVERTEB RAL DISC 7244 THORACIC/JONATHAN 02-06-2015 ZEINA SARGENT MD, PSC NEURITIS/RA DICULITIS UNSPEC 94410 UNSPECIFIED 02-06-2015 [facility] P 56446 EXTRINSIC 02-01-2015 [place] ASTHMA, PHARMACY OF UNSPECIFIED [facility] 4019 UNSPECIFIED 01-30-2015 [facility] P N 8793 OPEN WOUND 01-30-2015 [place] ABDOMINAL MEDICAL WALL IMAGING ASS ANTERIOR COMPLICATED 9975 URINARY 01-30-2015 [place] COMPLICATIO [facility]OSPITAL P V1089 PERSONAL 01-30-2015 [facility] HISTORY [facility] MALIG[facility]NT HOSPITAL P NEOPLASM OTHER SITE V8801 ACQUIRED 01-25-2015 [place] ABSENCE OF MEDICAL BOTH CERVIX IMAGING ASS AND UTERUS 2331 CARCINOMA 01-22-2015 [facility] SITU OF ANNA & CERVIX DUBILIER UTERI 6271 POSTMENOPAU 01-22-2015 [facility] LUDY PHYSICIANS BLEEDING GROUP 83120 PAP SMER 01-22-2015 [facility] CERV W/HI [facility] GRADE INC SQUAMOUS INTRAEPITH LES 7969 OTHER 01-22-2015 [facility] NONSPECIFIC PHYSICIANS ABNORMAL GROUP FINDING V1090 PERSONAL 01-22-2015 [facility] HISTORY PHYSICIANS UNSPECIFIED GROUP MALIGNANT NEOPLASM 7213 LUMBOSACRAL 01-12-2015 NATHAN DARBY MD, PSC SPONDYLOSIS WITHOUT MYELOPATHY 7248 OTHER 01-12-2015 [facility] SYMPTOMS [facility] REFERABLE INC TO BACK 41939 OTHER 01-09-2015 [facility] NONSPECIFIC [facility] ABNORMAL INC FINDING OF LUNG FIELD 75979 DISPLCMT 01-08-2015 NATHAN DARBY, LUMBAR , PSC INTERVERT DISC W/O MYELOPATHY 0398 ACTINOMYCOT 12-25-2014 [facility] INFECTION OF OTHER SPECIFIED SITES 2360 NEOPLASM OF 12-25-2014 [facility] UNCERTAIN [facility] BEHAVIOR OF UTERUS 40195 OBSTRUCTIVE 07-26-2014 [facility] CHRONIC [facility] BRONCHITIS INC WITHOUT EXACERBAT 41870 NONSPEC 07-26-2014 [facility] REACT [facility] TUBERCULIN [place] W/[place] [address] HYPOXEMIA 07-26-2014 [facility] INC 3669 UNSPECIFIED 07-21-2014 [place] [facility] CATARACT SERV [facility] 00744 ESOPHAGEAL 07-21-2014 [place] [facility] REFLUX [facility] 82026 OTHER SLEEP 07-21-2014 [place] [facility] DISTURBANCE FOUNDATION S 32594 FULL 07-10-2014 [place] [facility] INCONTINENC SERV E OF FECES FOUNDATION 36877 UNSPECIFIED 07-10-2014 [place] [facility] URINARY SERV INCONTINENC FOUNDATION E V1006 PERS HX MAL 07-10-2014 [place] [facility] NEOPLSM SERV RECT FOUNDATION RECTOSIGMOI D JUNC&ANUS 1541 MALIGNANT 06-26-2014 [place] [facility] NEOPLASM OF SERV RECTUM FOUNDATION V153 PERS HX 06-26-2014 [facility] 1542 MALIGNANT 06-02-2014 [place] [facility] NEOPLASM OF SERV ANAL CANAL FOUNDATION 22045 OTHER 06-02-2014 [facility] PAIN 56208 URGENCY OF 06-02-2014 [place] [facility] 92944 06-02-2014 [facility] 32314 SHORTNESS 05-10-2014 [facility] BREATH MEDICAL IMAGING ASS 07673 OTHER 04-10-2014 [place] [facility] SPECIFIED SERV DISORDER OF FOUNDATION RECTUM AND ANUS 6238 OTHER 04-10-2014 [place] [facility] SPECIFIED SERV NONINFLAMMA FOUNDATION TORY DISORDER VAGINA V7284 UNSPECIFIED 04-06-2014 [facility] PHYSICIANS PRE-OPERATI GROUP VE EXAMINATION 1543 MALIGNANT 04-05-2014 [place] NEOPLASM OF HOSPITAL ANUS UNSPECIFIED SITE 86470 CHRONIC 04-05-2014 [facility] ASTHMA UNSPECIFIED 16690 NONSPECIFIC 04-05-2014 [facility] ELECTROCARD IOGRAM V7283 OTHER 04-05-2014 [facility] PRE-OPERATI VE EXAMINATION 6829 CELLULITIS 03-27-2014 [facility] AND ABSCESS PHYSICIANS OF GROUP UNSPECIFIED SITE 96314 UNSPECIFIED 03-24-2014 [facility] CONSTIPATIO N 62036 FECAL 03-24-2014 [facility] V463 WHEELCHAIR 03-24-2014 [facility] 7242 LUMBAGO 03-15-2014 [facility] 2113 BENIGN 03-13-2014 [place] [facility] NEOPLASM OF SERV COLON FOUNDATION 2114 BENIGN 03-13-2014 [facility] NEOPLASM OF LLC RECTUM AND ANAL CANAL 2352 NEOPLASM 03-13-2014 [facility] UNCERTAIN [facility] BEHAVIOR INC STOMACH INTEST&RECT 17330 DIVERTICULO 03-13-2014 [place] MEDICAL SIS OF SERV COLON FOUNDATION 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 LLC 20148 OTHER 03-13-2014 [facility] SPECIFIED LLC DISORDER OF INTESTINES V142 PERSONAL 03-13-2014 [facility] HISTORY OF [facility] ALLERGY TO INC SULFONAMIDE S V1551 PERSONAL 03-09-2014 IN MEDICAL HISTORY OF SERV TRAUMATIC FOUNDATION FRACTURE 2449 UNSPECIFIED 02-24-2014 [facility] PHYSICIANS HYPOTHYROID GROUP [place]M 39781 PAIN IN 02-13-2014 [facility] JOINT, SITE MEM HOSP INC UNSPECIFIED 83187 OTHER&UNSPE 02-13-2014 [facility] CIFIED DISC PHYSICIANS DISORDER GROUP CERVICAL REGION 35166 OSTEOARTHRO 02-07-2014 [facility] S UNSPEC PHYSICIANS WHETHER GROUP GEN/LOC UNSPEC SITE 08785 PAIN IN 01-23-2014 [facility]INT, MEM HOSP UPPER ARM INC 78558 PAIN IN 01-23-2014 [facility], MEM [facility]OS[facility] LOWER LEG INC V571 OTHER 01-23-2014 [facility] PHYSICAL [facility] THERAPY INC 49732 ANAL OR 12-14-2013 [facility] RECTAL PAIN [facility] P 7295 PAIN IN 12-13-2013 ASSOCIATED SOFT PATHOLOGIST TISSUES OF S LLC LIMB 86113 ATHEROSLERO 10-27-2013 [facility] NATV ART [facility] EXTREM INC W/INTERMIT CLAUDICAT V016 CONTACT 07-05-2013 [facility] WITH OR DISTRICT EXPOSURE TO [facility] DEPT VENEREAL MADI DISEASES 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 99197 PAP SMER 06-29-2013 [facility] W/ATYPICAL CLINIC OF SQUAMOUS [place] CELLS UNDET 15925 OTH 06-29-2013 [facility] ABNORMAL [facility] U SMEAR [place] CERVIX&CERV HPV V2542 SURVEILLANC 06-29-2013 [facility] E PREV PRSC HEALTH INTRAUTERN CLINIC OF CNTRACPT [place] DEVC V7612 OTHER 06-15-2013 [facility] SCREENING [facility] MAMMOGRAM INC 54726 CERV HIGH 06-07-2013 [facility] RISK HUMAN LLC PAPILLOMAVI MISAEL DNA TEST POS V2689 OTHER 06-07-2013 [facility] SPECIFIED DISTRICT PROCREATIVE [facility] DEPT MANAGEMENT MADI V700 ROUTINE 06-07-2013 [facility] MEDICAL [facility] DEPT [email or web address] CARE FACL V7231 ROUTINE 06-07-2013 [facility] GYNECOLOGIC LLC AL EXAMINATION Procedures Procedure DOS Code Location Performer Comment O2 CONC 1 E1390 [facility] [place] 7 HOME HOME 85%/>02 MEDICAL MEDICAL CONC AT EQUIPME EQU[facility]ME [facility] FLW RATE RADIOLOGI 67507 [place] [facility] C 7 MEDICAL EXAMINATI IMAGING ON PELVIS ASS 1/2 VIEWS RADIOLOGI 37738 [place] [facility] 7 MEDICAL EXAMINATI IMAGING ON KNEE 3 ASS VIEWS RADEX 15961 [place] [facility] SPINE 7 MEDICAL LUMBOSACR IMAGING AL ASS MINIMUM 4 VIEWS DRUG TEST 80819 [facility] ESCOBAR PRSMV 7 MEM HOSP MEM HOSP QUAL DIR INC INC OPTICAL OBS PER DAY O2 CONC 1 E1390 [facility] [place] 7 HOME HOME 85%/>02 MEDICAL MEDICAL CONC AT EQUIPME EQUIPME [facility] O2 CONC 1 E1390 [facility] [place] 7 HOME HOME 85%/>02 MEDICAL MEDICAL CONC AT EQUIPME EQUIPME [facility] O2 CONC 1 E1390 [facility] [place] 7 HOME HOME 85%/>02 MEDICAL MEDICAL CONC AT EQUIPME EQUIPME [facility] FLW RATE DRUG TEST 93945 SIENA ALVARADO PRSMV 7 SHASTA FELDMAN MD,PSC CHEMISTRY ANALYZERS O2 CONC 1 E1390 [facility] THOMPSON [facility] 7 HOME HOME 85%/>02 MEDICAL MEDICAL CONC AT EQUIPME EQUIPME [facility] DUP-SCAN 25891 [place] [facility] XTR VEINS 7 MEDICAL IMAGING UNILATERA ASS L/LIMITED [facility] G0463 [facility] OUTPATIEN 7 MEM HOSP MEM [facility]OS[facility] T CLIN INC INC VISIT ASSESS & MGMT PT THERAPEUT 19129 [facility] ESCOBAR IC 7 MEM HOSP MEM HOSP PROPHYLAC INC INC TIC/DX INJECTION SUBQ/IM O2 CONC 1 E1390 [facility] [place] 7 HOME HOME 85%/>02 MEDICAL MEDICAL CONC AT EQUIPME EQUIPME [facility] FL[facility] RATE DRUG TEST 85634 SIENA WREN PRSMV 7 HO FELDMAN MD,PSC CHEMISTRY ANALYZERS O2 CONC 1 E1390 [facility] THOMPSON [facility] 7 HOME HOME 85%/>02 MEDICAL MEDICAL CONC AT EQUIPME EQUIPME [facility] FLW RATE PREPJ& 02304 ALLERGY DWYER ALLERGEN 7 PARTNERS IMMUNOTHE OF [place] RAPY CO 1/SHIPPING AGENT ANTIGEN O2 CONC 1 E1390 [facility] THOM[place]ON [place] 7 HOME HOME 85%/>02 MEDICAL MEDICAL CONC AT EQUIPME EQUIPME [facility] FLW RATE PREPJ& 89631 ALLERGY DWYER ALLERGEN 7 PARTNERS IMMUNOTHE OF [place] RAPY CO 1/SHIPPING AGENT ANTIGEN DRUG TEST 92027 SIENA TADEO PRSMV 7 HO FELDMAN MD,PSC CHEMISTRY ANALYZERS O2 CONC 1 E1390 [facility] [place] 7 HOME HOME 85%/>02 MEDICAL MEDICAL CONC AT [facility] FLW RATE NITRIC 23253 ALLERGY DWYER OXIDE 7 PARTNERS OF [place] GAS CO DETERMINA TION PROF SVCS 68787 ALLERGY ALLERGY ALLG 7 PARTNERS PARTNERS IMMNTX X OF [place] OF [place] W/PRV CO CO ALLGIC XTRCS NJXS BRNCDILAT 22416 ALLERGY DWYER RSPSE 7 PARTNERS SPMTRY OF [place] PRE&POST- CO BRNCDILAT ADMN DEMO&/YOSI 96315 ALLERGY DWYER L OF PT 7 PARTNERS UTILIZ OF [place] AERSL CO GEN/NEB/I NHLR/IP OPHTH 32730 [facility] 7 VISION XM&EVAL CENTER COMPRE NEW PT 1/> VST O2 CONC 1 E1390 [facility] [place] 6 HOME HOME 85%/>02 MEDICAL MEDICAL CONC AT [facility] FLW RATE COMPREHEN 85240 SIENA WREN SIVE 6 TRAVIS FELDMAN METABOLIC ,PSC PANEL DXA BONE 30850 SIENA FELDMAN DENSITY 6 FRANCIA PET STUDY 1/> MD,PSC SITES AXIAL SKEL COLLECTIO 29158 SIENA WREN N VENOUS 6 TRAVIS FELDMAN MD,[facility] [place] [address] WRENYOLANDA VALENCIAARD GLUTAMYLT 6 TRAVIS FELDMAN MD,PSC GAMMA BILIRUBIN 25380 WRENYOLANDA VALENCIAARD DIRECT 6 TRAVIS [place]DM[place] [address] SIENA WREN PHOSPHORU 6 TRAVIS FELDMAN MD,[facility] INORGANIC BLOOD 74966 SIENA VALENCIAARD COUNT 6 TRAVIS FELDMAN MD,PSC AUTO&AUTO DIFRNTL WBC DRUG TEST G0479 TRAVIS MAJOR PRESUMP;I ,PSC NSTRUMENT ED CHEMISTRY ANLYZER O2 CONC 1 E1390 CA[facility]LIN CAITLIN [place] 6 HOME HOME 85%/>02 MEDICAL MEDICAL CONC AT [facility] FLW RATE PREPJ& 67160 ALLERGY DWYER MAR ALLERGEN 6 PARTNERS IMMUNOTHE OF [place] RAPY CO 1/SHIPPING AGENT ANTIGEN NITRIC 05639 ALLERGY DWYER MAR OXIDE 6 PARTNERS OF [place] GAS CO DETERMINA TION BRNCDILAT 51613 ALLERGY DWYER MAR RSPSE 6 PARTNERS SPMTRY OF [place] PRE&POST- CO BRNCDILAT ADMN PERCUTANE 87372 ALLERGY DWYER MAR OUS TESTS 6 PARTNERS OF [place] W/ALLERGE CO MARIANN EXTRACTS INTRACUTA 58472 ALLERGY DWYER MAR NEOUS 6 PARTNERS TESTS OF [place] W/ALLERGE CO MARIANN EXTRACTS DEMO&/YOSI 14986 ALLERGY DWYER MAR L OF PT 6 PARTNERS UTILIZ OF [place] AERSL CO GEN/NEB/I NHLR/IP O2 CONC 1 E1390 [facility] [place] 6 HOME HOME 85%/>02 MEDICAL MEDICAL CONC AT EQUIPME EQUIPME PRSC FLW RATE O2 CONC 1 E1390 [facility] [place] 6 HOME HOME 85%/>02 MEDICAL MEDICAL CONC AT EQUIPME EQUIPME PRSC FLW RATE O2 CONC 1 E1390 [facility] [place] 6 HOME HOME 85%/>02 MEDICAL MEDICAL CONC AT EQUIPME EQUIPME PRSC FLW RATE O2 CONC 1 E1390 [facility] [place] 6 HOME HOME 85%/>02 MEDICAL MEDICAL CONC AT EQUIPME EQUIPME PRSC FLW RATE DRUG TEST G0481 [facility] ESCOBAR DEFINITV [address] ID INC INC METH P DAY 8-14 DRUG CL DRUG TST G0477 [facility] PRESUMP;C 6 MEM HOS[facility] MEM [facility]OS[facility] PBL BEING INC INC READ DC OPT OBV ONLY SCREENING G0202 [facility] 6 MEDICAL [place] MAMMOGRAP IMAGING HY JOSSELYN ASS INCL CAD WHEN PERFORMD COMPUTER- 57374 [facility] AIDED 6 MEDICAL [place] DETECTION IMAGING ASS SCREENING MAMMOGRAP HY SUSCEPTIB 53138 [facility] LTY STDY 6 MEM HOSP MEM HOSP ANTIMICRB INC INC IAL MICRO/AGA R DILUTJ CULTURE 63739 [facility] BACTERIAL 6 MEM HOSP MEM HOS[facility] INC INC QUANTTATI VE COLONY COUNT URINE CULTURE 59301 [facility] BCT 6 MEM HOSP MEM HOS[facility] ISOL&PRSM INC INC PTV ID ISOLATE EA URINE URNLS DIP 59091 [facility] ESCOBAR 6 MEM H[facility] STICK/TAB INC INC LET REAGENT AUTO MICROSCOP Y O2 CONC 1 E1390 CAITLIN TUCKER [place] 6 HOME HOME 85%/>02 MEDICAL MEDICAL CONC AT EQUIPME EQUIPME [facility] DRUG TST G0477 LU[facility] ESCOBAR [...] HOME 85%/>02 [facility] [place] [address] [place]EN & 6 MEDICAL PELVIS IMAGING W/CONTRAS ASS T MATERIAL LOC Q9967 [facility] [phone] [facility] MG/ML INC INC IODINE CONCENTRA TION PER ML SUSCEPTIB 53811 [facility] LTY STDY 6 [facility] ANTIMICRB INC INC IAL MICRO/AGA R DILUTJ COLLECTIO 43160 [facility] N VENOUS 6 [facility] BLOOD INC INC VENIPUNCT URE CULTURE 44905 [facility] BCT 6 [facility] ISOL&PRSM INC INC PTV ID ISOLATE EA URINE CULTURE 13315 [facility] BACTERIAL 6 [facility] INC INC QUANTTATI VE COLONY COUNT URINE BASIC 24402 [facility] METABOLIC 6 [facility] PANEL INC INC CALCIUM TOTAL BLOOD 04811 [facility] COUNT 6 [facility] COMPLETE INC INC AUTO&AUTO DIFRNTL WBC URNLS DIP 24223 [facility] 6 [facility] STICK/TAB INC INC LET REAGENT AUTO MICROSCOP Y DRUG TST G0477 [facility] PRESUMP;C 6 [facility] PBL BEING INC INC READ DC OPT OBV ONLY E-STIM [id number] [facility]Z 1/> AREAS 6 [facility] OTH THAN INC INC WND CARE PART TX PLAN THERAPEUT 61642 LUZ EVANSON IC PX 1/> 6 [facility] AREAS INC INC EACH 15 MIN EXERCISES APPLICATI 57242 [facility] ON 6 [facility] MODALITY INC INC 1/> AREAS HOT/COLD PACKS APPLICATI 74945 [facility] ON 6 [facility] MODALITY INC INC 1/> AREAS HOT/COLD PACKS THERAPEUT 99698 [facility] ESC[facility]AR IC PX 1/> 6 [facility] AREAS INC INC EACH 15 MIN EXERCISES E-STIM G0283 [facility]AR 1/> AREAS 6 [facility] OTH THAN INC INC WND CARE PART TX PLAN CONTINUOU E0601 CAITLIN Leal 6 HOME HOME POSITIVE MEDICAL MEDICAL AIRWAY EQUIPME EQUIPME PRESSURE DEVICE APPLICATI 75287 [facility] ON 6 [facility] MODALITY INC INC 1/> AREAS HOT/COLD PACKS PHYSICAL 99009 [facility] THERAPY 6 [facility] EVALUATIO INC INC N E-STIM G0283 LUZ ESCOBAR 1/> AREAS 6 [facility] OTH THAN INC INC WND CARE PART TX PLAN THERAPEUT 21520 [facility] ESCOBAR IC PX 1/> 6 [facility] AREAS INC INC EACH 15 MIN EXERCISES DRUG TST G0477 [facility] ESC[facility]AR PRESUMP;C 6 [facility] PBL BEING INC INC READ DC OPT OBV ONLY O2 CONC 1 E1390 CAITLIN [place] 6 HOME HOME 85%/>02 MEDICAL MEDICAL CONC AT EQUIPME EQUIPME PRSC FLW RATE RADEX HIP 64874 [facility]AR 6 [facility] UN[facility]ATER[facility] INC INC L WITH PELVIS 2-3 VIEWS RADEX HIP 66421 [place] MARIE 6 [facility]ICAL [place]ATER[place] IMAGING L WITH ASS PELVIS 1 VIEW COLLECTIO 18365 [facility] N VENOUS 6 [facility] BLOOD INC INC VENIPUNCT URE COMPREHEN 64645 [facility] SIVE 6 [facility] [place] [facility] [facility] METABOLIC INC INC PANEL BLOOD 32860 LUZ ESCOBAR COUNT 6 [facility] COMPLETE INC INC AUTO&AUTO DIFRNTL WBC SEDIMENTA 50087 LUZ ESCOBAR TION RATE 6 [facility] RBC INC INC NON-AUTOM ATED CONTINUOU E0601 CAITLIN Leal 6 HOME HOME POSITIVE MEDICAL MEDICAL AIRWAY EQUIPME EQUIPME PRESSURE DEVICE O2 CONC 1 E1390 CAITLIN THOMPSON PORT 6 HOME HOME 85%/>02 MEDICAL MEDICAL CONC AT EQUIPME EQUIPME PRSC FLW RATE INFUSION J7030 [facility] NORMAL 6 Y Y SALINE [facility] SOLUTION 1000 CC INJECTION J0330 [place] [address] Y Y SUCCINYLSAN [facility] HOLINE CHLORIDE UP TO 20 MG CATHETER C1753 [facility] INTRAVASC [address] [facility] ULTRASOUN D INJECTION J2370 [facility] 6 Y Y PHENYLEPH [facility] RINE HCL UP TO 1 ML INJECTION J2405 [facility] 6 Y [facility] PER 1 MG INJECTION J2704 [facility] PROPOFOL 6 Y Y 10 MG [facility] [place] [address] [facility] 6 Y Y SURGICAL [facility] ALTER STOM DUODENUM/ JEJUNUM CONTINUOU E0601 CAITLIN CAITLIN S 6 HOME HOME POSITIVE MEDICAL MEDICAL AIRWAY EQUIPME EQUIPME PRESSURE DEVICE O2 CONC 1 E1390 CAITLIN THOMPSON PORT 6 HOME HOME 85%/>02 MEDICAL MEDICAL CONC AT EQUIPME EQUIPME PRS FLW RATE ECG 48234 ERMA RACHAEL IMELDA ROUTINE 6 MEDICAL ECG SERV W/LEAST FOUNDATIO 12 LDS N I&R ONLY HOSPITAL G0463 [facility] OUTPATI 6 Y Y T [facility] VISIT ASSESS & MGMT PT CONTINUOU E0601 CAITLIN CAITLIN S 6 HOME HOME POSITIVE MEDICAL MEDICAL AIRWAY EQUIPME EQUIPME PRESSURE DEVICE O2 CONC 1 E1390 CAITLIN ZUNIGA 6 HOME HOME 85%/>02 MEDICAL MEDICAL CONC AT [facility] PRSC FLW RATE HEPATITIS 96455 LUZ ESCOBAR C 6 [facility] ANTIBODY INC INC COLLECTIO 14217 LUZ ESCOBAR N VENOUS 6 [facility] BLOOD INC INC VENIPUNCT URE HEPATITIS 68248 LUZ ESCOBAR A 6 [facility] ANTIBODY INC INC HAAB COMPREHEN 44349 LUZ ESCOBAR SIVE 6 [facility] METABOLIC INC INC PANEL HEPATITIS 18954 LUZ Drew SURF 6 [facility] ANTIBODY INC INC HBSAB BILIRUBIN 17415 LUZ ESCOBAR DIRECT 6 [facility] INC INC HEPATITIS 99310 LUZ Drew CORE 6 [facility] [place] [address] LUZ ESCBOAR HEPATITIS 6 [facility] B INC INC SURFACE ANTIGEN DRUG TST G0477 LUZ ESCOBAR PRESUMP;C 6 [facility] PBL BEING INC INC READ DC OPT OBV ONLY COL-CHR/M 65490 LUZ ESCOBAR S NONDRUG 6 [facility] ANALYTE INC INC RONALDO QUAL/[place] [address] LUZ ESCOBAR LIPASE 6 [facility] INC INC BLOOD 21501 LUZ ESCOBAR COUNT 6 [facility] COMPLETE INC INC AUTO&[place] [address] LUZ ESCOBAR LACTATE 6 [facility] INC INC COMPREHEN 50471 LUZ ESCOBAR SIVE 6 [facility] [place] [address] LUZ ESCOBAR ABDOMEN & 6 [facility] PELVIS INC INC W/CONTRAS T MATERIAL THER 25390 LUZ EVANSON PROPH/DX 6 [facility] NJX IV INC INC PUSH SINGLE/1S T SBST/DRUG CANISTER A7000 NATIONAL NATIONAL DISPOSABL 5 WOUND WOUND E [facility] WITH SUCTION PUMP EACH WND CARE A6550 NATIONAL NATIONAL SET NEG 5 WOUND WOUND PRSS WND CARE LLC CARE LLC TX ELEC PUMP SPL CONTINUOU E0601 CAITLIN TUCKER S 5 HOME HOME POSITIVE MEDICAL MEDICAL AIRWAY EQUIPME EQUIPME PRESSURE DEVICE RMVL 53023 LUZ ESCOBAR DEVITAL 5 [facility] TISS INC INC N-SLCTV DBRDMT W/O [...] CARE LLC WITH SUCTION PUMP EACH NEGATIVE 11851 LUZ ESCOBAR PRESSURE 5 [facility] WOUND INC INC THERAPY DME </= 50 SQ CM NEG PRESS E2402 NATIONAL NATIONAL WOUND 5 WOUND WOUND THERAPY CARE LLC CARE LLC ELEC PUMP STATION/P RTBLE CUL BACT 53439 LUZ ESCOBAR XCPT 5 [facility] URINE INC INC BLOOD/STO OL AEROBIC ISOL CUL BACT 60202 LUZ ESCOBAR AEROBIC 5 [facility] ADDL INC INC METHS DEFINITIV E EA ISOL NEGATIVE 39984 LUZ ESCOBAR PRESSURE 5 [facility] WOUND INC INC THERAPY DME </= 50 SQ CM NEGATIVE 30858 LUZ ESCOBAR PRESSURE 5 [facility] WOUND INC INC THERAPY DME </= 50 SQ CM CANISTER A7000 NATIONAL NATIONAL DISPOSABL 5 WOUND WOUND E [facility] CARE LLC WITH SUCTION PUMP EACH WND CARE A6550 NATIONAL NATIONAL SET NEG 5 WOUND WOUND PRSS WND CARE LLC CARE LLC TX ELEC PUMP SPL NEGATIVE 21116 LUZ ESCOBAR PRESSURE 5 [facility] WOUND INC INC THERAPY DME </= 50 SQ CM NEGATIVE 26475 LUZ ESCOBAR PRESSURE 5 [facility] WOUND INC INC THERAPY DME </= 50 SQ CM CANISTER A7000 NATIONAL NATIONAL DISPOSABL 5 WOUND WOUND E USED [facility] LLC CARE LLC WITH SUCTION PUMP EACH WND CARE A6550 NATIONAL NATIONAL SET NEG 5 WOUND WOUND PRSS WND CARE LLC CARE LLC TX ELEC PUMP SPL NEGATIVE 28400 LUZ ESCOBAR PRESSURE 5 [facility] WOUND INC INC THERAPY DME </= 50 SQ CM CONTINUOU E0601 CAITLIN TUCKER S 5 HOME HOME POSITIVE MEDICAL MEDICAL AIRWAY EQUIPME EQUIPME PRESSURE DEVICE NEGATIVE 35927 LUZ ESCOBAR PRESSURE 5 [facility] WOUND INC INC THERAPY DME </= 50 SQ CM O2 CONC 1 E1390 CAITLIN TUCKER DEL PORT 5 HOME HOME 85%/>02 MEDICAL MEDICAL CONC AT EQUIPME EQUIPME PRSC FLW RATE NEGATIVE 19721 LUZ ESCOBAR PRESSURE 5 [facility] WOUND INC INC THERAPY DME </= 50 SQ CM WND CARE A6550 NATIONAL NATIONAL SET NEG 5 WOUND WOUND PRSS WND CARE LLC CARE LLC TX ELEC PUMP SPL URNLS DIP 15442 LUZ JHAVERI 5 [facility] LET RGNT P NON-AUTO W/O MICRSCP WND CARE A6550 NATIONAL NATIONAL SET NEG 5 WOUND WOUND PRSS WND CARE LLC CARE LLC TX ELEC PUMP SPL NEGATIVE 69432 LUZ ESCOBAR PRESSURE 5 [facility] WOUND INC INC THERAPY DME </= 50 SQ CM CANISTER A7000 NATIONAL NATIONAL DISPOSABL 5 WOUND WOUND E USED [facility] CARE LLC WITH SUCTION PUMP EACH DEBRIDEME 94276 LUZ ESCOBAR NT OPEN 5 [facility] WOUND 20 INC INC SQ CM/< NEG PRESS E2402 NATIONAL NATIONAL WOUND 5 WOUND WOUND THERAPY CARE LLC CARE LLC ELEC PUMP STATION/P RTBLE RMVL 34592 LUZ ESCOBAR DEVITAL 5 [facility] TISS INC INC N-SLCTV DBRDMT W/O ANES 1 SESS NEGATIVE 35364 LUZ ESCOBAR PRESSURE 5 [facility]OS[facility] WOUND INC INC THERAPY DME </= 50 SQ CM SIGMOIDOS 82771 [facility] COPY FLX 5 Y Y DX HOSPITAL HOSPITAL W/COLLJ SPEC BR/WA IF PFRMD INJECTION J3010 [facility] FENTANYL 5 Y Y CITRATE [facility] 0.1 MG INFUSION J7030 [facility] NORMAL 5 Y Y SALINE [facility] SOLUTION 1000 CC INJECTION J2250 [facility] 5 Y Y MIDAZOLAM [facility] HCL PER 1 MG RMVL 12636 LUZ SHANETAL 5 [facility] TISS INC INC N-SLCTV DBRDMT W/O ANES 1 SESS ALBUTEROL J7613 [facility] INHAL 5 PHARMACY PHARMACY NON-CP OF OF PROD THRU DAVION RICARDO DME U DOSE 1 MG PHRM Q0513 [facility] DISPENSIN 5 PHARMACY PHARMACY G FEE OF OF INHALATIO DAVION RICARDO N RX; PER 30 DAYS RMVL 91482 LUZ MC 5 [facility] TISS INC INC N-SLCTV DBRDMT W/O ANES 1 SESS RMVL 40051 LUZ SHANETAL 5 [facility] TISS INC INC N-SLCTV DBRDMT W/O ANES 1 SESS DEBRIDEME 75623 LUZ ESCOBAR NT OPEN 5 [facility] WOUND 20 INC INC SQ CM/< [place] [address] LUZ ESCOBAR INFUSION 5 [facility] THERAPY/P INC INC ROPHYLAXI S /DX 1ST TO 1 HR COMPREHEN 43792 LUZ ESCOBAR SIVE 5 [facility] METABOLIC INC INC PANEL CANISTER A7000 NATIONAL NATIONAL DISPOSABL 5 WOUND WOUND E USED CARE [facility] CARE [facility] WITH SUCTION PUMP EACH RMVL 71371 LUZ SHANETAL 5 [facility] TISS INC INC N-SLCTV DBRDMT W/O ANES 1 [place] [address] LUZ ESCOBAR INFUSION 5 [facility] THERAPY INC INC PROPHYLAX IS/DX EA HOUR RADIOLOGI 91380 LUZ ESCOBAR C 5 [facility] EXAMINATI INC INC ON CHEST SINGLE VIEW FRONTAL URNLS DIP 40234 LUZ LUZ 5 [facility] STICK/TAB INC INC LET REAGENT AUTO MICROSCOP Y BLOOD 35600 LUZ ESCOBAR COUNT 5 [facility] COMPLETE INC INC AUTO&AUTO DIFRNTL WBC WND CARE A6550 NATIONAL NATIONAL SET NEG 5 WOUND WOUND PRSS WND CARE LLC CARE LLC TX ELEC PUMP SPL IAADI 56555 LUZ MILLER INFLUENZA 5 MEM HOS[facility] MEDICAL B VIRUS INC LAB IAADI 73367 LUZ ESCOBAR INFFLUENZ 5 [facility] A A VIRUS INC INC INFUSION J7030 [facility] NORMAL 5 Y Y SALINE [facility] SOLUTION 1000 CC INJECTION J2250 [facility] 5 Y Y MIDAZOLAM [facility] HCL PER 1 MG COLONOSCO [address]57 [place] KAIDEN [place] PY 5 MEDICAL W/BIOPSY SERV SINGLE/MU FOUNDATIO LTIPLE N INJECTION J3010 [facility] [place] 5 Y Y CITRATE [facility] 0.1 MG CONTINUOU E0601 CAITLIN TUCKER S 5 HOME HOME POSITIVE MEDICAL MEDICAL AIRWAY EQUIPME [place] [address] [place] KORY LALA SURG 5 MEDICAL PATHOLOGY SERV FOUNDATIO GROSS&ROSA MARIA N ROSCOPIC EXAM RMVL 46484 LUZ ESCOBAR DEVITAL 5 [facility] TISS INC INC N-SLCTV DBRDMT W/O ANES 1 SESS URNLS DIP 89943 LUZ JHAVERI 5 [facility] FABY STICK/TAB [facility] LET RGNT P NON-AUTO W/O MICRSCP PHYSICAL 20462 LUZ ESCOBAR THERAPY 5 [facility] EVALUATIO INC INC N O2 CONC 1 E1390 CAITLIN ZUNIGA 5 HOME HOME 85%/>02 MEDICAL MEDICAL CONC AT EQUIPME EQUIPME PRSC FLW RATE RMVL 28467 LUZ ESCOBAR DEVITAL 5 [facility] TISS INC INC N-SLCTV DBRDMT W/O ANES 1 SESS LOCM Q9966 LUZ ESCOBAR [phone] 5 [facility] MG/ML INC INC IODINE CONCENTRA TION PER ML CANISTER A7000 NATIONAL NATIONAL DISPOSABL 5 WOUND WOUND E USED CARE LLC CARE LLC WITH SUCTION PUMP EACH WND CARE A6550 NATIONAL NATIONAL SET NEG 5 WOUND WOUND PRSS WND CARE LLC CARE LLC TX ELEC PUMP SPL DETERMINA 91930 ERMA [place] [facility] TION 5 MEDICAL REFRACTIV [...] LLC TX ELEC PUMP SPL PHRM Q0513 [facility] [place] DISPENSIN 5 PHARMACY PHARMACY G FEE OF OF INHALATIO DAVION DAVION N RX; PER 30 DAYS ALBUTEROL J7613 [facility] [place] INHAL 5 PHARMACY PHARMACY NON-CP OF OF PROD THRU DAVION DAVION DME U DOSE 1 MG [facility] G0463 [facility] 5 Y Y T [facility] VISIT ASSESS & MGMT PT CONTINUOU E0601 CAITLIN TUCKER S 5 HOME HOME POSITIVE MEDICAL MEDICAL AIRWAY EQUIPME EQUIPME PRESSURE DEVICE O2 CONC 1 E1390 CAITLIN THOMPSON PORT 5 HOME HOME 85%/>02 MEDICAL MEDICAL CONC AT EQUIPME EQUIPME PRSC FLW RATE URNLS DIP 90754 LUZ JHAVERI 5 [facility] LET RGNT P NON-AUTO W/O MICRSCP RIKKI 47695 LUZ JHAVERI POST-VOID 5 [facility] RESIDUAL P URINE&/BL ADDER CAP PHRM Q0513 [facility] [place] DISPENSIN 5 PHARMACY PHARMACY G FEE OF OF INHALATIO DAVION DAVION N RX; PER 30 DAYS ALBUTEROL J7613 [facility] [place] INHAL 5 PHARMACY PHARMACY NON-CP OF OF PROD THRU DAVION RICARDO DME U DOSE 1 MG INITIAL [address]/[facility] ER 30 P MINUTES RADEX 66760 [place] ABDOMEN 5 MEDICAL ALLISON COMPL IMAGING W/DCBTS&/ ASS ERC VIEWS US PELVIC 73973 [place] OROZCO ALL 5 MEDICAL NONOBSTET IMAGING RYLAN IMAGE ASS DCMTN LIMITED/F /U ANESTHESI 57224 [facility] ADHIKARI LAYNE A 5 ANESTH INTRAPERI OF THE TONEAL BLUE LOWER ABD W/LAPS NOS LEVEL 91285 CHIPPS GARCIA SURG 5 ANNA & RYLAN PATHOLOGY DUBILIER GROSS&ROSA MARIA ROSCOPIC EXAM DECALCIFI 48448 CHIPPS GARCIA CATION 5 ANNA & RYLAN PROCEDURE DUBILIER TOTAL 00374 [facility] ABDOMINAL 5 PHYSICIAN LEANDER S GROUP HYSTERECT W/WO RMVL TUBE OVARY OTHER & 6849 LUZ ESCOBAR UNSPECIFI 5 [facility] ED TOTAL INC INC ABDOMINAL HYSTERECT TOMASA OTH 6561 LUZ ESCOBAR REMOVAL 5 [facility] BOTH INC INC OVARIES&T UBES@SAME OP EPIS CONTINUOU E0601 CAITLIN TUCKER S 5 HOME HOME POSITIVE MEDICAL MEDICAL AIRWAY EQUIPME EQUIPME PRESSURE DEVICE ECG 62711 LUZ GALLO JR ROUTINE 5 [facility] W/LEAST P 12 LDS I&R ONLY O2 CONC 1 E1390 CAITLIN THOMPSON PORT 5 HOME HOME 85%/>02 MEDICAL MEDICAL CONC AT EQUIPME EQUIPME PRSC FLW RATE LOCM Q9967 LUZ ESCOBAR [phone] 5 [facility] MG/ML INC INC IODINE [place] [address] NATHAN BUX ANJ DX/THER 5 MD MEHNAZ, AGT PVRT PSC FACET JT LMBR/SAC 1 LEVEL NJX 92692 NATHAN BUX ANJ DX/THER 5 MD MEHNAZ, AGT PVRT PSC FACET JT LMBR/SAC 2ND LEVEL INJECTION J1030 LUZ ESCOBAR 5 [facility] METHYLPRE INC INC DNISOLONE ACETATE [address] THORAX 39944 LUZ ESCOBAR W/O 5 [facility] [place] [address] [facility], SURG 5 [facility] PATHOLOGY GROSS&ROSA MARIA ROSCOPIC EXAM CONTINUOU [...] EQUIPME EQUIPME PRSC FLW RATE TUBING A7037 CIATLIN CAITLIN USED WITH 5 HOME HOME POSITIVE MEDICAL MEDICAL AIRWAY EQUIPME EQUIPME PRESSURE DEVICE CONTINUOU E0601 CAITLIN TUCKER S 5 HOME HOME POSITIVE MEDICAL MEDICAL AIRWAY EQUIPME EQUIPME PRESSURE DEVICE HUMDIFIR E0562 CAITLIN MARMOLEJORELL HEATED 5 HOME HOME USED MEDICAL MEDICAL [...] DEVICE O2 CONC 1 E1390 CAITLIN THOMPSON [facility] 5 HOME HOME 85%/>02 MEDICAL MEDICAL CONC AT [facility] FLW RATE PHRM Q0513 YOUR YOUR DISPENSIN 5 PHARMACY PHARMACY G FEE LLC LLC INHALATIO N RX; PER 30 DAYS ALBUTEROL J7613 YOUR YOUR INHAL 5 PHARMACY PHARMACY NON-CP LLC LLC PROD THRU DME U DOSE 1 MG O2 CONC 1 E1390 CAITLIN THOMPSON [facility] 5 HOME HOME 85%/>02 [facility]ICAL [facility] FLW RATE POLYSOM 48913 PAVEZ MAR PAVEZ MAR 6/>YRS 5 SLEEP 4/> ADDL TONY ATTND O2 CONC 1 E1390 CAITLIN THOMPSON [facility] 5 HOME HOME 85%/>02 [facility] FLW RATE POLYSOM 05877 LUZ ESCOBAR 6/>YRS 5 [facility] SLEEP 4/> INC INC ADDL TONY ATTND CT THORAX 65590 [place] F[place] W/O 5 MEDICAL ALLISON CONTRAST IMAGING MATERIAL ASS O2 CONC 1 E1390 CAITLIN THOMPSON [facility] 5 HOME HOME 85%/>02 MEDICAL MEDICAL CONC AT [facility] FLW RATE ELEC ARCHANA 218[address] [place] R[place]HE[place] SE[place] NSTIM 5 MEDICAL PLS GEN SERV CPLX FOUNDATIO SC/PERPH N W/PRGRMG INSERTION 85471 [place] /RPLCMT 5 MEDICAL PERIPHERA SERV L/GASTRIC FOUNDATIO NPGR N INJECTION J2704 [facility] PROPOFOL 5 Y Y 10 [facility]PITAL INJECTION J2710 [facility] 5 Y Y NEOSTIGMI [facility] NE METHYLSUL FATE UP TO 0.5 MG INJECTION J3010 [facility] FENTANYL 5 Y Y CITRATE [facility] 0.1 MG INJECTION J3370 [facility] 5 Y Y VANCOMYCI [facility] N HCL 500 MG INJECTION J2405 [facility] 5 [facility] H[facility] PER 1 MG FLUOROSCO 21747 [facility] SPX UP 5 Y Y TO 1 HOSPITAL HOSPITAL HOUR PHYS/QHP TIME INTRDUCR/ C1894 [facility] SHEATH 5 Y Y NOT GUID [facility] INTRACARD EP NON-LASR INJECTION J0330 [facility] 5 Y Y SUCCINYLC [facility] HOLINE CHLORIDE UP TO 20 MG INJECTION J1580 [facility] 5 Y Y GARAMYCIN [facility] GENTAMICI N UP TO 80 MG INFUSION J7050 [facility] NORMAL 5 Y Y SALINE [facility] SOLUTION 250 CC INC 06844 [facility] IMPLTJ 5 Y [facility] SACRAL NERVE LEAD C1897 [facility] Y Y [facility] TEST KIT INJECTION J1100 [facility] 5 Y Y DEXAMETHO [facility] SONE SODIUM PHOSPHATE 1 MG RINGERS J7120 [facility] LACTATE 5 Y Y INFUSION [facility] UP TO 1000 CC O2 CONC 1 E1390 [facility] 5 HOME HOME 85%/>02 MEDICAL MEDICAL CONC AT EQUIPME EQUIPME PRSC FLW RATE NONEMERG A0120 FEDERATED FEDERATED TRNSPRT: 5 MINI-BUS TRANSPORT TRANSPORT [facility] SYS O2 CONC 1 E1390 [facility] 4 HOME HOME 85%/>02 MEDICAL MEDICAL CONC AT EQUIPME EQUIPME PRSC FLW RATE RADIOLOGI 51628 LUZ ESCOBAR C EXAM 4 [facility] CHEST 2 INC INC VIEWS FRONTAL&L ATERAL ADMN SET A7005 YOUR YOUR W/SM VOL 4 PHARMACY PHARMACY NONFILTR [employer] NEBULIZR NON-DISPB L ALBUTEROL J7613 YOUR YOUR INHAL 4 PHARMACY PHARMACY NON-CP [employer] PROD THRU DME U DOSE 1 MG PHARM G0333 YOUR YOUR DISPEN 4 PHARMACY PHARMACY FEE INHAL [employer] RX; INITIAL 30-DAY SUPPLY NONEMERG A0120 FEDERATED FEDERATED TRNSPRT: 4 TRANS [facility] TRANSPORT SERVBLUEG MTN ATION SER ELIU AREA/OTH SYS ANOSCOPY 13284 [place] W/BX 4 MEDICAL SINGLE/MU SERV LTIPLE FOUNDATIO N BIOPSY 28269 [place] VAGINAL 4 MED[place] [address] [place] ANORECTAL 4 MEDICAL WALL SERV ANAL FOUNDATIO APPROACH N ANESTHESI 97322 SORAYA YANG GAV A 4 LTH ANORECTAL ANESTHESI A PSC PROCEDURE ECG 35946 [facility] ROUTINE 4 Y Y ECG [facility] W/LEAST 12 LDS TRCG ONLY W/O I&R BLOOD 85989 [facility] COUNT 4 Y Y COMPLETE [facility] AUTOMATED ECG 81292 ERMA MANNINGO ROUTINE 4 MEDICAL ECG SERV W/LEAST FOUNDATIO 12 LDS N I&R ONLY COLLECTIO 67637 [facility] VENOUS 4 Y Y BLOOD [facility] VENIPUNCT URE TENS E0730 EMPI INC EMPI INC DEVICE 4 4/MORE LEADS [place] [address] [facility], SURG 4 [facility] PATHOLOGY GROSS&[place] [address] LUZ ESCOBAR INFUSION 4 [facility] THERAPY INC INC PROPHYLAX IS/DX EA HOUR NONEMERG A0120 FEDERATED FEDERATED TRNSPRT: 4 TRANS [facility]I-[facility] TRANSPORT SERVBLUEG MTN [facility] SER ELIU AREA/OTH SYS COLONOSCO 86547 LUZ ESCOBAR PY 4 [facility] W/BIOPSY INC INC SINGLE/MU LTIPLE COLSC FLX 25250 [place] ANN PITER W/RMVL 4 MEDICAL OF TUMOR SERV POLYP FOUNDATIO LESION N SNARE TQ PRESSURIZ 71520 LUZ ESCOBAR ED/NONPRE 4 [facility] SSURIZED INC INC INHALATIO N TREATMENT UNCLASSIF J3490 LUZ ESCOBAR IED DRUGS 4 [facility] INC INC ANES 50884 [facility] 4 ANESTH SHE INTESTINE OF THE BLUE ENDOSCOPY DISTAL DUODENUM NONEMERG A0120 FEDERATED FEDERATED TRNSPRT: 4 TRANS [facility]I-[facility] TRANSPORT SERVBLUEG TXN [facility] SER ELIU AREA/OTH SYS PRESSURIZ 28622 LUZ ESCOBAR ED/NONPRE 4 [facility] SSURIZED INC INC INHALATIO N TREATMENT BRNCDILAT 82078 LUZ ESCOBAR RSPSE 4 [facility] SPMTRY INC INC PRE&POST- BRNCDILAT ADMN GAS 40947 LUZ ESCOBAR DILUT/WAS 4 [facility] HOUT LUNG INC INC VOL W/WO DISTRIB VENT&[place] [address] LUZ ESCOBAR DIFFUSING 4 [facility] H[facility] CAPACITY INC INC O2 CONC 1 E1390 CAITLIN TUCKER DEL PORT 4 HOME HOME 85%/>02 MEDICAL MEDICAL CONC AT EQUIPME EQUIPME PRSC FLW RATE NONEMERG A0120 FEDERATED FEDERATED TRNSPRT: 4 TRANS [facility] TRANSPORT SERVBLUEG TXN [facility] SER ELIU AREA/OTH SYS APPL 32215 LUZ ESCOBAR MODALITY 4 MEM H[facility]OS[facility] 1/> AREAS INC INC ELEC STIMJ EA 15 MIN LIPID 20828 LUZ ESCOBAR PANEL 4 [facility] INC INC COMPREHEN 11879 LUZ ESCOBAR SIVE 4 [facility]OS[facility] METABOLIC INC INC PANEL HEPATITIS 49622 LUZ ESCOBAR A 4 [facility]OS[facility] ANTIBODY INC INC HAAB ANTINUCLE 34998 LUZ ESCOBAR AR 4 [facility]OS[facility] ANTIBODIE INC INC S DUANE TENS E0730 EMPI INC EMPI INC DEVICE 4 4/MORE LEADS MULTI NERVE STIMULATI ON RHEUMATOI 10976 LUZ Pandey FACTOR 4 [facility]OS[facility] QUANTITAT INC INC FLAQUITO HEPATITIS 71221 LUZ ESCOBAR C 4 [facility] [place] [address] LUZ ESCOBAR THYROXINE 4 [facility] [place] [address] LUZ ESCOBAR BLOOD/URI 4 [facility] [place] [address] LUZ ESCOBAR THYROID 4 [facility] STIMULATI INC INC NG HORMONE TSH HEMOGLOBI 01742 LUZ ESCOBAR N 4 MEM [facility] MEM HOS[facility] GLYCOSYLA INC INC LUANN A1C BLOOD 56062 LUZ ESCOBAR COUNT 4 [facility] COMPLETE INC INC AUTO&AUTO DIFRNTL WBC HEPATITIS 45950 LUZ Drew SURF 4 [facility] ANTIBODY INC INC HBSAB SEDIMENTA 96404 [facility] TIMATTY RATE 4 [facility] RBC INC INC NON-AUTOM ATED HEPATITIS 33178 LUZ Drew CORE 4 [facility] [place] [address] [facility] HEPATITIS 4 [facility] B INC INC SURFACE ANTIGEN THERAPEUT 75978 LUZ LUZ IC PX 1/> 4 [facility] AREAS INC INC EACH 15 MIN EXERCISES APPLICATI 95426 LU[facility] CHAVEZ OF ON 4 [facility] [place], MODALITY INC INC. 1/> AREAS HOT/COLD PACKS NONEMERG A0120 FEDERATED FEDERATED TRNSPRT: 4 TRANS [facility] AREA/OTH SYS APPL 53635 LUZMATTY ESCOBAR MODALITY 4 [facility] 1/> AREAS INC INC ELEC STIMJ UNATTENDE D APPL 04286 LU[facility] MODALITY 4 [facility] 1/> AREAS INC INC ELEC STIMJ UNATTENDE D NONEMERG A0120 FEDERATED FEDERATED TRNSPRT: 4 TRANS [facility]SP[facility] SERVBLUEG TXN [facility] ELIU AREA/OTH SYS APPLICATI 92896 [facility]AR ON 4 [facility] MODALITY INC INC 1/> AREAS HOT/COLD PACKS O2 CONC 1 E1390 CAITLIN TUCKER DEL [place] 4 HOME HOME 85%/>02 MEDICAL MEDICAL CONC AT EQUIPME EQUIPME PRSC FLW RATE THERAPEUT 11084 LUZ LUZ IC PX 1/> 4 [facility] AREAS INC INC EACH 15 MIN EXERCISES THERAPEUT 17135 LUZ ESCOBAR IC PX 1/> 4 [facility] AREAS INC INC EACH 15 MIN EXERCISES APPLICATI 12005 LUZ ESCOBAR ON 4 [facility] MODALITY INC INC 1/> AREAS HOT/COLD PACKS NONEMERG A0120 FEDERATED FEDERATED TRNSPRT: 4 [facility] AREA/OTH SYS APPL 79930 LUZ ESCOBAR MODALITY 4 [facility] 1/> AREAS INC INC ELEC STIMJ UNATTENDE D APPL 89065 LU[facility] ESCOBAR MODALITY 4 [facility] 1/> AREAS INC INC ELEC STIMJ UNATTENDE D NONEMERG A0120 FEDERATED FEDERATED TRNSPRT: 4 [facility] AREA/OTH SYS APPLICATI 64611 LUZ ESCOBAR ON 4 [facility] MODALITY INC INC 1/> AREAS HOT/COLD PACKS THERAPEUT 29905 LUZ ESCOBAR IC PX 1/> 4 [facility] AREAS INC INC EACH 15 MIN EXERCISES THERAPEUT 82081 LUZ ESCOBAR IC PX 1/> 4 [facility] AREAS INC INC EACH 15 MIN EXERCISES APPLICATI 33570 LUZ ESCOBAR ON 4 [facility] MODALITY INC INC 1/> AREAS HOT/COLD PACKS NONEMERG A0120 FEDERATED FEDERATED TRNSPRT: 4 [facility] AREA/OTH SYS APPL 81956 LUZ ESCOBAR MODALITY 4 [facility] 1/> AREAS INC INC ELEC STIMJ UNATTENDE D APPL 43642 LUZ ESCOBAR MODALITY 4 [facility] 1/> AREAS INC INC ELEC STIMJ UNATTENDE D APPLICATI 71520 LUZ SALINAS ON 4 [facility] MODALITY INC 1/> AREAS HOT/COLD PACKS THERAPEUT 08124 LUZ ESCOBAR IC PX 1/> 4 [facility] AREAS INC INC EACH 15 MIN EXERCISES MRI 74434 LU[facility] SPINAL 4 [facility] CANAL INC INC LUMBAR W/O CONTRAST MATERIAL 3D 22421 LUZ ESCOBAR RENDERING 4 [facility] W/INTERP INC INC & POSTPROCE SS SUPERVISI ON PHYSICAL 12241 LUZ ESCOBAR THERAPY 4 [facility] EVALUATIO INC INC N O2 CONC 1 E1390 CAITLIN TUCKER [place] 4 HOME HOME 85%/>02 MEDICAL MEDICAL CONC AT EQUIPME [facility] FLW RATE PHYSICAL 21907 LUZ ESCOBAR THERAPY 4 [facility] EVALUATIO INC INC N NONEMERG A0120 FEDERATED FEDERATED TRNSPRT: 4 TRANS [facility]SP[facility] SERVBLUEG MTN [facility] AREA/OTH SYS SLINGS A4565 [employer] 4 O2 CONC 1 E1390 CAITLIN TUCKER [facility] 4 HOME HOME 85%/>02 MEDICAL MEDICAL CONC AT EQUIPME [facility] FLW RATE INJECTION [id number] [facility] CRISTIAN 4 PHYSICIAN ROSA MARIA METHYLPRE S GROUP DNISOLONE ACETATE 80 MG THERAPEUT 22983 [facility] IC 4 PHYSICIAN ROSA MARIA PROPHYLAC S GROUP TIC/DX INJECTION SUBQ/IM INJECTION [id number] [facility] 4 PHYSICIAN ROSA MARIA KETOROLAC S GROUP TROMETHAM INE PER 15 MG NON-INVAS 45180 LUZMATTY ESCOBAR FLAQUITO 4 [facility] PHYSIOLOG INC INC IC STUDY EXTREMITY 3 LEVLS O2 CONC 1 E1390 [facility] 4 HOME HOME 85%/>02 [facility] ADMN SET [id number] YOUR YOUR W/SM VOL 4 PHARMACY PHARMACY [facility] NEBULIZR NON-DISPB L NEBULIZER [id number] CAITLIN TUCKER WITH 4 HOME HOME COMPRESSO MEDICAL MEDICAL R EQUIPME EQUIPME INJECTION [id number] [facility] CRISTIAN 4 PHYSICIAN ROSA MARIA KETOROLAC S GROUP TROMETHAM INE PER 15 MG INJECTION J1040 [facility]STIAN 4 PHYSICIAN ROSA MARIA METHYLPRE S GROUP DNISOLONE ACETATE 80 MG THERAPEUT 82654 [facility] IC 4 PHYSICIAN ROSA MARIA PROPHYLAC S GROUP TIC/DX INJECTION SUBQ/IM URNLS DIP 29202 [facility] 4 [facility] STICK/TAB [facility] LET RGNT [facility] NON-AUTO W/O MICRSCP SMR PRIM 46491 [facility] SRC WET 4 [facility] NFCT AGT MADI MADI WET Q0111 [facility] FARRAH 4 [facility] DISTRICT INCL PREP [facility] VAGINAL [facility] CERV/SKIN SPECIMENS BLOOD 22456 [facility] COUNT 4 [facility] COMPLETE INC INC AUTO&[place] [address] [facility] THYROID 4 [facility] STIMULATI INC INC NG HORMONE TSH CYANOCOBA 82726 [facility] TIFFANY 4 [facility] VITAMIN [place] B-12 [place] [address] [facility], SURG 4 [facility] PATHOLOGY GROSS&ROSA MARIA ROSCOPIC EXAM IMHISTOCH 87053 [facility], EM/CYTCHM 4 [facility] 1ST ANTIBODY STAIN PROCEDURE COMPREHEN 93568 [facility] SIVE 4 [facility] METABOLIC INC INC PANEL COLPOSCOP 40818 [facility] CERVIX 4 [facility] 50304 [facility] AIDED 4 [facility] DETECTION INC INC SCREENING MAMMOGRAP HY SCREENING G0202 [facility] ESCOBAR 4 [facility] MAMMOGRAP INC INC HY JOSSELYN INCL CAD WHEN PERFORMD PH BODY 99609 [facility] FLUID NOT 4 [facility] DISTRICT [facility] DE[facility] ELSEWHERE [facility] MADI SPECIFIED ALL Q0112 [facility] POTASSIUM 4 [facility] HYDROXIDE [facility] MADI PREPARATI ONS AMINES 06006 [facility] VAGINAL 4 [facility] QUALITATI [facility] MADI VE WET Q0111 [facility] FARRAH 4 [facility] DISTRICT INCL PREP TH DEPT [facility] DEPT VAGINAL MADI MADI CERV/SKIN SPECIMENS IADNA 66622 [facility], [facility] VIRUS HUMAN AMPLIFIED PROBE TQ CYTP 63441 [facility], [facility], CERVICAL/ 4 [facility] VAGINAL REQ INTERP PHYSICIAN IADNA 42495 [facility] NEISSERIA 4 [facility] DEPT TH DEPT GONORRHOE MADI MADI AE AMPLIFIED PROBE TQ IADNA 07231 [facility] CHLAMYDIA 4 [facility] DEPT [facility] DEPT TRACHOMAT MADI MADI IS AMPLIFIED PROBE TQ CYTP 87206 [facility], CERV/VAG 4 [facility] AUTO THIN LAYER PREP MNL SCREEN SMR PRIM 74771 [facility] SRC WET 4 [facility] NFCT AGT MADI MADI Encounters Encounter Start End Date Code Location Performer Type Date [facility] LUZ - 7 7 [facility] OUTPATIEN [facility] LUZ - OTHER 7 7 [facility] INC OFFICE 29499 SIENA HERRERAP OUTPATIEN 7 7 Diya FELDMAN VISIT ,PSC 25 MINUTES OFFICE 57924 SIENA ALVARADO OUTPATIEN 7 7 SHASTA FELDMAN T VISIT 5 ,PSC MINUTES OFFICE 34316 SIENA ALVARADO OUTPATIEN 7 7 SHASTA FELDMAN T VISIT ,PSC 25 MINUTES HOSPITAL LUZ - 7 7 [facility] OUTPATIEN [facility] LUZ - 7 7 [facility] OFFICE 01567 SIENA WREN OUTPATIEN 7 7 Diya FELDMAN VISIT ,PSC 25 MINUTES OFFICE 93750 WRENYOLANDA TADEO OUTPATIEN 7 7 Diya FELDMAN VISIT ,PSC 25 MINUTES OFFICE 73818 ALLERGY DWYER OUTPATIEN 7 7 PARTNERS T VISIT OF GONZALEZ 40 CO MINUTES OFFICE 38656 WREN WREN OUTPATIEN 6 6 TRAVIS FELDMAN T RAHCID MENSAH,[facility] 25 MINUTES OFFICE 26375 ALLERGY DWYER MAR OUTPATIEN 6 6 PARTNERS T NEW 60 OF GONZALEZ MINUTES CO OFFICE 50435 SIENA ZIMMERMANMAXIME OUTPATIEN 6 6 SHASTA FELDMAN T VISIT ,[facility] 25 MINUTES OFFICE 17775 [facility] CRISTIAN OUTPATIEN 6 6 PHYSICIAN ROSA MARIA T VISIT S GROUP 25 MINUTES OFFICE 53760 SIENA TADEO OUTPATIEN 6 6 NAHID FELDMAN 30 ,[facility] MINUTES OFFICE 28807 [facility] CRISTIAN OUTPATIEN 6 6 PHYSICIAN ROS AMARIA T VISIT S GROUP 25 MINUTES HOSPITAL LUZ - OTHER 6 6 [facility] LUZ - 6 6 [facility] OUTPATIEN [facility] LUZ - OTHER 6 6 [facility] OFFICE 15784 [facility] CRISTIAN OUTPATIEN 6 6 PHYSICIAN ROSA MARIA T VISIT S GROUP 10 MINUTES HOSPITAL LZU - OTHER 6 6 [facility] OFFICE 62980 [facility] ROZ TOD OUTPATIEN 6 6 PHYSICIAN T VISIT S GROUP 10 MINUTES OFFICE 09728 [facility] SONG OUTPATIEN 6 6 PHYSICIAN LEANDER T VISIT S GROUP 15 MINUTES OFFICE 29688 [facility] PETTEY OUTPATIEN 6 6 PHYSICIAN JAM T NEW 30 S GROUP MINUTES HOSPITAL LUZ - 6 6 [facility] OUTPATIEN [facility] T OFFICE 01135 [facility] ROZ TOD OUTPATIEN 6 6 PHYSICIAN T VISIT S GROUP 25 MINUTES HOSPITAL LUZ - OTHER 6 6 [facility] LUZ - OTHER 6 6 MEM [facility] INC OFFICE 09192 [facility] CRISTIAN OUTPATIEN 6 6 PHYSICIAN ROSA MARIA T VISIT S GROUP 15 MINUTES HOSPITAL LUZ - 6 6 [facility] OUTPATIEN [facility] LUZ - 6 6 [facility] OUTPATIEN [facility] T OFFICE 63286 [facility] CRISTIAN OUTPATIEN 6 6 PHYSICIAN ROSA MARIA T VISIT S GROUP 15 MINUTES HOSPITAL LUZ - OTHER 6 6 MEM [facility] INC OFFICE 95730 [facility] CRISTIAN OUTPATIEN 6 6 PHYSICIAN ROSA MARIA T VISIT S GROUP 10 MINUTES HOSPITAL LUZ - 6 6 [facility] OUTPATIEN [facility] T OFFICE 94005 [facility] CRISTIAN OUTPATIEN 6 6 PHYSICIAN ROSA MARIA T VISIT S GROUP 10 MINUTES HOSPITAL UNIVERSIT - 6 6 Y [facility] UNIVERSIT - 6 6 Y [facility] LUZ [facility] OTHER 6 6 MEM [facility] INC OFFICE 45933 NATHAN RAMOS OUTPATIEN 6 6 MD MEHNAZ, T VISIT [facility] 15 [facility] LUZ - 6 6 [facility] OUTPATIEN [facility] LUZ - 6 6 [facility] OUTPATIEN [facility] T EMERGENCY 99293 LUZ 6 6 MEM H[facility]P [facility] T VISIT MODERATE SEVERITY HOSPITAL LUZ - OTHER 5 5 MEM [facility] INC OFFICE 91247 [facility] SONG OUTPATIEN 5 5 PHYSICIAN LEANDER T VISIT S GROUP 15 MINUTES HOSPITAL LUZ - 5 5 [facility] OUTPATIEN [facility] T OFFICE 03180 NATHAN ALEXIS OUTPATIEN 5 5 MD MEHNAZ, T VISIT [facility] 10 MINUTES HOSPITAL [facility]ERSIT - 5 [facility] OUTPATIEN INC T EMERGENCY 79038 [facility] 5 5 [facility] HIGH/URGE NT [facility] H[facility] LUZ - 5 5 [facility] OUTPATIEN [facility] UNIVERSIT - 5 5 [facility] 0[facility] LUZ JHAVERI OUTPATIEN 5 5 [facility] T VISIT [facility] 10 P [facility] LUZ - 5 5 [facility] OUTPATIEN [facility] LUZ [facility] 5 5 [facility] OUTPATIEN [facility] T OFFICE 35260 NATHAN DIOP [facility] OUTPATIEN 5 5 MD MEHNAZ, T VISIT [facility] 10 MINUTES OFFICE 33247 ERMA ARA COOPER OUTPATIEN 5 5 MEDICAL T NEW 45 SERV MINUTES FOUNDATIO N OFFICE 53425 ERMA OSEI OUTPATIEN 5 5 MEDICAL T VISIT SERV 25 [facility]ATIO [facility] UNIVERSIT - 5 5 Y [facility] T OFFICE 61230 [facility] ROZ DAO OUTPATIEN 5 5 PHYSICIAN T VISIT S GROUP 10 [facility] LUZ - 5 5 [facility] OUTPATIEN [facility] T OFFICE 13796 LUZ OUTPATIEN 5 5 [facility] T VISIT INC 10 [facility] LUZ [facility] 5 5 [facility] INPATIENT [facility] LUZ - 5 5 [facility] INPATIENT [facility] HOSPITAL LUZ [facility] 5 5 [facility] OUTPATIEN [facility] LUZ - 5 5 [facility] OUTPATIEN [facility] T OFFICE 08422 NATHAN ESTRADAX ANJ OUTPATIEN 5 5 MD MEHNAZ, T VISIT [facility] 15 MINUTES HOSPITAL LUZ - 5 5 [facility] OUTPATIEN [facility] T OFFICE 85660 HEATHER ESTRADAX ANJ OUTPATIEN 5 5 MD T VISIT 10 MINUTES [facility] LUZ - 5 5 [facility] OUTPATIEN [facility] LUZ - 5 5 [facility] OUTPATIEN [facility] T OFFICE 15982 ERMA LOPEZ OUTPATIEN 5 5 MEDICAL JAM T VISIT SERV 25 FOUNDATIO MINUTES N OFFICE 10874 [facility]ATHER DARBY BUX ANJ OUTPATIEN 5 5 MD T [facility] 30 MINUTES [facility] UNIVERSIT - 5 5 [facility] UNIVERS[facility] - 5 5 Y [facility] T OFF[facility] 10567 [facility] Y T VISIT [facility] 25 MINUTES [facility] LUZ - 4 4 [facility] OUTPATIEN [facility] T PERIODIC 78705 [facility] PREVENTIV 4 4 PHYSICIAN ROSA MARIA E MED EST S GROUP PATIENT 40-64YRS [facility] UNIVERSIT - 4 4 Y [facility] T OFFICE 97776 [facility] OUTPATIEN 4 4 PHYSICIAN ROSA MARIA T VISIT S GROUP 10 MINUTES HOSPITAL UNIVERSIT - 4 4 Y [facility] T OFFICE 59913 [facility]IT [facility] 4 4 Y T VISIT HOSPITAL 40 MINUTES OFFICE 10192 [place] KAIDEN OSEI OUTPATI 4 4 MEDICAL T NEW 45 SERV MINUTES [facility]OUNDATIO [facility] LUZ - 4 4 [facility] OUTPATIEN [facility] T OFFICE 00482 [place] AMBER PHI OUTPATIEN 4 4 MEDICAL T NEW 30 SERV MINUTES [facility] LUZ - 4 4 [facility] OUTPATIEN INC T OFFICE 66719 [facility] CRISTIAN OUTPATIEN 4 4 PHYSICIAN ROSA MARIA T VISIT S GROUP 15 MINUTES OFFICE 56915 [place] MARISSA PITER CONSULTAT 4 4 MEDICAL ION SERV NEW/ESTAB FOUNDATIO PATIENT N 60 MIN HOSPITAL LUZ - 4 4 [facility] OUTPATIEN INC T OFFICE 42845 [facility] CRISTINA OUTPATIEN 4 4 PHYSICIAN ROSA MARIA T VISIT S GROUP 25 MINUTES OFFICE 19669 [facility] CRISTIAN OUTPATIEN 4 4 PHYSICIAN ROSA MARIA T VISIT S GROUP 10 MINUTES HOSPITAL LUZ - 4 4 [facility] OUTPATIEN INC [facility]OSPITAL LUZ - 4 4 [facility] OUTPATIEN INC [facility]PITAL LUZ - 4 4 [facility] OUTPATIEN INC T OFFICE 41816 [facility] OUTPATIEN 4 4 D VANESA T VISIT PATHOLOGI [facility] MINUTES HOSPITAL LUZ - 4 4 [facility] OUTPATIEN INC T OFFICE 57077 LUZ SIDHU JR OUTPATIEN 4 4 [facility] 10 P MINUTES OFFICE 49405 [facility] OUTPATIEN 4 4 D VANESA T VISIT PATHOLOGI [facility] MINUTES OFFICE 69058 [facility] CRISTIAN OUTPATIEN 4 4 PHYSICIAN ROSA MARIA T VISIT S GROUP 10 MINUTES OFFICE 27976 LUZ SIDHU JR CONSULTAT [address] [facility] NEW/ESTAB P PATIENT 60 MIN HOSPITAL LUZ - 4 4 [facility] OUTPATIEN INC T OFFICE 54067 [facility] CRISTIAN OUTPATIEN 4 4 PHYSICIAN ROSA MARIA T VISIT S GROUP 15 MINUTES OFFICE 93399 [facility] CRISTIAN OUTPATIEN 4 4 PHYSICIAN ROSA MARIA T VISIT S GROUP 15 MINUTES OFFICE 79431 [facility] CRISTIAN OUTPATIEN 4 4 PHYSICIAN ROSA MARIA T VISIT S GROUP 15 MINUTES OFFICE 71790 [facility] CRISTIAN OUTPATIEN 4 4 PHYSICIAN ROSA MARIA T NEW 30 S GROUP MINUTES OFFICE 51485 [facility] 4 4 [facility] T VISIT [facility] 10 [facility] LUZ - 4 4 [facility] OUTPATIEN INC T HOSPITAL LUZ - 4 4 [facility] OUTPATIEN INC T PERIODIC 47115 [facility] PREVENTIV 4 4 [facility] E MED EST [facility] PATIENT [facility] 40-64YRS OFFICE 29326 [facility] 4 4 [facility] T VISIT [facility] DE[facility] 15 [facility] MINUTES
--- OUTSIDE RECORDS SUMMARY | 2017-03-12 13:58 | External Medical Summary Rpt | CCD ---
Author Author , HARLEY Organization HARLEY Address Unknown Phone [email or web address] Financial Care Team Providers Care Warp Bleaching Vat Tender Name Role Phone JHAVERI FABY, JHAVERI Unavailable [...] ROSA MARIA, CRISTIAN Unavailable Unavailable ROSA MARIA [facility] Unavailable Unavailable INC, [facility] Unavailable [facility]available HOSPITAL P, [facility] P [facility], Unavailable Unavailable [facility] Unavailable [facility]available [facility], [facility] Unavailable Unavailable [facility], [facility] RACHAEL MANNINGO, RACHAEL IMELDA Unavailable Unavailable BULLOCK ALLISON, BULLOCK ALLISON Unavailable Unavailable [facility], [facility] Un[facility], [facility] Unavailable Unavailable [facility] ETTA CRI, E[facility] C[facility] Unavailable Unavailable [...] SHE GOODMAN VANESA, GOODMAN Unavailable Unavailable VANESA [facility], Unavailable Unavailable [facility] AMBER PHI, AMBER PHI Unavailable Unavailable [facility], Unavailable Unavailable [facility] Unavailable Unavailable DEPT [facility], [facility] DEPT [facility] Unavailable Unavailable DEPT [facility] DEPT [facility] BERTHA, Unavailable Unavailable BERTHA BERTHA [...] 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 UNS EQUIPME [id number] PAIN IN 01-30-2017 [facility] [place] UNSPECIFIED [facility] HIP [facility]AGING ASS [id number] PAIN IN 01-30-2017 [facility] [place] RIGHT KNEE MEDICAL IMAGING ASS 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 M545 LOW BACK 01-30-2017 [facility] [place] PAIN [facility]ICAL [facility]ING ASS U05951 OTHER LONG 01-23-2017 [facility]M [facility] CURRENT INC DRUG THERAPY U06524 SPONDYLOSIS 12-26-2016 [facility] W/O FRANCIA MYELOPATH/R ,PSC ADICULOPATH Y LUMB RGN 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 FRANCIA OF OPIATE ,PSC ANALGESIC L819 DISORDER OF 09-26-2016 [facility] PIGMENTATIO INC N UNSPECIFIED [id number] PAIN IN 09-26-2016 [place] RIGHT LEG [facility]ICAL IM[facility] R2241 LOCALIZED 09-26-2016 [place] [facility] MASS & LUMP INC RIGHT LOWER LIMB R600 LOCALIZED 09-26-2016 [facility] [place] E[facility]MA [facility] T65741 PERSONAL 09-26-2016 [place] [place] HISTORY OT MEDICAL VENOUS IMAGING ASS THROMBOSIS& EMBOLISM I10 ESSENTIAL 09-25-2016 [place] [facility] HYPERTENSIO INC N K219 GASTRO-ESOP 09-25-2016 [place] H REFLUX [facility] DISEASE INC WITHOUT ESOPHAGITIS U20195 PAIN IN 09-25-2016 [place] RIGHT FOOT [facility] INC Z720 TOBACCO USE 09-25-2016 [facility] INC J301 ALLERGIC 07-22-2016 [facility] RHINITIS PARTNERS OF DUE TO [place] CO POLLEN J3081 ALLERG 07-22-2016 [facility] RHINITIS PARTNERS OF D/T ANIMAL [place] CO CAT DOG HAIR & DANDER J3089 OTHER 07-22-2016 [facility] ALLERGIC PARTNERS OF RHINITIS [place] CO M5136 OT 07-02-2016 MARIANN JOHNS MD,PSC DEGEN LUMBAR REGION T00161U ADVERS EFF 06-11-2016 [facility] OT RX MEDS PARTNERS OF BIO [place] CO SUBSTANCES INIT ENC H2513 AGE-RELATED 06-06-2016 [facility] CATARACT CENTER BILATERAL M810 AGE-RELATED 04-30-2016 ELICEO MEDINA MD,PSC S W/O CURRNT PATH FX J440 COPD WITH 04-02-2016 [facility] ACUTE LOWER PARTNERS OF [place] CO RESPIRATORY INFECTION J4530 MILD 04-02-2016 [facility] PERSISTENT PARTNERS OF ASTHMA [place] CO UNCOMPLICAT ED Z889 ALLERGY 04-02-2016 [facility] STATUS UNS PARTNERS OF RX MEDS & [place] CO BIOLOG SUBSTANC STS G8929 OTHER 01-02-2016 [facility] CHRONIC PHYSICIANS PAIN GROUP M5137 OTH 01-02-2016 [facility]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 H13340 PAIN IN 01-02-2016 [facility] LEFT HAND PHYSICIANS GROUP M5416 RADICULOPAT 12-28-2015 [facility] LUMBAR CAILIN FELDMAN MD,PSC Z1231 ENCOUNTER 11-23-2015 [facility] MEDICAL MAMMO MALIG IMAGING ASS NEOPLASM BREAST N390 URINARY 11-16-2015 [facility] TRACT [facility] INFECTION INC SITE NOT SPECIFIED M519 UNS THOR 11-06-2015 [facility] THORACOLUMB PHYSICIANS AR GROUP LUMBOSACRAL IV DISC D/O 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 GROUP R102 PELVIC AND 10-24-2015 [facility] PERINEAL PHYSICIANS PAIN GROUP R109 UNSPECIFIED 10-24-2015 [facility] ABDOMINAL PHYSICIANS PAIN GROUP C3198RC OTHER 10-24-2015 [facility] COMPLICATIO PHYSICIANS NS PROC NEC GROUP INITIAL ENCOUNTER G4733 OBSTRUCTIVE 10-20-2015 [facility] SLEEP HOME APNEA ADULT MEDICAL PEDIATRIC EQUIPME M6580 OTHER 10-16-2015 [facility] SYNOVITIS & PHYSICIANS GROUP TENOSYNOVIT IS UNSPECIFIED SITE K469 UNS 10-15-2015 [facility]AL [facility] HERNIA W/O INC OBSTRUCTION OR GANGRENE R1031 RIGHT LOWER 10-15-2015 [facility] PAIN IM[facility] ASS L93158 PERSONAL HX 10-15-2015 [facility] AMBIKA RECTUM IMAGING ASS RS JUNC & ANUS R8290 UNSPECIFIED 10-10-2015 [facility] ABNORMAL [facility] FINDINGS IN INC URINE E039 HYPOTHYROID 10-09-2015 [facility] ISM PHYSICIANS UNSPECIFIED GROUP E785 HYPERLIPIDE 10-09-2015 [facility] MARY PHYSICIANS UNSPECIFIED GROUP M5116 INTERVERTEB 10-09-2015 [facility] RAL DISC PHYSICIANS D/O GROUP W/RADICULOP ATHY LUMB RGN T10901 PAIN IN 09-17-2015 [facility] RIGHT HIP PHYSICIANS GROUP R1030 LOWER 07-27-2015 [facility] PAIN UNSPECIFIED R748 ABNORMAL 07-27-2015 [facility] OTHER SERUM ENZYMES Z0000 ENCOUNTER 07-11-2015 [facility] MED EXAM W/O ABNORMAL FIND R1032 LEFT LOWER 06-09-2015 [place] [place] [facility]IN IM[facility]ING ASS R1084 GENERALIZED 06-09-2015 [facility] PAIN INC K651 PERITONEAL 05-08-2015 [facility] ABSCESS [facility] INC D01741M LAC NO FB 04-24-2015 [facility] AW UNS QUAD [facility] NO PEN INC PERITN CAV SEQUELA 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 ACQUIRED 04-24-2015 [facility] ABSENCE OF [facility] BOTH CERVIX INC AND UTERUS 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-2015 [facility] P D126 BENIGN 04-04-2015 [facility] COLON UNSPECIFIED 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 J471 BRONCHIECTA 04-02-2015 [place] SIS WITH PHARMACY OF ACUTE [facility] EXACERBATIO N R05 COUGH 03-22-2015 [facility] R509 FEVER 03-22-2015 [place] UNSPECIFIED MEDICAL IMAGING ASS E1377KL OTHER 03-22-2015 [facility] COMPLICATIO [facility] NS INC ANESTHESIA INITIAL ENCOUNTER D125 BENIGN 03-21-2015 [facility] SIGMOID COLON Z1211 ENCOUNTER 03-21-2015 [facility] MALIGNANT NEOPLASM OF COLON R32 UNSPECIFIED 03-20-2015 [facility] P E E16629 COMBINED 03-13-2015 [place] [facility] OF SERV 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 T88450 UNSPECIFIED 03-13-2015 [facility] ASTIGMATISM [facility]OUND[facility] BILATERAL K921 MELENA 02-23-2015 [facility] K36518 OTHER 02-23-2015 [facility] SPEC[facility]IED SERV URINARY FOUNDATION INCONTINENC E R159 FULL 02-23-2015 [facility] E OF FECES O01820 PERSONAL 02-23-2015 [place] 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 51784 OBSTRUCTIVE 02-19-2015 [facility] APNEA MEDICAL EQUIPME 496 CHRONIC 02-14-2015 [place] AIRWAY HOME OBSTRUCTION MEDICAL NEC EQUIPME 5693 HEMORRHAGE 02-14-2015 [facility] OF RECTUM PHYSICIANS AND ANUS GROUP 38846 DEGEN 02-06-2015 [place] LUMBAR/LUMB MEM [facility] OSACRAL INC INTERVERTEB RAL DISC 7244 THORACIC/JONATHAN 02-06-2015 ZEINA SARGENT MD, PSC NEURITIS/RA DICULITIS UNSPEC 53559 UNSPECIFIED 02-06-2015 [facility] P 23177 EXTRINSIC 02-01-2015 [place] ASTHMA, PHARMACY OF UNSPECIFIED [facility] 4019 UNSPECIFIED 01-30-2015 [facility] P N 8793 OPEN WOUND 01-30-2015 [place] ABDOMINAL MEDICAL WALL IMAGING ASS ANTERIOR COMPLICATED 9975 URINARY 01-30-2015 [place] COMPLICATIO [facility] P V1089 PERSONAL 01-30-2015 [facility] HISTORY [facility]ITAL P NEOPLASM OTHER SITE V8801 ACQUIRED 01-25-2015 [place] ABSENCE OF MEDICAL BOTH CERVIX IMAGING ASS AND UTERUS 2331 CARCINOMA 01-22-2015 [facility] OF ANNA & CERVIX DUBILIER UTERI 6271 POSTMENOPAU 01-22-2015 [facility] LUDY PHYSICIANS BLEEDING GROUP 64955 PAP SMER 01-22-2015 [facility] CERV W/HI [facility] GRADE INC SQUAMOUS INTRAEPITH LES 7969 OTHER 01-22-2015 [facility] NONSPECIFIC PHYSICIANS ABNORMAL GROUP FINDING V1090 PERSONAL 01-22-2015 [facility] HISTORY PHYSICIANS UNSPECIFIED GROUP MALIGNANT NEOPLASM 7213 LUMBOSACRAL 01-12-2015 NATHAN DARBY MD, PSC SPONDYLOSIS WITHOUT MYELOPATHY 7248 OTHER 01-12-2015 [facility] SYMPTOMS [facility] REFERABLE INC TO BACK 73519 OTHER 01-09-2015 [facility] NONSPECIFIC [facility] ABNORMAL INC FINDING OF LUNG FIELD 65901 DISPLCMT 01-08-2015 NATHAN DARBY, LUMBAR , PSC INTERVERT DISC W/O MYELOPATHY 0398 ACTINOMYCOT 12-25-2014 [facility] INFECTION OF OTHER SPECIFIED SITES 2360 NEOPLASM OF 12-25-2014 [facility] UNCERTAIN [facility] BEHAVIOR OF UTERUS 96191 OBSTRUCTIVE 07-26-2014 [facility] CHRONIC [facility] BRONCHITIS INC WITHOUT EXACERBAT 19145 NONSPEC 07-26-2014 [facility] REACT [facility] TUBERCULIN [place] W/[place] [address] HYPOXEMIA 07-26-2014 [facility] INC 3669 UNSPECIFIED 07-21-2014 [place] [facility] CATARACT [facility] 86282 ESOPHAGEAL 07-21-2014 [place] [facility] REFLUX [facility] 65666 OTHER SLEEP 07-21-2014 [facility] DISTURBANCE [facility] S 49563 FULL 07-10-2014 [place] [facility] INCONTINENC SERV E OF FECES FOUNDATION 47696 UNSPECIFIED 07-10-2014 [place] [facility] URINARY SERV INCONTINENC FOUNDATION E V1006 PERS HX MAL 07-10-2014 [place] [facility] NEOPLSM SERV RECT FOUNDATION RECTOSIGMOI D JUNC&ANUS 1541 MALIGNANT 06-26-2014 [place] [facility] NEOPLASM OF SERV RECTUM FOUNDATION V153 PERS HX 06-26-2014 [facility] 1542 MALIGNANT 06-02-2014 [place] [facility] NEOPLAS[facility] OF SERV ANAL CANAL FOUNDATION 70066 OTHER 06-02-2014 [facility] PAIN 57278 URGENCY OF 06-02-2014 [facility] 39126 06-02-2014 [facility] 74359 SHORTNESS 05-10-2014 [facility] OF BREATH MEDICAL IMAGING ASS 42008 OTHER 04-10-2014 [place] [facility] SPECIFIED SERV DISORDER OF FOUNDATION RECTUM AND ANUS 6238 OTHER 04-10-2014 [place] [facility] SPECIFIED SERV NONINFLAMMA FOUNDATION TORY DISORDER VAGINA V7284 UNSPECIFIED 04-06-2014 [facility] PHYSICIANS PRE-OPERATI GROUP VE EXAMINATION 1543 MALIGNANT 04-05-2014 [facility] NEOPLASM OF HOSPITAL ANUS UNSPECIFIED SITE 51620 CHRONIC 04-05-2014 [facility] ASTHMA UNSPECIFIED 47529 NONSPECIFIC 04-05-2014 [facility] ELECTROCARD IOGRAM V7283 OTHER 04-05-2014 [facility] PRE-OPERATI VE EXAMINATION 6829 CELLULITIS 03-27-2014 [facility] AND ABSCESS PHYSICIANS OF GROUP UNSPECIFIED SITE 86915 UNSPECIFIED 03-24-2014 [facility] CONSTIPATIO N 20306 FECAL 03-24-2014 [facility] V463 WHEELCHAIR 03-24-2014 [facility] 7242 LUMBAGO 03-15-2014 [facility] 2113 BENIGN 03-13-2014 [place] [facility] NEOPLAS[facility] OF SERV COLON FOUNDATION 2114 BENIGN 03-13-2014 [facility] NEOPLASM OF LLC RECTUM AND ANAL CANAL 2352 NEOPLASM 03-13-2014 [facility] UNCERTAIN [facility] BEHAVIOR INC STOMACH INTEST&RECT 04053 DIVERTICULO 03-13-2014 [facility]IS OF SERV COLON FOUNDATION 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 LLC 03174 OTHER 03-13-2014 [facility] SPECIFIED LLC DISORDER OF INTESTINES V142 PERSONAL 03-13-2014 [facility] HISTORY OF [facility] ALLERGY TO INC SULFONAMIDE S V1551 PERSONAL 03-09-2014 [facility] SERV TRAUMATIC FOUNDATION FRACTURE 2449 UNSPECIFIED 02-24-2014 [facility] PHYSICIANS HYPOTHYROID GROUP ISM 75425 PAIN IN 02-13-2014 [facility] JOINT, SITE MEM HOSP INC UNSPECIFIED 17527 OTHER&UNSPE 02-13-2014 [facility] CIFIED DISC PHYSICIANS DISORDER GROUP CERVICAL REGION 03344 OSTEOARTHRO 02-07-2014 [facility] S UNSPEC PHYSICIANS WHETHER GROUP GEN/LOC UNSPEC SITE 84250 PAIN IN 01-23-2014 [facility], MEM HOSP UPPER ARM INC 38941 PAIN IN 01-23-2014 [facility], MEM [facility]OS[facility] LOWER LEG INC V571 OTHER 01-23-2014 [facility] PHYSICAL [facility] THERAPY INC 51049 ANAL OR 12-14-2013 [facility] RECTAL PAIN [facility] P 7295 PAIN IN 12-13-2013 ASSOCIATED SOFT PATHOLOGIST TISSUES OF S LLC LIMB 52413 ATHEROSLERO 10-27-2013 [facility] NATV ART [facility] EXTREM INC W/INTERMIT CLAUDICAT V016 CONTACT 07-05-2013 [facility] WITH OR DISTRICT EXPOSURE TO [facility] DEPT VENEREAL MADI DISEASES 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 33541 PAP SMER 06-29-2013 [facility] C[facility] W/ATYPICAL CLINIC OF SQUAMOUS [place] CELLS UNDET 12549 OTH 06-29-2013 [facility] ABNORMAL [facility] U SMEAR [place] CERVIX&CERV HPV V2542 SURVEILLANC 06-29-2013 [facility]OM[facility]'S E PREV PRSC HEALTH INTRAUTERN CLINIC OF CNTRACPT [place] DEVC V7612 OTHER 06-15-2013 [facility] SCREENING [facility] MAMMOGRAM INC 00219 CERV HIGH 06-07-2013 [facility] RISK HUMAN LLC PAPILLOMAVI MISAEL DNA TEST POS V2689 OTHER 06-07-2013 [facility] SPECIFIED DISTRICT PROCREATIVE [facility] DEPT MANAGEMENT MADI V700 ROUTINE 06-07-2013 [facility] MEDICAL [facility] DEPT [email or web address] CARE FACL V7231 ROUTINE 06-07-2013 [facility] GYNECOLOGIC LLC AL EXAMINATION Procedures Procedure DOS Code Location Performer Comment O2 CONC 1 E1390 [facility] [place] 7 HOME HOME 85%/>02 MEDICAL MEDICAL CONC AT EQUIPME EQUIPME [facility] FLW RATE RADIOLOGI 01773 [place] [facility] C 7 MEDICAL EXAMINATI IMAGING ON PELVIS ASS 1/2 VIEWS RADIOLOGI 88594 [place] [facility] C 7 MEDICAL EXAMINATI IMAGING ON KNEE 3 ASS VIEWS RADEX 70854 [place] [place] [facility] SPINE 7 MEDICAL LUMBOSACR IMAGING AL ASS MINIMUM 4 VIEWS DRUG TEST 00465 [facility] ESCOBAR PRSMV 7 MEM HOSP MEM HOSP QUAL DIR INC INC OPTICAL OBS PER DAY O2 CONC 1 E1390 [facility] [place] 7 HOME HOME 85%/>02 MEDICAL MEDICAL CONC AT EQUIPME EQUIPME [facility] O2 CONC 1 E1390 [facility] [place] 7 HOME HOME 85%/>02 MEDICAL MEDICAL CONC AT EQUIPME EQUIPME [facility] O2 CONC 1 E1390 [facility] [place] 7 HOME HOME 85%/>02 MEDICAL MEDICAL CONC AT EQUIPME EQUIPME [facility] FL[facility] DRUG TEST 69186 SIENA ALVARADO PRSMV 7 SHASTA FELDMAN MD,PSC CHEMISTRY ANALYZERS O2 CONC 1 E1390 [facility] THOMPSON [facility] 7 HOME HOME 85%/>02 MEDICAL MEDICAL CONC AT EQUIPME EQUIPME [facility] FL[facility] DUP-SCAN 00214 [facility] [facility] XTR VEINS 7 MEDICAL IMAGING UNILATERA ASS L/LIMITED [facility] G0463 [facility] OUTPATIEN 7 MEM HOSP MEM HOSP T CLIN INC INC VISIT ASSESS & MGMT PT THERAPEUT 27000 [facility] ESCOBAR IC 7 MEM HOSP MEM HOSP PROPHYLAC INC INC TIC/DX INJECTION SUBQ/IM O2 CONC 1 E1390 [facility] [place] 7 HOME HOME 85%/>02 MEDICAL MEDICAL CONC AT EQUIPME EQUIPME [facility] DRUG TEST 66591 SIENA WREN PRSMV 7 HO FELDMAN MD,PSC CHEMISTRY ANALYZERS O2 CONC 1 E1390 [facility] THOMPSON [facility] 7 HOME HOME 85%/>02 MEDICAL MEDICAL CONC AT EQUIPME EQUIPME [facility] PREPJ& 77493 ALLERGY DWYER ALLERGEN 7 PARTNERS IMMUNOTHE OF [place] RAPY CO 1/J2EE ENGINEER ANTIGEN O2 CONC 1 E1390 [facility] [place] PORT 7 HOME HOME 85%/>02 MEDICAL MEDICAL CONC AT EQUIPME EQUIPME [facility] PREPJ& 40838 ALLERGY DWYER ALLERGEN 7 PARTNERS IMMUNOTHE OF [place] RAPY CO 1/J2EE ENGINEER ANTIGEN DRUG TEST 60224 SIENA TADEO PRSMV 7 HO FELDMAN MD,PSC CHEMISTRY ANALYZERS O2 CONC 1 E1390 [facility] [place] 7 HOME HOME 85%/>02 MEDICAL MEDICAL CONC AT [facility] FL[facility] R[facility] NITRIC 22818 ALLERGY DWYER OXIDE 7 PARTNERS OF [place] GAS CO DETERMINA TION PROF SVCS 85459 ALLERGY ALLERGY ALLG 7 PARTNERS PARTNERS IMMNTX X OF [place] OF [place] W/PRV CO CO ALLGIC XTRCS NJXS BRNCDILAT 49873 [facility] DWYER RSPSE 7 PARTNERS SPMTRY OF [place] PRE&POST- CO BRNCDILAT ADMN DEMO&/YOSI 60226 ALLER[facility] DWYER L OF PT 7 PARTNERS UTILIZ OF [place] AERSL CO GEN/NEB/I NHLR/IP OPHTH 61888 [facility] 7 VISION XM&EVAL CENTER COMPRE NEW PT 1/> VST O2 CONC 1 E1390 [facility] [place] 6 HOME HOME 85%/>02 MEDICAL MEDICAL CONC AT [facility] [place] COMPREHEN 84664 SIENA WREN SIVE 6 TRAVIS FELDMAN METABOLIC ,PSC PANEL DXA BONE 70010 SIENA FELDMAN DENSITY 6 FRANCIA PET STUDY 1/> MD,PSC SITES AXIAL SKEL COLLECTIO 04398 SIENA WREN N VENOUS 6 TRAVIS FELDMAN MD,[facility] [place] [address] WRENYOLANDA VALENCIAARD GLUTAMYLT 6 TRAVIS FELDMAN MD,PSC GAMMA BILIRUBIN 39911 WRENYOLANDA VALENCIAARD DIRECT 6 TRAVIS [place]ELDMAN MD,[place] [address] SIENA WREN PHOSPHORU 6 TRAVIS FELDMAN MD,[facility] INORGANIC BLOOD 16307 SIENA VALENCIAARD COUNT 6 TRAVIS FELDMAN MD,PSC AUTO&AUTO DIFRNTL WBC DRUG TEST G0479 TRAVIS MAJOR PRESUMP;I ,PSC NSTRUMENT ED CHEMISTRY ANLYZER O2 CONC 1 E1390 CA[facility] CAITLIN [place] 6 HOME HOME 85%/>02 MEDICAL MEDICAL CONC AT [facility] FL[facility] R[facility] PREPJ& 73774 ALLERGY DWYER MAR ALLERGEN 6 PARTNERS IMMUNOTHE OF [place] RAPY CO 1/J2EE ENGINEER ANTIGEN NITRIC 37795 ALLERGY DWYER MAR OXIDE 6 PARTNERS OF [place] GAS CO DETERMINA TION BRNCDILAT 97307 ALLERGY DWYER MAR RSPSE 6 PARTNERS SPMTRY OF [place] PRE&POST- CO BRNCDILAT ADMN PERCUTANE 16045 ALLERGY DWYER MAR OUS TESTS 6 PARTNERS OF [place] W/ALLERGE CO MARIANN EXTRACTS INTRACUTA 86996 [facility] DWYER MAR NEOUS 6 PARTNERS TESTS OF [place] W/ALLERGE CO MARIANN EXTRACTS DEMO&/YOSI 39689 ALLERGY DWYER MAR L OF PT 6 [...] READ DC OPT OBV ONLY SCREENING G0202 [facility] 6 MEDICAL [place] MAMMOGRAP IMAGING HY JOSSELYN ASS INCL CAD WHEN PERFORMD COMPUTER- 48129 [facility] AIDED 6 MEDICAL [place] DETECTION IMAGING ASS SCREENING MAMMOGRAP HY SUSCEPTIB 77979 [facility] LTY STDY 6 MEM HOSP MEM HOSP ANTIMICRB INC INC IAL MICRO/AGA R DILUTJ CULTURE 85204 [facility] BACTERIAL 6 MEM HOSP MEM HOSP INC INC QUANTTATI VE COLONY COUNT URINE CULTURE 96363 [facility] BCT 6 MEM HOSP MEM HOSP ISOL&PRSM INC INC PTV ID ISOLATE EA URINE URNLS DIP 55918 [facility] ESC[facility]AR 6 MEM HOSP MEM HOSP STICK/TAB INC INC LET REAGENT AUTO MICROSCOP Y O2 CONC 1 E1390 [facility] [place] 6 HOME HOME 85%/>02 MEDICAL MEDICAL CONC AT EQUIPME EQUIPME [facility] [place] DRUG TST G0477 [facility] [...] HOME 85%/>02 MEDICAL MEDICAL CONC AT [facility]QU[facility]ME [facility] [place] [address] [place] [facility] ALL ABDOMEN & 6 MEDICAL PELVIS IMAGING W/CONTRAS ASS T MATERIAL LOC Q9967 [facility] [phone] MEM HOSP [facility] HOSP MG/ML INC INC IODINE CONCENTRA TION PER ML SUSCEPTIB 76531 [facility] LTY STDY 6 MEM HOSP MEM HOSP ANTIMICRB INC INC IAL MICRO/AGA R DILUTJ COLLECTIO 14314 [facility] N VENOUS 6 MEM HOSP MEM HOSP BLOOD INC INC VENIPUNCT URE CULTURE 79430 [facility] BCT 6 MEM HOS[facility] MEM HOSP ISOL&PRSM INC INC PTV ID ISOLATE EA URINE CULTURE 44389 [facility] BACTERIAL 6 MEM HOS[facility] MEM HOSP INC INC QUANTTATI VE COLONY COUNT URINE BASIC 61108 [facility] METABOLIC 6 MEM HOS[facility] MEM HOSP PANEL INC INC CALCIUM TOTAL BLOOD 77388 [facility] COUNT 6 MEM HOS[facility] MEM HOSP COMPLETE INC INC AUTO&AUTO DIFRNTL WBC URNLS DIP 36232 [facility]AR 6 MEM HOS[facility] MEM HOSP STICK/TAB INC INC LET REAGENT AUTO MICROSCOP Y DRUG TST G0477 [facility] PRESUMP;C 6 MEM HOSP MEM HOSP PBL BEING INC INC READ DC OPT OBV ONLY E-STIM G0283 [facility] LUZ 1/> AREAS 6 MEM HOSP MEM HOSP OTH THAN INC INC WND CARE PART TX PLAN THERAPEUT 22523 [facility] EVANSON IC PX 1/> 6 MEM HOSP MEM HOSP AREAS INC INC EACH 15 MIN EXERCISES APPLICATI 47330 [facility] ESC[facility]AR ON 6 MEM HOSP MEM HOSP MODALITY INC INC 1/> AREAS HOT/COLD PACKS APPLICATI 07249 [facility] ESC[facility]AR ON 6 MEM HOSP MEM HOSP MODALITY INC INC 1/> AREAS HOT/COLD PACKS THERAPEUT 39297 [facility] ESCOBAR IC PX 1/> 6 MEM HOSP MEM HOSP AREAS INC INC EACH 15 MIN EXERCISES E-STIM [id number] [facility] 1/> AREAS 6 [facility] OTH THAN INC INC WND CARE PART TX PLAN CONTINUOU E0601 CAITLIN Leal 6 HOME HOME POSITIVE MEDICAL MEDICAL AIRWAY EQUIPME EQUIPME PRESSURE DEVICE APPLICATI 68654 [facility] ON 6 [facility] MODALITY INC INC 1/> AREAS HOT/COLD PACKS PHYSICAL 20551 [facility] THERAPY 6 [facility] EVALUATIO INC INC N E-STIM G0283 LUZ ESCOBAR 1/> AREAS 6 [facility] OTH THAN INC INC WND CARE PART TX PLAN THERAPEUT 11433 LU[facility] ESC[facility] IC PX 1/> 6 [facility] INC INC EACH 15 MIN EXERCISES DRUG TST [id number] [facility] PRESUMP;C 6 [facility] PBL BEING INC INC READ DC OPT OBV ONLY O2 CONC 1 E1390 CAITLIN [place] 6 HOME HOME 85%/>02 MEDICAL MEDICAL CONC AT EQUIPME EQUIPME PRSC FLW RATE RADEX HIP 65609 LUZ ESCOBAR 6 [facility] INC INC L WITH PELVIS 2-3 VIEWS RADEX HIP 64632 [place] MARIE 6 MEDICAL [place] [facility] IMAGING L WITH ASS PELVIS 1 VIEW COLLECTIO 46401 LU[facility] N VENOUS 6 [facility] BLOOD INC INC VENIPUNCT URE COMPREHEN 94555 [facility] SIVE 6 [facility] METABOLIC INC INC PANEL BLOOD 09767 LU[facility] ESC[facility] COUNT 6 [facility] COMPLETE INC INC AUTO&AUTO DIFRNTL WBC SEDIMENTA 03831 LUZ ESCOBAR TION RATE 6 [facility] RBC INC INC NON-AUTOM ATED CONTINUOU E0601 CAITLIN Leal 6 HOME HOME POSITIVE MEDICAL MEDICAL AIRWAY EQUIPME EQUIPME PRESSURE DEVICE O2 CONC 1 E1390 CAITLIN [place] 6 HOME HOME 85%/>02 MEDICAL MEDICAL CONC AT EQUIPME EQUIPME PRSC FLW RATE INFUSION J7030 [facility] NORMAL 6 Y Y SALINE [facility] SOLUTION 1000 CC INJECTION J0330 [place] [address] [facility] TO 20 MG CATHETER C1753 [facility] INTRAVASC 6 Y Y [facility] ULTRASOUN D INJECTION J2370 [facility] 6 Y Y PHENYLEPH [facility] RINE HCL UP TO 1 ML INJECTION J2405 [facility] 6 [facility] 1 MG INJECTION J2704 [facility] PROPOFOL 6 Y Y 10 [place] [facility] [place] [address] [facility] 6 Y Y SURGICAL [facility] ALTER STOM DUODENUM/ JEJUNUM CONTINUOU E0601 CAITLIN CAITLIN S 6 HOME HOME POSITIVE [facility] EQUIPME EQUIPME PRESSURE DEVICE O2 CONC 1 E1390 CAITLIN [place] 6 HOME HOME 85%/>02 MEDICAL MEDICAL CONC AT EQUIPME EQUIPME PRS FLW RATE ECG 65347 ERMA RACHAEL IMELDA ROUTINE 6 MEDICAL ECG SERV W/LEAST FOUNDATIO 12 LDS N I&R ONLY HOSP[facility] G0463 [facility] OUTPATI 6 Y Y T [facility] VISIT ASSESS & MGMT PT CONTINUOU E0601 CAITLIN CAITLIN S 6 HOME HOME POSITIVE [facility] EQUIPME EQUIPME PRESSURE DEVICE O2 CONC 1 E1390 CAITLIN ZUNIGA 6 HOME HOME 85%/>02 [address] [address] [facility] PRSC FLW RATE HEPATITIS 92558 [facility] ESC[facility]AR C 6 [facility] ANTIBODY INC INC COLLECTIO 54602 [facility] N VENOUS 6 [facility] BLOOD INC INC VENIPUNCT URE HEPATITIS 87248 [facility] A 6 [facility] ANTIBODY INC INC HAAB COMPREHEN 68894 LUZ ESCOBAR SIVE 6 [facility] METABOLIC INC INC PANEL HEPATITIS 97769 LUZ Drew SURF 6 [facility] ANTIBODY INC INC HBSAB BILIRUBIN 69713 LUZ ESCOBAR DIRECT 6 [facility] INC INC HEPATITIS 32087 LUZ Drew CORE 6 [facility] [place] [address] LZU ESCOBAR HEPATITIS 6 [facility] B INC INC SURFACE ANTIGEN DRUG TST G0477 LUZ ESCOBAR PRESUMP;C 6 [facility] PBL BEING INC INC READ DC OPT OBV ONLY COL-CHR/M 32257 LUZ ESCOBAR S NONDRUG 6 [facility] ANALYTE INC INC RONALDO QUAL/[place] [address] LUZ ESCOBAR LIPASE 6 [facility] INC INC BLOOD 95468 LUZ ESCOBAR COUNT 6 [facility] COMPLETE INC INC AUTO&[place] [address] LUZ ESCOBAR LACTATE 6 [facility] INC INC COMPREHEN 55267 LUZ ESCOBAR SIVE 6 [facility] [place] [address] LUZ ESCOBAR ABDOMEN & 6 [facility] PELVIS INC INC W/CONTRAS T MATERIAL THER 47141 LUZ EVANSON PROPH/DX 6 [facility] MEM [...] MEDICAL AIRWAY EQUIPME EQUIPME PRESSURE DEVICE RMVL 99763 LUZ ESCOBAR DEVITAL 5 [facility] TISS INC INC N-SLCTV DBRDMT W/O ANES 1 SESS O2 CONC 1 E1390 CIATLIN TUCKER [place] 5 HOME HOME 85%/>02 [...] CARE LLC WITH SUCTION PUMP EACH NEGATIVE 83132 LUZ ESCOBAR PRESSURE 5 [facility] WOUND INC INC THERAPY DME </= 50 SQ CM NEG PRESS E2402 NATIONAL NATIONAL WOUND 5 WOUND WOUND THERAPY CARE LLC CARE LLC ELEC PUMP STATION/P RTBLE CUL BACT 96326 LUZ ESCOBAR XCPT 5 [facility] URINE INC INC BLOOD/STO OL AEROBIC ISOL CUL BACT 46434 LUZ ESCOBAR AEROBIC 5 [facility] ADDL INC INC METHS DEFINITIV E EA ISOL NEGATIVE 05811 LUZ ESCOBAR PRESSURE 5 [facility] WOUND INC INC THERAPY DME </= 50 SQ CM NEGATIVE 60569 LUZ ESCOBAR PRESSURE 5 [facility] WOUND INC INC THERAPY DME </= 50 SQ CM CANISTER A7000 NATIONAL NATIONAL DISPOSABL 5 WOUND WOUND E USED CARE LLC CARE LLC WITH SUCTION PUMP EACH WND CARE A6550 NATIONAL NATIONAL SET NEG 5 WOUND WOUND PRSS WND CARE LLC CARE LLC TX ELEC PUMP SPL NEGATIVE 92698 LUZ ESCOBAR PRESSURE 5 [facility]OS[facility] WOUND INC INC THERAPY DME </= 50 SQ CM NEGATIVE 68378 LUZ ESCOBAR PRESSURE 5 [facility] WOUND INC INC THERAPY DME </= 50 SQ CM CANISTER A7000 NATIONAL NATIONAL DISPOSABL 5 WOUND WOUND E USED CARE LLC CARE LLC WITH SUCTION PUMP EACH WND CARE A6550 NATIONAL NATIONAL SET NEG 5 WOUND WOUND PRSS WND CARE LLC CARE LLC TX ELEC PUMP SPL NEGATIVE 03576 LUZ ESCOBAR PRESSURE 5 [facility] WOUND INC INC THERAPY DME </= 50 SQ CM CONTINUOU E0601 CAITLIN TUCKER S 5 HOME HOME POSITIVE MEDICAL MEDICAL AIRWAY EQUIPME EQUIPME PRESSURE DEVICE NEGATIVE 95262 LUZ ESCOBAR PRESSURE 5 [facility] WOUND INC INC THERAPY DME </= 50 SQ CM O2 CONC 1 E1390 CAITLIN TUCKER [place] 5 HOME HOME 85%/>02 MEDICAL MEDICAL CONC AT EQUIPME EQUIPME PRSC FLW RATE NEGATIVE 54110 LUZ ESCOBAR PRESSURE 5 [facility]OSP WOUND INC INC THERAPY DME </= 50 SQ CM WND CARE A6550 NATIONAL NATIONAL SET NEG 5 WOUND WOUND PRSS WND CARE LLC CARE LLC TX ELEC PUMP SPL URNLS DIP 25309 LUZ JHAVERI 5 [facility] LET RGNT P NON-AUTO W/O MICRSCP WND CARE A6550 NATIONAL NATIONAL SET NEG 5 WOUND WOUND PRSS WND CARE LLC CARE LLC TX ELEC PUMP SPL NEGATIVE 19555 LUZ ESCOBAR PRESSURE 5 [facility]OSP WOUND INC INC THERAPY DME </= 50 SQ CM CANISTER A7000 NATIONAL NATIONAL DISPOSABL 5 WOUND WOUND E USED CARE LLC CARE LLC WITH SUCTION PUMP EACH DEBRIDEME 71679 LUZ ESCOBAR NT OPEN 5 [facility]OSP WOUND 20 INC INC SQ CM/< NEG PRESS E2402 NATIONAL NATIONAL WOUND 5 WOUND WOUND THERAPY CARE LLC CARE LLC ELEC PUMP STATION/P RTBLE RMVL 29132 LUZ ESCOBAR DEVITAL 5 [facility] HOSP TISS INC INC N-SLCTV DBRDMT W/O ANES 1 SESS NEGATIVE 25848 LUZ ESCOBAR PRESSURE 5 [facility] HOSP WOUND INC INC THERAPY DME </= 50 SQ CM SIGMOIDOS 97049 [facility] COPY FLX 5 Y Y DX HOSPITAL HOSPITAL W/COLLJ SPEC BR/WA IF PFRMD INJECTION J3010 [facility] FENTANYL 5 Y Y CITRATE [facility] 0.1 MG INFUSION J7030 [facility] NORMAL 5 Y Y SALINE [facility] SOLUTION 1000 CC INJECTION J2250 [facility] 5 Y Y MIDAZOLAM [facility] HCL PER 1 MG RMVL 78575 LUZ SHANETAL 5 [facility] TISS INC INC N-SLCTV DBRDMT W/O ANES 1 SESS ALBUTEROL J7613 [facility] INHAL 5 PHARMACY PHARMACY NON-CP OF OF PROD THRU DAVION RICARDO DME U DOSE 1 MG PHRM Q0513 [facility] DISPENSIN 5 PHARMACY PHARMACY G FEE OF OF INHALATIO DAVION RICARDO N RX; PER 30 DAYS RMVL 23555 LUZ MC 5 [facility] TISS INC INC N-SLCTV DBRDMT W/O ANES 1 SESS RMVL 37403 LUZ SHANETAL 5 [facility] TISS INC INC N-SLCTV DBRDMT W/O ANES 1 SESS DEBRIDEME 13207 LUZ ESCOBAR NT OPEN 5 [facility] WOUND 20 INC INC SQ CM/< [place] [address] LUZ ESCOBAR INFUSION 5 [facility] THERAPY/P INC INC ROPHYLAXI S /DX 1ST TO 1 HR COMPREHEN 19548 LUZ ESCOBAR SIVE 5 [facility] METABOLIC INC INC PANEL CANISTER A7000 NATIONAL NATIONAL DISPOSABL 5 WOUND WOUND E USED CARE [facility] WITH SUCTION PUMP EACH RMVL 51846 LUZ SHANETAL 5 [facility] TISS INC INC N-SLCTV DBRDMT W/O ANES 1 [place] [address] LUZ ESCOBAR INFUSION 5 [facility] THERAPY INC INC PROPHYLAX IS/DX EA HOUR RADIOLOGI 01552 LUZ ESCOBAR C 5 [facility] EXAMINATI INC INC ON CHEST SINGLE VIEW FRONTAL URNLS DIP 50764 LUZ LUZ 5 [facility] STICK/TAB INC INC LET REAGENT AUTO MICROSCOP Y BLOOD 73865 LUZ ESCOBAR COUNT 5 [facility] COMPLETE INC INC AUTO&AUTO DIFRNTL WBC WND CARE A6550 NATIONAL NATIONAL SET NEG 5 WOUND WOUND PRSS WND CARE LLC CARE LLC TX ELEC PUMP SPL IAADI 70244 LUZ MILLER INFLUENZA 5 MEM [facility] MEDICAL B VIRUS INC LAB IAADI 76630 LUZ ESCOBAR INFFLUENZ 5 [facility] A A VIRUS INC INC INFUSION J7030 [facility] NORMAL 5 Y Y SALINE [facility] SOLUTION 1000 CC INJECTION J2250 [facility] 5 Y Y MIDAZOLAM [facility] HCL PER 1 MG COLONOSCO 73899 [place] KAIDEN MORGANT PY 5 MEDICAL W/BIOPSY SERV SINGLE/MU FOUNDATIO LTIPLE N INJECTION J3010 [facility] FENTANYL [address] [facility] 0.1 MG CONTINUOU E0601 CAITLIN TUCKER S 5 HOME HOME POSITIVE MEDICAL MEDICAL AIRWAY EQUIPME [place] [address] [place] KORY LALA SURG 5 MEDICAL PATHOLOGY SERV FOUNDATIO GROSS&ROSA MARIA N ROSCOPIC EXAM RMVL 07757 LUZ ESCOBAR DEVITAL 5 [facility] TISS INC INC N-SLCTV DBRDMT W/O ANES 1 SESS URNLS DIP 07992 LUZ JHAVERI 5 [facility] FABY STICK/TAB [facility] LET RGNT P NON-AUTO W/O MICRSCP PHYSICAL 04925 LUZ ESCOBAR THERAPY 5 [facility] EVALUATIO INC INC N O2 CONC 1 E1390 CAITLIN ZUNIGA 5 HOME HOME 85%/>02 MEDICAL MEDICAL CONC AT EQUIPME EQUIPME PRSC FLW RATE RMVL 83111 LUZ ESCOBAR DEVITAL 5 MEM HOS[facility] MEM [...] CARE LLC TX ELEC PUMP SPL DETERMINA 49175 ERMA [place] ALLISON TION 5 MEDICAL REFRACTIV [...] N RX; PER 30 DAYS ALBUTEROL J7613 [facility] [place] INHAL 5 PHARMACY PHARMACY NON-CP OF OF PROD THRU DAVION DAVION DME U DOSE [address] [facility] G0463 [facility] 5 Y Y T [facility] VISIT ASSESS & MGMT PT CONTINUOU E0601 CAITLIN TUCKER S 5 HOME HOME POSITIVE MEDICAL MEDICAL AIRWAY EQUIPME EQUIPME PRESSURE DEVICE O2 CONC 1 E1390 CAITLIN THOMPSON PORT 5 HOME HOME 85%/>02 MEDICAL MEDICAL CONC AT EQUIPME EQUIPME PRSC FLW RATE URNLS DIP 53414 LUZ JHAVERI 5 [facility] LET RGNT P NON-AUTO W/O MICRSCP RIKKI 02824 LUZ JHAVERI POST-VOID 5 [facility] RESIDUAL P URINE&/BL ADDER CAP PHRM Q0513 [facility] [place] DISPENSIN 5 PHARMACY PHARMACY G FEE OF OF INHALATIO DAVION DAVION N RX; PER 30 DAYS ALBUTEROL J7613 [facility] [place] INHAL 5 PHARMACY PHARMACY NON-CP OF OF PROD THRU DAVION RICARDO DME U DOSE 1 MG INITIAL [address]/[facility] 30 P MINUTES RADEX 56221 [place] FIOAN ABDOMEN 5 MEDICAL ALLISON COMPL IMAGING W/DCBTS&/ ASS ERC VIEWS US PELVIC 75184 [place] OROZCO ALL 5 MEDICAL NONOBSTET IMAGING RYLAN IMAGE ASS DCMTN LIMITED/F /U ANESTHESI 88975 [facility] ADHIKARI LAYNE A 5 ANESTH INTRAPERI OF THE TONEAL BLUE LOWER ABD W/LAPS NOS LEVEL 38084 CHIPPS GARCIA SURG 5 ANNA & RYLAN PATHOLOGY DUBILIER GROSS&ROSA MARIA ROSCOPIC EXAM DECALCIFI 25559 CHIPPS GARCIA CATION 5 ANNA & RYLAN PROCEDURE DUBILIER TOTAL 61776 [facility] ABDOMINAL 5 PHYSICIAN LEANDER S GROUP HYSTERECT W/WO RMVL TUBE OVARY OTHER & 6849 LUZ ESCOBAR UNSPECIFI 5 [facility] ED TOTAL INC INC ABDOMINAL HYSTERECT TOMASA OTH 6561 LUZ ESCOBAR REMOVAL 5 [facility] BOTH INC INC OVARIES&T UBES@SAME OP EPIS CONTINUOU E0601 CAITLIN TUCKER S 5 HOME HOME POSITIVE MEDICAL MEDICAL AIRWAY EQUIPME EQUIPME PRESSURE DEVICE ECG 53176 LUZ GALLO JR ROUTINE 5 [facility] W/LEAST P 12 LDS I&R ONLY O2 CONC 1 E1390 CAITLIN THOMPSON PORT 5 HOME HOME 85%/>02 MEDICAL MEDICAL CONC AT EQUIPME EQUIPME PRSC FLW RATE LOCM Q9967 LUZ ESCOBAR [phone] 5 [facility] MG/ML INC INC IODINE [place] [address] NATHAN BUX ANJ DX/THER 5 MD MEHNAZ, AGT PVRT PSC FACET JT LMBR/SAC 1 LEVEL NJX 76641 NATHAN BUX ANJ DX/THER 5 MD MEHNAZ, AGT PVRT PSC FACET JT LMBR/SAC 2ND LEVEL INJECTION J1030 [facility] ESCOBAR 5 [facility] METHYLPRE INC INC DNISOLONE ACETATE [address] THORAX 16251 LUZ ESCOBAR W/O 5 [facility] [place] [address] [facility], SURG 5 [facility] PATHOLOGY GROSS&ROSA MARIA ROSCOPIC EXAM CONTINUOU [...] EQUIPME EQUIPME PRSC FLW RATE TUBING A7037 CAITLIN CAITLIN USED WITH 5 HOME HOME POSITIVE [...] DEVICE O2 CONC 1 E1390 CAITLIN THOMPSON [facility] 5 HOME HOME 85%/>02 MEDICAL MEDICAL CONC AT [facility] FLW RATE PHRM Q0513 YOUR YOUR DISPENSIN 5 PHARMACY PHARMACY G [employer]EE [employer] LLC INHALATIO N RX; PER 30 DAYS ALBUTEROL J7613 YOUR YOUR INHAL 5 PHARMACY PHARMACY NON-CP LLC LLC PROD THRU DME U DOSE 1 MG O2 CONC 1 E1390 CAITLIN THOMPSON [facility] 5 HOME HOME 85%/>02 MEDICAL MEDICAL CONC AT [facility] FLW RATE POLYSOM 37765 PAVEZ MAR PAVEZ MAR 6/>YRS 5 SLEEP 4/> ADDL TONY ATTND O2 CONC 1 E1390 CAITLIN THOMPSON [facility] 5 HOME HOME 85%/>02 MEDICAL MEDICAL CONC AT [facility] FLW RATE POLYSOM 66397 LUZ ESCOBAR 6/>YRS 5 [facility] SLEEP 4/> INC INC ADDL TONY ATTND CT THORAX 63072 [place] FIONA W/O 5 MEDICAL ALLISON CONTRAST IMAGING MATERIAL ASS O2 CONC 1 E1390 ACITLIN THOMPSON [facility] 5 HOME HOME 85%/>02 MEDICAL MEDICAL CONC AT [facility] FLW RATE ELEC ARCHANA 78846 [place] RICHEY SEA NSTIM 5 MEDICAL PLS GEN SERV CPLX FOUNDATIO SC/PERPH N W/PRGRMG INSERTION 35399 [place] R[place] SE[place] /RPLCMT 5 MEDICAL PERIPHERA SERV L/GASTRIC FOUNDATIO NPGR N INJECTION J2704 [facility] PROPOFOL 5 Y Y 10 MG HOSPITAL HOSPITAL INJECTION J2710 [facility] 5 Y Y NEOSTIGMI [facility] NE METHYLSUL FATE UP TO 0.5 MG INJECTION J3010 [facility] FENTANYL [address] [facility] 0.1 MG INJECTION J3370 [facility] 5 Y Y VANCOMYCI [facility] N HCL 500 MG INJECTION J2405 [facility] 5 [facility] H[facility] PER 1 MG FLUOROSCO 69572 [facility] SPX UP 5 Y Y TO 1 HOSPITAL HOSPITAL HOUR PHYS/QHP TIME INTRDUCR/ C1894 [facility] SHEATH 5 Y Y NOT GUID [facility] INTRACARD EP NON-LASR INJECTION J0330 [facility] 5 Y Y SUCCINYLC [facility] HOLINE CHLORIDE UP TO 20 MG INJECTION J1580 [facility] 5 Y Y GARAMYCIN [facility] GENTAMICI N UP TO 80 MG INFUSION J7050 [facility] NORMAL 5 Y Y SALINE [facility] SOLUTION 250 CC INC 03706 [facility] IMPLTJ 5 Y [facility] NERV[facility] LEAD C1897 [facility] 5 Y Y [facility] TEST KIT INJECTION J1100 [facility] 5 Y Y DEXAMETHO [facility] SONE SODIUM PHOSPHATE 1 MG RINGERS J7120 [facility] LACTATE [address] [facility] UP TO 1000 CC O2 CONC 1 E1390 [facility] 5 HOME HOME 85%/>02 MEDICAL MEDICAL CONC AT EQUIPME EQUIPME PRSC FLW RATE NONEMERG A0120 FEDERATED FEDERATED TRNSPRT: 5 [facility]/OT SYS O2 CONC 1 E1390 [facility] 4 HOME HOME 85%/>02 MEDICAL MEDICAL CONC AT EQUIPME EQUIPME PRSC FLW RATE RADIOLOGI 99161 LUZ ESCOBAR C EXAM 4 [facility] CHEST 2 INC INC VIEWS FRONTAL&L ATERAL ADMN SET A7005 YOUR YOUR W/SM VOL 4 PHARMACY PHARMACY NONFILTR [employer] NEBULIZR NON-DISPB L ALBUTEROL J7613 YOUR YOUR INHAL 4 PHARMACY PHARMACY NON-CP [employer] PROD THRU DME U DOSE 1 MG PHARM G0333 YOUR YOUR DISPEN 4 PHARMACY PHARMACY FEE INHAL [employer] RX; INITIAL 30-DAY SUPPLY NONEMERG A0120 FEDERATED FEDERATED TRNSPRT: 4 TRANS [facility] SERVBLUEG MTN ATION SER ELIU AREA/OTH SYS ANOSCOPY 18807 [place] RICHEY SE[place] W/BX 4 MEDICAL SINGLE/MU SERV LTIPLE FOUNDATIO N BIOPSY 71862 [place] KAIDEN SE[place] VAGINAL 4 MED[place] [address] [place] K[place]EN SE[place] ANORECTAL 4 MEDICAL WALL SERV ANAL FOUNDATIO APPROACH N ANESTHESI 14847 SORAYA YANG GAV A 4 LTH ANORECTAL ANESTHESI A PSC PROCEDURE ECG 18990 [facility] ROUTINE 4 Y Y ECG [facility] W/LEAST 12 LDS TRCG ONLY W/O I&R BLOOD 60666 [facility] COUNT 4 Y Y COMPLETE [facility] AUTOMATED ECG 29058 ERMA MANNINGO ROUTINE 4 MEDICAL ECG SERV W/LEAST FOUNDATIO 12 LDS N I&R ONLY COLLECTIO 68089 [facility] VENOUS 4 Y Y BLOOD [facility] VENIPUNCT URE TENS E0730 EMPI INC EMPI INC DEVICE 4 4/MORE LEADS [place] [address] [facility], SURG 4 [facility] PATHOLOGY GROSS&[place] [address] LUZ ESCOBAR INFUSION 4 [facility] THERAPY INC INC PROPHYLAX IS/DX EA HOUR NONEMERG A0120 FEDERATED FEDERATED TRNSPRT: 4 TRANS [facility] SERVBLUEG MTN ATFORMERLY [facility] SER ELIU AREA/OTH SYS COLONOSCO 41000 LUZ ESCOBAR PY 4 [facility] W/BIOPSY INC INC SINGLE/MU LTIPLE COLSC FLX 94482 [place] ANN PITER W/RMVL 4 MEDICAL OF TUMOR SERV POLYP FOUNDATIO LESION N SNARE TQ PRESSURIZ 22891 LUZ ESCOBAR ED/NONPRE 4 [facility] SSURIZED INC INC INHALATIO N TREATMENT UNCLASSIF J3490 LUZ ESCOBAR IED DRUGS 4 [facility] INC INC ANES 55278 [facility] ANESTH SHE INTESTINE OF THE BLUE ENDOSCOPY DISTAL DUODENUM NONEMERG A0120 FEDERATED FEDERATED TRNSPRT: 4 TRANS [facility] SERVBLUEG PRN ATFORMERLY [facility] SER ELIU AREA/OTH SYS PRESSURIZ 75896 LUZ ESCOBAR ED/NONPRE 4 MEM [facility]OS[facility] SSURIZED INC INC INHALATIO N TREATMENT BRNCDILAT 76800 LUZ ESCOBAR RSPSE 4 [facility] H[facility] SPMTRY INC INC PRE&POST- BRNCDILAT ADMN GAS 65986 LUZ ESCOBAR DILUT/WAS 4 [facility] HOUT LUNG INC INC VOL W/WO DISTRIB VENT&[place] [address] LUZ ESCOBAR DIFFUSING 4 [facility] CAPACITY INC INC O2 CONC 1 E1390 CAITLIN TUCKER DEL PORT 4 HOME HOME 85%/>02 MEDICAL MEDICAL CONC AT EQUIPME EQUIPME PRSC FLW RATE NONEMERG A0120 FEDERATED FEDERATED TRNSPRT: 4 TRANS [facility] SERVBLUEG PRN [facility] SER ELIU AREA/OTH SYS APPL 91419 LUZ ESCOBAR MODALITY 4 [facility] 1/> AREAS INC INC ELEC STIMJ EA 15 MIN LIPID 00867 LUZ ESCOBAR PANEL 4 [facility] INC INC COMPREHEN 77220 LUZ ESCOBAR SIVE 4 [facility] METABOLIC INC INC PANEL HEPATITIS 91840 LUZ ESCOBAR A 4 [facility] ANTIBODY INC INC HAAB ANTINUCLE 66446 LUZ ESCOBAR AR 4 [facility] ANTIBODIE INC INC S DUANE TENS E0730 EMPI INC EMPI INC DEVICE 4 4/MORE LEADS MULTI NERVE STIMULATI ON RHEUMATOI 29142 LUZ Pandey FACTOR 4 [facility] QUANTITAT INC INC FLAQUITO HEPATITIS 31436 LUZ ESCOBAR C 4 [facility] [place] [address] LUZ ESCOBAR THYROXINE 4 [facility] [place] [address] LUZ ESCOBAR BLOOD/URI 4 [facility] [place] [address] LUZ ESCOBAR THYROID 4 [facility] STIMULATI INC INC NG HORMONE TSH HEMOGLOBI 13893 LUZ ESCOBAR N 4 [facility] MEM [facility]OS[facility] GLYCOSYLA INC INC LUANN A1C BLOOD 89448 LUZ ESCOBAR COUNT 4 [facility] COMPLETE INC INC AUTO&AUTO DIFRNTL WBC HEPATITIS 88208 LUZ Drew SURF 4 [facility] ANTIBODY INC INC HBSAB SEDIMENTA 98446 LUZ ESCOBAR TIMATTY RATE 4 MEM HOS[facility] RBC INC INC NON-AUTOM ATED HEPATITIS 28068 LUZ Drew CORE 4 [facility] [place] [address] LUZ ESCOBAR HEPATITIS 4 [facility] B INC INC SURFACE ANTIGEN THERAPEUT 58291 LUZ LUZ IC PX 1/> 4 [facility] AREAS INC INC EACH 15 MIN EXERCISES APPLICATI 74853 LUZ CHAVEZ OF ON 4 [facility] [place], MODALITY INC INC. 1/> AREAS HOT/COLD PACKS NONEMERG A0120 FEDERATED FEDERATED TRNSPRT: 4 TRANS [facility] ATFORM[facility]LY [facility] SER [facility] AREA/OTH SYS APPL 95332 LUZMATTY ESCOBAR MODALITY 4 MEM HOSP [facility] 1/> AREAS INC INC ELEC STIMJ UNATTENDE D APPL 20120 LUZ ESCOBAR MODALITY 4 [facility] 1/> AREAS INC INC ELEC STIMJ UNATTENDE D NONEMERG A0120 FEDERATED FEDERATED TRNSPRT: 4 TRANS [facility] SERVBLUEG PRN [facility]LY [facility] SER ELIU AREA/OTH SYS APPLICATI 06406 LUZ ESCOBAR ON 4 [facility]OS[facility] MODALITY INC INC 1/> AREAS HOT/COLD PACKS O2 CONC 1 E1390 CAITLIN TUCKER DEL PORT 4 HOME HOME 85%/>02 MEDICAL MEDICAL CONC AT EQUIPME EQUIPME PRSC FLW RATE THERAPEUT 09214 LUZ LUZ IC PX 1/> 4 [facility] AREAS INC INC EACH 15 MIN EXERCISES THERAPEUT 19126 LUZ ESCOBAR IC PX 1/> 4 [facility] AREAS INC INC EACH 15 MIN EXERCISES APPLICATI 51852 LUZ ESCOBAR ON 4 [facility] H[facility] MODALITY INC INC 1/> AREAS HOT/COLD PACKS NONEMERG A0120 FEDERATED FEDERATED TRNSPRT: 4 TRANS [facility] AREA/OTH SYS APPL 96341 LUZ ESCOBAR MODALITY 4 [facility] 1/> AREAS INC INC ELEC STIMJ UNATTENDE D APPL 66176 LUZ ESCOBAR MODALITY 4 [facility] HOS[facility] 1/> AREAS INC INC ELEC STIMJ UNATTENDE D NONEMERG A0120 FEDERATED FEDERATED TRNSPRT: 4 TRANS [facility] AREA/OTH SYS APPLICATI 39281 LUZ ESCOBAR ON 4 MEM HOS[facility]OS[facility] MODALITY INC INC 1/> AREAS HOT/COLD PACKS THERAPEUT 80496 LUZ ESCOBAR IC PX 1/> 4 MEM HOS[facility]OS[facility] AREAS INC INC EACH 15 MIN EXERCISES THERAPEUT 25241 LUZ ESCOBAR IC PX 1/> 4 [facility] H[facility] AREAS INC INC EACH 15 MIN EXERCISES APPLICATI 72916 LUZ ESCOBAR ON 4 MEM HOS[facility]OS[facility] MODALITY INC INC 1/> AREAS HOT/COLD PACKS NONEMERG A0120 FEDERATED FEDERATED TRNSPRT: 4 TRANS [facility] ARE[facility]/OTH SYS APPL 82732 LU[facility] ESCOB[facility] MODALITY 4 [facility] 1/> AREAS INC INC ELEC STIMJ UNATTENDE D APPL 88347 [facility] ESCOBAR MODALITY 4 [facility] 1/> AREAS INC INC ELEC STIMJ UNATTENDE D APPLICATI 29944 LUZ SALINAS ON 4 [facility] MODALITY INC 1/> AREAS HOT/COLD PACKS THERAPEUT 07845 LUZ ESCOBAR IC PX 1/> 4 [facility] AREAS INC INC EACH 15 MIN EXERCISES MRI 55515 [facility] SPINAL 4 [facility] CANAL INC INC LUMBAR W/O CONTRAST MATERIAL 3D 57084 LUZ ESCOBAR RENDERING 4 [facility] W/INTERP INC INC & POSTPROCE SS SUPERVISI ON PHYSICAL 49965 LUZ ESCOBAR THERAPY 4 [facility] HOSP EVALUATIO INC INC N O2 CONC 1 E1390 CAITLIN TUCKER [place] 4 HOME HOME 85%/>02 MEDICAL MEDICAL CONC AT [facility] FLW RATE PHYSICAL 32925 LUZ ESCOBAR THERAPY 4 [facility] HOSP EVALUATIO INC INC N NONEMERG A0120 FEDERATED FEDERATED TRNSPRT: 4 TRANS MINI-BUS TRANSPORT SERVBLUEG MTN ATFORMERLY [facility] AREA/OTH SYS SLINGS A4565 [employer]. 4 O2 CONC 1 E1390 CAITLIN TUCKER [facility] PORT 4 HOME HOME 85%/>02 MEDICAL MEDICAL CONC AT [facility] FLW RATE INJECTION J1040 [facility] CRISTIAN 4 PHYSICIAN ROSA MARIA METHYLPRE S GROUP DNISOLONE ACETATE 80 MG THERAPEUT 49148 [facility] CRISTIAN IC 4 PHYSICIAN ROSA MARIA PROPHYLAC S GROUP TIC/DX INJECTION SUBQ/IM INJECTION J1885 [facility] CRISTIAN 4 PHYSICIAN ROSA MARIA KETOROLAC S GROUP TROMETHAM INE PER 15 MG NON-INVAS 17570 LUZMATTY ESCOBAR FLAQUITO 4 [facility] HOSP PHYSIOLOG INC INC IC STUDY EXTREMITY 3 LEVLS O2 CONC 1 E1390 [facility] 4 HOME HOME 85%/>02 [facility] FL[facility] ADMN SET A7005 YOUR YOUR W/SM VOL 4 PHARMACY PHARMACY [facility] NEBULIZR NON-DISPB L NEBULIZER E0570 CAITLIN TUCKER WITH 4 HOME HOME COMPRESSO MEDICAL MEDICAL R EQUIPME EQUIPME INJECTION J1885 [facility] CRISTIAN 4 PHYSICIAN ROSA MARIA KETOROLAC S GROUP TROMETHAM INE PER 15 MG INJECTION J1040 [facility] CRISTIAN 4 PHYSICIAN ROSA MARIA METHYLPRE S GROUP DNISOLONE ACETATE 80 MG THERAPEUT 23003 [facility] CRISTIAN IC 4 PHYSICIAN ROSA MARIA PROPHYLAC S GROUP TIC/DX INJECTION SUBQ/IM URNLS DIP 31209 [facility] STICK/TAB [facility] LET RGNT [facility] NON-AUTO W/O MICRSCP SMR PRIM 00242 [facility] SRC WET 4 [facility] [place] [facility] NFCT AGT MADI MADI WET Q0111 [facility] 4 [facility] DISTRICT INCL PREP [facility] VAGINAL [facility] CERV/SKIN SPECIMENS BLOOD 59095 [facility] COUNT 4 [facility] COMPLETE INC INC AUTO&[place] [address] [facility] THYROID 4 [facility] STIMULATI INC INC NG HORMONE TSH CYANOCOBA 29562 [facility] TIFFANY 4 [facility] VITAMIN [place] B-12 [place] [address] [facility], SURG 4 [facility] PATHOLOGY GROSS&ROSA MARIA ROSCOPIC EXAM IMHISTOCH 12854 [facility] EM/CYTCHM 4 [facility] 1ST ANTIBODY STAIN PROCEDURE COMPREHEN 18912 [facility] SIVE 4 [facility] METABOLIC INC INC PANEL COLPOSCOP 38855 [facility] 57740 [facility] AIDED 4 [facility] DET[facility]CTION INC INC SCREENING MAMMOGRAP HY SCREENING [id number] [facility] ESCOBAR 4 [facility] INC INC HY JOSSELYN INCL CAD WHEN PERFORMD PH BODY 23243 [facility] FLUID NOT 4 DISTRICT DISTRICT [facility] ELSEWHERE [facility] MADI SPECIFIED ALL Q0112 [facility] POTASSIUM 4 [facility] DISTRICT [facility] HYDROXIDE [facility] MADI PREPARATI ONS AMINES 67197 [facility] VAGINAL 4 [facility] QUALITATI [facility] MADI VE WET Q0111 [facility] FARRAH 4 DISTRICT DISTRICT INCL PREP TH DEPT [facility] VAGINAL MADI MADI CERV/SKIN SPECIMENS IADNA 24742 [facility] VIRUS HUMAN AMPLIFIED PROBE TQ CYTP 13731 [facility], [facility], CERVICAL/ 4 [facility] VAG[facility]AL REQ INTERP PHYSICIAN IADNA 96630 [facility] NEISSERIA 4 [facility] TH DEPT GONOR[facility]HOE MADI MADI AE AMPLIFIED PROBE TQ IADNA 53086 [facility] CHLAMYDIA 4 [facility] TRACHOMAT MADI MADI IS AMPLIFIED PROBE TQ CYTP 80564 [facility], CERV/VAG 4 [facility] AUTO THIN LAYER PREP MNL SCREEN SMR PRIM 01306 [facility] SRC WET 4 [facility] DE[facility] NFCT AGT MADI MADI Encounters Encounter Start End Date Code Location Performer Type Date [facility] LUZ - 7 7 [facility] OUTPATIEN [facility] LUZ [facility] OTHER 7 7 [facility] OFFICE 53102 SIENA HERRERAP OUTPATIEN 7 7 Diya FELDMAN VISIT ,[facility] 25 MINUTES OFFICE 86980 SIENA ALVARADO OUTPATIEN 7 7 SHASTA FELDMAN T VISIT 5 ,PSC MINUTES OFFICE 08418 SIENA ALVARADO OUTPATIEN 7 7 SHASTA FELDMAN T VISIT ,[facility] 25 MINUTES HOSPITAL LUZ - 7 7 [facility] OUTPATIEN [facility] LUZ - 7 7 [facility] OUTPATIEN [facility] OFFICE 53746 SIENA WREN OUTPATIEN 7 7 Diya FELDMAN VISIT ,PSC 25 MINUTES OFFICE 14846 WRENYOLANDA TADEO OUTPATIEN 7 7 Diya FELDMAN VISIT ,[facility] 25 MINUTES OFFICE 12296 ALLERGY DWYER OUTPATIEN 7 7 PARTNERS T VISIT OF GONZALEZ 40 CO MINUTES OFFICE 56682 WREN WREN OUTPATIEN 6 6 TRAVIS FELDMAN T RACHID MENSAH,[facility] 25 MINUTES OFFICE 59207 ALLERGY DWYER MAR OUTPATIEN 6 6 PARTNERS T NEW 60 OF GONZALEZ MINUTES CO OFFICE 17113 SIENA ZIMMERMANMAXIME OUTPATIEN 6 6 SHASTA FELDMAN T VISIT ,[facility] 25 MINUTES OFFICE 70927 [facility] CRISTIAN OUTPATIEN 6 6 PHYSICIAN ROSA MARIA T VISIT S GROUP 25 MINUTES OFFICE 78637 SIENA TADEO OUTPATIEN 6 6 NAHID FELDMAN 30 ,[facility] MINUTES OFFICE 27342 [facility] CRISTIAN OUTPATIEN 6 6 PHYSICIAN ROSA MARIA T VISIT S GROUP 25 MINUTES HOSPITAL LUZ - OTHER 6 6 [facility] LUZ - 6 6 [facility] OUTPATIEN [facility] LUZ - OTHER 6 6 [facility] OFFICE 11728 [facility] CRISTIAN OUTPATIEN 6 6 PHYSICIAN ROSA MARIA T VISIT S GROUP 10 MINUTES HOSPITAL LUZ - OTHER 6 6 [facility] OFFICE 54539 [facility] ROZ TOD OUTPATIEN 6 6 PHYSICIAN T VISIT S GROUP 10 MINUTES OFFICE 53925 [facility] SONG OUTPATIEN 6 6 PHYSICIAN LEANDER T VISIT S GROUP 15 MINUTES OFFICE 26424 [facility] PETTEY OUTPATIEN 6 6 PHYSICIAN JAM T NEW 30 S GROUP MINUTES HOSPITAL LUZ - 6 6 [facility] OUTPATIEN [facility] T OFFICE 20751 [facility] ROZ TOD OUTPATIEN 6 6 PHYSICIAN T VISIT S GROUP 25 MINUTES HOSPITAL LUZ - OTHER 6 6 [facility] LUZ - OTHER 6 6 MEM [facility] INC OFFICE 22772 [facility] CRISTIAN OUTPATIEN 6 6 PHYSICIAN ROSA MARIA T VISIT S GROUP 15 MINUTES HOSPITAL LUZ - 6 6 [facility] OUTPATIEN [facility] LUZ - 6 6 [facility] OUTPATIEN [facility] T OFFICE 94874 [facility] CRISTIAN OUTPATIEN 6 6 PHYSICIAN ROSA MARIA T VISIT S GROUP 15 MINUTES HOSPITAL LUZ - OTHER 6 6 MEM [facility] INC OFFICE 18517 [facility] CRISTIAN OUTPATIEN 6 6 PHYSICIAN ROSA MARIA T VISIT S GROUP 10 MINUTES HOSPITAL LUZ - 6 6 [facility] OUTPATIEN [facility] T OFFICE 58193 [facility] CRISTIAN OUTPATIEN 6 6 PHYSICIAN ROSA MARIA T VISIT S GROUP 10 MINUTES HOSPITAL UNIVERSIT - 6 6 Y [facility] UNIVERSIT - 6 6 Y [facility] LUZ - OTHER 6 6 MEM HOS[facility] INC OFFICE 41836 NATHAN RAMOS OUTPATIEN 6 6 MD MEHNAZ, T VISIT [facility] [address] [facility] LUZ - 6 6 MEM [facility] OUTPATIEN [facility] LUZ - 6 6 [facility] OUTPATIEN [facility] T EMERGENCY 16857 LUZ 6 6 MEM H[facility] T VISIT MODERATE SEVERITY HOSPITAL LUZ - OTHER 5 5 MEM [facility] INC OFFICE 55936 [facility] SONG OUTPATIEN 5 5 PHYSICIAN LEANDER T VISIT S GROUP 15 MINUTES HOSPITAL LUZ - 5 5 [facility] OUTPATIEN [facility] T OFFICE 50994 NATHAN ALEXIS OUTPATIEN 5 5 MD MEHNAZ, T VISIT [facility] 10 MINUTES HOSPITAL [facility]ERS[facility] - 5 5 [facility] OUTPATIEN INC T EMERGENCY 09225 [facility] 5 5 [facility]URGE [facility] LUZ - 5 5 [facility] OUTPATIEN [facility] UNIVERSIT [facility] 5 5 [facility] 03275 LUZ JHAVERI OUTPATIEN 5 5 [facility] T VIS[facility] 10 P [facility] LUZ - 5 5 MEM [facility] OUTPATIEN [facility] LUZ - 5 5 [facility] OUTPATIEN [facility] T OFFICE 19859 [facility] OUT[facility] 5 5 MD MEHNAZ, T VISIT [facility] 10 MINUTES OFFICE 71795 ERMA ARA COOPER OUTPATIEN 5 5 MEDICAL T NEW 45 SERV MINUTES [facility] N OFFICE 18177 ERMA OSEI OUTPATIEN 5 5 MEDICAL T VISIT SERV 25 FOUNDATIO [facility] UNIVERSIT - 5 5 Y [facility] T OFFICE 95363 [facility] ROZ DAO OUTPATIEN 5 5 PHYSICIAN T VISIT S GROUP 10 [facility] H[facility]PITAL LUZ - 5 5 MEM H[facility] OUTPATIEN [facility] T OFFICE 72772 LUZ OUTPATIEN 5 5 MEM HOS[facility] T VISIT INC 10 [facility] HOSPITAL LUZ - 5 5 MEM H[facility] INPATIENT [facility] LUZ - 5 5 MEM [facility] INPATIENT [facility] HOSPITAL LUZ - 5 5 MEM [facility] OUTPATIEN [facility] LUZ - 5 5 [facility] OUTPATIEN [facility] T OFFICE 06451 NATHAN ESTRADAX ANJ OUTPATIEN 5 5 MD MEHNAZ, T VISIT [facility] 15 MINUTES HOSPITAL LUZ - 5 5 [facility] OUTPATIEN [facility] T OFFICE 73437 HEATHER ESTRADAX ANJ OUTPATIEN 5 5 MD T VISIT [address] [facility] LUZ - 5 5 MEM [facility] OUTPATIEN [facility] LUZ - 5 5 [facility] OUTPATIEN [facility] T OFFICE 33567 ERMA LOPEZ OUTPATIEN 5 5 MEDICAL JAM T VISIT SERV 25 FOUNDATIO MINUTES N OFFICE 71195 HEATHER DARBY BUX ANJ OUTPATIEN 5 5 MD T [facility] [address] [facility] UNIVERSIT - 5 5 Y [facility] UNIVERSIT - 5 5 Y [facility] T OFFICE 30231 [facility] [address] [facility] [address] [facility] LUZ - 4 4 MEM [facility] OUTPATIEN [facility] T PERIODIC 57653 [facility] PREVENTIV 4 4 PHYSICIAN ROSA MARIA E MED EST S GROUP PATIENT [facility] UNIVERSIT - 4 4 Y [facility] T OFFICE 76468 [facility] OUTPATIEN 4 4 PHYSICIAN ROSA MARIA T VISIT S GROUP 10 MINUTES HOSPITAL UNIVERSIT - 4 4 Y [facility] T OFFICE 10784 [facility] 4 4 Y T VISIT HOSPITAL 40 MINUTES OFFICE 03850 [place] KAIDEN OSEI OUTPATI 4 4 MEDICAL T NEW 45 SERV MINUTES FOUNDATIO [facility] LUZ - 4 4 MEM H[facility] OUTPATIEN [facility] T OFFICE 58138 [place] AMBER PHI OUTPATIEN 4 4 MEDICAL T NEW 30 SERV MINUTES [facility] LUZ - 4 4 [facility] OUTPATIEN INC T OFFICE 98991 [facility] CRISTIAN OUTPATIEN 4 4 PHYSICIAN ROSA MARIA T VISIT S GROUP 15 MINUTES OFFICE 98836 [place] MARISSA PITER CONSULTAT 4 4 MEDICAL ION SERV NEW/ESTAB FOUNDATIO PATIENT N 60 MIN HOSPITAL LUZ - 4 4 MEM [facility] OUTPATIEN INC T OFFICE 61185 [facility] CRISTIAN OUTPATIEN 4 4 PHYSICIAN ROSA MARIA T VISIT S GROUP 25 MINUTES OFFICE 36509 [facility] CRISTIAN OUTPATIEN 4 4 PHYSICIAN ROSA MARIA T VISIT S GROUP 10 MINUTES HOSPITAL LUZ - 4 4 [facility] OUTPATIEN INC HOSPITAL LUZ - 4 4 [facility] OUTPATIEN INC [facility]OSPITAL LUZ - 4 4 [facility] OUTPATIEN INC T OFFICE 35756 [facility] OUTPATIEN 4 4 D VANESA T VISIT PATHOLOGI [facility] MINUTES HOSPITAL LUZ - 4 4 MEM [facility] OUTPATIEN INC T OFFICE 88681 LUZ SIDHU JR OUTPATIEN 4 4 [facility] 10 P MINUTES OFFICE 20174 [facility] OUTPATIEN 4 4 D VANESA T VISIT PATHOLOGI [facility] MINUTES OFFICE 26035 [facility] CRISTIAN OUTPATIEN 4 4 PHYSICIAN ROSA MARIA T VISIT S GROUP 10 MINUTES OFFICE 70634 LUZ SIDHU JR CONSULTAT 4 4 [facility] NEW/ESTAB P PATIENT 60 MIN HOSPITAL LUZ - 4 4 [facility] OUTPATIEN INC T OFFICE 44007 [facility] CRISTIAN OUTPATIEN 4 4 PHYSICIAN ROSA MARIA T VISIT S GROUP 15 MINUTES OFFICE 79952 [facility] CRISTIAN OUTPATIEN 4 4 PHYSICIAN ROSA MARIA T VISIT S GROUP 15 MINUTES OFFICE 36205 [facility] CRISTIAN OUTPATIEN 4 4 PHYSICIAN ROSA MARIA T VISIT S GROUP 15 MINUTES OFFICE 38988 [facility] CRISTIAN OUTPATIEN 4 4 PHYSICIAN ROSA MARIA T NEW 30 S GROUP MINUTES OFFICE 46572 [facility] OUT[facility] 4 4 [facility] T VISIT [facility] 10 [facility] HOSPITAL LUZ - 4 4 MEM H[facility] OUTPATIEN INC T HOSPITAL LUZ - 4 4 [facility] OUTPATIEN INC T PERIODIC 12163 [facility] PREVENTIV 4 4 [facility] E MED EST [facility] PATIENT [facility] 40-64YRS OFFICE 72251 [facility] OUTPATIEN 4 4 [facility] T VISIT [facility] 15 [facility] MINUTES
--- OUTSIDE RECORDS SUMMARY | 2017-03-12 13:59 | External Medical Summary Rpt | CCD ---
Author Author , HARLEY Organization HARLEY Address Unknown Phone [email or web address] Immunization Name Date Rout CVX Reac Dose Comm Prov Is Faci e tion ent ider Refu lity Give sed n Td 08-3 113 999 Hist H149 No H149 (mika 0-20 oric lt), 05 al Info P-Fr rmat ee ion - Sour ce Unsp ecif ied
--- OUTSIDE RECORDS SUMMARY | 2017-03-12 13:59 | External Medical Summary Rpt | CCD ---
Author Author , HARLEY Organization HARLEY Address Unknown Phone [email or web address] Immunization Name Date Rout CVX Reac Dose Comm Prov Is Faci e tion ent ider Refu lity Give sed n Td 08-3 113 999 Hist H149 No H149 (mika 0-20 oric lt), 05 al Info P-Fr rmat ee ion - Sour ce Unsp ecif ied
--- NOTE | 2017-03-12 14:01 | RADIOLOGY REPORT PS360 ---
[id number] VIEWS HISTORY: Right-sided chest/rib pain following injury FELL INTO CABINET ORDERING PHYSICIAN: GARTH JENNINGS APRN PATIENT AGE: 61 years COMPARISON: 03/12/2025 or FINDINGS: A frontal view of the chest shows no acute finding. There is some increased density right apex which may be due to scarring. Multiple views of the right ribs were obtained. No acute fracture or dislocation. No lytic or blastic change. There are old fractures of the left fourth, fifth, and sixth ribs IMPRESSION: Negative RIBS. If pain persists, consider follow-up exam in 7-[address] with 3-D reformats.
[2017-03-12] MEDS ORDERED: PERCOGESIC EXTR1 TAB PO (14:22)
--- NOTE | 2017-03-12 14:23 | Urgent Treatment Center Report ---
History of Present Issue Date/Time Seen by Provider 03/12/17 1409 Visit Reason Pt arrived:Wheelchair Presenting Problem:PT C/O OF HAVING FALLING INTO THE TUB AND HIT HER RIGHT RIBS ON THE DRESSER AND IS COMPLAINING OF PAIN Location if Accident:Home Onset of symptoms date/time:03/12/17 or onset unknown for: Have you (or family members/close friends) recently traveled outside the [place]? N If Yes, where/when: Have you had exposure to infectious disease within the past month? TB? Other? Specify: Patient state that she was getting in the bathtub at home when she slipped and fell and landed on the side of the tub with the right rib area. State that she thinks she may have broken some ribs and is having pain in the area. State that it hurts when she moves and she came in to get xray and get checked out ALLERGIES Coded Allergies: codeine (Intermediate, I-HIVES 06/09/15) dexamethasone (Intermediate, I-ITCHING, RASH 06/09/15) sulfamethoxazole (From Janra) (Intermediate, I-HIVES 06/09/15) trimethoprim (From Janra) (Intermediate, I-HIVES 06/09/15) ibuprofen (VOMITING 06/11/15) hydrocodone (Severe, RECTAL BLEEDING 06/09/15) Home Medications Active Scripts Dicyclomine Hcl (Bentyl 10MG) 10 MG PO Q6HP PRN abdominal cramping #20 CAP Prov: 06/09/15 Reported Medications Levothyroxine Sodium (Levothyroxine) 0.05 MG PO DAILY BUPROPION HCL (Bupropion XL) 450 MG PO DAILY Fluoxetine Hcl (Fluoxetine) 60 MG PO DAILY Aspirin 81 MG PO DAILY Trazodone Hcl (Trazodone HCl) 200 MG PO QHS MULTIVITAMIN (One Daily Multivitamin) 1 TAB PO DAILY Gabapentin (Neurontin) 800 MG PO TID Lovastatin 20 MG PO DAILY Omeprazole (Prilosec 40mg Cap) 40 MG PO DAILY Device (Oxygen (Concentrator)) 1 UNIT XX UD #1 LISINOPRIL (Lisinopril) 20 MG PO BID Cyclobenzaprine Hcl (Cyclobenzaprine 10MG) 10 MG PO BID FLUTICASONE/VILANTEROL (Breo Ellipta 100-25 Mcg INH) 1 POW IH DAILY ALBUTEROL (Ventolin Hfa) 1 PUFF IH Q6H6 History Medical History General CAD? No Angina: No PR: No Hypertension? Yes Hyperlipidemia? Yes CHF? No DVT? Yes PE? No COPD? Yes Asthma? Yes Anemia? Yes GERD? Yes Gastric ulcers? No GI Bleed? No Hernia? No Thyroid Problems? Yes Hypothyroidism? No CVA? No Seizures? No Diabetes? No Renal Insuffiency? No UTI? No Stones? No GB Disease: No Nephritic Syndrome? No Asplenia? No Hepatitis? No Sickle Cell Disease? No Arthritis? Yes Migraines? Yes Cataracts? No Glaucoma? No MRSA? No HIV? No TB? No Anxiety? No Depression? No Cancer? Yes Site: RECTAL More? No Immunization HX DT/Tetanus [id number] Flu FSN Pneumonia Received In Past Surgical Hx Previous Surgery?Y GALLBLADDER REMOVED HEMMRHOIDECTOMY RECTAL CANCER BLOOD CLOT BACK SURGERY DEVICE SURGERY TO REMOVE BLOOD CLOT FROM L HIP TO L KNEE RECTAL SURG FOR CANCER HYSTERECTOMY HEMMROHIDECTOMY X4 TOTAL Family History Family HX Diabetes No CAD Yes Hypertension Yes Hyperlipidemia No Cancer Yes TB Yes Social History Smoking Hx Smoker: Current Every Day Smoker Tobacco: Yes Type Cigarettes Packs/day < 1 Pack Alcohol Alcohol: Yes Review of Systems All Other Systems Reviewed and Negative Comment Right side Rib pain after falling and landing on her right ribs on the bath tub as she was trying to get in the tub Physical Exam Vital Signs Vital Signs Date Time Temp Pulse Resp B/P Pulse O2 O2 Flow FiO2 Ox Delivery Rate 03/12 1356 98.2 75 20 149/90 94 General Appearance normal appearance, Holding ribs, complaining of pain Respiratory Status Yes: trachea midline, chest symmetrical. No: respiratory distress. Lung Sounds bilateral: normal breath sounds. Cardiovascular normal exam, regular rate/rhythm Neurologic alert, normal exam, oriented x 3 Comments Right rib area no bruising noted at this time, Pateint unsure of where exactly she landed on the tub state that all the ribs on right side hurtpatient state that it hurts when rib area touched. Sitting in wheel chair talking with family and then periodically will complain that pain "strikes" Medical Decision Making LABS/Meds/Orders Pt receiving controlled substance in ED? No Results/Orders Current Medication Orders Sig/Sampson Start time Last Medication Dose Route Stop Time Status Admin Acetaminophen 650 MG ONCE ONE 03/12 141 DC 03/12 PO 03/12 141 1414 Acetaminophen 0 .STK-MED ONE 03/12 1413 DC PO XRAY/CT/US XRAY/CT/US XRAY rib XR interpretation by discussed w/radiologist Xray Results no fracture seen Progress [facility] Progress Notes Comment Patient advised that she is allergic to Ibuprofen Paitent advised that Toradol is in the same family as Ibuprofen offered to send wil to ER for evaluation to see if patient may recieve something stronger for pain Patient advised that she did not want to go to the ER she would call family doctor when she is discharged Departure Departure Time of Disposition 1414 Disposition DC Home or Self Care(routine) Clinical Impression Primary Impression: Rib injury Condition STABLE Referrals Marco MENSAH,Orlando Justice (Family): 2 Days-Call Office If pain persists or worsenes Patient Instructions DI for Rib Contusion Additional Instructions Use ice/heat compresses on the area 20 minutes every 2 hours Take medication as prescribed Follow up with family doctor if pain persists If you began to have any trouble breathing go straight to the ER REturn if needed Discharge Counseling Counseled pt/family regarding diagnosis, test results, medications/RX, home care, follow up needs Prescriptions Current Visit Scripts ACETAMINOPHEN/DIPHENHYDRAMINE (Percogesic Extra Str Caplet) 1 TAB PO Q6HP PRN pain #12 TAB at 1422
[2017-03-12 14:26] VITALS: BP 149/90
== END 2017-03-12 14:27 | disposition home or self-care (01) ==
LOC: ER 13:26 → UTC 13:34 → ER 13:34 → UTC 14:27
DX: S29.8XXA Other specified injuries of thorax, initial encounter (principal); W18.2XXA Fall in (into) shower or empty bathtub, initial encounter; Y93.E1 Activity, personal bathing and showering; Y92.002 Bathroom of unspecified non-institutional (private) residence as the place of occurrence of the external cause; I10 Essential (primary) hypertension; E78.5 Hyperlipidemia, unspecified; Z86.718 Personal history of other venous thrombosis and embolism; J44.9 Chronic obstructive pulmonary disease, unspecified; K21.9 Gastro-esophageal reflux disease without esophagitis; Z85.048 Personal history of other malignant neoplasm of rectum, rectosigmoid junction, and anus; F17.210 Nicotine dependence, cigarettes, uncomplicated; Z79.82 Long term (current) use of aspirin; Z99.81 Dependence on supplemental oxygen; Z79.51 Long term (current) use of inhaled steroids; Z79.899 Other long term (current) drug therapy

== ENCOUNTER → 2017-03-13 | Outpatient (CLI) | payer MEDICARE, MEDICAID ==
[~2017-03-13] MED LIST changes: +PERCOGESIC EXTR1 TAB PO
--- NOTE | 2017-03-13 15:23 | RADIOLOGY REPORT PS360 ---
CT CHEST W/O CONTRAST HISTORY: RT RIB PAIN DUE TO FALL IN TUB ORDERING PHYSICIAN: Orlando Lara MD PATIENT AGE: 61 years TECHNIQUE: Helical acquisition obtained without contrast.. Axial, sagittal, coronal and 3-D reformatted images are generated and reviewed. COMPARISON: Radiograph of 03/12/[address] scan of 01/09/2015 FINDINGS: No mediastinal or hilar mass or adenopathy is evident. There is mild thickening of the superior pericardial recess nonspecific and unchanged. Coronary artery calcifications are present. There is very minimal thickening of the anterior pericardium somewhat less so than when compared to the previous exam. Mild fibrotic changes in the lung apices along with mild centrilobular emphysematous changes. Parenchymal opacity is present in the right upper lobe inferiorly along the minor fissure. This area measures approximately 12 mm and could be related to an area of postinflammatory fibrosis or small area of infiltrate. Mild atelectatic or fibrotic changes are present lateral to this region. A developing pulmonary nodule cannot totally be excluded and follow-up exam is recommended. This was not present on 01/09/2015. There are some mild atelectatic or fibrotic changes within the lingula. Stable Bochdalek hernia noted on the right posteriorly containing fat. No rib fractures are apparent. There is moderate chronic wedging T12 with mild kyphosis unchanged. Upper abdominal images are unremarkable aside from the Bochdalek hernia. IMPRESSION: 1. No acute finding. No acute rib fractures evident. 2. New area of parenchymal opacification in the right upper lobe inferiorly. While this could be due to an area of postinflammatory fibrosis, one cannot exclude the possibility of a developing nodule with post obstructive changes. Therefore, short-term CT follow-up suggested in 3 months. 3. Coronary artery disease. 4. No change Bochdalek hernia on the right
== END ==
LOC: RAD 14:24
DX: R07.81 Pleurodynia (principal)

== ENCOUNTER 2017-05-04 21:05 | Emergency (ER) | payer MEDICARE, MEDICAID ==
[~2017-05-04] VITALS: Ht 162.6 cm; Wt 81.6 kg
[~2017-05-04 21:05] MED LIST changes: +ALENDRONATE SOD70 M1 PO; +FLONASE 50 MCG16 GM; -FLUOXETINE40 MG PO
--- OUTSIDE RECORDS SUMMARY | 2017-05-04 21:22 | External Medical Summary Rpt | CCD ---
Author Author , HARLEY SOUZA Address Unknown Phone [email or web address] Care Team Providers Care Research Analyst Name Role Phone HANNA STOUT, Unavailable Unavailable HANNA Meadows MD, Unavailable Unavailable Camron Meadows MD Purpose Continuity of Care Document - 08-04-2012 through 2016 Problems Code Diagnosis DOS Provider Status [id number] Alcohol [place] abuse [facility] 244.9 Hypothyroid [facility] 305.1 Tobacco [place] user [facility] [id number] Acute [place] pyelonephri [facility] [id number] Major [place] depressive [facility] disorder [facility] 401.9 Essential [place] hypertensio [facility] [id number] Obesity [facility] 530.81 Gastroesoph [place] ageal [facility] reflux Hospital disease 794.4 Abnormal [place] renal [facility] function Hospital 977.9 Drug [place] overdose - [facility] suicide [facility] I10 [facility] N12 TUBULO-INTE RSTITIAL NEPHRITIS, NOT SPCF ACUTE OR CHRONIC N13.30 UNSPECIFIED HYDRONEPHRO SIS R10.9 UNSPECIFIED ABDOMINAL PAIN S40.019A CONTUSION OF UNSPECIFIED SHOULDER, INITIAL ENCOUNTER S50.10XA CONTUSION OF UNSPECIFIED FOREARM, INITIAL ENCOUNTER T88.59XA OTHER COMPLICATIO NS OF ANESTHESIA, INITIAL ENCOUNTER Z12.31 ENCNTR SCREEN MAMMOGRAM FOR MALIGNANT NEOPLASM OF BREAST Z79.899 OTHER RESIDENTIAL (CURRENT) DRUG THERAPY Allergies, Adverse Reactions, Alerts Type Drug Allergy Adverse Reaction to Substance Substance Reaction Severity Codeine I-HIVES Intermediate Trimethoprim I-HIVES Intermediate Sulfamethoxazole I-HIVES Intermediate Medications Na ND Rx Da Fi Fi [...] SI 18 -1 NO 00 4- Lo AL 51 20 ng IL 80 13 er [...] SI 18 -1 NO 00 4- Lo AL 51 20 ng IL 80 13 er [...] Ac MG ti /M ve L AL AL 00 03 3 No OM 64 -1 [...] Order Detail nces retati t Range on Basic metabolic panel (05-03-2017 05:50) Serum -10-2 = 136 136-145 complet sodium 017 mmoL/L ed measure 05:50 ment Serum 2 = 3.6 3.5-5.1 complet potassi 017 mmoL/L ed um 05:50 measure ment Serum = 80 74-106 complet or 017 mg/dL ed plasma 05:50 glucose measure ment (mas Estimat = 86 59- complet ed 017 ML/MIN ed glomeru 05:50 lar filtrat ion rate (GF Comment: REFERENCE RANGE: >60 ML/MIN/1.73 SQUARE METERS Comment: If this patient is -[place], then multiply the Comment: result by 1.210. Estimat 2 = 106 50-200 complet ion of 017 ML/MIN ed creatin 05:50 ine renal clearan ce Serum = 0.7 0.55-1. complet or 017 mg/dL 02 ed plasma 05:50 creatin ine measure ment ( Carbon 2 = 29 21.0-32 complet dioxide 017 mmoL/L .0 ed 05:50 measure ment Serum 2 = 105 98-107 complet or 017 mmoL/L ed plasma 05:50 chlorid e measure ment (mo Serum 2 = 7.7 8.5-10. complet or 017 mg/dL 1 ed plasma 05:50 calcium measure ment (mas Serum 2 = 3 7-18 complet or 017 mg/dL ed plasma 05:50 urea nitroge n measure men CBC w auto diff (05-03-2017 05:50) Blood --2 = 4.9 4.8-10. complet leukocy 017 K/MM3 8 ed ifrah 05:50 count (number /volume ) Automat = 14.5 11.5-17 complet ed 017 % .5 ed erythro 05:50 cyte distrib ution width Red = 4.02 4.2-5.4 complet blood 017 M/mm3 ed cell 05:50 count Blood = 227 142-424 complet platele 017 K/mm3 ed t count 05:50 Automat = 7.5 7.4-10. complet ed 017 fl 4 ed blood 05:50 platele t mean volume melani Collin % = 11.9 1.7-9.3 complet 017 % ed 05:50 Absolut = 0.6 0.1-1.0 complet e 017 K/mm3 ed monocyt 05:50 e count Automat = 97.4 82.2-97 complet ed 017 fl .8 ed erythro 05:50 cyte mean corpusc ular v Automat = 32.1 31.8-35 complet ed 017 g/dl .4 ed erythro 05:50 cyte mean corpusc ular h Mean = 31.3 27-31.2 complet corpusc 017 pg ed ular 05:50 hemoglo bin (MCH) determ Lymphoc = 24.0 10-50.0 complet yte 017 % ed count, 05:50 blood, automat ed Absolut = 1.2 0.7-4.5 complet e 017 K/mm3 ed lymphoc 05:50 yte count Blood = 12.6 12.2-16 complet hemoglo 017 g/dL .2 ed bin 05:50 measure ment (mass/v olum Blood = 39.2 37.0-47 complet hematoc 017 % .0 ed rit 05:50 (volume fractio n) Granulo = 59.0 37.0-80 complet cyte 017 % .0 ed percent 05:50 age Blood = 2.9 1.8-7.8 complet granulo 017 K/mm3 ed cytes 05:50 automat ed count (numb Automat = 4.3 % 0.1-12. complet ed 017 0 ed blood 05:50 eosinop hils/10 0 leukocy t Automat = 0.2 0.0-0.4 complet ed 017 K/mm3 ed blood 05:50 eosinop hil count Baso % = 0.8 % 0.1-2.0 complet 017 ed 05:50 Automat = 0.0 0-0.2 complet ed 017 K/MM3 ed blood 05:50 basophi l count (count/ vo Urinalysis with microscopy (05-02-2017 20:59) Comment: Collected by nurse? Y Comment: Hold specimen in OE? N Urine 3 - 5 O complet leukocy 017 wbc/hpf ed ifrah 20:59 count (number /volume ) Urine 4.0 4.0 NEG complet urobili 017 L ed nogen 20:59 E.U./dL detecti on by test str Squamou 3-5 3-5 0-5 complet s 017 L ed epithel 20:59 #/hpf ial cells detecti on in u Urine < = 1.005-1 complet specifi 017 1.005 .030 ed c 20:59 gravity measure ment Urine = NEG complet protein 017 NEGATIV ed 20:59 E mg/dL measure ment by automat ed t Urine = 6.5 5.0-8.5 complet pH 017 ed 20:59 Urine NEGATIV NEG complet nitrite 017 E ed 20:59 NEGATIV detecti E L on by test strip Mucus NEGATIV NEG complet detecti 017 E ed on in 20:59 NEGATIV urine E L sedimen t by lig Urine NEGATIV NEG complet ketones 017 E ed 20:59 NEGATIV detecti E L on by mg/dL automat ed ifrah Glucose = NEG complet ur 017 NEGATIV ed test 20:59 E strip Urine YELLOW YELLOW complet color 017 YELLOW ed 20:59 L Urine NEGATIV NEG complet blood 017 E ed detecti 20:59 NEGATIV on E L Urine NEGATIV NEG complet total 017 E ed bilirub 20:59 NEGATIV in E L detecti on by test Urine CLEAR CLEAR complet appeara 017 CLEAR L ed nce 20:59 determi [facility] DIARRHEA PANEL,PCR (05-02-2017 20:35) Vibrio NOT NOT complet cholera 017 DETECTE DETECTE ed e DNA 20:35 D NOT detecti DETECTE on by D L probe a Escheri NOT NOT complet julia 017 DETECTE DETECTE ed coli 20:35 D NOT shiga-l DETECTE jacqueline D L toxin STX1 a Caliciv NOT NOT complet irus ID 017 DETECTE DETECTE ed 20:35 D NOT DETECTE D L Salmone NOT NOT complet lla 017 DETECTE DETECTE ed species 20:35 D NOT DNA DETECTE detecti D L on by prob Rotavir NOT NOT complet us RNA 017 DETECTE DETECTE ed detecti 20:35 D NOT on by DETECTE probe D L and tar Stool NOT NOT complet Plesiom 017 DETECTE DETECTE ed onas 20:35 D NOT shigell DETECTE oides D L DNA detec Stool NOT NOT complet norovir 017 DETECTE DETECTE ed us 20:35 D NOT assay DETECTE D L Stool NOT NOT complet Giardia 017 DETECTE DETECTE ed 20:35 D NOT lamblia DETECTE D L antigen detecti on Entamoe NOT NOT complet ba 017 DETECTE DETECTE ed histoly 20:35 D NOT loreta DETECTE detecti D L on Escheri NOT NOT complet julia 017 DETECTE DETECTE ed coli 20:35 D NOT O157 DETECTE stool D L culture Escheri NOT NOT complet julia 017 DETECTE DETECTE ed coli 20:35 D NOT Shiga-l DETECTE jacqueline D L toxin 1 assa Escheri NOT NOT complet julia 017 DETECTE DETECTE ed coli 20:35 D NOT detecti DETECTE on D L E coli NOT NOT complet detecti 017 DETECTE DETECTE ed on 20:35 D NOT DETECTE D L Cyclosp NOT NOT complet ora 017 DETECTE DETECTE ed cayetan 20:35 D NOT esis DETECTE detecti D L on Cryptos NOT NOT complet poridiu 017 DETECTE DETECTE ed m ag 20:35 D NOT detecti DETECTE on D L Stool NOT NOT complet Clostri 017 DETECTE DETECTE ed dium 20:35 D NOT diffici DETECTE le A D L and B toxi Campylo NOT NOT complet bacter 017 DETECTE DETECTE ed antibod 20:35 D NOT y assay DETECTE D L Astrovi NOT NOT complet gina 017 DETECTE DETECTE ed detecti 20:35 D NOT on DETECTE D L Aeromon NOT NOT complet as 017 DETECTE DETECTE ed salmoni 20:35 D NOT esperanza DETECTE detecti D L on Stool NOT NOT complet adenovi 017 DETECTE DETECTE ed gina 40 20:35 D NOT and 41 DETECTE antigen D L assay Stool NOT NOT complet Vibrio 017 DETECTE DETECTE ed species 20:35 D NOT DETECTE identif D L ication by o Vibrio NOT NOT complet species 017 DETECTE DETECTE ed 20:35 D NOT nucleic DETECTE acid D L assay by PCR Antibiotic sensitivity studies (05-02-2017 06:41) Piperac <= 4 complet illin/t 017 ug/ml ed azobact 06:41 am suscept ibility test by minimum inhibit ory concent ration Tobramy <= 1 complet nava 017 ug/ml ed suscept 06:41 ibility test by minimum inhibit ory concent ration Trimeth <= 20 complet oprim/s 017 ug/ml ed ulfamet 06:41 hoxazol e suscept ibility test by minimum inhibit ory concent ration Ampicil = 8 complet breonna/sul 017 ug/ml ed bactam 06:41 suscept ibility test by minimum inhibit ory concent ration Levoflo <= 0.12 complet xacin 017 ug/ml ed suscept 06:41 ibility test by minimum inhibit ory concent ration Imipene <= 0.25 complet m 017 ug/ml ed suscept 06:41 ibility test by minimum inhibit ory concent ration Gentami <= 1 complet nava 017 ug/ml ed suscept 06:41 ibility test by minimum inhibit ory concent ration Nitrofu <= 16 complet rantoin 017 ug/ml ed 06:41 suscept ibility test by minimum inhibit ory concent ration Cefepim <= 1 complet e 017 ug/ml ed suscept 06:41 ibility test by minimum inhibit ory concent ration Ertapen <= 0.5 complet em 017 ug/ml ed suscept 06:41 ibility test by minimum inhibit ory concent ration Extende = ug/ml complet d 017 ed spectru 06:41 m beta lactama se (ESBL) produci ng bacteri a suscept ibility test by minimum inhibit ory Cefazol <= 4 complet in 017 ug/ml ed suscept 06:41 ibility test by minimum inhibit ory concent ration Ceftria <= 1 complet xone 017 ug/ml ed suscept 06:41 ibility test by minimum inhibit ory concent ration Ceftazi <= 1 complet dime/po 017 ug/ml ed tassium 06:41 clavula rosa suscept ibility test by minimum inhibit ory concent ration Amoxici = 4 complet llin/cl 017 ug/ml ed avulana 06:41 te suscept ibility test by minimum inhibit ory concent ration Ampicil >= 32 complet breonna 017 ug/ml ed suscept 06:41 ibility test by minimum inhibit ory concent ration Urinalysis with microscopy (05-01-2017 09:00) Comment: Collected by nurse? Y Comment: Hold specimen in OE? N Urine 5 - 10 O complet leukocy 017 wbc/hpf ed ifrah 09:00 count (number /volume ) Urine 4.0 4.0 NEG complet urobili 017 L ed nogen 09:00 E.U./dL detecti on by test str Squamou 5-10 0-5 complet s 017 5-10 L ed epithel 09:00 #/hpf ial cells detecti on in u Urine = 1.015 1.005-1 complet specifi 017 .030 ed c 09:00 gravity measure ment Urine = TRACE NEG complet protein 017 mg/dL ed 09:00 measure ment by automat ed t Urine = 7.0 5.0-8.5 complet pH 017 ed 09:00 Urine NEGATIV NEG complet nitrite 017 E ed 09:00 NEGATIV detecti E L on by test strip Mucus NEGATIV NEG complet detecti 017 E ed on in 09:00 NEGATIV urine E L sedimen t by lig Urine TRACE NEG complet ketones 017 TRACE L ed 09:00 mg/dL detecti on by automat ed ifrah Glucose = NEG complet ur 017 NEGATIV ed test 09:00 E strip Urine YELLOW YELLOW complet color 017 YELLOW ed 09:00 L Urine NEGATIV NEG complet blood 017 E ed detecti 09:00 NEGATIV on E L Urine NEGATIV NEG complet total 017 E ed bilirub 09:00 NEGATIV in E L detecti on by test Bacteri 2+ 2+ L O complet a 017 ed detecti 09:00 on in urine sedimen t by Urine CLEAR CLEAR complet appeara 017 CLEAR L ed nce 09:00 determi [facility] Basic metabolic panel (05-01-2017 06:10) Serum = 85 74-106 complet or 017 mg/dL ed plasma 06:10 glucose measure ment (mas Estimat = 102 59- complet ed 017 ML/MIN ed glomeru 06:10 lar filtrat ion rate (GF Comment: REFERENCE RANGE: >60 ML/MIN/1.73 SQUARE METERS Comment: If this patient is -[place], then multiply the Comment: result by 1.210. Estimat = 123 50-200 complet ion of 017 ML/MIN ed creatin 06:10 ine renal clearan ce Serum = 0.6 0.55-1. complet or 017 mg/dL 02 ed plasma 06:10 creatin ine measure ment ( Serum 12-08-2 = 138 136-145 complet sodium 017 mmoL/L ed measure 06:10 ment Carbon = 27 21.0-32 complet dioxide 017 mmoL/L .0 ed 06:10 measure ment Serum = 103 98-107 complet or 017 mmoL/L ed plasma 06:10 chlorid e measure ment (mo Serum = 7.6 8.5-10. complet or 017 mg/dL 1 ed plasma 06:10 calcium measure ment (mas Serum = 7 7-18 complet or 017 mg/dL ed plasma 06:10 urea nitroge n measure men Serum = 4.0 3.5-5.1 complet potassi 017 mmoL/L ed um 06:10 measure ment CBC w auto diff (05-01-2017 06:10) Automat = 0.0 0-0.2 complet ed 017 K/MM3 ed blood 06:10 basophi l count (count/ vo Blood = 8.6 4.8-10. complet leukocy 017 K/MM3 8 ed ifrah 06:10 count (number /volume ) Automat = 14.8 11.5-17 complet ed 017 % .5 ed erythro 06:10 cyte distrib ution width Red = 4.28 4.2-5.4 complet blood 017 M/mm3 ed cell 06:10 count Blood = 189 142-424 complet platele 017 K/mm3 ed t count 06:10 Automat = 8.7 7.4-10. complet ed 017 fl 4 ed blood 06:10 platele t mean volume melani Collin % = 11.6 1.7-9.3 complet 017 % ed 06:10 Absolut = 1.0 0.1-1.0 complet e 017 K/mm3 ed monocyt 06:10 e count Automat = 98.4 82.2-97 complet ed 017 fl .8 ed erythro 06:10 cyte mean corpusc ular v Automat = 32.0 31.8-35 complet ed 017 g/dl .4 ed erythro 06:10 cyte mean corpusc ular h Mean = 31.5 27-31.2 complet corpusc 017 pg ed ular 06:10 hemoglo bin (MCH) determ Lymphoc = 13.4 10-50.0 complet yte 017 % ed count, 06:10 blood, automat ed Absolut = 1.2 0.7-4.5 complet e 017 K/mm3 ed lymphoc 06:10 yte count Blood = 13.5 12.2-16 complet hemoglo 017 g/dL .2 ed bin 06:10 measure ment (mass/v olum Blood = 42.2 37.0-47 complet hematoc 017 % .0 ed rit 06:10 (volume fractio n) Granulo = 73.1 37.0-80 complet cyte 017 % .0 ed percent 06:10 age Blood = 6.3 1.8-7.8 complet granulo 017 K/mm3 ed cytes 06:10 automat ed count (numb Automat = 1.4 % 0.1-12. complet ed 017 0 ed blood 06:10 eosinop hils/10 0 leukocy t Automat = 0.1 0.0-0.4 complet ed 017 K/mm3 ed blood 06:10 eosinop hil count Baso % = 0.4 % 0.1-2.0 complet 017 ed 06:10 Influenza A and B virus antigen assay (04-30-2017 13:21) Influen NOT NOT complet za A ag 017 DETECTE DETECTD ed QL 13:21 D NOT DETECTE D L Influen NOT NOT complet za 017 DETECTE DETECTD ed virus B 13:21 D NOT DETECTE antigen D L detecti on Urine culture (04-30-2017 13:15) Urine [id number] complet culture 017 07 ed 13:15 Escheri julia coli SCT EC ESCHERI JULIA COLI L Urinalysis with microscopy (04-30-2017 13:15) Urine = TNTC O complet leukocy 017 wbc/hpf ed ifrah 13:15 count (number /volume ) Urine 1.0 1.0 NEG complet urobili 017 L ed nogen 13:15 E.U./dL detecti on by test str Squjoseou OCC OCC 0-5 complet s 017 L ed epithel 13:15 #/hpf ial cells detecti on in u Urine = 1.015 1.005-1 complet specifi 017 .030 ed c 13:15 gravity measure ment Erythro 3-5 3-5 0 complet cytes 017 L ed detecti 13:15 rbc/hpf on in urine sedimen t Urine 1 + NEG complet protein 017 mg/dL ed 13:15 measure ment by automat ed t Urine = 8.5 5.0-8.5 complet pH 017 ed 13:15 Urine NEGATIV NEG complet nitrite 017 E ed 13:15 NEGATIV detecti E L on by test strip Mucus 3+ 3+ L NEG complet detecti 017 ed on in 13:15 urine sedimen t by lig Urine NEGATIV NEG complet ketones 017 E ed 13:15 NEGATIV detecti E L on by mg/dL automat ed ifrah Glucose = NEG complet ur 017 NEGATIV ed test 13:15 E strip Urine YELLOW YELLOW complet color 017 YELLOW ed 13:15 L Urine 1+ 1+ L NEG complet blood 017 ed detecti 13:15 on Urine NEGATIV NEG complet total 017 E ed bilirub 13:15 NEGATIV in E L detecti on by test Bacteri 2+ 2+ L O complet a 017 ed detecti 13:15 on in urine sedimen t by Urine CLOUDY CLEAR complet appeara 017 CLOUDY ed nce 13:15 L determi [facility] Comprehensive metabolic panel (04-30-2017 12:41) Protein = 7.5 6.4-8.2 complet total 017 gm/dL ed ser/rey 12:41 s ALT = 17 12-78 complet (SGPT) 017 U/L ed ser/rey 12:41 s Serum = 17 15-37 complet or 017 U/L ed plasma 12:41 asparta te aminotr ansfera Serum = 132 136-145 complet sodium 017 mmoL/L ed measure 12:41 ment Serum = 3.9 3.5-5.1 complet potassi 017 mmoL/L ed um 12:41 measure ment Serum = 108 74-106 complet or 017 mg/dL ed plasma 12:41 glucose measure ment (mas Serum = 4.4 1.3-3.2 complet globuli 017 gm/dL ed n 12:41 measure ment (mass/v olume) Estimat = 73 59- complet ed 017 ML/MIN ed glomeru 12:41 lar filtrat ion rate (GF Comment: REFERENCE RANGE: >60 ML/MIN/1.73 SQUARE METERS Comment: If this patient is -[place], then multiply the Comment: result by 1.210. Estimat = 88 50-200 complet ion of 017 ML/MIN ed creatin 12:41 ine renal clearan ce Serum = 0.8 0.55-1. complet or 017 mg/dL 02 ed plasma 12:41 creatin ine measure ment ( Carbon = 27 21.0-32 complet dioxide 017 mmoL/L .0 ed 12:41 measure ment Serum = 98 98-107 complet or 017 mmoL/L ed plasma 12:41 chlorid e measure ment (mo Serum = 8.8 8.5-10. complet or 017 mg/dL 1 ed plasma 12:41 calcium measure ment (mas Serum = 8 7-18 complet or 017 mg/dL ed plasma 12:41 urea nitroge n measure men Serum = 0.6 0.2-1.0 complet or 017 mg/dL ed plasma 12:41 total bilirub in measure m Serum = 118 46-116 complet or 017 U/L ed plasma 12:41 alkalin e phospha tase melani Serum = 3.1 3.4-5.0 complet or 017 gm/dL ed plasma 12:41 albumin measure ment (mas Serum = 0.7 1.1-1.8 complet or 017 ed plasma 12:41 albumin /globul in mass ra Cardiac enzymes (04-30-2017 12:41) Serum = 1.1 0-4.0 complet or 017 U/L ed plasma 12:41 creatin e kinase MB (CK-M Serum < 0.02 0.00-0. complet or 017 ng/mL 06 ed plasma 12:41 troponi n i.cardi ac measu Serum = 46 26-192 complet or 017 U/L ed plasma 12:41 creatin e kinase measure m Serum = 0.5 0.0-3.6 complet or 017 ng/mL ed plasma 12:41 creatin e kinase MB measu CBC w auto diff (04-30-2017 12:41) Automat = 14.9 11.5-17 complet ed 017 % .5 ed erythro 12:41 cyte distrib ution width Red = 4.69 4.2-5.4 complet blood 017 M/mm3 ed cell 12:41 count Blood = 258 142-424 complet platele 017 K/mm3 ed t count 12:41 Automat = 7.0 7.4-10. complet ed 017 fl 4 ed blood 12:41 platele t mean volume melani Collin % = 4.6 % 1.7-9.3 complet 017 ed 12:41 Absolut = 0.5 0.1-1.0 complet e 017 K/mm3 ed monocyt 12:41 e count Automat = 96.3 82.2-97 complet ed 017 fl .8 ed erythro 12:41 cyte mean corpusc ular v Automat = 33.3 31.8-35 complet ed 017 g/dl .4 ed erythro 12:41 cyte mean corpusc ular h Mean = 32.1 27-31.2 complet corpusc 017 pg ed ular 12:41 hemoglo bin (MCH) determ Lymphoc = 9.0 % 10-50.0 complet yte 017 ed count, 12:41 blood, automat ed Absolut = 1.0 0.7-4.5 complet e 017 K/mm3 ed lymphoc 12:41 yte count Blood = 15.0 12.2-16 complet hemoglo 017 g/dL .2 ed bin 12:41 measure ment (mass/v olum Blood = 45.1 37.0-47 complet hematoc 017 % .0 ed rit 12:41 (volume fractio n) Granulo = 83.7 37.0-80 complet cyte 017 % .0 ed percent 12:41 age Blood = 9.5 1.8-7.8 complet granulo 017 K/mm3 ed cytes 12:41 automat ed count (numb Automat = 2.2 % 0.1-12. complet ed 017 0 ed blood 12:41 eosinop hils/10 0 leukocy t Automat = 0.3 0.0-0.4 complet ed 017 K/mm3 ed blood 12:41 eosinop hil count Baso % = 0.5 % 0.1-2.0 complet 017 ed 12:41 Automat = 0.1 0-0.2 complet ed 017 K/MM3 ed blood 12:41 basophi l count (count/ vo Blood = 11.3 4.8-10. complet leukocy 017 K/MM3 8 ed ifrah 12:41 count (number /volume ) LIVER PROFILE (03-07-2013 08:45) Prot 03-07- 5.7 6.4-8.2 complet SerPl-m 013 gm/dL ed Cnc 08:45 Albumin 03-07-2 2.5 3.4-5.0 complet 013 gm/dL ed SerPl-m 08:45 Cnc Bilirub 03-07-2 0.2 0.2-1.0 complet 013 mg/dL ed SerPl-m 08:45 Cnc Bilirub 03-07-2 0.09 0.0-0.2 complet Direct 013 mg/dL ed 08:45 SerPl-m Cnc Bilirub 03-07-2 0.11 0-0.9 complet 013 mg/dL ed Indirec 08:45 t SerPl-m Cnc AST 03-07-2 32 U/L 15-37 complet SerPl-c 013 ed Cnc 08:45 ALT 03-07- 66 U/L 30-65 complet SerPl-c 013 ed Cnc 08:45 ALP 03-07- 124 U/L 50-136 complet SerPl-c 013 ed Cnc 08:45 LDH (03-07-2013 08:45) LDH 03-07- 181 U/L 82-234 complet 013 ed 08:45 COMPREHENSIVE METABOLIC PANEL (03-07-2013 04:35) Glucose 03-07- 89 74-106 complet 013 mg/dL ed Bld-mCn 04:35 c BUN 03-07- 14 7-18 complet Bld-mCn 013 mg/dL ed c 04:35 Creat 03-07-2 1.0 0.6-1.0 complet SerPl-m 013 mg/dL ed Cnc 04:35 ESTIMAT 03-07- 66 50-200 complet ED 013 ML/MIN ed CREATIN 04:35 INE CLEARAN CE GFR 58 59- complet (ESTIMA 013 ML/MIN ed LUANN) 04:35 Sodium 03-07- 142 136-145 complet SerPl-s 013 mmoL/L ed Cnc 04:35 Potassi 03-07- 4.9 3.5-5.1 complet um 013 mmoL/L ed SerPl-s 04:35 Cnc Chlorid 03-07- 108 98-107 complet e 013 mmoL/L ed SerPl-s 04:35 Cnc CO2 03-07- 28 21.0-32 complet SerPl-s 013 mmoL/L .0 ed Cnc 04:35 Calcium 03-07-2 7.7 8.5-10. complet 013 mg/dL 1 ed SerPl-m 04:35 Cnc Prot 03-07-2 5.6 6.4-8.2 complet SerPl-m 013 gm/dL ed [...] complet SerPl-c 013 ed Cnc 04:35 ALP -14-2 118 U/L 50-136 complet SerPl-c 013 ed [...] g/dL .2 ed c 04:35 Hct Fr -14-2 36.1 % 37.0-47 complet Bld 013 .0 [...] ed - 06:45 DIPSTIC K URINE 10-13-2 NEGATIV NEG complet BILIRUB 013 E ed [...] 06:45 COMPREHENSIVE METABOLIC PANEL (03-06-2013 00:45) Glucose 03-06-2 94 74-106 complet 013 mg/dL ed Bld-mCn 00:45 c BUN 03-06-2 25 7-18 complet Bld-mCn 013 mg/dL ed c 00:45 Creat 03-06-2 1.1 0.6-1.0 complet SerPl-m 013 mg/dL ed Cnc 00:45 ESTIMAT 03-06-2 58 50-200 complet ED 013 ML/MIN ed CREATIN 00:45 INE CLEARAN CE GFR 03-06-2 52 59- complet (ESTIMA 013 ML/MIN ed LUANN) 00:45 Sodium 03-06-2 135 136-145 complet SerPl-s 013 mmoL/L ed Cnc 00:45 Potassi 2 4.2 3.5-5.1 complet um 013 mmoL/L ed SerPl-s 00:45 Cnc Chlorid 03-06-2 99 98-107 complet e 013 mmoL/L ed [...] complet SerPl-c 013 ed Cnc 00:45 ALP 10-13-2 133 U/L 50-136 complet SerPl-c 013 ed Cnc 00:45 Acetamin SerPl-mCnc (03-06-2013 00:45) Acetami 10-13-2 2.0 10-30 complet n 013 ug/mL ed SerPl-m 00:45 Cnc Ethanol Bld-mCnc (03-06-2013 00:45) Ethanol 10-13-2 159 0-99 complet 013 mg/dL ed Bld-mCn [...] 013 mmoL/L ed SerPl-s 06:00 Cnc CO2 03-15-2 24 21.0-32 complet SerPl-s 013 mmoL/L .0 ed Cnc 06:00 Calcium -15-2 8.2 8.5-10. complet 013 mg/dL 1 ed SerPl-m 06:00 Cnc CBC with AUTO DIFF (08-06-2012 06:00) WBC # 03-15-2 9.3 4.8-10. complet Bld 013 K/MM3 8 ed Auto 06:00 RBC # 03-15-2 3.71 4.2-5.4 complet Bld 013 M/mm3 ed Auto 06:00 Hgb -15-2 11.3 12.2-16 complet Bld-mCn 013 g/dL .2 ed c 06:00 Hct Fr 08-06-2 34.8 % 37.0-47 complet Bld 013 .0 ed 06:00 MCV RBC 15-2 93.9 fl 82.2-97 complet 013 .8 ed 06:00 MCH RBC 08-06-2 30.6 pg 27-31.2 complet Qn 013 ed Auto 06:00 MEAN 15-2 32.5 31.8-35 complet CORPUSC 013 g/dl .4 ed ULAR 06:00 HGB CONC RDW RBC 15-2 14.1 % 11.5-17 complet Auto 013 .5 ed 06:00 Platele -15-2 255 142-424 complet t Bld 013 K/mm3 [...] 013 0 ed Bld 06:00 Auto Basophi -15-2 0.1 % 0.1-2.0 complet ls Fr 013 ed Bld 06:00 Auto Granulo -15-2 7.3 1.8-7.8 complet cytes # 013 K/mm3 ed Bld 06:00 Auto Lymphoc 08-06-2 0.9 0.7-4.5 complet ytes Fr 013 K/mm3 ed Bld 06:00 Auto Monocyt 08-06-2 1.0 0.1-1.0 complet es # 013 K/mm3 ed Bld 06:00 Auto Eosinop 15-2 0.2 0.0-0.4 complet hil # 013 K/mm3 ed Bld 06:00 Auto Basophi 15-2 0.0 0-0.2 complet ls # 013 K/MM3 ed Bld 06:00 Auto BASIC METABOLIC PANEL (08-05-2012 06:10) Glucose 97 74-106 complet 013 mg/dL ed Bld-mCn 06:10 c BUN 08-05-2 20 7-18 complet Bld-mCn 013 mg/dL ed c 06:10 Creat 08-05- 1.4 0.6-1.0 complet SerPl-m 013 mg/dL ed Cnc 06:10 ESTIMAT 08-05-2 46 50-200 complet ED 013 ML/MIN ed CREATIN 06:10 INE CLEARAN CE GFR 08-05- 39 59- complet (ESTIMA 013 ML/MIN ed LUANN) 06:10 Sodium 08-05- 133 136-145 complet SerPl-s 013 mmoL/L ed Cnc 06:10 Potassi 3.7 3.5-5.1 complet um 013 mmoL/L ed [...] Bld 013 M/mm3 ed Auto 06:10 Hgb 03-14-2 12.0 12.2-16 complet Bld-mCn 013 g/dL .2 ed c 06:10 Hct Fr 14-2 35.6 % 37.0-47 complet Bld 013 .0 ed 06:10 MCV RBC -14-2 94.3 fl 82.2-97 complet 013 .8 ed 06:10 MCH RBC 14-2 31.7 pg 27-31.2 complet Qn 013 ed Auto 06:10 MEAN 14-2 33.6 31.8-35 complet CORPUSC 013 g/dl .4 ed ULAR 06:10 HGB CONC RDW RBC 14-2 14.1 % 11.5-17 complet Auto 013 .5 ed 06:10 Platele -14-2 247 142-424 complet t Bld 013 K/mm3 ed Ql 06:10 Manual MEAN 14-2 7.3 fl 7.4-10. complet PLATELE 013 4 ed T 06:10 VOLUME Granulo -14-2 88.4 % 37.0-80 complet cytes 013 .0 ed Fr Bld 06:10 Auto LYMPH % 03-14-2 4.2 % 10-50.0 complet 013 ed 06:10 Monocyt -14-2 6.9 % 1.7-9.3 complet es Fr 013 ed Bld 06:10 Auto Eosinop 03-14-2 0.4 % 0.1-12. complet hil Fr 013 0 ed Bld 06:10 Auto Basophi 03-14-2 0.1 % 0.1-2.0 complet ls Fr 013 ed Bld 06:10 Auto Granulo 03-14-2 14.1 1.8-7.8 complet cytes # 013 K/mm3 ed Bld 06:10 Auto Lymphoc 03-14-2 0.7 0.7-4.5 complet ytes Fr 013 K/mm3 ed Bld 06:10 Auto Monocyt 03-14-2 1.1 0.1-1.0 complet es # 013 K/mm3 ed Bld 06:10 Auto Eosinop 03-14-2 0.1 0.0-0.4 complet hil # 013 K/mm3 ed Bld 06:10 Auto Basophi 03-14-2 0.0 0-0.2 complet ls # 013 K/MM3 ed Bld 06:10 Auto URINALYSIS/COMPLETE (08-04-2012 13:05) URINE YELLOW YELLOW complet COLOR 013 ed 13:05 URINE 08-04- CLEAR CLEAR complet APPEARA 013 ed NCE 13:05 URINE 2 NEGATIV NEG complet GLUCOSE 013 E ed [...] mg/dL ed - 13:05 DIPSTIC K URINE 2 0.2 NEG complet UROBILI 013 E.U./dL ed [...] Cnc 12:00 Amylase SerPl-cCnc (08-04-2012 12:00) Amylase 11 U/L 25-115 complet 013 ed SerPl-c [...] Bld 013 .0 ed 12:00 MCV RBC 93.5 fl 82.2-97 complet 013 .8 ed 12:00 MCH RBC 31.4 pg 27-31.2 complet Qn 013 ed Auto 12:00 MEAN 33.5 31.8-35 complet CORPUSC 013 g/dl .4 ed ULAR 12:00 HGB CONC RDW RBC 14.6 % 11.5-17 complet Auto 013 .5 ed 12:00 Platele 305 142-424 complet t Bld 013 K/mm3 ed Ql 12:00 Manual MEAN 6.7 fl 7.4-10. complet PLATELE 013 4 ed T 12:00 VOLUME Granulo 90.7 % 37.0-80 complet cytes 013 .0 ed Fr Bld 12:00 Auto LYMPH % 08-04-2 3.6 % 10-50.0 complet 013 ed 12:00 Monocyt 08-04-2 4.2 % 1.7-9.3 complet es Fr 013 ed Bld 12:00 Auto Eosinop 08-04-2 1.5 % 0.1-12. complet hil Fr 013 0 ed Bld 12:00 Auto Basophi 08-04-2 0.1 % 0.1-2.0 complet ls Fr 013 ed Bld 12:00 Auto Granulo 08-04-2 21.5 1.8-7.8 complet cytes # 013 K/mm3 ed Bld 12:00 Auto Lymphoc 08-04-2 0.8 0.7-4.5 complet ytes Fr 013 K/mm3 ed Bld 12:00 Auto Monocyt 08-04-2 1.0 0.1-1.0 complet es # 013 K/mm3 ed Bld 12:00 Auto Eosinop 0.4 0.0-0.4 complet hil # 013 K/mm3 ed Bld 12:00 Auto Basophi 0.0 0-0.2 complet ls # 013 K/MM3 ed Bld 12:00 Auto Encounters Encounter Start End Date Code Location Performer Type Date Inpatient ADOLFO STOUT ([place]) 3 00:35 3 18:03 [facility] Inpatient ADOLFO Meadows MD ([place]) 3 11:34 3 12:50 [facility]
--- OUTSIDE RECORDS SUMMARY | 2017-05-04 21:22 | External Medical Summary Rpt | CCD ---
Author Author , HARLEY SOUZA Address Unknown Phone [email or web address] Care [email or web address] Providers Care Director [employer] Name Role Phone HANNA STOUT, Unavailable Unavailable HANNA Meadows MD, Unavailable Unavailable Camron Meadows MD Purpose Continuity of Care Document - 08-04-2012 through 2016 Problems Code Diagnosis DOS Provider Status 45862358 Alcohol [place] abuse [facility] 244.9 Hypothyroid [facility] 305.1 Tobacco [place] user [facility] [id number] Acute [place] pyelonephri [facility] [id number] Major [place] depressive [facility] disorder [facility] 401.9 Essential [place] hypertensio [facility] [id number] Obesity [facility] 530.81 Gastroesoph [place] ageal [facility] reflux Hospital disease 794.4 Abnormal [place] renal [facility] function Hospital 977.9 Drug [place] overdose - [facility] suicide [facility] I10 [facility]SS[facility]PR[facility]12 TUBULO-INTE RSTITIAL NEPHRITIS, NOT SPCF ACUTE OR CHRONIC N13.30 UNSPECIFIED HYDRONEPHRO SIS R10.9 UNSPECIFIED ABDOMINAL PAIN S40.019A CONTUSION OF UNSPECIFIED SHOULDER, INITIAL ENCOUNTER S50.10XA CONTUSION OF UNSPECIFIED FOREARM, INITIAL ENCOUNTER T88.59XA OTHER COMPLICATIO NS OF ANESTHESIA, INITIAL ENCOUNTER Z12.31 ENCNTR SCREEN MAMMOGRAM FOR MALIGNANT NEOPLASM OF BREAST Z79.899 OTHER FDC (CURRENT) DRUG THERAPY Allergies, Adverse Reactions, Alerts [...] SI 18 -1 NO 00 4- Lo ND 51 20 ng IL 80 13 er [...] SI 18 -1 NO 00 4- Lo ND 51 20 ng IL 80 13 er [...] Ac MG ti /M ve L AL ND 00 03 3 No OM 64 -1 [...] SQUARE METERS Comment: If this patient is -Portuguese, then multiply the Comment: result by 1.210. [...] blood 05:50 platele t mean volume melani Nolan % = 11.9 1.7-9.3 complet 017 % [...] 017 CLEAR L ed nce 20:59 determi [facility] DIARRHEA PANEL,PCR (05-02-2017 20:35) Vibrio NOT NOT [...] 017 CLEAR L ed nce 09:00 determi [facility] Basic metabolic panel (05-01-2017 06:10) Serum = 85 74-106 complet or 017 mg/dL ed plasma 06:10 glucose measure ment (mas Estimat = 102 59- complet ed 017 ML/MIN ed glomeru 06:10 lar filtrat ion rate (GF Comment: REFERENCE RANGE: >60 ML/MIN/1.73 SQUARE METERS Comment: If this patient is -Portuguese, then multiply the Comment: result by 1.210. [...] blood 06:10 platele t mean volume melani Nolan % = 11.6 1.7-9.3 complet 017 % [...] detecti on Urine culture (04-30-2017 13:15) Urine [id number] complet culture 017 07 ed 13:15 Escheri [...] 017 CLOUDY ed nce 13:15 L determi [facility] Comprehensive metabolic panel (04-30-2017 12:41) Protein = [...] SQUARE METERS Comment: If this patient is -Portuguese, then multiply the Comment: result by 1.210. [...] blood 12:41 platele t mean volume melani Nolan % = 4.6 % 1.7-9.3 complet 017 [...] ADOLFO STOUT (IN) 3 00:35 3 18:03 [facility] Inpatient ADOLFO Meadows MD ([place]) 3 11:34 3 12:50 [facility]
--- OUTSIDE RECORDS SUMMARY | 2017-05-04 21:24 | External Medical Summary Rpt | CCD ---
Demographics Preferred Language Kiswahili Marital Status Unknown Nondenominational Affiliation Unknown Race Unknown Ethnic Group Unknown Author Author , HARLEY SOUZA Address Unknown Phone Immunization No patient found.
--- OUTSIDE RECORDS SUMMARY | 2017-05-04 21:24 | External Medical Summary Rpt | CCD ---
Demographics Preferred Language Danish Marital Status Unknown Rastafari Affiliation Unknown Race Unknown Ethnic Group Unknown Author Author , HARLEY SOUZA Address Unknown Phone Immunization No patient found.
--- OUTSIDE RECORDS SUMMARY | 2017-05-04 21:24 | External Medical Summary Rpt | CCD ---
Demographics Preferred Language Bahamian Marital Status Unknown Judaism Affiliation Unknown Race Unknown Ethnic Group Unknown Author Author HARLEY Address Unknown Phone [email or web address] Purpose Continuity of Care Document - through 2016
--- OUTSIDE RECORDS SUMMARY | 2017-05-04 21:24 | External Medical Summary Rpt | CCD ---
Demographics Preferred Language Northern Irish Marital Status Unknown Latter Day Affiliation Unknown Race Unknown Ethnic Group Unknown Author Author HARLEY Address Unknown Phone [email or web address] Purpose Continuity of Care Document - through 2016
[2017-05-04 21:51] LABS: LYMPH # 0.8 K/mm3 (0.7-4.5); LYMPH % 13.1 % (10-50.0)
--- NOTE | 2017-05-04 22:02 | Emergency Room Report ---
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 Y Clinical Suspician of Infection? N Mental Status: 2 - Mildly Altered Sepsis Risk:Low Sepsis Risk Have you (or family members/close friends) recently traveled outside the [place]? N If Yes, where/when: Have you had exposure to infectious disease within the past month? N TB? Other? Specify: Source patient, RN notes reviewed, family, old records Exam Limitations clinical condition Comment pt with reported dec po intake over the last 2 days with recent admit for uti- she reported had sz today - no fever/rash or known trauma- no def hx of sz Cardiac Chest Pain Chest pain indicative of cardiac No Timing/Duration this evening Severity moderate ALLERGIES Coded Allergies: codeine (Intermediate, I-HIVES 06/09/15) dexamethasone (Intermediate, I-ITCHING, RASH 06/09/15) sulfamethoxazole (From Septra) (Intermediate, I-HIVES 06/09/15) trimethoprim (From Janra) (Intermediate, I-HIVES 06/09/15) ibuprofen (VOMITING 06/11/15) hydrocodone (Severe, RECTAL BLEEDING 06/09/15) Home Medications Active Scripts CEPHALEXIN (Keflex 500MG Capsule) 500 MG PO Q8H #21 CAP Prov: 05/03/17 Reported Medications Levothyroxine Sodium (Levothyroxine) 0.05 MG PO DAILY BUPROPION HCL (Bupropion XL) 450 MG PO DAILY Fluoxetine Hcl (Fluoxetine 20MG) 20 MG PO TID FLUTICASONE/VILANTEROL (Breo Ellipta 100-25 Mcg INH) 1 PUFF IH DAILY Aspirin 81 MG PO DAILY Fluticasone Propionate (Flonase 50 Mcg Nasal Maybell) 1 SPRAY NA BID #16 Alendronate Sodium 70 MG PO WEEKLY #4 TAB Trazodone Hcl (Trazodone HCl) 200 MG PO QHS Gabapentin (Neurontin) 800 MG PO TID Lovastatin 20 MG PO DAILY Omeprazole (Prilosec 40mg Cap) 40 MG PO DAILY Device (Oxygen (Concentrator)) 1 UNIT XX UD #1 LISINOPRIL (Lisinopril) 20 MG PO BID Cyclobenzaprine Hcl (Cyclobenzaprine 10MG) 10 MG PO BID ALBUTEROL (Ventolin Hfa) 1 PUFF IH Q6H6 History Medical History General CAD? No Angina: No [place]: No Hypertension? Yes Hyperlipidemia? Yes CHF? No DVT? Yes PE? No COPD? Yes Asthma? Yes Anemia? Yes GERD? Yes Gastric ulcers? No GI Bleed? No Hernia? No Thyroid Problems? Yes Hypothyroidism? No CVA? No Seizures? No Diabetes? No Renal Insuffiency? No End Stage Renal Disease? No UTI? No Stones? No GB Disease: No Nephritic Syndrome? No Asplenia? No Hepatitis? No Sickle Cell Disease? No Arthritis? Yes Migraines? Yes Cataracts? No Glaucoma? No MRSA? No HIV? No TB? No Anxiety? No Depression? No Cancer? Yes Site: RECTAL More? 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 Respiratory denies cough, denies shortness of breath, denies wheezing Cardiovascular denies chest pain, denies palpitations, denies syncope Gastrointestinal denies abdominal pain, denies diarrhea, denies vomiting Genitourinary denies: dysuria, frequency, hesitancy, hematuria. Musculoskeletal denies back pain, denies joint pain, denies joint swelling, denies neck pain Skin denies rash Psychiatric/Neurological see HPI, seizure Physical Exam Vital Signs Vital Signs Date Time Temp Pulse Resp B/P Pulse O2 O2 Flow FiO2 Ox Delivery Rate 05/05 0050 76 20 150/99 97 05/04 2258 70 24 149/83 97 4 05/04 2146 88 24 174/118 97 4 05/04 2109 98.3 85 20 131/110 96 - WBC >12,000 or <4,000 or 10% bands? 2 or more SIRS Criteria Met? B/P:149/83 MAP:117 Creatinine >2.0? UA output<0.5ml/kg/hr for 2 hrs? Platelet count >100,000? Lactate >2.0mmol/1? INR >1.2 or PTT > than 60 sec? Evidence of Organ Dysfunction? Provider documented clinical suspician of infection? N Sepsis Criteria Count: 1 Sepsis Risk: Low Sepsis Risk General Appearance no apparent distress Eye Exam - bilateral eye PERRL, bilateral eye EOMI Ear, Nose, Throat normal ENT inspection, no evid of tongue biting Neck supple Respiratory Status No: respiratory distress. Lung Sounds bilateral: lungs clear. 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 No Results/Orders Laboratory Tests 05/04/170: Opiates Screen POSITIVE H, Urine Methadone Screen NEGATIVE, Barbiturates NEGATIVE, Phencyclidine Screen NEGATIVE, Amphetamines Screen NEGATIVE, Benzodiazepines Screen NEGATIVE, Cocaine Screen NEGATIVE, Marijuana (THC) Screen NEGATIVE, Urine Color YELLOW, Urine Appearance CLEAR, Urine pH 6.0, Ur Specific [place] >= 1.030, Urine Protein 1+ H, Urine Ketones 3+ H, Urine Blood TRACE- INTACT, Urine Nitrate NEGATIVE, Urine Bilirubin 1+ H, Urine Urobilinogen 0.2, Ur Leukocyte Esterase NEGATIVE, Urine RBC OCC, Urine WBC 5-10, Ur Squamous Epith Cells 10-20, Urine Bacteria 1+, Hyaline Casts 3-5, WBC Casts 0-5, Urine Glucose NEGATIVE 05/04/172134: Sodium 139, Potassium 4.3, Chloride 102, Carbon Dioxide 18 L, BUN 9, Creatinine 1.0, Estimated Creat Clear 78, Estimated GFR (MDRD) 57 L, Glucose 130 H, Calcium 9.1, Total Bilirubin 0.3, AST 29, ALT 55, Alkaline Phosphatase 196 H, Total Protein 7.7, Albumin 3.3 L, Globulin 4.4 H, Albumin/Globulin Ratio 0.8 L, WBC 5.9, RBC 5.01, Hgb 15.8, Hct 47.7 H, MCV 95.2, RDW 14.3, Plt Count 326, MPV 7.8, Gran % 77.6, Gran # 4.6, Lymphocytes % 13.1, Monocytes % 6.9, Eosinophils % 1.7, Basophils % 0.6, Lymphocytes # 0.8, Monocytes # 0.4, Eosinophils # 0.1, Basophils # 0.0, PUBS MCHC 32.9, MCH 31.3 H, Salicylates 3.3 , Acetaminophen 0 L, Alcohols 0 Current Medication Orders Sig/Sampson Start time Last Medication Dose Route Stop Time Status Admin Sodium Chloride 1,000 ML .STK-MED ONE 05/04 2148 DC IV Lorazepam 0 .STK-MED ONE 05/04 2133 DC .ROUTE Sodium Chloride 10 ML PRN PRN 05/04 2115 AC IV 05/05 2114 Sodium Chloride 1,000 ML .Q1H1M 05/04 2115 DC 05/04 IV 05/04 Sodium Chloride 10 ML PRN PRN 05/04 2115 AC IV 05/05 2115 Orders Procedure Date/time Status DIET-NOTHING BY MOUTH 05/[address] HEAD W/O CONTRAST 05/[address] SCAN REQ 05/05 0000 Complete URINARY CATHETER INSERT 05/04 225 Active CULTURE, URINE 05/04 2230 Active CHEST-PORTABLE 05/04 2115 Active IV SALINE LOCK 05/04 2115 Active URINALYSIS/COMPLETE 05/04 2115 Complete SALICYLATE 05/04 2115 Complete DRUG ABUSE SCREEN (TRIAGE) 05/04 2115 Complete CBC WITH AUTO DIFF 05/04 2115 Complete CHEM 12 PROFILE 05/04 2115 Complete ALCOHOL 05/04 2115 Complete Acetaminophen 05/04 2115 Complete XRAY/CT/US XRAY/CT/US CT head CT interpretation by discussed w/radiologist Time results known: 101 CT Results normal/NAD Departure Departure Time of Disposition 101 Disposition DC Home or Self Care(routine) Clinical Impression Primary Impression: Seizure Condition STABLE Referrals Marco MENSAH,Orlando Justice (Family) Patient Instructions DI for Seizure Disorder -- Adult Additional Instructions see pcp for follow up Discharge Counseling Counseled pt/family regarding diagnosis, test results, follow up needs ED Critical Care Critical Care No at 0104
[2017-05-04 22:23] LABS: HEMOGLOBIN 15.8 g/dL (12.2-16.2)
[2017-05-04 22:31] LABS: URINE BLOOD TRACE-INTACT (NEG)
[2017-05-04 22:37] LABS: URINE BILIRUBIN - DIPSTICK 1+ (NEG)
[2017-05-04 22:51] LABS: AMPHETAMINES/METAMPHETAMINES NEGATIVE ng/mL (<1000)
[2017-05-05 01:05] VITALS: BP 150/99
--- NOTE | 2017-05-05 04:58 | RADIOLOGY REPORT PS360 ---
CHEST-PORTABLE HISTORY: Altered mental status AMS ORDERING PHYSICIAN: Juno Lara MD PATIENT AGE: 61 years COMPARISON: 04/30/2017 FINDINGS: The cardiomediastinal silhouette and pulmonary vascularity are within normal limits. There is some vascular crowding in the right lung base. No lobar consolidation or collapse.. No acute bony abnormalities. IMPRESSION: No acute finding
--- NOTE | 2017-05-05 05:43 | RADIOLOGY REPORT PS360 ---
CT HEAD W/O CONTRAST HISTORY: POSSIBLE SEIZURE ORDERING PHYSICIAN: Juno Lara MD PATIENT AGE: 61 years COMPARISON: None TECHNIQUE: Axial images obtained without contrast. Brain and bone windows reviewed. FINDINGS: No midline shift, mass effect, intracranial hemorrhage, hydrocephalus, or extra-axial fluid collection is evident. The calvarium has an unremarkable appearance. No mastoid effusion. The visualized paranasal sinuses are unremarkable. IMPRESSION: Negative CT head without contrast. No acute finding.
== END 2017-05-05 01:27 | disposition home or self-care (01) ==
LOC: ER 21:05
PROVIDERS: Emergency Medicine
DX: R56.9 Unspecified convulsions (principal); I10 Essential (primary) hypertension; E78.5 Hyperlipidemia, unspecified; J44.9 Chronic obstructive pulmonary disease, unspecified; Z86.718 Personal history of other venous thrombosis and embolism; K21.9 Gastro-esophageal reflux disease without esophagitis; E07.9 Disorder of thyroid, unspecified; Z85.048 Personal history of other malignant neoplasm of rectum, rectosigmoid junction, and anus; F17.210 Nicotine dependence, cigarettes, uncomplicated; Z79.82 Long term (current) use of aspirin; Z99.81 Dependence on supplemental oxygen; Z79.51 Long term (current) use of inhaled steroids; Z79.899 Other long term (current) drug therapy; Z88.6 Allergy status to analgesic agent; Z88.5 Allergy status to narcotic agent; Z88.8 Allergy status to other drugs, medicaments and biological substances